=== PATIENT | female | born 1960 | race Caucasian/White ===

== ENCOUNTER 2016-08-16 16:48 | Emergency (ER) | payer OTHER ==
[~2016-08-16] VITALS: Ht 157.5 cm; Wt 72.6 kg
[2016-08-16 17:14] LABS: BILIRUBIN,URINE NEGATIVE (NEGATIVE); KETONES,URINE NEGATIVE (NEGATIVE); LEUKOCYTE ESTERASE ,URINE NEGATIVE (NEGATIVE); NITRITE,URINE NEGATIVE (NEGATIVE); PH,URINE 7 (5-9); PROTEIN,URINE NEGATIVE (NEGATIVE); UROBILINOGEN,URINE NORMAL (NORMAL)
[2016-08-16] MEDS ORDERED: ONDA4TAB11 PO (17:20)
[2016-08-16] MEDS ORDERED: LEVO125T6 PO (17:20)
[2016-08-16] MEDS ORDERED: AMLO5TAB2 PO (17:20)
[2016-08-16] MEDS ORDERED: PANT40TA3 PO (17:20)
[2016-08-16] MEDS ORDERED: CITA20TA7 PO (17:20)
[2016-08-16] MEDS ORDERED: DOXA4TAB2 PO (17:20)
[2016-08-16] MEDS ORDERED: LOSA1TAB70 PO (17:20)
[2016-08-16] MEDS ORDERED: LABE200T3 PO (17:20)
[2016-08-16] MEDS ORDERED: HYDR-3924 PO (17:20)
[2016-08-16] MEDS ORDERED: RANI-515 PO (17:20)
[2016-08-16] MEDS ORDERED: POTA10TA10 PO (17:20)
[2016-08-16] MEDS ORDERED: ESOM20CA PO (17:20)
[2016-08-16 17:22] LABS: SQUAMOUS EPITHELIAL CELL,UR 0-5 /HPF; WBC,URINE 0-2 /HPF
[2016-08-16 17:34] LABS: BASOPHILS % (AUTO) 0 % (0-10); EOSINOPHILS # (AUTO) 0.2 10^3/uL (0.0-0.3); EOSINOPHILS % (AUTO) 3 % (0-10); LYMPHOCYTES # (AUTO) 2.3 X 10^3 (1.0-4.0); LYMPHOCYTES % (AUTO) 27 % (12-44); MEAN CORPUSCULAR HEMOGLOBIN 34 PG (25-34); MEAN CORPUSCULAR HGB CONC 36 G/DL (32-36); MEAN CORPUSCULAR VOLUME 92 FL (80-99); MEAN PLATELET VOLUME 8.9 FL (7.4-10.4); MONOCYTES # (AUTO) 1.1 X 10^3 (0.0-1.0); MONOCYTES % (AUTO) 13 % (0-12); NEUTROPHILS # (AUTO) 4.7 X 10^3 (1.8-7.8); NEUTROPHILS % (AUTO) 57 % (42-75); PLATELET COUNT 264 10^3/uL (130-400); RED BLOOD COUNT 3.81 10^6/uL (4.35-5.85); WHITE BLOOD COUNT 8.4 10^3/uL (4.3-11.0)
--- NOTE | 2016-08-16 17:44 | ED General ---
General Chief Complaint: Altered Mental Status Stated Complaint: AMS Nursing Triage Note: TO ROOM 06 WITH COMPLAINTS OF INCREASED CONFUSION X7-10 DAYS. PT HAS TAKEN ALL MEDS TODAY INCLUDING X2 VALIUM. PT ACTS LOST, ANXIOUS, CRYING ET CONSTANTLY LOOKS TO FOR REASSURANCE. ALERT AND ORIENTED TO NAME ONLY. Nursing Sepsis Screen: No Definite Risk Source of Information: Patient, Family Exam Limitations: No Limitations (LOAN GONZALEZ MD) History of Present Illness Time Seen by Provider: 17:39 Initial Comments The patient is a 56-year-old white female who resides in [place]. Her reports that about 10-14 days ago he began to notice a change in her mental alertness. She seemed to be just a bit off and often slow to answer. He thought that her appetite seemed less and that she perhaps slept more than usual. He states that she has a long-standing problem with frequent and severe migraines. She uses Maxalt for these. The [facility] reports shows that she receives regular prescriptions for hydrocodone 7.5 and diazepam 5 mg. At times the diazepam is treated out for alprazolam 0.5 milligrams. This has occurred at regular intervals over the past year. He reports that their daughter who resides in [place] spoken to her mother 6 or 7 days ago and also thought her to be off mentally. They arrived here yesterday. He states that this seems to be worse than before. She doesn't take her Valium on a daily basis however he believes that she is taken to today. She remains up and ambulatory and he has not noted any coordination deficits. Timing/Duration: Other (10 days) Associated Systoms: Loss of Appetite Malaise (LOAN GONZALEZ MD) Allergies and Home Medications Allergies Coded Allergies: Sulfa (Sulfonamide Antibiotics) (Verified Allergy, Unknown, 08/16/16) codeine (Verified Allergy, Unknown, 08/16/16) Home Medications Amlodipine Besylate 5 Mg Tablet 5 MG PO DAILY (Reported) Citalopram Hydrobromide 20 Mg Tablet 20 MG PO DAILY (Reported) Doxazosin Mesylate 4 Mg Tablet 4 MG PO DAILY (Reported) Esomeprazole Magnesium 20 Mg Capsule.dr 20 MG PO DAILY (Reported) Hydralazine HCl 50 Mg Tablet 50 MG PO BID (Reported) Labetalol HCl 200 Mg Tablet 200 MG PO BID (Reported) Levothyroxine Sodium 125 Mcg Tablet 125 MCG PO DAILY (Reported) Losartan/Hydrochlorothiazide 1 Each Tablet 1 EACH PO DAILY (Reported) Ondansetron 4 Mg Tab.rapdis 4 MG PO Q4H PRN PRN NAUSEA/VOMITING (Reported) Pantoprazole Sodium 40 Mg Tablet.dr 40 MG PO DAILY (Reported) Potassium Chloride 10 Meq Tablet.er 10 MEQ PO DAILY (Reported) Ranitidine HCl 150 Mg Tablet 300 MG PO HS (Reported) Constitutional: see HPI EENTM: no symptoms reported Respiratory: no symptoms reported Gastrointestinal: loss of appetite Genitourinary: no symptoms reported Musculoskeletal: no symptoms reported Skin: no symptoms reported Psychiatric/Neurological: Anxiety Headache Weakness Hematologic/Lymphatic: No Symptoms Reported Immunological/Allergic: no symptoms reported (LOAN GONZALEZ MD) Past Ufgvcxk-Oidnps-Atyimc Hx Patient Social History Alcohol Use: Occasionally Uses Recreational Drug Use: No Smoking Status: Current Everyday Smoker Recent Foreign Travel: No Contact w/Someone Who Travel: No Recent Infectious Disease Expo: No Recent Hopitalizations: No Physical Abuse Screen: No Sexual Abuse: No (LOAN GONZALEZ MD) Surgeries HX Surgeries: Yes Surgeries: Breast, Hysterectomy (LOAN GONZALEZ MD) Respiratory Hx Respiratory Disorders: No (LOAN GONZALEZ MD) Cardiovascular Hx Cardiac Disorders: Yes Cardiac Disorders: Hypertension (LOAN GONZALEZ MD) Neurological Hx Neurological Disorders: Yes Neurological Disorders: Headaches /Migraines (LOAN GONZALEZ MD) Genitourinary Hx Genitourinary Disorders: No (LOAN GONZALEZ MD) Gastrointestinal Hx Gastrointestinal Disorders: No (LOAN GONZALEZ MD) Musculoskeletal Hx Musculoskeletal Disorders: No (LOAN GONZALEZ MD) Endocrine Hx Endocrine Disorders: No (LOAN GONZALEZ MD) HEENT HX ENT Disorders: No (LOAN GONZALEZ MD) Cancer Hx Cancer: No (LOAN GONZALEZ MD) Psychosocial Hx Psychiatric Problems: Yes Behavioral Health Disorders: Depression (LOAN GONZALEZ MD) Physical Exam Vital Signs Vital Sign - Last 12Hours 08/16/16 16:55 Temp 98.0 Pulse 83 Resp 18 B/P 200/123 Pulse Ox 100 O2 Delivery Room Air (ROYCE LYONS DO) Vital Signs Capillary Refill : Less Than 3 Seconds (LOAN GONZALEZ MD) General Appearance: Other (the patient was alert but largely unwilling to answer questions. Her provided most of the history. She nodded in affirmation at times) Eyes: Bilateral Eye Normal Inspection HEENT: Normal ENT Inspection Neck: Normal Inspection Respiratory: Chest Non Tender Lungs Clear Normal Breath Sounds No Accessory Muscle Use No Respiratory Distress Cardiovascular: Regular Rate, Rhythm No Edema No Gallop No JVD No Murmur Normal Peripheral Pulses Gastrointestinal: Normal Bowel Sounds No Organomegaly No Pulsatile Mass Non Tender Soft Back: Normal Inspection No CVA Tenderness No Vertebral Tenderness Extremity: Normal Capillary Refill Normal Inspection Normal Range of Motion Non Tender No Calf Tenderness No Pedal Edema Neurologic/Psychiatric: Other (almost robotic in performance) (LOAN GONZALEZ MD) Progress/Results/Core Measures Results/Orders Lab Results Laboratory Tests Test 08/16/16 17:00 08/16/16 17:25 Range/Units Ur Tricyclic Antidepressants Screen NEGATIVE NEGATIVE Urine Amphetamines Screen NEGATIVE NEGATIVE Urine Bacteria NEGATIVE /HPF Urine Barbiturates Screen POSITIVE H NEGATIVE Urine Benzodiazepines Screen POSITIVE H NEGATIVE Urine Bilirubin NEGATIVE NEGATIVE Urine Cannabinoids Screen POSITIVE H NEGATIVE Urine Casts NONE /LPF Urine Clarity CLEAR Urine Cocaine Screen NEGATIVE NEGATIVE Urine Color YELLOW Urine Crystals NONE /LPF Urine Culture Indicated NO Urine Glucose (UA) NEGATIVE NEGATIVE Urine Ketones NEGATIVE NEGATIVE Urine Leukocyte Esterase NEGATIVE NEGATIVE Urine Methadone Screen NEGATIVE NEGATIVE Urine Methamphetamines Screen NEGATIVE NEGATIVE Urine Mucus NEGATIVE /LPF Urine Nitrite NEGATIVE NEGATIVE Urine Opiates Screen NEGATIVE NEGATIVE Urine Oxycodone Screen NEGATIVE NEGATIVE Urine Phencyclidine Screen NEGATIVE NEGATIVE Urine Propoxyphene Screen NEGATIVE NEGATIVE Urine Protein NEGATIVE NEGATIVE Urine RBC NONE /HPF Urine RBC (Auto) NEGATIVE NEGATIVE Urine Specific [place] 1.015 L 1.016-1.022 Urine Squamous Epithelial Cells 0-5 /HPF Urine Urobilinogen NORMAL NORMAL MG/DL Urine WBC 0-2 /HPF Urine pH 7 5-9 Acetaminophen Level < 10 L 10-30 UG/ML Alanine Aminotransferase (ALT/SGPT) 16 0-55 U/L Albumin 4.9 H 3.2-4.5 G/DL Alkaline Phosphatase 119 40-136 U/L Anion Gap 11 5-14 MMOL/L Aspartate Amino Transf (AST/SGOT) 21 5-34 U/L BUN/Creatinine Ratio 18 Basophils # (Auto) 0.0 0.0-0.1 10^3/uL Basophils (%) (Auto) 0 0-10 % Blood Urea Nitrogen 19 H 7-18 MG/DL Calcium Level 10.7 H 8.5-10.1 MG/DL Carbon Dioxide Level 22 21-32 MMOL/L Chloride Level 97 L 98-107 MMOL/L Creatinine 1.04 0.60-1.30 MG/DL Eosinophils # (Auto) 0.2 0.0-0.3 10^3/uL Eosinophils (%) (Auto) 3 0-10 % Estimat Glomerular Filtration Rate 54 Free Thyroxine 1.37 0.70-1.48 NG/DL Glucose Level 83 70-105 MG/DL Hematocrit 35 35-52 % Hemoglobin 12.8 11.5-16.0 G/DL Lymphocytes # (Auto) 2.3 1.0-4.0 X 10^3 Lymphocytes (%) (Auto) 27 12-44 % Mean Corpuscular Hemoglobin 34 25-34 PG Mean Corpuscular Hemoglobin Concent 36 32-36 G/DL Mean Corpuscular Volume 92 80-99 FL Mean Platelet Volume 8.9 7.4-10.4 FL Monocytes # (Auto) 1.1 H 0.0-1.0 X 10^3 Monocytes (%) (Auto) 13 H 0-12 % Neutrophils # (Auto) 4.7 1.8-7.8 X 10^3 Neutrophils (%) (Auto) 57 42-75 % Platelet Count 264 130-400 10^3/uL Potassium Level 3.5 L 3.6-5.0 MMOL/L Red Blood Count 3.81 L 4.35-5.85 10^6/uL Red Cell Distribution Width 13.0 10.0-14.5 % Serum Alcohol < 10 <10 MG/DL Sodium Level 130 L 135-145 MMOL/L TSH [place] Testing 8.85 H 0.35-4.94 UIU/ML Total Bilirubin 0.5 0.1-1.0 MG/DL Total Protein 7.4 6.4-8.2 G/DL White Blood Count 8.4 4.3-11.0 10^3/uL (ELOY,ROYCE K DO) My Orders Orders-ELOY,ROYCE K DO Thyroid Analyzer (08/16/16 18:23) Saline Lock/Iv-Start (08/16/16 18:24) Ns Iv 1000 Ml (Sodium Chloride 0.9%) (08/16/16 18:24) Enalaprilat Injection (Vasotec Injection (08/16/16 18:45) Clonidine Tablet (Catapres Tablet) (08/16/16 18:45) Free T4 (Free Thyroxine) (08/16/16 17:25) Levothyroxine Tablet (Synthroid Tablet) (08/16/16 19:30) (ROYCE LYONS DO) Medications Given in ED Current Medications Medications Dose Ordered Sig/Elsa Route Start Time Stop Time Status Last Admin Dose Admin Clonidine HCl 0.2 mg ONCE ONCE PO 08/16/16 18:45 08/16/16 18:46 DC 08/16/16 18:47 0.2 MG Enalaprilat 5 mg ONCE ONCE IV 08/16/16 18:45 08/16/16 18:46 DC 08/16/16 18:47 5 MG Sodium Chloride 1,000 ml @ 0 mls/hr Q0M ONCE IV 08/16/16 18:24 08/16/16 18:25 UNV 08/16/16 18:47 1,000 MLS/HR (ROYCE LYONS DO) Vital Signs/I&O Vital Sign - Last 12Hours 08/16/16 16:55 Temp 98.0 Pulse 83 Resp 18 B/P 200/123 Pulse Ox 100 O2 Delivery Room Air (ROYCE LYONS DO) Blood Pressure Mean: 148 Progress Note : Progress Note 1800--ASSUMED CARE FROM DR. GONZALEZ, CT HEAD PENDING. PT IS HERE VISITING FROM [place] AND IS GOING BACK HOME TOMORROW PT HAS LONG HISTORY OF POORLY CONTROLLED HTN--PT DOES NOT KNOW IF SHE TOOK HER MEDICATIONS OR NOT, NOR DOES MALE S.O. BUT HE STATES SHE DID TAKE THEM YESTERDAY AM AND AFTERNOON. OTHERWISE HE HAS NO IDEA IF SHE HAS BEEN TAKING HER MEDICATIONS OR NOT, NOR DOES PT HAS NOT SEEN HER PCP IN A LONG TIME, AND DOES NOT HAVE AN UPCOMING APPOINTMENT PER [facility], PT TAKES DIAZEPAM AND HYDROCODONE, WHICH PT DID NOT REPORT TO RN HER REGULAR MEDICATIONS. SHE GETS RX'S FILLED EVERY MONTH FOR THESE MEDICATIONS. PT ALSO TAKES MAXALT, WHICH SHE ALSO DOES NOT REPORT TO RN PT HAS NO SYMPTOMS AT THIS TIME PT IS CALM AND QUIET. MALE S.O. DOES ALL OF TALKING FOR PT. AND HE IS A LIMITED HISTORIAN PT HAS DIFFICULTY FOLLOWING COMMANDS AND DOES SEEM CONFUSED--DID NOT KNOW WHAT TO DO WITH CLONIDINE PILLS THAT RN GAVE HER, AFTER SHE URINATED, THEN DIDN'T KNOW WHAT TO DO AFTERWARD AND JUST SAT DOWN ON COMMODE. PT WITH SLOW MENTATION. MALE S.O. HAS NO IDEA WHAT MEDICATIONS PT IS SUPPOSED TO TAKE OR WHAT DR'S SHE SEES BESIDES HER PCP--HE HAS NEVER GONE WITH HER TO DR. VISIT ON REVIEW OF PT'S MEDICATIONS, IS VERY OBVIOUS THAT PT HAS NOT BEEN TAKING ANY OF HER MEDICATIONS PRESCRIBED--MOST RECENTLY FILLED MEDICATIONS WERE ON 07/[address] CONSTANTINO, WHO IS POSSIBLY A PRACTICE MANAGEMENT CONSULTANT, ALL THESE MEDICATIONS ARE FOR HTN----SOME BOTTLES ARE NEARLY FULL OR HAVE MORE THAN A WEEK'S WORTH OF MEDICATION STILL LEFT IN THE BOTTLE. ONE IS NEARLY FULL AND WAS FILLED IN MAY. HE DOES REPORT THAT PT HAS TAKEN AT LEAST 2 DOSES OF VALIUM TODAY ( HYDROCODONE , VALIUM AND MAXALT BOTTLES ARE NOT WITH THE BAG OF MEDICATIONS THAT HAS BEEN BROUGHT INTO ER TODAY) SHE ALSO TAKES HYDROCODONE ON A REGULAR BASIS FOR "MIGRAINES"--QUESTION WHETHER HER HEADACHES ARE RELATED TO ELEVATED BP???--THEY DO NOT CHECK HER BP AT HOME. BP DOWN TO 138/91 AT DISMISSAL NO DETERIORATION IN PT'S CONDITION DURING ER STAY (ROYCE LYONS DO) Diagnostic Imaging Comments CT HEAD--NO ACUTE PROCESS, PER RADIOLOGIST REPORT @ 1821 CXR--VASCULAR CONGESTION, BIBASILAR ATELECTASIS/PLEURAL EFFUSIONS--PER RADIOLOGIST REPORTS @ 1838 Reviewed: Reviewed by Me (ROYCE LYONS DO) Departure Impression Impression: Primary Impression: ALTERED MENTAL STATUS Additional Impressions: MILD HYPONATREMIA Uncontrolled hypertension Hypothyroidism Non-compliance ILLICIT DRUG USE Disposition: HOME, SELF-CARE Condition: Stable Departure-Patient Inst. Referrals: NO,LOCAL PHYSICIAN (PCP/Family) Primary Care Physician Patient Instructions: Altered Mental Status (DC), High Blood Pressure (DC), Hyponatremia (DC), Hypothyroidism (Underactive Thyroid) (DC) Add. Discharge Instructions: TAKE YOUR MEDICATIONS EXACTLY PRESCRIBED--DO NOT MISS DOSES!! SET UP A WEEKLY PILL CLINICAL PHARMACIST FOR PT AND MONITOR PT TO MAKE SURE THAT SHE IS TAKING THE CORRECT MEDICATIONS AT THE CORRECT TIME EVERY DAY LIMIT VALIUM TO ONCE A DAY AVOID HYDROCODONE --TAKE TYLENOL OR IBUPROFEN INSTEAD FOR PAIN FOLLOW UP WITH YOUR DR IN 2-3 DAYS FOR FURTHER CARE GO TO NEAREST ER IF SYMPTOMS WORSEN All discharge instructions reviewed with patient and/or family. Voiced understanding. LOAN GONZALEZ MD Aug 16, 2016 17:44 ROYCE LYONS DO Aug 16, 2016 18:04
[2016-08-16 17:57] LABS: ALANINE AMINOTRANSFERASE 16 U/L (0-55); ALBUMIN 4.9 G/DL (3.2-4.5); ANION GAP 11 MMOL/L (5-14); ASPARTATE AMINO TRANSFERASE 21 U/L (5-34); BILIRUBIN,TOTAL 0.5 MG/DL (0.1-1.0); BLOOD UREA NITROGEN 19 MG/DL (7-18); BUN/CREATININE RATIO 18; CALCIUM 10.7 MG/DL (8.5-10.1); CARBON DIOXIDE 22 MMOL/L (21-32); CHLORIDE 97 MMOL/L (98-107); CREATININE SERUM 1.04 MG/DL (0.60-1.30); GFR ESTIMATED 54; GLUCOSE 83 MG/DL (70-105); POTASSIUM 3.5 MMOL/L (3.6-5.0); SODIUM 130 MMOL/L (135-145); TOTAL PROTEIN 7.4 G/DL (6.4-8.2)
[2016-08-16 17:58] LABS: ACETAMINOPHEN < 10 UG/ML (10-30); ALCOHOL < 10 MG/DL (<10)
--- NOTE | 2016-08-16 18:18 | Diagnostic Imaging Report ---
PROCEDURE: CT head without contrast. INDICATION: Altered mental status EXAMINATION: CT brain 08/16/2016 FINDINGS: Multiple axial images of the brain without contrast. There is no evidence for acute hemorrhage or infarct. There is no mass, mass effect, midline shift or hydrocephalus. The paranasal sinuses and mastoid air cells demonstrate no acute abnormality. IMPRESSION: No acute intracranial process. Dictated by: Dictated on workstation # [id number]
[2016-08-16] MEDS ORDERED: NS IV 1000 ML 1,000 ML IV ONE (18:24)
--- NOTE | 2016-08-16 18:27 | Diagnostic Imaging Report ---
INDICATION: Altered mental status. EXAMINATION: Frontal chest, 08/16/2016. COMPARISON: 10/12/13. FINDINGS: There is cardiomegaly and pulmonary vascular congestion. Bibasilar atelectasis is seen. Lungs are hyperinflated with tiny bilateral effusions possible. No pneumothorax. Pulmonary vasculature is mildly congested. IMPRESSION: 1. Pulmonary vascular congestion and cardiomegaly. 2. Hyperinflation of lungs. 3. Bibasilar atelectasis with small effusions possible. Dictated by: Dictated on workstation # [id number]
[2016-08-16] MEDS ORDERED: NS IV 1000 ML 1,000 ML ONE (18:37)
[2016-08-16] MEDS ORDERED: ENALAPRILAT 2.5 MG/2 ML (VASOTEC) VIAL IV ONE (18:45)
[2016-08-16] MEDS ORDERED: cloNIDine 0.2 MG (CATAPRES) TAB PO ONE (18:45)
[2016-08-16] MEDS ORDERED: LEVOTHYROXINE 150 MCG (LEVOTHROID) TAB PO ONE (19:30)
[2016-08-16 19:48] VITALS: BP 138/91
== END 2016-08-16 19:48 | disposition home or self-care (01) ==
LOC: ER 16:51
DX: R41.82 Altered mental status, unspecified (principal); I16.0 Hypertensive urgency; E03.9 Hypothyroidism, unspecified; F12.10 Cannabis abuse, uncomplicated; F13.10 Sedative, hypnotic or anxiolytic abuse, uncomplicated; F19.10 Other psychoactive substance abuse, uncomplicated; Z91.14 Patient's other noncompliance with medication regimen
CPT/HCPCS: 36415; 70450; 71010; 80053; 80306; 80320; 80329; 81000; 84439; 84443; 85025; 96361; 96374

== ENCOUNTER 2017-12-20 18:18 | Inpatient (IN) | payer OTHER ==
[~2017-12-20] VITALS: Ht 157.5 cm; Wt 72.6 kg
[~2017-12-20 18:18] MED LIST: AMLO5TAB2 PO; CITA20TA9 PO; DOXA4TAB2 PO; ESOM20CA PO; HYDR-3924 PO; LABE200T3 PO; LEVO125T6 PO; LOSA1TAB23 PO; ONDA4TAB11 PO; PANT40TA3 PO; POTA10TA10 PO; RANI-515 PO
--- NOTE | 2017-12-20 18:59 | ED Lower Extremity ---
General Chief Complaint: Skin/Wound Problems Stated Complaint: R LEG SWELLING/REDNESS, PAINFUL Nursing Triage Note: c/o R leg swelling and erythema Nursing Sepsis Screen: No Definite Risk Source: patient Exam Limitations: no limitations History of Present Illness Date Seen by Provider: December 20, 2017 Time Seen by Provider: 18:47 Initial Comments PT ARRIVES VIA POV--PT IS HERE VISITING FROM [place], [place] FOR THE LAST FEW WEEKS--HELPING DAUGHTER TAKE CARE OF HER DAUGHTER'S KIDS C/O PAIN, REDNESS AND SWELLING TO RIGHT LOWER LEG YESTERDAY MORNING HAD FEVER OF 103.6 YESTERDAY, NO FEVER TODAY STATES SHE TOOK 1/2 OF HYDROCODONE 7.5 MG TODAY FOR PAIN PT STATES SHE HAS BEEN DX WITH NUMMULAR ECZEMA --HAD BIOPSY ON RIGHT LOWER LEG 3 WEEKS AGO BY PA AT DR. CUELLAR OFFICE. STATES SHE WAS ALSO TOLD IT WAS "PRECANCEROUS". PT WAS PRESCRIBED AN UNKNOWN CREAM FOR IT. PCP: IN [place], [place] Allergies and Home Medications Allergies Coded Allergies: Sulfa (Sulfonamide Antibiotics) (Verified Allergy, Unknown, 08/16/16) codeine (Verified Allergy, Unknown, 08/16/16) Home Medications Amlodipine Besylate 5 Mg Tablet, 5 MG PO DAILY, (Reported) Citalopram Hydrobromide 20 Mg Tablet, 20 MG PO DAILY, (Reported) Doxazosin Mesylate 4 Mg Tablet, 4 MG PO DAILY, (Reported) Esomeprazole Magnesium 20 Mg Capsule.dr, 20 MG PO DAILY, (Reported) Hydralazine HCl 50 Mg Tablet, 50 MG PO BID, (Reported) Labetalol HCl 200 Mg Tablet, 200 MG PO BID, (Reported) Levothyroxine Sodium 125 Mcg Tablet, 125 MCG PO DAILY, (Reported) Losartan/Hydrochlorothiazide 1 Each Tablet, 1 EACH PO DAILY, (Reported) Ondansetron 4 Mg Tab.rapdis, 4 MG PO Q4H PRN for NAUSEA/VOMITING, (Reported) Pantoprazole Sodium 40 Mg Tablet.dr, 40 MG PO DAILY, (Reported) Potassium Chloride 10 Meq Tablet.er, 10 MEQ PO DAILY, (Reported) Ranitidine HCl 150 Mg Tablet, 300 MG PO HS, (Reported) Patient Home Medication List Home Medication List Reviewed: Yes Constitutional: see HPI, fever Respiratory: no symptoms reported; No dyspnea on exertion, No short of breath Cardiovascular: no symptoms reported; No chest pain Gastrointestinal: no symptoms reported Genitourinary: no symptoms reported Musculoskeletal: see HPI Skin: see HPI Psychiatric/Neurological: No Symptoms Reported; Denies Numbness, Denies Paresthesia Past Suqguqp-Ltgmbu-Mxnpdt Hx Patient Social History Alcohol Use: Occasionally Uses Recreational Drug Use: No Smoking Status: Current Everyday Smoker (1/2 PPD) Type Used: Cigarettes (1/2 PPD) Recent Foreign Travel: No Contact w/Someone Who Travel: No Recent Infectious Disease Expo: No Recent Hopitalizations: No Past Medical History Surgeries: Yes (HYST/BSO; RIGHT BREAST BIOPSY/BENIGN LUMPECTOMY; ) Breast, Hysterectomy, Oophorectomy, Tubal Ligation Respiratory: No Cardiac: Yes Hypertension Neurological: Yes Headaches /Migraines Female 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 Disorders: 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, 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 Genitourinary: No Gastrointestinal: Yes Gastroesophageal Reflux Musculoskeletal: No Endocrine: Yes Hypothyroidsim HEENT: No Cancer: No Psychosocial: Yes Anxiety, Depression Integumentary: Yes (NUMMULAR ECZEMA) Eczema Blood Disorders: No Physical Exam Vital Signs Vital Signs - First Documented 12/20/17 18:41 Temp 98.7 Pulse 77 Resp 18 B/P (MAP) 144/81 (102) Pulse Ox 100 Capillary Refill : Less Than 3 Seconds General Appearance: WD/WN, no apparent distress, other (ANXIOUS, VOICE TREMULOUS) Cardiovascular: normal peripheral pulses, regular rate, rhythm, no murmur Respiratory: normal breath sounds, no respiratory distress, no accessory muscle use Hips: right hip normal inspection Legs: right leg other (RIGHT LOWER LEG--BETWEEN KNEE AND ANKLE--WITH ERYTHEMA, WARMTH, TENDERNESS, AND MILD SWELLING. EXTENSIVE PATCHES OF SORES/SCABS/SCARS/ HYPERPIGMENTED AREAS WITH SCALING TO THESE AREAS--TO ARMS AND LEGS) Knees: right knee non-tender, right knee normal inspection, right knee normal range of motion, right knee no evidence of injury Ankles: right ankle non-tender, right ankle normal inspection, right ankle normal range of motion, right ankle no evidence of injury Feet: right foot non-tender, right foot normal inspection, right foot normal range of motion, right foot no evidence of injury Neurologic/Tendon: normal sensation, normal motor functions, normal tendon functions Neurologic/Psychiatric: aquatic habitat biologist II-XII nml as tested, no motor/sensory deficits, alert, normal mood/affect, oriented x 3 Skin: normal color, warm/dry, rash ( ABOVE) Progress/Results/Core Measures Results/Orders Lab Results Laboratory Tests Test 12/20/17 18:45 Range/Units White Blood Count 15.8 H 4.3-11.0 10^3/uL Red Blood Count 4.04 L 4.35-5.85 10^6/uL Hemoglobin 13.2 11.5-16.0 G/DL Hematocrit 38 35-52 % Mean Corpuscular Volume 93 80-99 FL Mean Corpuscular Hemoglobin 33 25-34 PG Mean Corpuscular Hemoglobin Concent 35 32-36 G/DL Red Cell Distribution Width 13.5 10.0-14.5 % Platelet Count 272 130-400 10^3/uL Mean Platelet Volume 9.3 7.4-10.4 FL Neutrophils (%) (Auto) 87 H 42-75 % Lymphocytes (%) (Auto) 4 L 12-44 % Monocytes (%) (Auto) 8 0-12 % Eosinophils (%) (Auto) 1 0-10 % Basophils (%) (Auto) 0 0-10 % Neutrophils # (Auto) 13.8 H 1.8-7.8 X 10^3 Lymphocytes # (Auto) 0.7 L 1.0-4.0 X 10^3 Monocytes # (Auto) 1.2 H 0.0-1.0 X 10^3 Eosinophils # (Auto) 0.1 0.0-0.3 10^3/uL Basophils # (Auto) 0.0 0.0-0.1 10^3/uL Neutrophils % (Manual) 91 % Lymphocytes % (Manual) 3 % Monocytes % (Manual) 2 % Eosinophils % (Manual) 0 % Basophils % (Manual) 0 % Band Neutrophils 4 % Blood Morphology Comment NORMAL Erythrocyte Sedimentation Rate 22 0-30 MM/HR Prothrombin Time 13.0 12.2-14.7 SEC INR Comment 1.0 0.8-1.4 Activated Partial Thromboplast Time 36 H 24-35 SEC Sodium Level 124 *L 135-145 MMOL/L Potassium Level 3.9 3.6-5.0 MMOL/L Chloride Level 91 L 98-107 MMOL/L Carbon Dioxide Level 21 21-32 MMOL/L Anion Gap 12 5-14 MMOL/L Blood Urea Nitrogen 15 7-18 MG/DL Creatinine 1.06 0.60-1.30 MG/DL Estimat Glomerular Filtration Rate 53 BUN/Creatinine Ratio 14 Glucose Level 103 70-105 MG/DL Lactic Acid Level 1.45 0.50-2.00 MMOL/L Calcium Level 10.6 H 8.5-10.1 MG/DL Total Bilirubin 0.6 0.1-1.0 MG/DL Aspartate Amino Transf (AST/SGOT) 13 5-34 U/L Alanine Aminotransferase (ALT/SGPT) 12 0-55 U/L Alkaline Phosphatase 90 40-136 U/L Total Protein 7.3 6.4-8.2 GM/DL Albumin 4.2 3.2-4.5 GM/DL Serum Alcohol < 10 <10 MG/DL My Orders Orders - ROYCE LYONS DO Saline Lock/Iv-Start (12/20/17 18:48) Cbc With Automated Diff (12/20/17 18:48) Comprehensive Metabolic Panel (12/20/17 18:48) Erythrocyte Sedimentation Rate (12/20/17 18:48) Lactic Acid Analyzer (12/20/17 18:48) Protime With Inr (12/20/17 18:48) Partial Thromboplastin Time (12/20/17 18:48) Us Venous Lower Ext Rt (12/20/17 18:48) Blood Culture (12/20/17 18:58) Ketorolac Injection (Toradol Injection) (12/20/17 19:00) Manual Differential (12/20/17 18:45) Alcohol (12/20/17 19:27) Saline Lock/Iv-Start (12/20/17 19:33) Ns Iv 1000 Ml (Sodium Chloride 0.9%) (12/20/17 19:33) Clindamycin 900 Mg/50 Ml Ivpb (Cleocin P (12/20/17 20:15) Ketorolac Injection (Toradol Injection) (12/20/17 19:07) Medications Given in ED Current Medications Medications Dose Ordered Sig/Elsa Route Start Time Stop Time Status Last Admin Dose Admin Ketorolac Tromethamine 30 mg ONCE ONCE IVP 12/20/17 19:00 12/20/17 20:21 DC 12/20/17 19:17 30 MG Sodium Chloride 1,000 ml @ 0 mls/hr Q0M ONCE IV 12/20/17 19:33 12/20/17 19:35 DC 12/20/17 19:56 0 MLS/HR Vital Signs/I&O 12/20/17 18:41 Temp 98.7 Pulse 77 Resp 18 B/P (MAP) 144/81 (102) Pulse Ox 100 Blood Pressure Mean: 102 Progress Progress Note : Progress Note UNEVENTFUL ER STAY Diagnostic Imaging Comments ULTRASOUND RIGHT LEG--NO DVT, PER RADIOLOGIST REPORT @ 2012 Reviewed: Reviewed by Me Departure Communication (Admissions) 2012--SPOKE WITH DR. GONZALEZ, HOSPITALIST, ACCEPTS PT FOR ADMIT Impression Primary Impression: Cellulitis of right lower extremity without foot Additional Impressions: Hx of nummular eczema Sepsis Hyponatremia Disposition: ADMITTED INPATIENT Condition: Stable Admissions Decision to Admit Reason: Admit from ER (General) Decision to Admit/Date: December 20, 2017 Time/Decision to Admit Time: 20:15 Departure-Patient Inst. Referrals: NO,LOCAL PHYSICIAN (PCP/Family) Primary Care Physician ROYCE LYONS DO December 20, 2017 18:59
[2017-12-20] MEDS ORDERED: KETOROLAC 30 MG/ML VIAL IVP ONE (19:00)
[2017-12-20 19:06] LABS: BASOPHILS % (AUTO) 0 % (0-10); EOSINOPHILS # (AUTO) 0.1 10^3/uL (0.0-0.3); EOSINOPHILS % (AUTO) 1 % (0-10); HEMATOCRIT 38 % (35-52); HEMOGLOBIN 13.2 G/DL (11.5-16.0); LYMPHOCYTES # (AUTO) 0.7 X 10^3 (1.0-4.0); LYMPHOCYTES % (AUTO) 4 % (12-44); MEAN CORPUSCULAR HEMOGLOBIN 33 PG (25-34); MEAN CORPUSCULAR HGB CONC 35 G/DL (32-36); MEAN CORPUSCULAR VOLUME 93 FL (80-99); MEAN PLATELET VOLUME 9.3 FL (7.4-10.4); MONOCYTES # (AUTO) 1.2 X 10^3 (0.0-1.0); MONOCYTES % (AUTO) 8 % (0-12); NEUTROPHILS # (AUTO) 13.8 X 10^3 (1.8-7.8); NEUTROPHILS % (AUTO) 87 % (42-75); PLATELET COUNT 272 10^3/uL (130-400); RED BLOOD COUNT 4.04 10^6/uL (4.35-5.85); RED CELL DISTRIBUTION WIDTH 13.5 % (10.0-14.5); WHITE BLOOD COUNT 15.8 10^3/uL (4.3-11.0)
[2017-12-20] MEDS ORDERED: KETOROLAC 30 MG/ML VIAL ONE (19:07)
[2017-12-20 19:24] LABS: BAND NEUTROPHILS 4 %; BASOPHILS % (MANUAL) 0 %; EOSINOPHILS % (MANUAL) 0 %; LYMPHOCYTES % (MANUAL) 3 %; MONOCYTES % (MANUAL) 2 %; NEUTROPHILS % (MANUAL) 91 %; RBC MORPH NORMAL
[2017-12-20 19:26] LABS: ALBUMIN 4.2 GM/DL (3.2-4.5); BILIRUBIN,TOTAL 0.6 MG/DL (0.1-1.0); CALCIUM 10.6 MG/DL (8.5-10.1); CREATININE SERUM 1.06 MG/DL (0.60-1.30); POTASSIUM 3.9 MMOL/L (3.6-5.0); TOTAL PROTEIN 7.3 GM/DL (6.4-8.2)
[2017-12-20 19:27] LABS: ERYTHROCYTE SEDIMENTATION RATE 22 MM/HR (0-30)
[2017-12-20] MEDS ORDERED: NS IV 1000 ML 1,000 ML IV ONE (19:33)
--- NOTE | 2017-12-20 20:11 | Diagnostic Imaging Report ---
PROCEDURE: US right lower extremity venous. TECHNIQUE: Multiple real-time grayscale images were obtained over the right lower extremity in various projections. Additional duplex Doppler and color Doppler images were also obtained. INDICATION: Right lower extremity pain and swelling. Warmth and redness Examination shows normal augmentation, compression and color Doppler flow with no thrombosis or other abnormality seen. IMPRESSION: No abnormality is seen. Dictated by: Dictated on workstation # [id number]
[2017-12-20] MEDS ORDERED: CLINDAMYCIN 900 MG/50 ML IVPB 50 ML IV ONE (20:15)
[2017-12-20 20:35] VITALS: BP 160/78
[2017-12-20] MEDS ORDERED: fentaNYL INJECTION 100 MCG/2 ML AMP IVP STA (20:35)
[2017-12-20] MEDS ORDERED: fentaNYL INJECTION 100 MCG/2 ML AMP ONE (20:39)
[2017-12-20] MEDS ORDERED: KETOROLAC 30 MG/ML VIAL IV PRN (21:00)
[2017-12-20] MEDS ORDERED: PIPERACILLIN/TAZO 4.5 GM/D5W 100 ML IVPB IV ONE ×2 (21:00)
[2017-12-20] MEDS ORDERED: VANCOMYCIN 1500 MG/NS 500 ML IVPB IV ONE ×2 (21:00)
[2017-12-20] MEDS ORDERED: HYDROcodone/APAP 5 MG/325 MG (LORTAB) TAB PO PRN (21:00)
[2017-12-20] MEDS ORDERED: VANCOMYCIN 1000 MG/VIAL ONE (23:54)
[2017-12-20] MEDS ORDERED: VANCOMYCIN 500 MG/VIAL IV ONE (23:55)
[2017-12-20] MEDS ORDERED: NS IV 500 ML 500 ML ONE (23:57)
[2017-12-21] VITALS (7 sets, daily range): BP systolic 103–167; BP diastolic 53–82
[2017-12-21] MEDS: NS IV 1000 ML 1,000 ML IV SCH ×3 (03:54→14:44)
[2017-12-21] MEDS ORDERED: ACETAMINOPHEN 500 MG TAB (TYLENOL) PO PRN (04:00)
[2017-12-21] MEDS ORDERED: ACETAMINOPHEN 325 MG TABLET/CAPLET (TYLENOL) ONE (05:08)
[2017-12-21 05:37] LABS: BASOPHILS % (AUTO) 0 % (0-10); EOSINOPHILS # (AUTO) 0.1 10^3/uL (0.0-0.3); EOSINOPHILS % (AUTO) 1 % (0-10); HEMATOCRIT 35 % (35-52); HEMOGLOBIN 12.2 G/DL (11.5-16.0); LYMPHOCYTES # (AUTO) 0.6 X 10^3 (1.0-4.0); LYMPHOCYTES % (AUTO) 4 % (12-44); MEAN CORPUSCULAR HEMOGLOBIN 32 PG (25-34); MEAN CORPUSCULAR HGB CONC 35 G/DL (32-36); MEAN CORPUSCULAR VOLUME 92 FL (80-99); MEAN PLATELET VOLUME 9.1 FL (7.4-10.4); MONOCYTES # (AUTO) 1.1 X 10^3 (0.0-1.0); MONOCYTES % (AUTO) 7 % (0-12); NEUTROPHILS % (AUTO) 88 % (42-75); PLATELET COUNT 239 10^3/uL (130-400); RED BLOOD COUNT 3.79 10^6/uL (4.35-5.85); RED CELL DISTRIBUTION WIDTH 13.6 % (10.0-14.5); WHITE BLOOD COUNT 14.7 10^3/uL (4.3-11.0)
[2017-12-21] MEDS: PIPERACILLIN/TAZO 4.5 GM/D5W 100 ML IVPB IV SCH ×6 (05:52→22:17)
[2017-12-21 05:56] LABS: ALBUMIN 3.5 GM/DL (3.2-4.5); BILIRUBIN,TOTAL 0.6 MG/DL (0.1-1.0); CALCIUM 9.5 MG/DL (8.5-10.1); CREATININE SERUM 0.96 MG/DL (0.60-1.30)
[2017-12-21] MEDS ORDERED: PROMETHAZINE 25 MG PO (08:17)
[2017-12-21] MEDS ORDERED: [UNRECOGNIZED DRUG - CODE] PO (08:17)
[2017-12-21] MEDS ORDERED: DIAZ5TAB3 PO (08:17)
[2017-12-21] MEDS: LABETALOL 200 MG (NORMODYNE) TAB PO SCH ×2 (11:14→20:26)
[2017-12-21] MEDS: amLODIPine 5 MG (NORVASC) TAB PO SCH (11:14)
[2017-12-21] MEDS: doxAzosin 4 MG (CARDURA) TAB PO SCH (11:14)
[2017-12-21] MEDS: hydrALAZINE (APRESOLINE) 25 MG TAB PO SCH ×2 (11:14→20:27)
[2017-12-21] MEDS: KCL 10 MEQ TAB (MICRO K) PO SCH (11:15)
[2017-12-21] MEDS: PANTOPRAZOLE 40 MG (PROTONIX) TAB PO SCH (11:22)
--- NOTE | 2017-12-21 14:43 | History & Physical-Hospitalist ---
History of Present Illness HPI/Chief Complaint The patient is a [age]-year-old white female who lives in [place]. 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 She presented to the emergency room last evening with a red and painful lower leg. She stated that this had begun earlier in the day. s He did not report any open areas of skin. She has a chronic dermatologic problem which she has been told is nummular eczema. She had also had a punch biopsy performed on a skin lesion on the right lower leg 3 weeks ago or so at Dr. CUELLAR' office. She was told that the biopsy report was that of actinic keratosis. Date Seen 12/21/17 Time Seen by Provider: 14:39 Attending Physician Milan Gonzalez MD PCP No,Local Physician Referring Physician Date of Admission December 20, 2017 at 20:15 Home Medications & Allergies Home Medications Reviewed patient Home Medication Reconciliation performed by pharmacy medication reconciliations investment recovery technician and/or nursing. Patients Allergies have been reviewed. Allergies Allergies Coded Allergies Sulfa (Sulfonamide Antibiotics) (Verified Allergy, Unknown, 08/16/16) codeine (Verified Allergy, Unknown, 08/16/16) Past Tvwolkm-Sumefo-Kkecox Hx Past Med/Social Hx: Reviewed Nursing Past Med/Soc Hx Patient Social History Alcohol Use: Occasionally Uses Recreational Drug Use: No Smoking Status: Current Everyday Smoker Type Used: Cigarettes (1/2 PPD) Physical Abuse Screen: No Sexual Abuse: No Recent Foreign Travel: No Contact w/other who traveled: No Recent Hopitalizations: No Recent Infectious Disease Expo: No Past Medical History Surgeries: Breast, Hysterectomy, Oophorectomy, Tubal Ligation Cardiac: Hypertension Neurological: Headaches /Migraines Female 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 Disorders: Menstrual Problems Hysterectomy, Menopausal Gastrointestinal: Gastroesophageal Reflux Endocrine: Hypothyroidsim Psychosocial: Anxiety, Depression Skin/Integumentary: Eczema History of Blood Disorders: No Review of Systems Constitutional: see HPI EENTM: no symptoms reported Respiratory: no symptoms reported Cardiovascular: no symptoms reported Gastrointestinal: no symptoms reported Genitourinary: no symptoms reported Musculoskeletal: no symptoms reported Skin: other (nummular eczema) Psychiatric/Neurological: No Symptoms Reported Physical Exam Physical Exam Vital Signs Vital Signs - First Documented 12/20/17 12/20/17 18:41 20:35 Temp 98.7 Pulse 77 Resp 18 B/P (MAP) 144/81 (102) Pulse Ox 100 O2 Delivery Room Air Capillary Refill : Less Than 3 Seconds General Appearance: Mild Distress, Moderate Distress Eyes: Bilateral Eye Normal Inspection HEENT: Normal ENT Inspection Neck: Normal Inspection Respiratory: Chest Non Tender, Lungs Clear, Normal Breath Sounds, No Accessory Muscle Use, No Respiratory Distress Cardiovascular: Regular Rate, Rhythm, No Edema, No Gallop, No JVD, No Murmur, Normal Peripheral Pulses Comments There is a fiery red process from the malleolus on the right leg to the distal border of the patella. This is shiny and warm to the touch. The calf is clearly swollen as compared to the left. The skin over the patella is pink and there appears to be a slight effusion in the prepatellar bursa. Results Results/Procedures Labs Laboratory Tests 12/20/17 18:45 12/21/17 05:15 12/21/17 05:18 Patient resulted labs reviewed. Assessment/Plan Admission Diagnosis Cellulitis right lower leg. 2.history of nummular eczema. Admission Status: Inpatient Order (span 2 midnights) Reason for Inpatient Admission: Flaming cellulitis Assessment and Plan Broad-spectrum antibiotics to cover staph species, strep, MRSA assay. Clinical Quality Measures DVT/VTE Risk/Contraindication: Risk Factor Score Per Nursin RFS Level Per Nursing on Admit: 4+=Very High MILAN GONZALEZ MD December 21, 2017 14:43
[2017-12-21] MEDS: ACETAMINOPHEN 325 MG TABLET/CAPLET (TYLENOL) PO PRN ×2 (15:45→20:33)
[2017-12-21] MEDS: VANCOMYCIN 1250 MG/NS 250 ML IVPB IV SCH ×2 (20:27)
[2017-12-21] MEDS: FAMOTIDINE 20 MG (PEPCID) TABLET PO SCH (20:27)
[2017-12-22] MEDS: NS IV 1000 ML 1,000 ML IV SCH (02:54)
[2017-12-22 03:27] VITALS: BP 149/76
[2017-12-22] MEDS: ACETAMINOPHEN 325 MG TABLET/CAPLET (TYLENOL) PO PRN ×3 (03:43→22:21)
[2017-12-22] MEDS: LEVOTHYROXINE 112 MCG (LEVOTHROID) TAB PO SCH (05:41)
[2017-12-22] MEDS: PIPERACILLIN/TAZO 4.5 GM/D5W 100 ML IVPB IV SCH ×6 (05:42→22:16)
[2017-12-22 07:17] VITALS: BP 123/69
[2017-12-22 07:58] LABS: BASOPHILS % (AUTO) 0 % (0-10); EOSINOPHILS # (AUTO) 0.1 10^3/uL (0.0-0.3); EOSINOPHILS % (AUTO) 0 % (0-10); HEMATOCRIT 33 % (35-52); HEMOGLOBIN 11.2 G/DL (11.5-16.0); LYMPHOCYTES # (AUTO) 0.7 X 10^3 (1.0-4.0); LYMPHOCYTES % (AUTO) 5 % (12-44); MEAN CORPUSCULAR HEMOGLOBIN 32 PG (25-34); MEAN CORPUSCULAR HGB CONC 34 G/DL (32-36); MEAN CORPUSCULAR VOLUME 93 FL (80-99); MEAN PLATELET VOLUME 9.3 FL (7.4-10.4); MONOCYTES # (AUTO) 1.5 X 10^3 (0.0-1.0); MONOCYTES % (AUTO) 11 % (0-12); NEUTROPHILS # (AUTO) 11.9 X 10^3 (1.8-7.8); NEUTROPHILS % (AUTO) 84 % (42-75); PLATELET COUNT 202 10^3/uL (130-400); RED BLOOD COUNT 3.51 10^6/uL (4.35-5.85); RED CELL DISTRIBUTION WIDTH 13.8 % (10.0-14.5); WHITE BLOOD COUNT 14.3 10^3/uL (4.3-11.0)
[2017-12-22 08:22] LABS: BUN/CREATININE RATIO 7; CALCIUM 9.1 MG/DL (8.5-10.1); CARBON DIOXIDE 19 MMOL/L (21-32); CHLORIDE 106 MMOL/L (98-107); CREATININE SERUM 0.67 MG/DL (0.60-1.30); GFR ESTIMATED > 60; GLUCOSE 93 MG/DL (70-105); POTASSIUM 3.4 MMOL/L (3.6-5.0); SODIUM 132 MMOL/L (135-145)
[2017-12-22] MEDS: KCL 10 MEQ TAB (MICRO K) PO SCH (09:39)
[2017-12-22] MEDS: hydrALAZINE (APRESOLINE) 25 MG TAB PO SCH ×2 (09:39→20:13)
[2017-12-22] MEDS: amLODIPine 5 MG (NORVASC) TAB PO SCH (09:39)
[2017-12-22] MEDS: doxAzosin 4 MG (CARDURA) TAB PO SCH (09:39)
[2017-12-22] MEDS: PANTOPRAZOLE 40 MG (PROTONIX) TAB PO SCH (09:39)
[2017-12-22] MEDS: LABETALOL 200 MG (NORMODYNE) TAB PO SCH ×2 (09:39→20:13)
--- NOTE | 2017-12-22 11:22 | Progress Note-Hospitalist ---
Subjective HPI/CC On Admission Date Seen by Provider: December 22, 2017 Time Seen by Provider: 11:17 The patient is a [age]-year-old white female who lives in [place]. 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 She presented to the emergency room last evening with a red and painful lower leg. She stated that this had begun earlier in the day. s He did not report any open areas of skin. She has a chronic dermatologic problem which she has been told is nummular eczema. She had also had a punch biopsy performed on a skin lesion on the right lower leg 3 weeks ago or so at Dr. CUELLAR' office. She was told that the biopsy report was that of actinic keratosis. Subjective/Events-last exam Pt reports feeling better but very tired. She thinks her redness and swelling is improving. No other complaints. Focused Exam Lactate Level 12/20/17 18:45: Lactic Acid Level 1.45 Objective Exam Vital Signs Vital Signs Date Time Temp Pulse Resp B/P (MAP) Pulse Ox O2 Delivery O2 Flow Rate FiO2 12/22/17 07:17 99.3 78 20 123/69 (87) 96 Room Air Capillary Refill : Less Than 3 Seconds General Appearance: No Apparent Distress, WD/WN Respiratory: Lungs Clear, No Respiratory Distress Cardiovascular: Regular Rate, Rhythm, No Murmur, Normal Peripheral Pulses Gastrointestinal: Non Tender, Soft, Abnormal Bowel Sounds Extremity: Other (right lower extremity with marked erythema and mild swelling from knee down and circumfenerential, ) Neurologic/Psychiatric: Alert, Oriented x3 Results/Procedures Lab Laboratory Tests 12/22/17 07:25 Patient resulted labs reviewed. Assessment/Plan Assessment and Plan Assess & Plan/Chief Complaint Cellulitis Diagnosis/Problems Diagnosis/Problems (1) Sepsis Assessment & Plan: Febrile with leukocytosis Does not meet severe sepsis criteria Continue on Vanc and Zosyn Blood cultures NGTD Clinically improving though very slowly Qualifiers: Sepsis type: sepsis due to unspecified organism Qualified Codes: A41.9 - Sepsis, unspecified organism (2) Hyponatremia Assessment & Plan: Improved, trend (3) Hypothyroidism Status: Acute Assessment & Plan: Continue home supplement Qualifiers: Hypothyroidism type: acquired Qualified Codes: E03.9 - Hypothyroidism, unspecified (4) Essential (primary) hypertension Assessment & Plan: Well controlled currently (5) Prophylactic measure Assessment & Plan: Heart Healthy Diet Saline Lock Clinical Quality Measures DVT/VTE Risk/Contraindication: Risk Factor Score Per Nursin RFS Level Per Nursing on Admit: 4+=Very High NABILA RAMIREZ MD December 22, 2017 11:22
[2017-12-22] MEDS ORDERED: KCL 20 MEQ TAB (K-DUR) PO NR (11:30)
[2017-12-22 12:00] VITALS: BP 108/58
[2017-12-22] MEDS: ENOXAPARIN 40 MG/0.4 ML (LOVENOX) SYR SC SCH (13:34)
[2017-12-22] MEDS ORDERED: LOSA100T28 PO (14:52)
[2017-12-22] MEDS ORDERED: HYDR-3816 PO (14:52)
[2017-12-22] MEDS ORDERED: RANI300T4 PO (14:52)
[2017-12-22] MEDS ORDERED: CETI10TA17 PO (14:52)
[2017-12-22] MEDS ORDERED: PROM25TA14 PO (14:52)
[2017-12-22] MEDS ORDERED: HYDR-3923 PO (14:57)
[2017-12-22 16:58] VITALS: BP 108/55
[2017-12-22] MEDS ORDERED: TROUGH ORDER-PHARMACY XX NR (19:00)
[2017-12-22 20:00] VITALS: BP 125/63
[2017-12-22] MEDS: FAMOTIDINE 20 MG (PEPCID) TABLET PO SCH (20:13)
[2017-12-22] MEDS: VANCOMYCIN 1250 MG/NS 250 ML IVPB IV SCH ×2 (20:14)
[2017-12-23] VITALS: BP 111/64
[2017-12-23 04:00] VITALS: BP 125/65
[2017-12-23] MEDS: LEVOTHYROXINE 112 MCG (LEVOTHROID) TAB PO SCH (05:43)
[2017-12-23] MEDS: PIPERACILLIN/TAZO 4.5 GM/D5W 100 ML IVPB IV SCH ×6 (05:44→22:07)
[2017-12-23 05:59] LABS: BASOPHILS % (AUTO) 0 % (0-10); EOSINOPHILS # (AUTO) 0.1 10^3/uL (0.0-0.3); EOSINOPHILS % (AUTO) 1 % (0-10); HEMATOCRIT 31 % (35-52); HEMOGLOBIN 10.6 G/DL (11.5-16.0); LYMPHOCYTES % (AUTO) 7 % (12-44); MEAN CORPUSCULAR HEMOGLOBIN 31 PG (25-34); MEAN CORPUSCULAR HGB CONC 34 G/DL (32-36); MEAN CORPUSCULAR VOLUME 93 FL (80-99); MEAN PLATELET VOLUME 9.5 FL (7.4-10.4); MONOCYTES # (AUTO) 1.8 X 10^3 (0.0-1.0); MONOCYTES % (AUTO) 14 % (0-12); NEUTROPHILS # (AUTO) 10.7 X 10^3 (1.8-7.8); NEUTROPHILS % (AUTO) 79 % (42-75); PLATELET COUNT 223 10^3/uL (130-400); RED BLOOD COUNT 3.37 10^6/uL (4.35-5.85); RED CELL DISTRIBUTION WIDTH 14.2 % (10.0-14.5); WHITE BLOOD COUNT 13.6 10^3/uL (4.3-11.0)
[2017-12-23 06:18] LABS: BUN/CREATININE RATIO 8; CALCIUM 9.7 MG/DL (8.5-10.1); CARBON DIOXIDE 17 MMOL/L (21-32); CHLORIDE 104 MMOL/L (98-107); CREATININE SERUM 0.73 MG/DL (0.60-1.30); GFR ESTIMATED > 60; GLUCOSE 85 MG/DL (70-105); POTASSIUM 3.6 MMOL/L (3.6-5.0); SODIUM 131 MMOL/L (135-145)
[2017-12-23 07:14] VITALS: BP 131/70
[2017-12-23] MEDS ORDERED: ONDANSETRON 4 MG/2 ML (SDV) Z0FRAN ONE (08:19)
[2017-12-23] MEDS: ONDANSETRON 4 MG/2 ML (SDV) Z0FRAN IVP PRN ×2 (08:26→16:49)
[2017-12-23] MEDS: VANCOMYCIN 1250 MG/NS 250 ML IVPB IV SCH ×4 (08:27→20:09)
--- NOTE | 2017-12-23 08:27 | Progress Note-Hospitalist ---
Subjective HPI/CC On Admission Date Seen by Provider: December 23, 2017 Time Seen by Provider: 08:27 The patient is a [age]-year-old white female who lives in [place]. 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 She presented to the emergency room last evening with a red and painful lower leg. She stated that this had begun earlier in the day. s He did not report any open areas of skin. She has a chronic dermatologic problem which she has been told is nummular eczema. She had also had a punch biopsy performed on a skin lesion on the right lower leg 3 weeks ago or so at Dr. CUELLAR' office. She was told that the biopsy report was that of actinic keratosis. Subjective/Events-last exam Pt reports leg is feeling better but feeling nauseated this morning. Also complains of diarrhea. Has had multiple loose stools and feels like she needs to go right now as well. Focused Exam Lactate Level 12/20/17 18:45: Lactic Acid Level 1.45 Objective Exam Vital Signs Vital Signs Date Time Temp Pulse Resp B/P (MAP) Pulse Ox O2 Delivery O2 Flow Rate FiO2 12/23/17 04:00 98.9 75 17 125/65 (85) 96 Room Air Capillary Refill : Less Than 3 Seconds General Appearance: No Apparent Distress, WD/WN Respiratory: Lungs Clear, No Respiratory Distress Cardiovascular: Regular Rate, Rhythm, No Murmur, Normal Peripheral Pulses Gastrointestinal: Normal Bowel Sounds, Non Tender, Soft Extremity: Other (right lower extremity redness and edema persistent but markedly improved from yesterday) Neurologic/Psychiatric: Alert, Oriented x3 Results/Procedures Lab Laboratory Tests 12/23/17 05:20 Patient resulted labs reviewed. Assessment/Plan Assessment and Plan Assess & Plan/Chief Complaint Cellulitis Diagnosis/Problems Diagnosis/Problems (1) Sepsis Assessment & Plan: Afebrile today and leukocytosis trending down sepsis resolved today Continue on Vanc and Zosyn if continues to improve will plan to deescalate tomorrow Blood cultures NGTD Clinically improving though very slowly Qualifiers: Sepsis type: sepsis due to unspecified organism Qualified Codes: A41.9 - Sepsis, unspecified organism (2) Hyponatremia Assessment & Plan: Improved, trend (3) Hypothyroidism Status: Acute Assessment & Plan: Continue home supplement TSH mildly elevated Qualifiers: Hypothyroidism type: acquired Qualified Codes: E03.9 - Hypothyroidism, unspecified (4) Essential (primary) hypertension Assessment & Plan: Well controlled currently (5) Prophylactic measure Assessment & Plan: Heart Healthy Diet Saline Lock Clinical Quality Measures DVT/VTE Risk/Contraindication: Risk Factor Score Per Nursin RFS Level Per Nursing on Admit: 4+=Very High NABILA RAMIREZ MD December 23, 2017 08:27
[2017-12-23] MEDS: LABETALOL 200 MG (NORMODYNE) TAB PO SCH ×2 (08:31→20:10)
[2017-12-23] MEDS: doxAzosin 4 MG (CARDURA) TAB PO SCH (08:32)
[2017-12-23] MEDS: hydrALAZINE (APRESOLINE) 25 MG TAB PO SCH ×2 (08:32→20:10)
[2017-12-23] MEDS: amLODIPine 5 MG (NORVASC) TAB PO SCH (08:32)
[2017-12-23] MEDS: PANTOPRAZOLE 40 MG (PROTONIX) TAB PO SCH (08:32)
[2017-12-23] MEDS: KCL 10 MEQ TAB (MICRO K) PO SCH (08:32)
[2017-12-23] MEDS: ENOXAPARIN 40 MG/0.4 ML (LOVENOX) SYR SC SCH (11:26)
[2017-12-23 12:00] VITALS: BP 116/62
[2017-12-23 15:23] VITALS: BP 107/54
[2017-12-23] MEDS: ACETAMINOPHEN 325 MG TABLET/CAPLET (TYLENOL) PO PRN (20:10)
[2017-12-23] MEDS: FAMOTIDINE 20 MG (PEPCID) TABLET PO SCH (20:10)
[2017-12-24] VITALS: BP 112/57
[2017-12-24] MEDS: LEVOTHYROXINE 112 MCG (LEVOTHROID) TAB PO SCH (05:31)
[2017-12-24] MEDS: PIPERACILLIN/TAZO 4.5 GM/D5W 100 ML IVPB IV SCH ×6 (05:31→21:17)
[2017-12-24] MEDS ORDERED: TROUGH ORDER-PHARMACY XX NR (07:00)
[2017-12-24 07:52] LABS: BASOPHILS % (AUTO) 0 % (0-10); EOSINOPHILS # (AUTO) 0.3 10^3/uL (0.0-0.3); EOSINOPHILS % (AUTO) 2 % (0-10); HEMATOCRIT 31 % (35-52); HEMOGLOBIN 10.6 G/DL (11.5-16.0); LYMPHOCYTES # (AUTO) 0.7 X 10^3 (1.0-4.0); LYMPHOCYTES % (AUTO) 6 % (12-44); MEAN CORPUSCULAR HEMOGLOBIN 32 PG (25-34); MEAN CORPUSCULAR HGB CONC 35 G/DL (32-36); MEAN CORPUSCULAR VOLUME 93 FL (80-99); MONOCYTES # (AUTO) 1.5 X 10^3 (0.0-1.0); MONOCYTES % (AUTO) 12 % (0-12); NEUTROPHILS # (AUTO) 9.3 X 10^3 (1.8-7.8); NEUTROPHILS % (AUTO) 79 % (42-75); PLATELET COUNT 261 10^3/uL (130-400); RED BLOOD COUNT 3.29 10^6/uL (4.35-5.85); RED CELL DISTRIBUTION WIDTH 13.9 % (10.0-14.5); WHITE BLOOD COUNT 11.7 10^3/uL (4.3-11.0)
[2017-12-24] MEDS: VANCOMYCIN 1250 MG/NS 250 ML IVPB IV SCH ×2 (07:56)
[2017-12-24 08:00] VITALS: BP 139/70
[2017-12-24 08:04] LABS: BUN/CREATININE RATIO 7; CALCIUM 9.7 MG/DL (8.5-10.1); CARBON DIOXIDE 18 MMOL/L (21-32); CHLORIDE 105 MMOL/L (98-107); CREATININE SERUM 0.86 MG/DL (0.60-1.30); GFR ESTIMATED > 60; GLUCOSE 95 MG/DL (70-105); POTASSIUM 3.2 MMOL/L (3.6-5.0); SODIUM 132 MMOL/L (135-145)
--- NOTE | 2017-12-24 08:08 | Progress Note-Hospitalist ---
Subjective HPI/CC On Admission Date Seen by Provider: December 24, 2017 Time Seen by Provider: 08:05 The patient is a [age]-year-old white female who lives in [place]. 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 She presented to the emergency room last evening with a red and painful lower leg. She stated that this had begun earlier in the day. s He did not report any open areas of skin. She has a chronic dermatologic problem which she has been told is nummular eczema. She had also had a punch biopsy performed on a skin lesion on the right lower leg 3 weeks ago or so at Dr. CUELLAR' office. She was told that the biopsy report was that of actinic keratosis. Subjective/Events-last exam Pt reports feeling better. Still aving some nausea. Takes Phenergan at home and is requesting that. Feels that leg is getting better still. Has been up walking on it. Objective Exam Vital Signs Vital Signs Date Time Temp Pulse Resp B/P (MAP) Pulse Ox O2 Delivery O2 Flow Rate FiO2 12/24/17 00:00 97.4 62 18 112/57 (75) 95 Room Air Capillary Refill : Less Than 3 Seconds General Appearance: No Apparent Distress, WD/WN Respiratory: Lungs Clear, No Respiratory Distress Cardiovascular: Regular Rate, Rhythm, No Murmur Gastrointestinal: Normal Bowel Sounds, Non Tender, Soft Extremity: Other (improvement in erythema and edema in RLE- still marked erythema of dependent area on posterior aspect of leg) Neurologic/Psychiatric: Alert, Oriented x3 Results/Procedures Lab Laboratory Tests 12/24/17 07:18 Patient resulted labs reviewed. Assessment/Plan Assessment and Plan Assess & Plan/Chief Complaint Cellulitis Diagnosis/Problems Diagnosis/Problems (1) Sepsis Assessment & Plan: Afebrile since 12/22 and leukocytosis trending down Continue on Zosyn, DC Vanc today Blood cultures NGTD Clinically improving though very slowly May need swing bed eval tomorrow Probiotic added given long duration of abx Qualifiers: Sepsis type: sepsis due to unspecified organism Qualified Codes: A41.9 - Sepsis, unspecified organism (2) Hyponatremia Status: Acute Assessment & Plan: Improved, trend (3) Hypothyroidism Status: Acute Assessment & Plan: Continue home supplement TSH mildly elevated Qualifiers: Hypothyroidism type: acquired Qualified Codes: E03.9 - Hypothyroidism, unspecified (4) Essential (primary) hypertension Status: Chronic Assessment & Plan: Well controlled currently (5) Prophylactic measure Assessment & Plan: Heart Healthy Diet Saline Lock Lovenox Clinical Quality Measures DVT/VTE Risk/Contraindication: Risk Factor Score Per Nursin RFS Level Per Nursing on Admit: 4+=Very High NABILA RMAIREZ MD December 24, 2017 8:08 am
[2017-12-24] MEDS: LACTOBACILLUS Acidoph/Bulgar (LACTINEX/FLORANEX) TAB PO SCH ×3 (08:26→15:33)
[2017-12-24] MEDS: LABETALOL 200 MG (NORMODYNE) TAB PO SCH ×2 (08:26→20:22)
[2017-12-24] MEDS: amLODIPine 5 MG (NORVASC) TAB PO SCH (08:27)
[2017-12-24] MEDS: doxAzosin 4 MG (CARDURA) TAB PO SCH (08:27)
[2017-12-24] MEDS: PROMETHAZINE 25 MG (PHENERGAN) TAB PO PRN ×2 (08:27→17:33)
[2017-12-24] MEDS: PANTOPRAZOLE 40 MG (PROTONIX) TAB PO SCH (08:27)
[2017-12-24] MEDS: KCL 10 MEQ TAB (MICRO K) PO SCH (08:27)
[2017-12-24] MEDS: hydrALAZINE (APRESOLINE) 25 MG TAB PO SCH ×2 (08:27→20:23)
[2017-12-24] MEDS ORDERED: KCL 20 MEQ TAB (K-DUR) PO NR (08:52)
[2017-12-24] MEDS: ENOXAPARIN 40 MG/0.4 ML (LOVENOX) SYR SC SCH (11:14)
[2017-12-24] MEDS ORDERED: AMOX-358 PO (15:33)
[2017-12-24 16:00] VITALS: BP 134/77
[2017-12-24] MEDS: ACETAMINOPHEN 325 MG TABLET/CAPLET (TYLENOL) PO PRN (17:33)
[2017-12-24] MEDS: FAMOTIDINE 20 MG (PEPCID) TABLET PO SCH (20:22)
[2017-12-25 00:28] VITALS: BP 119/74
[2017-12-25] MEDS: LEVOTHYROXINE 112 MCG (LEVOTHROID) TAB PO SCH (05:40)
[2017-12-25] MEDS: PIPERACILLIN/TAZO 4.5 GM/D5W 100 ML IVPB IV SCH ×2 (05:40)
[2017-12-25] MEDS: LACTOBACILLUS Acidoph/Bulgar (LACTINEX/FLORANEX) TAB PO SCH (05:40)
[2017-12-25] MEDS ORDERED: TROUGH ORDER-PHARMACY XX NR (07:00)
[2017-12-25 08:30] VITALS: BP 163/84
[2017-12-25] MEDS: PROMETHAZINE 25 MG (PHENERGAN) TAB PO PRN (09:35)
[2017-12-25] MEDS: LABETALOL 200 MG (NORMODYNE) TAB PO SCH (09:36)
[2017-12-25] MEDS: hydrALAZINE (APRESOLINE) 25 MG TAB PO SCH (09:36)
[2017-12-25] MEDS: amLODIPine 5 MG (NORVASC) TAB PO SCH (09:36)
[2017-12-25] MEDS: KCL 10 MEQ TAB (MICRO K) PO SCH (09:36)
[2017-12-25] MEDS: PANTOPRAZOLE 40 MG (PROTONIX) TAB PO SCH (09:36)
[2017-12-25] MEDS: doxAzosin 4 MG (CARDURA) TAB PO SCH (09:36)
--- NOTE | 2017-12-25 11:07 | Discharge Summary-Hospitalist ---
Diagnosis/Chief Complaint Date of Admission December 20, 2017 at 8:15 pm Date of Discharge Discharge Date: Dec 25, 2017 Admission Diagnosis Cellulitis right lower leg. 2.history of nummular eczema. Discharge Diagnosis (1) Sepsis Assessment & Plan: Afebrile since 12/22 and leukocytosis trending down Transition to Augmentin for discharge Blood cultures NGTD Probiotic (2) Hyponatremia Status: Acute Assessment & Plan: Improved, trend (3) Hypothyroidism Status: Acute Assessment & Plan: Continue home supplement TSH mildly elevated (4) Essential (primary) hypertension Status: Chronic Assessment & Plan: Well controlled currently (5) Prophylactic measure Assessment & Plan: Heart Healthy Diet Saline Lock Lovenox Discharge Summary Discharge Physical Exam Allergies: Coded Allergies: Sulfa (Sulfonamide Antibiotics) (Verified Allergy, Unknown, 08/16/16) codeine (Verified Allergy, Unknown, 08/16/16) Vitals & I&Os Vital Signs Date Time Temp Pulse Resp B/P (MAP) Pulse Ox O2 Delivery O2 Flow Rate FiO2 12/25/17 09:52 Room Air 12/25/17 08:30 98.9 67 18 163/84 (110) 96 General Appearance: Alert, Oriented X3 Respiratory: Clear to Auscultation Cardiovascular: Regular Rate Hospital Course Pt was admitted for cellulitis. She had severe erythema and edema of the right lower extremity and necessitated IV abx. She slowly improved and antibiotics were deescalated. She was ambulating well and requesting discharge on day of discharge and felt comfortable with plan to return home. I called and made her an appointment with Per Lai at [facility] to follow up on Thursday to ensure improvement and she will complete her course of Augmentin at home. Labs (last 24 hrs) Microbiology 12/20/17 Blood Culture - Preliminary, Resulted No growth 12/23/17 C. difficile GDH Antigen & Toxins - Final, Complete Patient resulted labs reviewed. Discussion & Recommendations Discharge Planning: >30 minutes discharge planning Discharge Home Medications: Active Scripts Active Augmentin 875-125 Tablet (Amoxicillin/Potassium Clav) 1 Each Tablet 1 Each PO BID Reported Hydralazine HCl 25 Mg Tablet 50 Mg PO BID LAST FILLED #120 07-22-17 TAKES 2 (25MG) TABLETS Hydrocodone-Acetamin 7.5-325 (Hydrocodone/Acetaminophen) 1 Each Tablet 0.5-1 Tab PO Q4H PRN Cetirizine HCl 10 Mg Tablet 10 Mg PO HS Promethazine Tablet (Promethazine HCl) 25 Mg Tablet 25 Mg PO Q4H PRN Ranitidine HCl 300 Mg Tablet 300 Mg PO HS Diazepam 5 Mg Tablet 2.5-5 Mg PO Q8H PRN Levo-T (Levothyroxine Sodium) 112 Mcg Tablet 112 Mcg PO DAILY Labetalol HCl 200 Mg Tablet 200 Mg PO BID Pantoprazole Sodium 40 Mg Tablet.dr 40 Mg PO DAILY Citalopram HBr (Citalopram Hydrobromide) 20 Mg Tablet 20 Mg PO DAILY Doxazosin Mesylate 4 Mg Tablet 4 Mg PO DAILY Amlodipine Besylate 5 Mg Tablet 5 Mg PO DAILY LAST FILLED #30 12-4-17 Potassium Chloride 10 Meq Tablet.er 10 Meq PO DAILY Instructions to patient/family Please see electronic discharge instructions given to patient. Clinical Quality Measures DVT/VTE Risk/Contraindication: Risk Factor Score Per Nursin RFS Level Per Nursing on Admit: 4+=Very High Copy Copies To 1: [facility] [place] Problem Qualifiers (1) Sepsis: Sepsis type: sepsis due to unspecified organism Qualified Codes: A41.9 - Sepsis, unspecified organism (2) Hypothyroidism: Hypothyroidism type: acquired Qualified Codes: E03.9 - Hypothyroidism, unspecified NABILA RAMIREZ MD Dec 25, 2017 11:07 am
== END 2017-12-25 10:15 | disposition home or self-care (01) | DRG 872 ==
LOC: EDUNIT# 18:18 → ER 18:21 → 4TH 20:15 → ER 20:54
PROVIDERS: ADMIT Internal Medicine; ATTEND Internal Medicine
DX: A41.9 Sepsis, unspecified organism (principal); L03.115 Cellulitis of right lower limb; L30.0 Nummular dermatitis; I10 Essential (primary) hypertension; F17.210 Nicotine dependence, cigarettes, uncomplicated; K21.9 Gastro-esophageal reflux disease without esophagitis; E03.9 Hypothyroidism, unspecified; G43.909 Migraine, unspecified, not intractable, without status migrainosus; F41.9 Anxiety disorder, unspecified; F32.9 Major depressive disorder, single episode, unspecified
CPT/HCPCS: 36415; 80048; 80053; 80202; 80320; 83605; 84443; 85007; 85025; 85027; 85610; 85652; 85730; 87040; 87324; 87449; 96374; 96375; 96376

== ENCOUNTER 2018-01-20 12:52 | Inpatient (IN) | payer OTHER ==
[~2018-01-20] VITALS: Ht 154.9 cm; Wt 59.9 kg
[~2018-01-20 12:52] MED LIST changes: +AMOX-358 PO; +CETI10TA17 PO; +DIAZ5TAB3 PO; +HYDR-3816 PO; +HYDR-3923 PO; -LABE200T3 PO; +LABE200T7 PO; +LOSA100T28 PO; +PIPERACILLIN/TAZO 3.375 GM/D5W 100 ML IV SCH; +PROM25TA14 PO; +PROMETHAZINE 25 MG PO; +RANI300T4 PO; +[UNRECOGNIZED DRUG - CODE] PO
--- OUTSIDE RECORDS SUMMARY | 2018-01-20 12:58 | XMS REPORT ---
Author Author SUSAN STEIN Organization [facility] Address [address] [place] [address] Care Team Providers Care Tower Watchman Name Role Phone EMIL SUSAN Unavailable PROBLEMS Type Condition ICD9-CM Code PQS98-HD Code Onset Dates Condition Status SNOMED Code Problem Hypothyroidism (acquired) E03.9 Active 12694118 Problem Decreased urine output R34 Active [id number] ALLERGIES Substance Reaction Event Type Date Status sulfa mouth blisters Non Drug Allergy Jun, Active ENCOUNTERS Encounter Location Date Diagnosis [place] [address] [address] Jan, [facility] [address] [id number] [place] [phone] Dec, Hypothyroidism (acquired) E03.9 [facility] [address] [phone] Dec, 2017 Cellulitis of right lower extremity L03.115 ; Cellulitis of left lower limb L03.116 ; Other eczema L30.8 and Exposure to hepatitis C Z20.5 [facility] [id number] [place] [phone] November, Fever, unspecified fever cause R50.9 ; Intractable vomiting with nausea, unspecified vomiting type R11.2 ; Decreased urine output R34 and Dehydration E86.0 [facility] [id number] [place] [phone] Jun, Fever, unspecified fever cause R50.9 ; Other viral agents as the cause of diseases classified elsewhere B97.89 and Other specified respiratory disorders J98.8 IMMUNIZATIONS No Known Immunizations SOCIAL HISTORY Never Assessed REASON FOR VISIT flu symptoms c/o Headache for about a week. States has had body aches for 2-3 days and last night started having a fever. LACEY Maki PLAN OF CARE Activity Details Follow Up prn Reason: VITAL SIGNS Height 61 in 2017-07-21 Weight 141 lbs 2017-07-21 Temperature 100.3 degrees Fahrenheit 2017-07-21 Heart Rate 96 bpm 2017-07-21 Respiratory Rate 20 2017-07-21 BMI 26.64 kg/m2 2017-07-21 Blood pressure systolic 172 mmHg 2017-07-21 Blood pressure diastolic 98 mmHg 2017-07-21 MEDICATIONS Medication Instructions Dosage Frequency Start Date End Date Duration Status Citalopram Hydrobromide 20 MG Orally Once a day 1 tablet 24h Active Levothyroxine Sodium 112 MCG Orally Once a day 1 tablet on an empty stomach in the morning 24h Active HydrALAZINE HCl 25 MG Orally two times a day 1 tablet with food 12h Active Losartan Potassium 100 MG Orally Once a day 1 tablet 24h Active Labetalol HCl 200 MG Orally Twice a day 1 tablet 12h Active Maxalt 10 MG Orally Once a day 1 tablet as needed one time 24h Active Ranitidine 1 tab Active Potassium Chloride - Active Promethazine HCl 25 MG Orally every 12 hrs 1 tablet as needed 12h Active Doxazosin Mesylate 2 MG Orally Once a day 1 tablet 24h Active RESULTS Name Result Date Reference Range INFLUENZA A & B (IN HOUSE) INFLUENZA A negative INFLUENZA B negative Control + Lot # [id number] Exp date 10/23/2016 PROCEDURES Procedure Date Ordered Result Body Site INFLUENZA ASSAY W/OPTIC Jul 21, 2017 INSTRUCTIONS MEDICATIONS ADMINISTERED No Known Medications MEDICAL (GENERAL) HISTORY Type Description Date Medical History hypertension Medical History migraines Surgical History hysterectomy Surgical History lumpectomy Surgical History tonsillectomy Surgical History tubal ligation Hospitalization History htn Hospitalization History sodium low Hospitalization History cellultius 12/20-12/24
--- NOTE | 2018-01-20 15:42 | ED Integumentary General ---
General Chief Complaint: Skin/Wound Problems Stated Complaint: LEFT LEG SWELLING Nursing Triage Note: pt reports l lower leg swelling/redness x 2 days. PT was in the hospital around the end of November for R leg cellulitis. Source: patient Exam Limitations: no limitations (LOLA GERBER STUDENT) History of Present Illness Date Seen by Provider: Jan 20, 2018 Time Seen by Provider: 14:30 Initial Comments This is a 57 y/o female presenting to the ED via private vehicle with chief complaint of Left leg redness and swelling that started 2 days ago, January 18. Pt also reports fevers up to 104.6, nausea and chills. Patient has diffuse skin lesions that pt reports was diagnosed as nummular eczema. Pt was recently admitted to [facility] on December 20, due to cellulitis of the R leg. Patient was treated for sepsis and was discharged on December 25 on PO Augmentin. After finishing her antibiotics pt stated that she followed up with her PCP on January 04 , where she was started on Keflex and Prednisone because she still had some redness in her right leg. Pt states she finished her antibiotics around the 15 of January. (LOLA GERBER MED STUDENT) Allergies and Home Medications Allergies Coded Allergies: Sulfa (Sulfonamide Antibiotics) (Verified Allergy, Unknown, 08/16/16) codeine (Verified Allergy, Unknown, Pt takes Lortab at home, 01/20/18) Home Medications Amlodipine Besylate 5 Mg Tablet, 5 MG PO DAILY, (Reported) LAST FILLED #30 06-29-17 Amoxicillin/Potassium Clav 1 Each Tablet, 1 EACH PO BID Prescribed by: NABILA RAMIREZ on 12/25/17 0805 Cetirizine HCl 10 Mg Tablet, 10 MG PO HS, (Reported) Citalopram Hydrobromide 20 Mg Tablet, 20 MG PO DAILY, (Reported) Diazepam 5 Mg Tablet, 2.5-5 MG PO Q8H PRN for ANXIETY, (Reported) Doxazosin Mesylate 4 Mg Tablet, 4 MG PO DAILY, (Reported) Hydralazine HCl 25 Mg Tablet, 50 MG PO BID, (Reported) LAST FILLED #120 07-22-17 TAKES 2 (25MG) TABLETS Hydrocodone/Acetaminophen 1 Each Tablet, 0.5-1 TAB PO Q4H PRN for PAIN-MODERATE, (Reported) Labetalol HCl 200 Mg Tablet, 200 MG PO BID, (Reported) Levothyroxine Sodium 112 Mcg Tablet, 112 MCG PO DAILY, (Reported) Pantoprazole Sodium 40 Mg Tablet.dr, 40 MG PO DAILY, (Reported) Potassium Chloride 10 Meq Tablet.er, 10 MEQ PO DAILY, (Reported) Promethazine HCl 25 Mg Tablet, 25 MG PO Q4H PRN for NAUSEA/VOMITING-2ND LINE, ( Reported) Ranitidine HCl 300 Mg Tablet, 300 MG PO HS, (Reported) Patient Home Medication List Home Medication List Reviewed: Yes (LOLA GERBER) Constitutional: see HPI, chills, fever EENTM: no symptoms reported; No throat pain Respiratory: no symptoms reported Cardiovascular: no symptoms reported Gastrointestinal: No abdominal pain, No constipation, No diarrhea; heartburn, nausea; No vomiting Genitourinary: no symptoms reported Skin: see HPI, change in color (L leg red ), lesions, other (eczema ) Psychiatric/Neurological: Anxiety (chronic ) (LOLA GERBER) Past Dovihrq-Tjvbrz-Bmmutk Hx Patient Social History Alcohol Use: Occasionally Uses Recreational Drug Use: No Smoking Status: Current Everyday Smoker Type Used: Cigarettes Recent Foreign Travel: No Contact w/Someone Who Travel: No Recent Infectious Disease Expo: No Recent Hopitalizations: No Physical Abuse: No Sexual Abuse: No Mistreated: No Fear: No (LOLA GERBER) Past Medical History Surgeries: Yes (HYST/BSO; RIGHT BREAST BIOPSY/BENIGN LUMPECTOMY; ) Breast, Hysterectomy, Oophorectomy, Tonsillectomy, Tubal Ligation Respiratory: No Cardiac: Yes Hypertension Neurological: Yes Headaches /Migraines Female 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 Disorders: Menstrual Problems 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, 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 Genitourinary: No Gastrointestinal: Yes Gastroesophageal Reflux Musculoskeletal: No Endocrine: Yes Hypothyroidsim HEENT: No Cancer: No Psychosocial: Yes Anxiety, Depression Nursing Suicide Risk Score: 0 Integumentary: Yes (NUMMULAR ECZEMA) Eczema Blood Disorders: No (LOLA GERBER) Physical Exam Vital Signs Vital Signs - First Documented 01/20/18 13:29 Temp 98.0 Pulse 72 Resp 20 B/P (MAP) 129/76 (93) Pulse Ox 98 (ANYA ANTOINE MD) Vital Signs Capillary Refill : Less Than 3 Seconds (LOLA GERBER MED STUDENT) General Appearance: WD/WN, no apparent distress HEENT: PERRL/EOMI, normal ENT inspection, pharynx normal Neck: non-tender, full range of motion, supple, normal inspection Cardiovascular: normal peripheral pulses, regular rate, rhythm, no edema, no gallop, no JVD, no murmur Respiratory: chest non-tender, lungs clear, normal breath sounds, no respiratory distress, no accessory muscle use Gastrointestinal: normal bowel sounds, non tender, soft, no organomegaly, no pulsatile mass Neurologic/Psychiatric: modeling agency manager II-XII nml as tested, no motor/sensory deficits, alert, normal mood/affect, oriented x 3 Skin: other (Left lower leg has a streaking erythematous rash with areas of nonblanching petechiae between knee and ankle, painful to palpation, swelling is noted to the left lower leg; diffuse scaly brown raised patches are noted on the lower and upper extremities. ) Skin Problem Location: lower extremities (Left ) Lymphatic: inguinal node tender (L) (LOLA GERBER MED STUDENT) Progress/Results/Core Measures Results/Orders Lab Results Laboratory Tests Test 01/20/18 15:35 Range/Units White Blood Count 15.2 H 4.3-11.0 10^3/uL Red Blood Count 3.51 L 4.35-5.85 10^6/uL Hemoglobin 11.0 L 11.5-16.0 G/DL Hematocrit 33 L 35-52 % Mean Corpuscular Volume 93 80-99 FL Mean Corpuscular Hemoglobin 31 25-34 PG Mean Corpuscular Hemoglobin Concent 34 32-36 G/DL Red Cell Distribution Width 14.9 H 10.0-14.5 % Platelet Count 244 130-400 10^3/uL Mean Platelet Volume 10.1 7.4-10.4 FL Neutrophils (%) (Auto) 81 H 42-75 % Lymphocytes (%) (Auto) 8 L 12-44 % Monocytes (%) (Auto) 11 0-12 % Eosinophils (%) (Auto) 0 0-10 % Basophils (%) (Auto) 0 0-10 % Neutrophils # (Auto) 12.3 H 1.8-7.8 X 10^3 Lymphocytes # (Auto) 1.2 1.0-4.0 X 10^3 Monocytes # (Auto) 1.7 H 0.0-1.0 X 10^3 Eosinophils # (Auto) 0.0 0.0-0.3 10^3/uL Basophils # (Auto) 0.0 0.0-0.1 10^3/uL Neutrophils % (Manual) 84 % Lymphocytes % (Manual) 5 % Monocytes % (Manual) 11 % Blood Morphology Comment NORMAL Sodium Level 125 *L 135-145 MMOL/L Potassium Level 3.9 3.6-5.0 MMOL/L Chloride Level 95 L 98-107 MMOL/L Carbon Dioxide Level 21 21-32 MMOL/L Anion Gap 9 5-14 MMOL/L Blood Urea Nitrogen 9 7-18 MG/DL Creatinine 0.76 0.60-1.30 MG/DL Estimat Glomerular Filtration Rate > 60 BUN/Creatinine Ratio 12 Glucose Level 102 70-105 MG/DL Lactic Acid Level 0.90 0.50-2.00 MMOL/L Calcium Level 10.0 8.5-10.1 MG/DL Total Bilirubin 0.6 0.1-1.0 MG/DL Aspartate Amino Transf (AST/SGOT) 14 5-34 U/L Alanine Aminotransferase (ALT/SGPT) 7 0-55 U/L Alkaline Phosphatase 76 40-136 U/L C-Reactive Protein High Sensitivity 14.98 H 0.00-0.50 MG/DL Total Protein 6.8 6.4-8.2 GM/DL Albumin 3.7 3.2-4.5 GM/DL (ANYA ANTOINE MD) My Orders Orders - ANYA ANTOINE MD Cbc With Automated Diff (01/20/18 15:31) Comprehensive Metabolic Panel (01/20/18 15:31) Hs C Reactive Protein (01/20/18 15:31) Saline Lock/Iv-Start (01/20/18 15:31) Ketorolac Injection (Toradol Injection) (01/20/18 15:45) Ceftriaxone Injection (Rocephin Injectio (01/20/18 15:45) Blood Culture (01/20/18 15:31) Lactic Acid Analyzer (01/20/18 15:31) Manual Differential (01/20/18 15:35) Ns Iv 1000 Ml (Sodium Chloride 0.9%) (01/20/18 16:01) (ANYA ANTOINE MD) Medications Given in ED Current Medications Medications Dose Ordered Sig/Elsa Route Start Time Stop Time Status Last Admin Dose Admin Ceftriaxone Sodium 1000 mg/ Sodium Chloride 50 ml @ 100 mls/hr ONCE ONCE IV 01/20/18 15:45 01/20/18 16:14 DC 01/20/18 16:10 100 MLS/HR Ketorolac Tromethamine 15 mg ONCE ONCE IVP 01/20/18 15:45 01/20/18 15:46 DC 01/20/18 16:09 15 MG Sodium Chloride 1,000 ml @ 0 mls/hr Q0M ONCE IV 01/20/18 16:01 01/20/18 16:02 DC 01/20/18 16:10 0 MLS/HR (ANYA ANTOINE MD) Vital Signs/I&O 01/20/18 13:29 Temp 98.0 Pulse 72 Resp 20 B/P (MAP) 129/76 (93) Pulse Ox 98 (ANYA ANTOINE MD) Blood Pressure Mean: 93 Progress Progress Note #1: Time: 15:20 Progress Note Patient seen and examined, lower extremity cellulitis has developed. Recent hospital stay patient developed sepsis, vitals have been stable during stay. Will order blood cultures and start IV antibiotics. Labs pending. Progress Note #2: Time: 15:45 Progress Note Labs show hyponatremia, IV normal saline started. (LOLA GERBER MED STUDENT) Progress Note : Progress Note This patient was personally seen, examined, and interviewed along with Lola Gerber, PA Student. I agree with her history, assessment, and plan with the following additions. Patient has had rapid progression of erythema on the left lower extremity. The erythema is fairly well demarcated and has some areas of petechial change. Skin is warm to the touch. Patient has notable leukocytosis and elevated CRP. Patient was also noted to have hyponatremia. She was given Rocephin and a liter of IV normal saline in the emergency room. Case was reviewed with Dr. Garcia who requested antibiotics be continued with Zosyn and vancomycin. Exam: Gen.: Alert, oriented, no acute distress HEENT: normocephalic and atraumatic Heart: Regular rate and rhythm without murmur Lungs: Clear to auscultation bilaterally with normal effort Extremities: Left lower extremity has fairly well demarcated blanching erythema extending from the ankle to above the knee. It is nearly circumferential. The area is warm and tender to the touch. There are also patches of eczema scattered on the lower extremities. Neuro/psych: Alert, oriented, normal mood and affect (ANYA ANTOINE MD) Departure Communication (PCP) Dr. Cordon at 1626 (LOLA GERBER STUDENT) Impression Primary Impression: Cellulitis of left lower leg Additional Impression: Hyponatremia Disposition: ADMITTED INPATIENT Condition: Stable Admissions Decision to Admit Reason: Admit from ER (Trauma) Decision to Admit/Date: Jan 20, 2018 Time/Decision to Admit Time: 15:30 (LOLA GERBER) Departure-Patient Inst. Referrals: [facility] (PCP/Family) Primary Care Physician LOLA GERBER Jan 20, 2018 15:42 ANYA ANTOINE MD Jan 20, 2018 19:41
[2018-01-20] MEDS ORDERED: cefTRIAXone INJECTION 1,000 MG in NS (IVPB) 50 ML IV ONE (15:45)
[2018-01-20] MEDS ORDERED: KETOROLAC 30 MG/ML VIAL IVP ONE (15:45)
[2018-01-20 15:47] LABS: BASOPHILS % (AUTO) 0 % (0-10); EOSINOPHILS % (AUTO) 0 % (0-10); HEMATOCRIT 33 % (35-52); LYMPHOCYTES # (AUTO) 1.2 X 10^3 (1.0-4.0); LYMPHOCYTES % (AUTO) 8 % (12-44); MEAN CORPUSCULAR HEMOGLOBIN 31 PG (25-34); MEAN CORPUSCULAR HGB CONC 34 G/DL (32-36); MEAN CORPUSCULAR VOLUME 93 FL (80-99); MEAN PLATELET VOLUME 10.1 FL (7.4-10.4); MONOCYTES # (AUTO) 1.7 X 10^3 (0.0-1.0); MONOCYTES % (AUTO) 11 % (0-12); NEUTROPHILS # (AUTO) 12.3 X 10^3 (1.8-7.8); NEUTROPHILS % (AUTO) 81 % (42-75); PLATELET COUNT 244 10^3/uL (130-400); RED BLOOD COUNT 3.51 10^6/uL (4.35-5.85); RED CELL DISTRIBUTION WIDTH 14.9 % (10.0-14.5); WHITE BLOOD COUNT 15.2 10^3/uL (4.3-11.0)
[2018-01-20 15:58] LABS: ALANINE AMINOTRANSFERASE 7 U/L (0-55); ALBUMIN 3.7 GM/DL (3.2-4.5); ALKALINE PHOSPHATASE 76 U/L (40-136); BILIRUBIN,TOTAL 0.6 MG/DL (0.1-1.0); BUN/CREATININE RATIO 12; CARBON DIOXIDE 21 MMOL/L (21-32); CHLORIDE 95 MMOL/L (98-107); CREATININE SERUM 0.76 MG/DL (0.60-1.30); GFR ESTIMATED > 60; GLUCOSE 102 MG/DL (70-105); POTASSIUM 3.9 MMOL/L (3.6-5.0); TOTAL PROTEIN 6.8 GM/DL (6.4-8.2)
[2018-01-20 16:00] LABS: SODIUM 125 MMOL/L (135-145)
[2018-01-20] MEDS ORDERED: NS IV 1000 ML 1,000 ML IV ONE (16:01)
[2018-01-20 16:04] LABS: RBC MORPH NORMAL
[2018-01-20 16:13] LABS: NEUTROPHILS % (MANUAL) 84 %
[2018-01-20 16:14] LABS: LYMPHOCYTES % (MANUAL) 5 %; MONOCYTES % (MANUAL) 11 %
[2018-01-20] MEDS ORDERED: fentaNYL INJECTION 100 MCG/2 ML AMP IVP PRN (17:15)
[2018-01-20] MEDS ORDERED: ALPRAZolam 0.25 MG (XANAX) TAB PO PRN (17:15)
[2018-01-20] MEDS ORDERED: HYDROcodone/APAP 5 MG/325 MG (LORTAB) TAB PO PRN (17:15)
[2018-01-20] MEDS ORDERED: ONDANSETRON 4 MG/2 ML (SDV) Z0FRAN IVP PRN (17:15)
[2018-01-20] MEDS ORDERED: IBUPROFEN TABLET 200 MG TAB PO PRN (17:15)
[2018-01-20] MEDS ORDERED: PIPERACILLIN/TAZO 3.375 GM/D5W 100 ML IV NR ×2 (17:35)
[2018-01-20] MEDS ORDERED: VANCOMYCIN 1 GM/NS 250 ML IVPB IV NR ×2 (17:37)
[2018-01-20] MEDS ORDERED: VANCOMYCIN 1500 MG/NS 500 ML IVPB IV NR ×2 (17:39)
[2018-01-20] MEDS ORDERED: CATHETER FLUSH 10 ML SYR IV PRN (17:45)
[2018-01-20] MEDS: NS IV 1000 ML 1,000 ML IV SCH (17:52)
[2018-01-20] MEDS ORDERED: DIAZEPAM 5 MG (VALIUM) TABLET PO PRN (18:00)
[2018-01-20] MEDS ORDERED: VANCOMYCIN 1 GM/NS 250 ML IVPB IV SCH ×2 (18:00)
[2018-01-20 18:05] VITALS: BP 169/72
[2018-01-20 19:15] VITALS: BP 116/60
[2018-01-20] MEDS: hydrALAZINE (APRESOLINE) 25 MG TAB PO SCH (20:10)
[2018-01-20] MEDS: DOCUSATE SODIUM 100 MG (COLACE) CAP PO SCH (20:10)
[2018-01-20] MEDS: LABETALOL 200 MG (NORMODYNE) TAB PO SCH (20:10)
[2018-01-20] MEDS: FAMOTIDINE 20 MG (PEPCID) TABLET PO SCH (20:10)
[2018-01-20] MEDS: PIPERACILLIN/TAZO 3.375 GM/D5W 100 ML IV SCH ×2 (23:34)
[2018-01-21] VITALS (7 sets, daily range): BP systolic 97–140; BP diastolic 53–71
[2018-01-21] MEDS: VANCOMYCIN 1 GM/NS 250 ML IVPB IV SCH ×4 (05:18→17:39)
[2018-01-21] MEDS: PANTOPRAZOLE 40 MG (PROTONIX) TAB PO SCH (05:18)
[2018-01-21] MEDS: NS IV 1000 ML 1,000 ML IV SCH ×2 (05:18→08:06)
[2018-01-21 06:25] LABS: BASOPHILS % (AUTO) 0 % (0-10); EOSINOPHILS # (AUTO) 0.2 10^3/uL (0.0-0.3); EOSINOPHILS % (AUTO) 2 % (0-10); HEMATOCRIT 28 % (35-52); HEMOGLOBIN 9.8 G/DL (11.5-16.0); LYMPHOCYTES # (AUTO) 1.2 X 10^3 (1.0-4.0); LYMPHOCYTES % (AUTO) 12 % (12-44); MEAN CORPUSCULAR HEMOGLOBIN 32 PG (25-34); MEAN CORPUSCULAR HGB CONC 35 G/DL (32-36); MEAN CORPUSCULAR VOLUME 92 FL (80-99); MEAN PLATELET VOLUME 10.1 FL (7.4-10.4); MONOCYTES # (AUTO) 1.3 X 10^3 (0.0-1.0); MONOCYTES % (AUTO) 13 % (0-12); NEUTROPHILS # (AUTO) 7.3 X 10^3 (1.8-7.8); NEUTROPHILS % (AUTO) 73 % (42-75); PLATELET COUNT 191 10^3/uL (130-400); RED BLOOD COUNT 3.08 10^6/uL (4.35-5.85); RED CELL DISTRIBUTION WIDTH 14.6 % (10.0-14.5)
[2018-01-21 06:58] LABS: BUN/CREATININE RATIO 12; CALCIUM 9.9 MG/DL (8.5-10.1); CARBON DIOXIDE 17 MMOL/L (21-32); CHLORIDE 101 MMOL/L (98-107); CREATININE SERUM 0.77 MG/DL (0.60-1.30); GFR ESTIMATED > 60; GLUCOSE 82 MG/DL (70-105); POTASSIUM 3.6 MMOL/L (3.6-5.0); SODIUM 129 MMOL/L (135-145)
[2018-01-21] MEDS ORDERED: NON-FORMULARY MEDICATION 1 EA EA (Amlodipine Besylate 5 MG) PO SCH (09:00)
[2018-01-21] MEDS ORDERED: amLODIPine 5 MG (NORVASC) TAB PO SCH (09:00)
[2018-01-21] MEDS: PIPERACILLIN/TAZO 3.375 GM/D5W 100 ML IV SCH ×4 (09:33→17:38)
[2018-01-21] MEDS: DOCUSATE SODIUM 100 MG (COLACE) CAP PO SCH ×2 (09:33→20:25)
[2018-01-21] MEDS: doxAzosin 4 MG (CARDURA) TAB PO SCH (09:34)
[2018-01-21] MEDS ORDERED: RIZA10TA20 PO (09:34)
[2018-01-21] MEDS: hydrALAZINE (APRESOLINE) 25 MG TAB PO SCH ×2 (09:34→20:16)
[2018-01-21] MEDS ORDERED: TR1C15 TP (09:34)
[2018-01-21] MEDS: LABETALOL 200 MG (NORMODYNE) TAB PO SCH ×2 (09:34→20:18)
[2018-01-21] MEDS ORDERED: LEVO137T2 PO (09:34)
--- NOTE | 2018-01-21 09:52 | History & Physical-Hospitalist ---
History of Present Illness HPI/Chief Complaint CC: Severe left leg cellulitis HPI: This is a 57-year-old white female clinic patient of [facility] who has a history of severe eczema who presents to the ER with fever of 101 and not feeling well with a left swollen and red leg. She had just been discharged a month prior for the right lower extremity cellulitis of which she had a long hospital stay for IV antibiotics that ultimately improved and resolved. She reports that she noticed the redness that started yesterday and came right into the hospital trying to avoid a long extended stay like recently. At this current time she reports the Toradol is improving the pain and wishes for that to continue since she responded at that dose in the ER. I have reviewed the reconcile all of her home medication and restarted everything for her. Smoking cessation counseled. Diarrhea is an issue considering the multiple antibiotics she has had recently and now currently on vancomycin and Zosyn so will initiate Lactinex Imodium and Questran. Source: patient Exam Limitations: no limitations Date Seen 01/21/18 Time Seen by Provider: 09:30 Attending Physician Brianna Garcia DO [facility] Referring Physician Date of Admission Jan 20, 2018 at 16:39 Home Medications & Allergies Home Medications Reviewed patient Home Medication Reconciliation performed by pharmacy medication reconciliations guitar repair technician and/or nursing. Patients Allergies have been reviewed. Allergies Allergies Coded Allergies Sulfa (Sulfonamide Antibiotics) (Verified Allergy, Unknown, 08/16/16) codeine (Verified Allergy, Unknown, Pt takes Lortab at home, 01/20/18) Past Jsnwvoq-Jhkcns-Faheed Hx Past Med/Social Hx: Reviewed Nursing Past Med/Soc Hx, Reviewed and Corrections made Patient Social History Marrital Status: single Employed/Student: unemployed Alcohol Use: Occasionally Uses Alcohol Beverage of Choice: Beer Recreational Drug Use: No Smoking Status: Current Everyday Smoker Type Used: Cigarettes Physical Abuse Screen: No Sexual Abuse: No Recent Foreign Travel: No Contact w/other who traveled: No Recent Hopitalizations: No Recent Infectious Disease Expo: No Seasonal Allergies Seasonal Allergies: No Past Medical History Surgeries: Breast, Hysterectomy, Oophorectomy, Tonsillectomy, Tubal Ligation Currently Using CPAP: No Currently Using BIPAP: No Cardiac: Hypertension Neurological: Headaches /Migraines Female 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 Disorders: Menstrual Problems Hysterectomy, Menopausal Genitourinary: Kidney Stones Gastrointestinal: Gastroesophageal Reflux Endocrine: Hypothyroidsim Loss of Vision: Denies Hearing Impairment: Denies Psychosocial: Anxiety, Depression Skin/Integumentary: Eczema History of Blood Disorders: No Adverse Reaction to Blood [place]: No Family History Cataracts G8 BROTHER Colon cancer Coronary thrombosis 19 FATHER Deafness or hearing loss 19 FATHER 19 MOTHER Diabetes mellitus 19 FATHER Headache disorder 19 MOTHER son Hypertension 19 FATHER 19 MOTHER G8 BROTHER Myocardial infarction 19 FATHER 19 MOTHER Neoplasm 19 MOTHER Parkinson's disease 19 MOTHER Severe allergy son Hypertension Review of Systems Constitutional: see HPI, fever, malaise EENTM: no symptoms reported Respiratory: no symptoms reported Cardiovascular: no symptoms reported Gastrointestinal: no symptoms reported Genitourinary: no symptoms reported Musculoskeletal: no symptoms reported Skin: see HPI, change in color, rash Psychiatric/Neurological: No Symptoms Reported All Other Systems Reviewed Negative Unless Noted: Yes Physical Exam Physical Exam Vital Signs Vital Signs - First Documented 01/20/18 01/20/18 13:29 18:00 Temp 98.0 Pulse 72 Resp 20 B/P (MAP) 129/76 (93) Pulse Ox 98 O2 Delivery Room Air Capillary Refill : Less Than 3 Seconds General Appearance: No Apparent Distress, WD/WN, Chronically ill Eyes: Bilateral Eye Normal Inspection, Bilateral Eye PERRL HEENT: PERRL/EOMI, Normal ENT Inspection, Pharynx Normal Neck: Full Range of Motion, Normal Inspection, Non Tender, Supple, Carotid Bruit Respiratory: Chest Non Tender, Lungs Clear, Normal Breath Sounds, No Accessory Muscle Use, No Respiratory Distress Cardiovascular: Regular Rate, Rhythm, No Edema, No Gallop, No JVD, No Murmur, Normal Peripheral Pulses Gastrointestinal: Normal Bowel Sounds, No Organomegaly, No Pulsatile Mass, Non Tender, Soft Back: Normal Inspection, No CVA Tenderness, No Vertebral Tenderness Extremity: Normal Capillary Refill, Normal Range of Motion, No Calf Tenderness , Other (left leg erythema with patches of eczema and increased warmth) Neurologic/Psychiatric: Alert, Oriented x3, No Motor/Sensory Deficits, Normal Mood/Affect Skin: Normal Color, Warm/Dry, Other (left leg erythema with patches of eczema and increased warmth) Lymphatic: No Adenopathy Results Results/Procedures Labs Laboratory Tests 01/20/18 15:35 01/21/18 05:15 Patient resulted labs reviewed. Assessment/Plan Admission Diagnosis Assessment: Left leg acute and severe cellulitis Severe eczema Plan: IV abx empiric Pain meds Diarrhea treatment Monitor closely home meds Admission Status: Inpatient Order (span 2 midnights) Reason for Inpatient Admission: Severe cellulitis requiring IV abx for at least 3 days Diagnosis/Problems Diagnosis/Problems (1) Cellulitis of left lower leg Status: Acute Assessment & Plan: 01/21: Maintain Vancomycin and Zosyn empirically (2) Hyponatremia Status: Acute Assessment & Plan: 01/21: IV fluid of normal saline and fluid restriction of 1200 mL/day (3) Essential (primary) hypertension Status: Chronic Assessment & Plan: Home meds restarted (4) Smoker Status: Chronic Assessment & Plan: Counseled to cease smoking (5) Hypothyroidism Status: Acute Assessment & Plan: Home meds restarted Qualifiers: Hypothyroidism type: acquired Qualified Codes: E03.9 - Hypothyroidism, unspecified (6) Eczema Status: Chronic Qualifiers: Eczema type: unspecified Qualified Codes: L30.9 - Dermatitis, unspecified (7) Depression Status: Chronic Assessment & Plan: Home meds restarted Qualifiers: Depression Type: unspecified Qualified Codes: F32.9 - Major depressive disorder, single episode, unspecified (8) GERD (gastroesophageal reflux disease) Status: Chronic Assessment & Plan: Home meds restarted Qualifiers: Esophagitis presence: without esophagitis Qualified Codes: K21.9 - Gastro- esophageal reflux disease without esophagitis (9) Environmental allergies Status: Chronic Assessment & Plan: Home meds restarted (10) Diarrhea Status: Acute Assessment & Plan: Add Lactinex, Questran, Imodium Qualifiers: Diarrhea type: unspecified type Qualified Codes: R19.7 - Diarrhea, unspecified Clinical Quality Measures DVT/VTE Risk/Contraindication: Risk Factor Score Per Nursin RFS Level Per Nursing on Admit: 3=High BRIANNA GARCIA DO Jan 21, 2018 09:52
[2018-01-21] MEDS ORDERED: PROMETHAZINE 25 MG (PHENERGAN) TAB PO PRN (10:00)
[2018-01-21] MEDS ORDERED: LOPERAMIDE 2 MG (IMODIUM) CAP PO NR (10:15)
[2018-01-21] MEDS ORDERED: LOPERAMIDE 2 MG (IMODIUM) CAP PO PRN (10:15)
[2018-01-21] MEDS ORDERED: KETOROLAC 30 MG/ML VIAL IVP PRN ×2 (10:15→10:30)
[2018-01-21] MEDS ORDERED: SUMAtriptan 50 MG (IMITREX) TAB PO PRN (10:15)
[2018-01-21] MEDS: CHOLESTYRAMINE 4 GM (QUESTRAN LITE, PREVALITE) PKT PO SCH ×3 (11:27→20:15)
[2018-01-21] MEDS: LACTOBACILLUS Acidoph/Bulgar (LACTINEX/FLORANEX) TAB PO SCH ×2 (11:27→17:38)
[2018-01-21] MEDS: FAMOTIDINE 20 MG (PEPCID) TABLET PO SCH (20:17)
[2018-01-21] MEDS: ACETAMINOPHEN 500 MG TAB (TYLENOL) PO PRN (20:18)
[2018-01-21] MEDS: TRIAMCINOLONE 0.1% CR (KENALOG) 15 GM TUBE TP SCH (20:25)
[2018-01-21] MEDS: KCL 10 MEQ TAB (MICRO K) PO SCH (20:27)
[2018-01-22] MEDS: PIPERACILLIN/TAZO 3.375 GM/D5W 100 ML IV SCH ×6 (00:21→16:55)
[2018-01-22] MEDS ORDERED: TROUGH ORDER-PHARMACY XX NR (05:00)
[2018-01-22 05:21] LABS: HEMATOCRIT 27 % (35-52); HEMOGLOBIN 8.9 G/DL (11.5-16.0); LYMPHOCYTES % (AUTO) 14 % (12-44); MEAN CORPUSCULAR HEMOGLOBIN 31 PG (25-34); MEAN CORPUSCULAR HGB CONC 33 G/DL (32-36); MEAN CORPUSCULAR VOLUME 93 FL (80-99); MEAN PLATELET VOLUME 9.1 FL (7.4-10.4); NEUTROPHILS % (AUTO) 72 % (42-75); PLATELET COUNT 173 10^3/uL (130-400); RED BLOOD COUNT 2.87 10^6/uL (4.35-5.85); WHITE BLOOD COUNT 7.8 10^3/uL (4.3-11.0)
[2018-01-22 05:22] LABS: BASOPHILS % (AUTO) 0 % (0-10); EOSINOPHILS # (AUTO) 0.2 10^3/uL (0.0-0.3); EOSINOPHILS % (AUTO) 3 % (0-10); LYMPHOCYTES # (AUTO) 1.1 X 10^3 (1.0-4.0); MONOCYTES # (AUTO) 0.9 X 10^3 (0.0-1.0); MONOCYTES % (AUTO) 12 % (0-12); NEUTROPHILS # (AUTO) 5.6 X 10^3 (1.8-7.8)
[2018-01-22 05:40] LABS: ALANINE AMINOTRANSFERASE < 6 U/L (0-55); ALBUMIN 3.2 GM/DL (3.2-4.5); ALKALINE PHOSPHATASE 68 U/L (40-136); BILIRUBIN,TOTAL 0.5 MG/DL (0.1-1.0); BUN/CREATININE RATIO 6; CALCIUM 9.5 MG/DL (8.5-10.1); CARBON DIOXIDE 16 MMOL/L (21-32); CHLORIDE 109 MMOL/L (98-107); CREATININE SERUM 0.71 MG/DL (0.60-1.30); GFR ESTIMATED > 60; GLUCOSE 85 MG/DL (70-105); POTASSIUM 3.9 MMOL/L (3.6-5.0); SODIUM 134 MMOL/L (135-145); TOTAL PROTEIN 5.6 GM/DL (6.4-8.2)
[2018-01-22 05:46] LABS: VANCOMYCIN,TROUGH 20.7 UG/ML (10.0-20.0)
[2018-01-22] MEDS: CHOLESTYRAMINE 4 GM (QUESTRAN LITE, PREVALITE) PKT PO SCH ×5 (06:18→20:40)
[2018-01-22] MEDS: LEVOTHYROXINE 25 MCG (LEVOTHROID) TAB PO SCH (06:18)
[2018-01-22] MEDS: LACTOBACILLUS Acidoph/Bulgar (LACTINEX/FLORANEX) TAB PO SCH ×3 (06:18→16:53)
[2018-01-22] MEDS: LEVOTHYROXINE 112 MCG (LEVOTHROID) TAB PO SCH (06:18)
[2018-01-22] MEDS: VANCOMYCIN 1 GM/NS 250 ML IVPB IV SCH ×2 (06:19)
[2018-01-22] MEDS: PANTOPRAZOLE 40 MG (PROTONIX) TAB PO SCH (06:19)
[2018-01-22 08:00] VITALS: BP 163/83
[2018-01-22] MEDS: TRIAMCINOLONE 0.1% CR (KENALOG) 15 GM TUBE TP SCH ×2 (08:27→20:40)
[2018-01-22] MEDS: hydrALAZINE (APRESOLINE) 25 MG TAB PO SCH ×2 (08:27→20:39)
[2018-01-22] MEDS: doxAzosin 4 MG (CARDURA) TAB PO SCH (08:27)
[2018-01-22] MEDS: DOCUSATE SODIUM 100 MG (COLACE) CAP PO SCH ×2 (08:27→20:38)
[2018-01-22] MEDS: LABETALOL 200 MG (NORMODYNE) TAB PO SCH ×2 (08:27→20:39)
[2018-01-22] MEDS: VANCOMYCIN 750 MG/NS 250 ML IVPB IV SCH ×4 (09:26→20:38)
--- NOTE | 2018-01-22 10:34 | Progress Note-Hospitalist ---
Subjective HPI/CC On Admission Date Seen by Provider: Jan 22, 2018 Time Seen by Provider: 10:00 CC: Severe left leg cellulitis HPI: This is a 57-year-old white female clinic patient of Per [facility] who has a history of severe eczema who presents to the ER with fever of 101 and not feeling well with a left swollen and red leg. She had just been discharged a month prior for the right lower extremity cellulitis of which she had a long hospital stay for IV antibiotics that ultimately improved and resolved. She reports that she noticed the redness that started yesterday and came right into the hospital trying to avoid a long extended stay like recently. At this current time she reports the Toradol is improving the pain and wishes for that to continue since she responded at that dose in the ER. I have reviewed the reconcile all of her home medication and restarted everything for her. Smoking cessation counseled. Diarrhea is an issue considering the multiple antibiotics she has had recently and now currently on vancomycin and Zosyn so will initiate Lactinex Imodium and Questran. Subjective/Events-last exam Patient doing much better Left leg much improved erythema due to cellulitis Vancomycin and Zosyn aggressively treating his severe cellulitis Eczema much improved Hyponatremia nearly resolved with fluid restriction and normal saline will Hep- Lock IV fluid Review of Systems General: Fatigue Focused Exam Lactate Level 01/20/18 15:35: Lactic Acid Level 0.90 Objective Exam Vital Signs Vital Signs Date Time Temp Pulse Resp B/P (MAP) Pulse Ox O2 Delivery O2 Flow Rate FiO2 01/22/18 08:00 98.2 76 18 163/83 (109) 97 Room Air Capillary Refill : Less Than 3 Seconds General Appearance: No Apparent Distress, WD/WN Respiratory: Chest Non Tender, Lungs Clear, Normal Breath Sounds, No Accessory Muscle Use, No Respiratory Distress Cardiovascular: Regular Rate, Rhythm, No Edema, No Gallop, No JVD, No Murmur, Normal Peripheral Pulses Neurologic/Psychiatric: Alert, Oriented x3, No Motor/Sensory Deficits, Normal Mood/Affect Skin: Rash (Much improved erythema of left leg) Results/Procedures Lab Laboratory Tests 01/22/18 05:00 Patient resulted labs reviewed. Assessment/Plan Assessment and Plan Assess & Plan/Chief Complaint Assessment: Severe left leg cellulitis Severe eczema Plan: Continue fluid restriction Vancomycin and Zosyn due to the severity of cellulitis that is responding Monitor closely Diagnosis/Problems Diagnosis/Problems (1) Cellulitis of left lower leg Status: Acute Assessment & Plan: 01/21: Maintain Vancomycin and Zosyn empirically (2) Hyponatremia Status: Acute Assessment & Plan: 01/21: IV fluid of normal saline and fluid restriction of 1200 mL/day (3) Essential (primary) hypertension Status: Chronic Assessment & Plan: Home meds restarted (4) Smoker Status: Chronic Assessment & Plan: Counseled to cease smoking (5) Hypothyroidism Status: Acute Assessment & Plan: Home meds restarted Qualifiers: Hypothyroidism type: acquired Qualified Codes: E03.9 - Hypothyroidism, unspecified (6) Eczema Status: Chronic Qualifiers: Eczema type: unspecified Qualified Codes: L30.9 - Dermatitis, unspecified (7) Depression Status: Chronic Assessment & Plan: Home meds restarted Qualifiers: Depression Type: unspecified Qualified Codes: F32.9 - Major depressive disorder, single episode, unspecified (8) GERD (gastroesophageal reflux disease) Status: Chronic Assessment & Plan: Home meds restarted Qualifiers: Esophagitis presence: without esophagitis Qualified Codes: K21.9 - Gastro- esophageal reflux disease without esophagitis (9) Environmental allergies Status: Chronic Assessment & Plan: Home meds restarted (10) Diarrhea Status: Resolved Assessment & Plan: Add Lactinex, Questran, Imodium Qualifiers: Diarrhea type: unspecified type Qualified Codes: R19.7 - Diarrhea, unspecified Clinical Quality Measures DVT/VTE Risk/Contraindication: Risk Factor Score Per Nursin RFS Level Per Nursing on Admit: 3=High CHEL COMBS DO Jan 22, 2018 10:34
[2018-01-22] MEDS: ACETAMINOPHEN 500 MG TAB (TYLENOL) PO PRN ×2 (12:48→20:39)
[2018-01-22 15:32] VITALS: BP 162/73
[2018-01-22] MEDS: FAMOTIDINE 20 MG (PEPCID) TABLET PO SCH (20:38)
[2018-01-22] MEDS: KCL 10 MEQ TAB (MICRO K) PO SCH (20:38)
[2018-01-22] MEDS ORDERED: LORATADINE (CLARITIN) 10 MG TAB PO SCH (21:00)
[2018-01-22 23:41] VITALS: BP 146/76
[2018-01-23] MEDS: PIPERACILLIN/TAZO 3.375 GM/D5W 100 ML IV SCH ×4 (00:12→08:22)
[2018-01-23] MEDS: LEVOTHYROXINE 112 MCG (LEVOTHROID) TAB PO SCH (06:22)
[2018-01-23] MEDS: CHOLESTYRAMINE 4 GM (QUESTRAN LITE, PREVALITE) PKT PO SCH ×2 (06:22→10:09)
[2018-01-23] MEDS: PANTOPRAZOLE 40 MG (PROTONIX) TAB PO SCH (06:22)
[2018-01-23] MEDS: LACTOBACILLUS Acidoph/Bulgar (LACTINEX/FLORANEX) TAB PO SCH ×2 (06:22→10:08)
[2018-01-23] MEDS: LEVOTHYROXINE 25 MCG (LEVOTHROID) TAB PO SCH (06:22)
[2018-01-23 08:00] VITALS: BP 181/92
[2018-01-23] MEDS: VANCOMYCIN 750 MG/NS 250 ML IVPB IV SCH ×2 (08:22)
[2018-01-23] MEDS: doxAzosin 4 MG (CARDURA) TAB PO SCH (08:22)
[2018-01-23] MEDS: hydrALAZINE (APRESOLINE) 25 MG TAB PO SCH (08:23)
[2018-01-23] MEDS: TRIAMCINOLONE 0.1% CR (KENALOG) 15 GM TUBE TP SCH (08:23)
[2018-01-23] MEDS: LABETALOL 200 MG (NORMODYNE) TAB PO SCH (08:23)
[2018-01-23] MEDS: DOCUSATE SODIUM 100 MG (COLACE) CAP PO SCH (08:29)
[2018-01-23 10:09] VITALS: BP 109/57
[2018-01-23] MEDS ORDERED: CLIN300C11 PO (10:50)
--- NOTE | 2018-01-23 10:52 | Discharge Instructions ---
Discharge Inst-[facility] Discharge Medications New, Converted or Re-Newed RX: Transmitted to Pharmacy New Medications: Clindamycin HCl (Clindamycin HCl) 300 Mg Capsule 300 MG PO Q6H for 7 Days, #28 CAP 0 Refills Continued Medications: Cetirizine HCl (Cetirizine HCl) 10 Mg Tablet 10 MG PO HS, TAB Citalopram Hydrobromide (Citalopram HBr) 20 Mg Tablet 20 MG PO DAILY, TAB Diazepam (Diazepam) 5 Mg Tablet 2.5-5 MG PO Q8H PRN for ANXIETY, TAB Doxazosin Mesylate (Doxazosin Mesylate) 4 Mg Tablet 4 MG PO HS, TAB Hydralazine HCl (Hydralazine HCl) 25 Mg Tablet 25 MG PO BID, TAB Hydrocodone/Acetaminophen (Hydrocodone-Acetamin 7.5-325) 1 Each Tablet 0.5-1 TAB PO Q4H PRN for PAIN-MODERATE, TAB Labetalol HCl (Labetalol HCl) 200 Mg Tablet 200 MG PO BID, TAB Levothyroxine Sodium (Levothyroxine Sodium) 137 Mcg Tablet 137 MCG PO DAILY, TAB Pantoprazole Sodium (Pantoprazole Sodium) 40 Mg Tablet.dr 40 MG PO DAILY, TAB Potassium Chloride (Potassium Chloride) 10 Meq Tablet.er 10 MEQ PO HS, TAB Promethazine HCl (Promethazine Tablet) 25 Mg Tablet 25 MG PO Q4H PRN for NAUSEA/VOMITING-2ND LINE, TAB Ranitidine HCl (Ranitidine HCl) 300 Mg Tablet 300 MG PO HS, TAB Rizatriptan Benzoate (Maxalt Alternative Education Teacher) 10 Mg Tab.rapdis 10 MG PO UD PRN for MIGRAINE, TAB Triamcinolone Acet (Triamcinolone Acetonide 0.1% Cream) 15 Gm Cr TP BID, TUBE Patient Instructions Goal/Follow Up Appt: [facility] up at [facility] within one week of discharge. Return to The Hospital For: Fever, inability to keep down antibiotics, worsening redness/swelling in leg Activity & Diet Discharge Diet: Regular Diet (limit fluids to 1500 ml per day) Activity as Tolerated: Yes Copy Copies To 1: CARLA Gonzalez BETHANY N MD Jan 23, 2018 10:52 am
--- NOTE | 2018-01-23 10:54 | Discharge Summary ---
Diagnosis/Chief Complaint Date of Admission Jan 20, 2018 at 4:39 pm Date of Discharge Jan 23, 2018 Admission Diagnosis Admission Diagnosis Left leg acute and severe cellulitis Severe eczema Discharge Diagnosis (1) Cellulitis of left lower leg Assessment & Plan: 01/21: Maintain Vancomycin and Zosyn empirically 01/23- leukocytosis resolved, cellulitis markedly improved, patient anxious to go home, sent home with clindamycin prescription (2) Hyponatremia Assessment & Plan: 01/21: IV fluid of normal saline and fluid restriction of 1200 mL/day 01/23- discussed with patient and she reports she had been told in past she had hyponatremia and a previous physician had recommended salt tablets, but she does not recall having a work-up. Discussed that her citalopram could cause it, but should discuss further work-up with her primary provider, for now maintain 1500 ml fluid restriction at home. (3) Essential (primary) hypertension Assessment & Plan: Home meds restarted (4) Smoker Assessment & Plan: Counseled to cease smoking (5) Hypothyroidism Assessment & Plan: Home meds restarted Qualifiers: Hypothyroidism type: acquired Qualified Codes: E03.9 - Hypothyroidism, unspecified (6) Eczema Qualifiers: Eczema type: unspecified Qualified Codes: L30.9 - Dermatitis, unspecified (7) Depression Assessment & Plan: Home meds restarted Qualifiers: Depression Type: unspecified Qualified Codes: F32.9 - Major depressive disorder, single episode, unspecified (8) GERD (gastroesophageal reflux disease) Assessment & Plan: Home meds restarted Qualifiers: Esophagitis presence: without esophagitis Qualified Codes: K21.9 - Gastro- esophageal reflux disease without esophagitis (9) Environmental allergies Assessment & Plan: Home meds restarted (10) Diarrhea Status: Resolved Assessment & Plan: Add Lactinex, Questran, Imodium Qualifiers: Diarrhea type: unspecified type Qualified Codes: R19.7 - Diarrhea, unspecified Chief Complaint/HPI Chief Complaint/HPI This is a 57-year-old white female clinic patient of [facility] who has a history of severe eczema who presents to the ER with fever of 101 and not feeling well with a left swollen and red leg. She had just been discharged a month prior for the right lower extremity cellulitis of which she had a long hospital stay for IV antibiotics that ultimately improved and resolved. She reports that she noticed the redness that started yesterday and came right into the hospital trying to avoid a long extended stay like recently. At this current time she reports the Toradol is improving the pain and wishes for that to continue since she responded at that dose in the ER. I have reviewed the reconcile all of her home medication and restarted everything for her. Smoking cessation counseled. Diarrhea is an issue considering the multiple antibiotics she has had recently and now currently on vancomycin and Zosyn so will initiate Lactinex Imodium and Questran. Discharge Summary-Simple/Stand Consultations Discharge Physical Examination Allergies: Coded Allergies: Sulfa (Sulfonamide Antibiotics) (Verified Allergy, Unknown, 08/16/16) codeine (Verified Allergy, Unknown, Pt takes Lortab at home, 01/20/18) Vitals & I&Os Vital Sign - Last 12Hours Date Time Temp Pulse Resp B/P (MAP) Pulse Ox O2 Delivery O2 Flow Rate FiO2 01/23/18 10:09 65 109/57 (74) 01/23/18 08:00 98.9 18 92 Room Air Intake and Output 01/23/18 00:00 Intake Total 1700 ml Output Total 400 ml Balance 1300 ml General Appearance: Alert, No Acute Distress Respiratory: Clear to Auscultation, Normal Air Movement Cardiovascular: Regular Rate, No Murmurs Extremities: No Edema Skin: Other (left lower leg with faint erythema, skin wrinkling consistent with recent improved edema) Hospital Course See final discharge diagnosis. Labs Laboratory Tests Test 01/22/18 05:00 Range/Units White Blood Count 7.8 4.3-11.0 10^3/uL Red Blood Count 2.87 L 4.35-5.85 10^6/uL Hemoglobin 8.9 L 11.5-16.0 G/DL Hematocrit 27 L 35-52 % Mean Corpuscular Volume 93 80-99 FL Mean Corpuscular Hemoglobin 31 25-34 PG Mean Corpuscular Hemoglobin Concent 33 32-36 G/DL Red Cell Distribution Width 15.0 H 10.0-14.5 % Platelet Count 173 130-400 10^3/uL Mean Platelet Volume 9.1 7.4-10.4 FL Neutrophils (%) (Auto) 72 42-75 % Lymphocytes (%) (Auto) 14 12-44 % Monocytes (%) (Auto) 12 0-12 % Eosinophils (%) (Auto) 3 0-10 % Basophils (%) (Auto) 0 0-10 % Neutrophils # (Auto) 5.6 1.8-7.8 X 10^3 Lymphocytes # (Auto) 1.1 1.0-4.0 X 10^3 Monocytes # (Auto) 0.9 0.0-1.0 X 10^3 Eosinophils # (Auto) 0.2 0.0-0.3 10^3/uL Basophils # (Auto) 0.0 0.0-0.1 10^3/uL Sodium Level 134 L 135-145 MMOL/L Potassium Level 3.9 3.6-5.0 MMOL/L Chloride Level 109 H 98-107 MMOL/L Carbon Dioxide Level 16 L 21-32 MMOL/L Anion Gap 9 5-14 MMOL/L Blood Urea Nitrogen 4 L 7-18 MG/DL Creatinine 0.71 0.60-1.30 MG/DL Estimat Glomerular Filtration Rate > 60 BUN/Creatinine Ratio 6 Glucose Level 85 70-105 MG/DL Calcium Level 9.5 8.5-10.1 MG/DL Total Bilirubin 0.5 0.1-1.0 MG/DL Aspartate Amino Transf (AST/SGOT) 8 5-34 U/L Alanine Aminotransferase (ALT/SGPT) < 6 0-55 U/L Alkaline Phosphatase 68 40-136 U/L Total Protein 5.6 L 6.4-8.2 GM/DL Albumin 3.2 3.2-4.5 GM/DL Vancomycin Level Trough 20.7 H 10.0-20.0 UG/ML Discharge Instructions to patient/family Please see electronic discharge instructions given to patient. Discharge Medications Reviewed and agree with Discharge Medication list on patient's Discharge Instruction sheet Clinical Quality Measures DVT/VTE Risk/Contraindication: Risk Factor Score Per Nursin RFS Level Per Nursing on Admit: 3=High Copy Copies To 1: CARLA Gonzalez BETHANY N MD Jan 23, 2018 10:54
[2018-01-24] MEDS ORDERED: TROUGH ORDER-PHARMACY XX NR (08:00)
== END 2018-01-23 12:15 | disposition home or self-care (01) | DRG 603 ==
LOC: EDUNIT# 12:52 → ER 12:55 → 4TH 16:39
PROVIDERS: ADMIT Internal Medicine; ATTEND Internal Medicine
DX: L03.116 Cellulitis of left lower limb (principal); E87.1 Hypo-osmolality and hyponatremia; L30.0 Nummular dermatitis; I10 Essential (primary) hypertension; E03.9 Hypothyroidism, unspecified; F32.9 Major depressive disorder, single episode, unspecified; F41.9 Anxiety disorder, unspecified; K21.9 Gastro-esophageal reflux disease without esophagitis; J30.9 Allergic rhinitis, unspecified; R19.7 Diarrhea, unspecified; G43.909 Migraine, unspecified, not intractable, without status migrainosus; F17.210 Nicotine dependence, cigarettes, uncomplicated
CPT/HCPCS: 36415; 80048; 80053; 80202; 83605; 85007; 85025; 85027; 86141; 87040; 96361; 96365; 96375

== ENCOUNTER 2018-07-19 14:52 | Emergency (ER) | payer OTHER ==
[~2018-07-19] VITALS: Ht 152.4 cm; Wt 77.1 kg
[~2018-07-19 14:52] MED LIST changes: -AMLO5TAB2 PO; +AMLO5TAB7 PO; +CLIN300C11 PO; +LEVO137T2 PO; -LOSA100T28 PO; +LOSA100T8 PO; -PIPERACILLIN/TAZO 3.375 GM/D5W 100 ML IV SCH; +RIZA10TA20 PO; +TR1C15 TP
--- OUTSIDE RECORDS SUMMARY | 2018-07-19 14:56 | XMS REPORT ---
Author Author MARINO MCELROY Organization [facility] Address [address] [place] [address] Care Team Providers Care Bookmaker'S Clerk Name Role Phone MARINO MCELROY Unavailable PROBLEMS Type Condition ICD9-CM Code CGB23-AW Code Onset Dates Condition Status SNOMED Code Problem Anxiety F41.9 Active 05999545 Problem Hypertension, benign I10 Active 29507259 Problem Decreased urine output R34 Active 745528670 Problem Acquired hypothyroidism E03.9 Active 151499286 Problem Hypothyroidism (acquired) E03.9 Active 11418343 ALLERGIES No Information ENCOUNTERS Encounter Location Date Diagnosis [facility] [address] [address] Apr, [facility] [address] [address] Mar, Anxiety F41.9 [facility] [address] [address] Mar, Anxiety F41.9 and Hypertension, benign I10 [facility] [id number] [place] [address] Mar, Acquired hypothyroidism E03.9 [facility] [address] [address] Mar, Acquired hypothyroidism E03.9 [facility] [id number] [place] [address] Feb, [facility] [address] [address] Feb, Acquired hypothyroidism E03.9 [facility] [id number] [place] [address] Jan, [facility] [id number] [address] 26 Dec, 2017 [place] [address] [place] [address] 20 Dec, 2017 [place] [address] [place] [address] 13 Dec, 2017 Hypothyroidism (acquired) E03.9 [place] [id number] [place] [address] 11 Dec, 2017 Cellulitis of right lower extremity L03.115 ; Cellulitis of left lower limb L03.116 ; Other eczema L30.8 and Exposure to hepatitis C Z20.[address] [place] [address] November, Fever, unspecified fever cause R50.9 ; Intractable vomiting with nausea, unspecified vomiting type R11.2 ; Decreased urine output R34 and Dehydration E86.0 [address] [address] Jun, Fever, unspecified fever cause R50.9 ; Other viral agents as the cause of diseases classified elsewhere B97.89 and Other specified respiratory disorders J98.8 IMMUNIZATIONS No Known Immunizations SOCIAL HISTORY Never Assessed REASON FOR VISIT Controlled Med Refill PLAN OF CARE VITAL SIGNS MEDICATIONS Medication Instructions Dosage Frequency Start Date End Date Duration Status Diazepam 5 mg Orally Once a day 1 tablet as needed 24h 28 days Active RESULTS No Results PROCEDURES No Known procedures INSTRUCTIONS MEDICATIONS ADMINISTERED No Known Medications MEDICAL (GENERAL) HISTORY Type Description Date Medical History hypertension Medical History migraines Medical History hypothyroid Medical History anxiety Surgical History hysterectomy Surgical History lumpectomy Surgical History tonsillectomy Surgical History tubal ligation Hospitalization History htn Hospitalization History sodium low Hospitalization History cellultius 12/20-12/24 Hospitalization History cellulitis Lt leg 12/2017 Hospitalization History cellulitis Rt leg 01/2018
--- OUTSIDE RECORDS SUMMARY | 2018-07-19 14:56 | XMS REPORT ---
Author Author MARINO MCELROY Organization [facility] Address [address] [place] [address] Care Team Providers Care Manager Entry Name Role Phone MARINO MCELROY Unavailable PROBLEMS Type Condition ICD9-CM Code TGH10-OE Code Onset Dates Condition Status SNOMED Code Problem Anxiety F41.9 Active 41616538 Problem Hypertension, benign I10 Active 44068293 Problem Decreased urine output R34 Active 252573525 Problem Acquired hypothyroidism E03.9 Active 413393738 Problem Hypothyroidism (acquired) E03.9 Active 44636609 ALLERGIES No Information ENCOUNTERS Encounter Location Date Diagnosis [facility] [address] [address] Mar, Anxiety F41.9 [facility] [address] [address] Mar, Anxiety F41.9 and Hypertension, benign I10 [facility] [address] [address] Mar, Acquired hypothyroidism E03.9 [facility] [id number] [place] [address] Mar, Acquired hypothyroidism E03.9 [facility] [id number] [place] [address] Feb, [facility] [id number] [place] [address] Feb, Acquired hypothyroidism E03.9 [facility] [address] [address] Jan, [facility] [address] [address] Dec, [facility] [id number] [address] 20 Dec, 2017 [facility] [id number] [place] [address] 13 Dec, 2017 Hypothyroidism (acquired) E03.9 [place] [id number] [place] [address] 11 Dec, 2017 Cellulitis of right lower extremity L03.115 ; Cellulitis of left lower limb L03.116 ; Other eczema L30.8 and Exposure to hepatitis C Z20.5 [facility] [place] [address] [place] [address] November, Fever, unspecified fever cause R50.9 ; Intractable vomiting with nausea, unspecified vomiting type R11.2 ; Decreased urine output R34 and Dehydration E86.[address] [place] [address] Jun, Fever, unspecified fever cause R50.9 ; [...]
--- OUTSIDE RECORDS SUMMARY | 2018-07-19 14:56 | XMS REPORT ---
Author Author MARINO MCELROY Organization [facility] Address [address] [place] [address] Care Team Providers Care Power Tool Repairer Name Role Phone MARINO MCELROY Unavailable PROBLEMS Type Condition ICD9-CM Code FHR44-FT Code Onset Dates Condition Status SNOMED Code Problem Anxiety F41.9 Active 85533741 Problem Hypertension, benign I10 Active 84646629 Problem Decreased urine output R34 Active 233908435 Problem Acquired hypothyroidism E03.9 Active 518013652 Problem Hypothyroidism (acquired) E03.9 Active 34527969 ALLERGIES No Information ENCOUNTERS Encounter Location Date Diagnosis [facility] [address] [address] Apr, [facility] [address] [address] Mar, Anxiety F41.9 [facility] [address] [address] Mar, Anxiety F41.9 and Hypertension, benign I10 [facility] [id number] [place] [address] Mar, Acquired hypothyroidism E03.9 [facility] [address] [address] Mar, Acquired hypothyroidism E03.9 [facility] [id number] [place] [address]- [address] Feb, [facility] [address] [address] Feb, Acquired hypothyroidism E03.9 [facility] [id number] [place] [address] Jan, [facility] [id number] [address] 26 Dec, 2017 [place] [address] [place] [address] Dec, [place] [address] [place] [address] 13 Dec, 2017 Hypothyroidism (acquired) E03.9 [place] [id number] [place] [address]- [address] 11 Dec, 2017 Cellulitis of right lower extremity L03.115 ; Cellulitis of left lower limb L03.116 ; Other eczema L30.8 and Exposure to hepatitis C Z20.[address] [place] [address] November, Fever, unspecified fever cause R50.9 ; Intractable vomiting with nausea, unspecified vomiting type R11.2 ; Decreased urine output R34 and Dehydration E86.[address] [address] Jun, Fever, unspecified fever cause R50.9 ; Other viral agents as the cause of diseases classified elsewhere B97.89 and Other specified respiratory disorders J98.8 IMMUNIZATIONS No Known Immunizations SOCIAL HISTORY Never Assessed REASON FOR VISIT narc violation PLAN OF CARE VITAL SIGNS MEDICATIONS Unknown Medications RESULTS No Results PROCEDURES No Known procedures [...]
--- OUTSIDE RECORDS SUMMARY | 2018-07-19 14:56 | XMS REPORT ---
Author Author MARINO MCELROY Organization [facility] Address [address] [place] [address] Care Team Providers Care Assistant Nurse Manager Name Role Phone MARINO MCELROY Unavailable PROBLEMS Type Condition ICD9-CM Code WMO49-SS Code Onset Dates Condition Status SNOMED Code Problem Anxiety F41.9 Active 12070035 Problem Hypertension, benign I10 Active 97836677 Problem Decreased urine output R34 Active 858152799 Problem Acquired hypothyroidism E03.9 Active 761834896 Problem Hypothyroidism (acquired) E03.9 Active 89561697 ALLERGIES No Information ENCOUNTERS Encounter Location Date Diagnosis [facility] [address] [address] Apr, [facility] [address] [address] Mar, Anxiety F41.9 [facility] [address] [address] Mar, Anxiety F41.9 and Hypertension, benign I10 [facility] [id number] [place] [address] Mar, Acquired hypothyroidism E03.9 [facility] [address] [address] Mar, Acquired hypothyroidism E03.9 [facility] [id number] [place] [address]- [address] Feb, [facility] [address] [address] Feb, Acquired hypothyroidism E03.9 [facility] [id number] [place] [address] Jan, [facility] [id number] [address] 26 Dec, 2017 [place] [address] [place] [address]- [address] Dec, [place] [address] [place] [address]- 78[address] 13 Dec, 2017 Hypothyroidism (acquired) E03.9 [place] [id number] [place] [address] 14082- 35[address] 11 Dec, 2017 Cellulitis of right lower extremity L03.115 ; Cellulitis of left lower limb L03.116 ; Other eczema L30.8 and Exposure to hepatitis C Z20.[address] [place] [address] November, Fever, unspecified fever cause R50.9 ; Intractable vomiting with nausea, unspecified vomiting type R11.2 ; Decreased urine output R34 and Dehydration E86.0 [address], [place] [address] Jun, Fever, unspecified fever cause R50.9 ; Other viral agents as the cause of diseases classified elsewhere B97.89 and Other specified respiratory disorders J98.8 IMMUNIZATIONS No Known Immunizations SOCIAL HISTORY Never Assessed REASON FOR VISIT lab/violation// PLAN OF CARE VITAL SIGNS MEDICATIONS Unknown [...]
--- OUTSIDE RECORDS SUMMARY | 2018-07-19 14:57 | XMS REPORT ---
Author Author MARINO MCELROY Organization [facility] Address [address] [place] [address] Care Team Providers Care Ice Plant Operator Name Role Phone MARINO MCELROY Unavailable PROBLEMS Type Condition ICD9-CM Code DKM00-HB Code Onset Dates Condition Status SNOMED Code Problem Acquired hypothyroidism E03.9 Active 969515902 Problem Hypothyroidism (acquired) E03.9 Active 14792634 Problem Decreased urine output R34 Active 927941365 ALLERGIES No Information ENCOUNTERS Encounter Location Date Diagnosis [facility] [id number] [place] [address] Feb, [facility] [address] [address] Feb, Acquired hypothyroidism E03.9 [facility] [id number] [place] [address]156- [address] Jan, [facility] [id number] [place] [address]- [address] Dec, [facility] [id number] [place] [address]- 97[address] Dec, [facility] [id number] [place] [address]- [address] 13 Dec, 2017 Hypothyroidism (acquired) E03.9 [facility] [id number] [place] [address] 9[address]- 2706 11 Dec, 2017 Cellulitis of right lower extremity L03.115 ; Cellulitis of left lower limb L03.116 ; Other eczema L30.8 and Exposure to hepatitis C Z20.5 [facility] [id number] [place] [address] November, Fever, unspecified fever cause R50.9 ; Intractable vomiting with nausea, unspecified vomiting type R11.2 ; Decreased urine output R34 and Dehydration E86.0 [facility] IN [facility] [address] [facility] [id number] [address] Jun, Fever, unspecified fever cause R50.9 ; Other viral agents as the cause of diseases classified elsewhere B97.89 and Other specified respiratory disorders J98.8 IMMUNIZATIONS No Known Immunizations SOCIAL HISTORY Never Assessed REASON FOR VISIT Requests return call PLAN OF CARE VITAL SIGNS MEDICATIONS Unknown [...]
--- OUTSIDE RECORDS SUMMARY | 2018-07-19 14:57 | XMS REPORT ---
Author Author MARINO MCELROY Organization [facility] Address [address] [place] [address] Care Team Providers Care Sheet Metal Worker Maintenance Name Role Phone MARINO MCELROY Unavailable PROBLEMS Type Condition ICD9-CM Code DUC68-IK Code Onset Dates Condition Status SNOMED Code Problem Acquired hypothyroidism E03.9 Active 047395045 Problem Hypothyroidism (acquired) E03.9 Active 08041976 Problem Decreased urine output R34 Active 927471368 ALLERGIES No Information ENCOUNTERS Encounter Location Date Diagnosis [facility] [id number] [place] [address] Feb, [facility] [address] [address] Feb, Acquired hypothyroidism E03.9 [facility] [id number] [place] [address] Jan, [facility] [id number] [place] [address]- [address] Dec, [facility] [id number] [place] [address]- [address] Dec, [facility] [id number] [place] [address]112[address]- [address] 13 Dec, 2017 Hypothyroidism (acquired) E03.9 [facility] [id number] [place] [address]- [address] 11 Dec, 2017 Cellulitis of right lower extremity L03.115 ; Cellulitis of left lower limb L03.116 ; Other eczema L30.8 and Exposure to hepatitis C Z20.5 [facility] [id number] [place] [address] November, Fever, unspecified fever cause R50.9 ; Intractable vomiting with nausea, unspecified vomiting type R11.2 ; Decreased urine output R34 and Dehydration E86.0 [facility] IN [facility] [address] [facility] [id number] [place] [address] Jun, Fever, unspecified fever cause R50.9 ; Other viral agents as the cause of diseases classified elsewhere B97.89 and Other specified respiratory disorders J98.8 IMMUNIZATIONS No Known Immunizations SOCIAL HISTORY Never Assessed REASON FOR VISIT PLAN OF CARE VITAL SIGNS MEDICATIONS Unknown [...]
--- OUTSIDE RECORDS SUMMARY | 2018-07-19 14:57 | XMS REPORT ---
Author Author MARINO MCELROY Organization [facility] Address [address] [place] [address] Care Team Providers Care Engineering Clerk Name Role Phone MARINO MCELROY Unavailable PROBLEMS Type Condition ICD9-CM Code PLP98-ER Code Onset Dates Condition Status SNOMED Code Problem Anxiety F41.9 Active 57247989 Problem Hypertension, benign I10 Active 92284276 Problem Decreased urine output R34 Active 300974889 Problem Acquired hypothyroidism E03.9 Active 561258013 Problem Hypothyroidism (acquired) E03.9 Active 17922932 ALLERGIES No Information ENCOUNTERS Encounter Location Date Diagnosis [facility] [id number] [place] [address] Mar, Anxiety F41.9 and Hypertension, benign I10 [facility] [id number] [place] [address]1644[address] 3120 Mar, Acquired hypothyroidism E03.9 [facility] [id number] [place] [address] 9920 Mar, Acquired hypothyroidism E03.9 [facility] [id number] [address] Feb, [facility] [id number] [place] [address] 75059[address] 3576 Feb, Acquired hypothyroidism E03.9 [facility] [id number] [place] [address]16- 5430 Jan, [facility] [id number] [place] [address] 13832- 8848 Dec, [facility] [id number] [place] [address] 89732- 4338 Dec, [facility] [id number] [address] 13 Dec, 2017 Hypothyroidism (acquired) E03.9 [facility] [id number] [address] 11 Dec, 2017 Cellulitis of right lower extremity L03.115 ; Cellulitis of left lower limb L03.116 ; Other eczema L30.8 and Exposure to hepatitis C Z20.5 [id number] [place] [address] November, Fever, unspecified fever cause R50.9 ; Intractable vomiting with nausea, unspecified vomiting type R11.2 ; Decreased urine output R34 and Dehydration E86.0 [id number] [address] Jun, Fever, unspecified fever cause R50.9 ; Other viral agents as the cause of diseases classified elsewhere B97.89 and Other specified respiratory disorders J98.8 IMMUNIZATIONS No Known Immunizations SOCIAL HISTORY Never Assessed REASON FOR VISIT Medication question PLAN OF CARE VITAL SIGNS MEDICATIONS Medication Instructions Dosage Frequency Start Date End Date Duration Status Ranitidine HCl 150 MG Orally Once a day 1 capsule at bedtime 24h Feb, 30 day(s) Active RESULTS No Results PROCEDURES No Known [...]
--- OUTSIDE RECORDS SUMMARY | 2018-07-19 14:57 | XMS REPORT ---
Author Author MARINO MCELROY Organization [facility] [place] Address [address] [place] [address] Care Team Providers Care Freight Hustler Name Role Phone MARINO MCELROY Unavailable PROBLEMS Type Condition ICD9-CM Code [id number]-RL Code Onset Dates Condition Status SNOMED Code Problem Acquired hypothyroidism E03.9 Active 157644593 Problem Hypothyroidism (acquired) E03.9 Active 58742628 Problem Decreased urine output R34 Active 199732853 ALLERGIES No Information ENCOUNTERS Encounter Location Date Diagnosis [place] [id number] [place] [address] Feb, [facility] [place] [address] [address] Feb, Acquired hypothyroidism E03.9 [facility] [place] [id number] [place] [address] 57[address]- 8173 Jan, [facility] [place] [id number] [place] [address] 22266- 8184 Dec, [facility] [place] [id number] [place] [address] 93519- 8178 Dec, [facility] [place] [id number] [place] [address] 04687- 4107 13 Dec, 2017 Hypothyroidism (acquired) E03.9 [facility] [place] [id number] [place] [address] 05904- 7833 11 Dec, 2017 Cellulitis of right lower extremity L03.115 ; Cellulitis of left lower limb L03.116 ; Other eczema L30.8 and Exposure to hepatitis C Z20.5 [facility]ALK IN [facility] [id number] [place] [address] November, Fever, unspecified fever cause R50.9 ; Intractable vomiting with nausea, unspecified vomiting type R11.2 ; Decreased urine output R34 and Dehydration E86.[address] [facility] IN [facility] [address] [facility] [id number] [place] [address] Jun, Fever, unspecified fever cause R50.9 ; Other viral agents as the cause of diseases classified elsewhere B97.89 and Other specified respiratory disorders J98.8 IMMUNIZATIONS No Known Immunizations SOCIAL HISTORY Never Assessed REASON FOR VISIT hosp f/u PLAN OF CARE VITAL SIGNS MEDICATIONS Unknown [...]
--- OUTSIDE RECORDS SUMMARY | 2018-07-19 14:57 | XMS REPORT ---
Author Author MARINO MCELROY Organization [facility] Address [address] [place] [address] Care Team Providers Care Tower Operator Name Role Phone MARINO MCELROY Unavailable PROBLEMS Type Condition ICD9-CM Code [id number] Code Onset Dates Condition Status SNOMED Code Problem Acquired hypothyroidism E03.9 Active 800533974 Problem Hypothyroidism (acquired) E03.9 Active 58767559 Problem Decreased urine output R34 Active 991478405 ALLERGIES Substance Reaction Event Type Date Status sulfa mouth blisters Non Drug Allergy Dec, Active ENCOUNTERS Encounter Location Date Diagnosis [facility] [address] [address] Feb, [facility] [address] [address] Feb, Acquired hypothyroidism E03.9 [facility] [address] [address] Jan, [facility] [address] [address] Dec, [facility] [id number] [place] [address] 13322- 8091 Dec, [facility] [address] [address]- [address] 13 Dec, 2017 Hypothyroidism (acquired) E03.9 [facility] [address] [address] 11 Dec, 2017 Cellulitis of right lower extremity L03.115 ; Cellulitis of left lower limb L03.116 ; Other eczema L30.8 and Exposure to hepatitis C Z20.5 [facility] [address] [address] November, Fever, unspecified fever cause R50.9 ; Intractable vomiting with nausea, unspecified vomiting type R11.2 ; Decreased urine output R34 and Dehydration E86.0 [facility] IN [facility] [address] [facility] [id number] [place] [address] Jun, Fever, unspecified fever cause R50.9 ; Other viral agents as the cause of diseases classified elsewhere B97.89 and Other specified respiratory disorders J98.8 IMMUNIZATIONS No Known Immunizations SOCIAL HISTORY Never Assessed REASON FOR VISIT lab results. PLAN OF CARE VITAL SIGNS MEDICATIONS Medication Instructions Dosage Frequency Start Date End Date Duration Status Levothyroxine Sodium 137 MCG Orally Once a day 1 tablet on an empty stomach in the morning 24h Active RESULTS No Results PROCEDURES No Known [...]
--- OUTSIDE RECORDS SUMMARY | 2018-07-19 14:57 | XMS REPORT ---
Author Author REGINO MENDEZ [facility] Address [address] [place] [address] Care Team Providers Care Client Technical Professional Name Role Phone REGINO MENDEZ Unavailable PROBLEMS Type Condition ICD9-CM Code RFH35-TQ Code Onset Dates Condition Status SNOMED Code Problem Acquired hypothyroidism E03.9 Active 532362013 Problem Hypothyroidism (acquired) E03.9 Active 87971961 Problem Decreased urine output R34 Active 850321932 ALLERGIES Substance Reaction Event Type Date Status sulfa mouth blisters Non Drug Allergy November, Active ENCOUNTERS Encounter Location Date Diagnosis [place] [address] [address] Feb, [facility] [id number] [place] [address]71- 4367 Feb, Acquired hypothyroidism E03.9 [facility] [address] [address] Jan, [facility] [address] [address] Dec, [place] [id number] [place] [address] 76518- 2101 Dec, [facility] [id number] [place] [address] 46932- 9[address] 13 Dec, 2017 Hypothyroidism (acquired) E03.9 [facility] [address] [address] 11 Dec, 2017 Cellulitis of right lower extremity L03.115 ; Cellulitis of left lower limb L03.116 ; Other eczema L30.8 and Exposure to hepatitis C Z20.5 [facility] [address] [place] [address] November, Fever, unspecified fever cause R50.9 ; Intractable vomiting with nausea, unspecified vomiting type R11.2 ; Decreased urine output R34 and Dehydration E86.0 [facility] [address] [facility] [id number] [place] [address] Jun, Fever, unspecified fever cause R50.9 ; Other viral agents as the cause of diseases classified elsewhere B97.89 and Other specified respiratory disorders J98.8 IMMUNIZATIONS No Known Immunizations SOCIAL HISTORY Never Assessed REASON FOR VISIT fever/body aches started at 0200 [address] PLAN OF CARE Activity Details Follow Up prn Reason: VITAL SIGNS Height 61 in 2017-12-18 Weight 129.0 lbs 2017-12-18 Temperature 101.5 degrees Fahrenheit 2017-12-18 Heart Rate 100 bpm 2017-12-18 Respiratory Rate 20 2017-12-18 BMI 24.37 kg/m2 2017-12-18 Blood pressure systolic 120 mmHg 2017-12-18 Blood pressure diastolic 70 mmHg 2017-12-18 MEDICATIONS Medication Instructions Dosage Frequency Start Date End Date Duration Status Ranitidine 1 tab Active Potassium Chloride - Active Doxazosin Mesylate 2 MG Orally Once a day 1 tablet 24h Active HydrALAZINE HCl 25 MG Orally two times a day 1 tablet with food 12h Active Maxalt 10 MG Orally Once a day 1 tablet as needed one time 24h Active Losartan Potassium 100 MG Orally Once a day 1 tablet 24h Active Levothyroxine Sodium 112 MCG Orally Once a day 1 tablet on an empty stomach in the morning 24h Active Promethazine HCl 25 MG Orally every 12 hrs 1 tablet as needed 12h Active Citalopram Hydrobromide 20 MG Orally Once a day 1 tablet 24h Active Labetalol HCl 200 MG Orally Twice a day 1 tablet 12h Active RESULTS Name Result Date Reference Range UA LONG DIP (IN HOUSE) 2017-12-18 Lot # [id number] Exp date 2018-11-23 Clarity clear Color dark yellow Odor none GLU negative ELEANOR 1+ KET 4+ SG 1.015 BLO negative pH 6.0 Protein trace URO 1.0 NIT negative TWILA negative Lot # [id number] Exp date Jun 2018 PROCEDURES Procedure Date Ordered Result Body Site URINALYSIS, AUTO, W/O SCOPE December 18, 2017 INSTRUCTIONS MEDICATIONS ADMINISTERED No Known Medications [...]
--- OUTSIDE RECORDS SUMMARY | 2018-07-19 14:57 | XMS REPORT ---
Author Author MARINO MCELROY Organization [facility] Address [address] [place] [address] Care Team Providers Care Food Sales Clerk Name Role Phone MARINO MCELROY Unavailable PROBLEMS Type Condition ICD9-CM Code LGY40-YQ Code Onset Dates Condition Status SNOMED Code Problem Acquired hypothyroidism E03.9 Active 099809459 Problem Hypothyroidism (acquired) E03.9 Active 01842069 Problem Decreased urine output R34 Active 782087875 ALLERGIES Substance Reaction Event Type Date Status sulfa mouth blisters Non Drug Allergy Feb, Active ENCOUNTERS Encounter Location Date Diagnosis [facility] [id number] [place] [address] 7[address]- [address] Mar, [facility] [id number] [place] [address] 29327- 9991 Mar, Acquired hypothyroidism E03.9 [facility] [address] [address]- [address] Mar, [facility] [id number] [place] [address] 55819- 1178 Feb, [facility] [id number] [place] [address] 36765- 85[address] Feb, Acquired hypothyroidism E03.9 [facility] [id number] [place] [address] 73883- 62[address] Jan, [facility] [address] [address] Dec, [facility] [id number] [place] [address] 0[address]- [address] Dec, [facility] [id number] [place] [address] 19855- 7820 Dec, Hypothyroidism (acquired) E03.9 [facility] [address] [facility] [id number] [place] [address] 11 Dec, 2017 Cellulitis of right lower extremity L03.115 ; Cellulitis of left lower limb L03.116 ; Other eczema L30.8 and Exposure to hepatitis C Z20.5 [facility] [address] [facility] [id number] [address] November, Fever, unspecified fever cause R50.9 ; Intractable vomiting with nausea, unspecified vomiting type R11.2 ; Decreased urine output R34 and Dehydration E86.0 [facility] [address] [facility] [id number] [address] Jun, Fever, unspecified fever cause R50.9 ; Other viral agents as the cause of diseases classified elsewhere B97.89 and Other specified respiratory disorders J98.8 IMMUNIZATIONS No Known Immunizations SOCIAL HISTORY Never Assessed REASON FOR VISIT Establish Care Pt is re-establishing care here, and needing medication refills LACEY Maki PLAN OF CARE VITAL SIGNS Height 61 in 2018-02-25 Weight 121.8 lbs 2018-02-25 Temperature 98.0 degrees Fahrenheit 2018-02-25 Heart Rate 66 bpm 2018-02-25 Respiratory Rate 18 2018-02-25 BMI 23.01 kg/m2 2018-02-25 Blood pressure systolic 122 mmHg 2018-02-25 Blood pressure diastolic 82 mmHg 2018-02-25 MEDICATIONS Medication Instructions Dosage Frequency Start Date End Date Duration Status Promethazine HCl 25 MG Orally every 12 hrs 1 tablet as needed 12h Active Maxalt 10 mg Orally Once a day 1 tablet as needed one time 24h Active Citalopram Hydrobromide 20 mg Orally Once a day 1 tablet 24h Active Levothyroxine Sodium 137 MCG Orally Once a day 1 tablet on an empty stomach in the morning 24h Active Labetalol HCl 200 mg Orally Twice a day 1 tablet 12h Active Pantoprazole Sodium 40 mg Orally Once a day 1 tablet 24h Active Cetirizine HCl 10 mg Orally Once a day 1 tablet 24h Active HydrALAZINE HCl 25 MG Orally two times a day 1 tablet with food 12h Active Doxazosin Mesylate 4 MG Orally Once a day 1 tablet 24h Feb, 30 day(s) Active Diazepam 5 mg Orally Once a day 1 tablet as needed 24h Active RESULTS Name Result Date Reference Range TSH 2018-02-25 TSH 0.80 0.40-4.50 PROCEDURES Procedure Date Ordered Result Body Site LAB NOT BILLED BY [facility] Feb 25, 2018 INSTRUCTIONS MEDICATIONS ADMINISTERED No Known Medications MEDICAL [...]
--- OUTSIDE RECORDS SUMMARY | 2018-07-19 14:57 | XMS REPORT ---
Author Author MARINO MCELROY Organization [facility] Address [address] [place] [address] Care Team Providers Care Curriculum And Instruction Specialist Name Role Phone MARINO MCELROY Unavailable PROBLEMS Type Condition ICD9-CM Code FEQ59-EO Code Onset Dates Condition Status SNOMED Code Problem Acquired hypothyroidism E03.9 Active 721923570 Problem Hypothyroidism (acquired) E03.9 Active 52354880 Problem Decreased urine output R34 Active 535666006 ALLERGIES Substance Reaction Event Type Date Status sulfa mouth blisters Non Drug Allergy Dec, Active ENCOUNTERS Encounter Location Date Diagnosis [facility] [address] [address] Feb, [facility] [address] [address] Feb, Acquired hypothyroidism E03.9 [facility] [address] [address] Jan, [facility] [address] [address] Dec, [facility] [id number] [place] [address] Dec, [facility] [address] [address] 13 Dec, 2017 Hypothyroidism (acquired) E03.9 [facility] [address] [address] 11 Dec, 2017 Cellulitis of right lower extremity L03.115 ; Cellulitis of left lower limb L03.116 ; Other eczema L30.8 and Exposure to hepatitis C Z20.5 [facility] [address] [address] November, Fever, unspecified fever cause R50.9 ; Intractable vomiting with nausea, unspecified vomiting type R11.2 ; Decreased urine output R34 and Dehydration E86.0 [facility] [address] [facility] [id number] [place] [address] Jun, Fever, unspecified fever cause R50.9 ; Other viral agents as the cause of diseases classified elsewhere B97.89 and Other specified respiratory disorders J98.8 IMMUNIZATIONS No Known Immunizations SOCIAL HISTORY Never Assessed REASON FOR VISIT [facility] follow up, PT was hospitalized on 12/20-12/24 at [facility] for cellulitis. PT reports her right leg is still swelling-josé luis RAHMAN , PT reports her soon to be ex informed her family he has Hep C and she is worried she was exposed- José Luis RAHMAN PLAN OF CARE VITAL SIGNS Height 61 in 2018-01-04 Weight 127.8 lbs 2018-01-04 Temperature 97.6 degrees Fahrenheit 2018-01-04 Heart Rate 61 bpm 2018-01-04 Respiratory Rate 20 2018-01-04 Oximetry on room air:98 % 2018-01-04 BMI 24.14 kg/m2 2018-01-04 Blood pressure systolic 143 mmHg 2018-01-04 Blood pressure diastolic 90 mmHg 2018-01-04 MEDICATIONS Medication Instructions Dosage Frequency Start Date End Date Duration Status HydrALAZINE HCl 25 MG Orally two times a day 1 tablet with food 12h Active Ranitidine 1 tab Active Potassium Chloride - Active Doxazosin Mesylate 2 MG Orally Once a day 1 tablet 24h Active Losartan Potassium 100 MG Orally Once a day 1 tablet 24h Active Diazepam 5 MG Orally 3 times a day 1/2 tab 8h Active Cetirizine HCl 10 MG Orally Once a day 1 tablet 24h Active Pantoprazole Sodium 40 MG Orally Once a day 24h Active Promethazine HCl 25 MG Orally every 12 hrs 1 tablet as needed 12h Active Maxalt 10 MG Orally Once a day 1 tablet as needed one time 24h Active PredniSONE 20 mg Orally Once a day 2 tablets 24h Dec, Dec, 05 days Active Levothyroxine Sodium 112 MCG Orally Once a day 1 tablet on an empty stomach in the morning 24h Active Labetalol HCl 200 MG Orally Twice a day 1 tablet 12h Active Rizatriptan Benzoate 10 MG Orally Once a day 1 tablet as needed one time 24h Active Citalopram Hydrobromide 20 MG Orally Once a day 1 tablet 24h Active Keflex 500 mg Orally 4 times a day 1 capsule 6h Dec, Dec, 10 day(s) Active RESULTS No Results PROCEDURES Procedure Date Ordered Result Body Site No Charge January 04, 2018 VENIPUNCT, ROUTINE* January 04, 2018 LAB NOT BILLED BY [facility] January 04, 2018 INSTRUCTIONS MEDICATIONS ADMINISTERED No Known Medications [...]
--- OUTSIDE RECORDS SUMMARY | 2018-07-19 14:59 | XMS REPORT | Continuity of Care Document ---
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 Serum or plasma anion gap determination (moles/volume) 10 mmol/L 5-14 Serum or plasma urea nitrogen measurement (mass/volume) 6 mg/dL 7-18 Serum or plasma creatinine measurement (mass/volume) 0.73 mg/dL 0.60-1.30 Serum or plasma urea nitrogen/creatinine mass ratio 8 NRG Serum or plasma creatinine measurement with calculation of estimated glomerular filtration rate > NRG Serum or plasma glucose measurement (mass/volume) 85 mg/dL 70-105 Serum or plasma calcium measurement (mass/volume) 9.7 mg/dL 8.5-10.1 C DIFFICILE AG + TOXIN A/B. - 12/23/17 08:40 RESULTS NEGATIVE FOR ANTIGEN AND TOXIN A/B NRG Vancomycin trough - 12/24/17 07:18 Vancomycin trough 26.1 ug/mL 10.0-20.0 Complete blood count (CBC) with automated white blood cell (WBC) differential - 12/24/17 07:18 Blood leukocytes automated count (number/volume) 11.7 10*3/uL 4.3-11.0 Blood erythrocytes automated count (number/volume) 3.29 10*6/uL 4.35-5.85 Venous blood hemoglobin measurement (mass/volume) 10.6 g/dL 11.5-16.0 Blood hematocrit (volume fraction) 31 % 35-52 Automated erythrocyte mean corpuscular volume 93 [foz_us] 80-99 Automated erythrocyte mean corpuscular hemoglobin (mass per erythrocyte) 32 pg 25-34 Automated erythrocyte mean corpuscular hemoglobin concentration measurement ( mass/volume) 35 g/dL 32-36 Automated erythrocyte distribution width ratio 13.9 % 10.0-14.5 Automated blood platelet count (count/volume) 261 10*3/uL 130-400 Automated blood platelet mean volume measurement 9.0 [foz_us] 7.4-10.4 Automated blood neutrophils/100 leukocytes 79 % 42-75 Automated blood lymphocytes/100 leukocytes 6 % 12-44 Blood monocytes/100 leukocytes 12 % 0-12 Automated blood eosinophils/100 leukocytes 2 % 0-10 Automated blood basophils/100 leukocytes 0 % 0-10 Blood neutrophils automated count (number/volume) 9.3 10*3 1.8-7.8 Blood lymphocytes automated count (number/volume) 0.7 10*3 1.0-4.0 Blood monocytes automated count (number/volume) 1.5 10*3 0.0-1.0 Automated eosinophil count 0.3 10*3/uL 0.0-0.3 Automated blood basophil count (count/volume) 0.0 10*3/uL 0.0-0.1 Whole blood basic metabolic panel - 12/24/17 07:18 Serum or plasma sodium measurement (moles/volume) 132 mmol/L 135-145 Serum or plasma potassium measurement (moles/volume) 3.2 mmol/L 3.6-5.0 Serum or plasma chloride measurement (moles/volume) 105 mmol/L 98-107 Carbon dioxide 18 mmol/L 21-32 Serum or plasma anion gap determination (moles/volume) 9 mmol/L 5-14 Serum or plasma urea nitrogen measurement (mass/volume) 6 mg/dL 7-18 Serum or plasma creatinine measurement (mass/volume) 0.86 mg/dL 0.60-1.30 Serum or plasma urea nitrogen/creatinine mass ratio 7 NRG Serum or plasma creatinine measurement with calculation of estimated glomerular filtration rate > NRG Serum or plasma glucose measurement (mass/volume) 95 mg/dL 70-105 Serum or plasma calcium measurement (mass/volume) 9.7 mg/dL 8.5-10.1 TSH - 01/04/18 14:13 TSH 36.97 mIU/L 0.40-4.50 Complete blood count (CBC) with automated white blood cell (WBC) differential - 01/20/18 15:35 Blood leukocytes automated count (number/volume) 15.2 10*3/uL 4.3-11.0 Blood erythrocytes automated count (number/volume) 3.51 10*6/uL 4.35-5.85 Venous blood hemoglobin measurement (mass/volume) 11.0 g/dL 11.5-16.0 Blood hematocrit (volume fraction) 33 % 35-52 Automated erythrocyte mean corpuscular volume 93 [foz_us] 80-99 Automated erythrocyte mean corpuscular hemoglobin (mass per erythrocyte) 31 pg 25-34 Automated erythrocyte mean corpuscular hemoglobin concentration measurement ( mass/volume) 34 g/dL 32-36 Automated erythrocyte distribution width ratio 14.9 % 10.0-14.5 Automated blood platelet count (count/volume) 244 10*3/uL 130-400 Automated blood platelet mean volume measurement 10.1 [foz_us] 7.4-10.4 Automated blood neutrophils/100 leukocytes 81 % 42-75 Automated blood lymphocytes/100 leukocytes 8 % 12-44 Blood monocytes/100 leukocytes 11 % 0-12 Automated blood eosinophils/100 leukocytes 0 % 0-10 Automated blood basophils/100 leukocytes 0 % 0-10 Blood neutrophils automated count (number/volume) 12.3 10*3 1.8-7.8 Blood lymphocytes automated count (number/volume) 1.2 10*3 1.0-4.0 Blood monocytes automated count (number/volume) 1.7 10*3 0.0-1.0 Automated eosinophil count 0.0 10*3/uL 0.0-0.3 Automated blood basophil count (count/volume) 0.0 10*3/uL 0.0-0.1 Blood lactic acid measurement (moles/volume) - 01/20/18 15:35 Blood lactic acid measurement (moles/volume) 0.90 mmol/L 0.50-2.00 Comprehensive metabolic panel - 01/20/18 15:35 Serum or plasma sodium measurement (moles/volume) 125 mmol/L 135-145 Serum or plasma potassium measurement (moles/volume) 3.9 mmol/L 3.6-5.0 Serum or plasma chloride measurement (moles/volume) 95 mmol/L 98-107 Carbon dioxide 21 mmol/L 21-32 Serum or plasma anion gap determination (moles/volume) 9 mmol/L 5-14 Serum or plasma urea nitrogen measurement (mass/volume) 9 mg/dL 7-18 Serum or plasma creatinine measurement (mass/volume) 0.76 mg/dL 0.60-1.30 Serum or plasma urea nitrogen/creatinine mass ratio 12 NRG Serum or plasma creatinine measurement with calculation of estimated glomerular filtration rate > NRG Serum or plasma glucose measurement (mass/volume) 102 mg/dL 70-105 Serum or plasma calcium measurement (mass/volume) 10.0 mg/dL 8.5-10.1 Serum or plasma total bilirubin measurement (mass/volume) 0.6 mg/dL 0.1-1.0 Serum or plasma alkaline phosphatase measurement (enzymatic activity/volume) 76 U/L 40-136 Serum or plasma aspartate aminotransferase measurement (enzymatic activity/ volume) 14 U/L 5-34 Serum or plasma alanine aminotransferase measurement (enzymatic activity/volume ) 7 U/L 0-55 Serum or plasma protein measurement (mass/volume) 6.8 g/dL 6.4-8.2 Serum or plasma albumin measurement (mass/volume) 3.7 g/dL 3.2-4.5 Serum or plasma C reactive protein measurement (mass/volume) - 01/20/18 15:35 Serum or plasma C reactive protein measurement (mass/volume) 14.98 mg/dL 0.00-0.50 Blood manual differential performed detection - 01/20/18 15:35 Blood monocytes/100 leukocytes 11 % [facility] Manual blood segmented neutrophils/100 leukocytes 84 % NR Manual blood lymphocytes/100 leukocytes 5 % [facility] Blood erythrocyte morphology finding identification NORMAL [facility] Bacterial blood culture - 01/20/18 15:35 QUANTITY OF GROWTH . [facility] Bacterial blood culture SEE COMMEN [facility] Bacterial blood culture - 01/20/18 15:53 Bacterial blood culture [facility] Complete blood count (CBC) with automated white blood cell (WBC) differential - 01/21/18 05:15 Blood leukocytes automated count (number/volume) 10.0 10*3/uL 4.3-11.0 Blood erythrocytes automated count (number/volume) 3.08 10*6/uL 4.35-5.85 Venous blood hemoglobin measurement (mass/volume) 9.8 g/dL 11.5-16.0 Blood hematocrit (volume fraction) 28 % 35-52 Automated erythrocyte mean corpuscular volume 92 [foz_us] 80-99 Automated erythrocyte mean corpuscular hemoglobin (mass per erythrocyte) 32 pg 25-34 Automated erythrocyte mean corpuscular hemoglobin concentration measurement ( mass/volume) 35 g/dL 32-36 Automated erythrocyte distribution width ratio 14.6 % 10.0-14.5 Automated blood platelet count (count/volume) 191 10*3/uL 130-400 Automated blood platelet mean volume measurement 10.1 [foz_us] 7.4-10.4 Automated blood neutrophils/100 leukocytes 73 % 42-75 Automated blood lymphocytes/100 leukocytes 12 % 12-44 Blood monocytes/100 leukocytes 13 % 0-12 Automated blood eosinophils/100 leukocytes 2 % 0-10 Automated blood basophils/100 leukocytes 0 % 0-10 Blood neutrophils automated count (number/volume) 7.3 10*3 1.8-7.8 Blood lymphocytes automated count (number/volume) 1.2 10*3 1.0-4.0 Blood monocytes automated count (number/volume) 1.3 10*3 0.0-1.0 Automated eosinophil count 0.2 10*3/uL 0.0-0.3 Automated blood basophil count (count/volume) 0.0 10*3/uL 0.0-0.1 Whole blood basic metabolic panel - 01/21/18 05:15 Serum or plasma sodium measurement (moles/volume) 129 mmol/L 135-145 Serum or plasma potassium measurement (moles/volume) 3.6 mmol/L 3.6-5.0 Serum or plasma chloride measurement (moles/volume) 101 mmol/L 98-107 Carbon dioxide 17 mmol/L 21-32 Serum or plasma anion gap determination (moles/volume) 11 mmol/L 5-14 Serum or plasma urea nitrogen measurement (mass/volume) 9 mg/dL 7-18 Serum or plasma creatinine measurement (mass/volume) 0.77 mg/dL 0.60-1.30 Serum or plasma urea nitrogen/creatinine mass ratio 12 NRG Serum or plasma creatinine measurement with calculation of estimated glomerular filtration rate > NRG Serum or plasma glucose measurement (mass/volume) 82 mg/dL 70-105 Serum or plasma calcium measurement (mass/volume) 9.9 mg/dL 8.5-10.1 Complete blood count (CBC) with automated white blood cell (WBC) differential - 01/22/18 05:00 Blood leukocytes automated count (number/volume) 7.8 10*3/uL 4.3-11.0 Blood erythrocytes automated count (number/volume) 2.87 10*6/uL 4.35-5.85 Venous blood hemoglobin measurement (mass/volume) 8.9 g/dL 11.5-16.0 Blood hematocrit (volume fraction) 27 % 35-52 Automated erythrocyte mean corpuscular volume 93 [foz_us] 80-99 Automated erythrocyte mean corpuscular hemoglobin (mass per erythrocyte) 31 pg 25-34 Automated erythrocyte mean corpuscular hemoglobin concentration measurement ( mass/volume) 33 g/dL 32-36 Automated erythrocyte distribution width ratio 15.0 % 10.0-14.5 Automated blood platelet count (count/volume) 173 10*3/uL 130-400 Automated blood platelet mean volume measurement 9.1 [foz_us] 7.4-10.4 Automated blood neutrophils/100 leukocytes 72 % 42-75 Automated blood lymphocytes/100 leukocytes 14 % 12-44 Blood monocytes/100 leukocytes 12 % 0-12 Automated blood eosinophils/100 leukocytes 3 % 0-10 Automated blood basophils/100 leukocytes 0 % 0-10 Blood neutrophils automated count (number/volume) 5.6 10*3 1.8-7.8 Blood lymphocytes automated count (number/volume) 1.1 10*3 1.0-4.0 Blood monocytes automated count (number/volume) 0.9 10*3 0.0-1.0 Automated eosinophil count 0.2 10*3/uL 0.0-0.3 Automated blood basophil count (count/volume) 0.0 10*3/uL 0.0-0.1 Comprehensive metabolic panel - 01/22/18 05:00 Serum or plasma sodium measurement (moles/volume) 134 mmol/L 135-145 Serum or plasma potassium measurement (moles/volume) 3.9 mmol/L 3.6-5.0 Serum or plasma chloride measurement (moles/volume) 109 mmol/L 98-107 Carbon dioxide 16 mmol/L 21-32 Serum or plasma anion gap determination (moles/volume) 9 mmol/L 5-14 Serum or plasma urea nitrogen measurement (mass/volume) 4 mg/dL 7-18 Serum or plasma creatinine measurement (mass/volume) 0.71 mg/dL 0.60-1.30 Serum or plasma urea nitrogen/creatinine mass ratio 6 NRG Serum or plasma creatinine measurement with calculation of estimated glomerular filtration rate > NRG Serum or plasma glucose measurement (mass/volume) 85 mg/dL 70-105 Serum or plasma calcium measurement (mass/volume) 9.5 mg/dL 8.5-10.1 Serum or plasma total bilirubin measurement (mass/volume) 0.5 mg/dL 0.1-1.0 Serum or plasma alkaline phosphatase measurement (enzymatic activity/volume) 68 U/L 40-136 Serum or plasma aspartate aminotransferase measurement (enzymatic activity/ volume) 8 U/L 5-34 Serum or plasma alanine aminotransferase measurement (enzymatic activity/volume ) < U/L 0-55 Serum or plasma protein measurement (mass/volume) 5.6 g/dL 6.4-8.2 Serum or plasma albumin measurement (mass/volume) 3.2 g/dL 3.2-4.5 Vancomycin trough - 01/22/18 05:00 Vancomycin trough 20.7 ug/mL 10.0-20.0 TSH - 02/25/18 15:20 TSH 0.80 mIU/L 0.40-4.50 - PANEL (PROFILE 1) - 04/14/18 10:19 Prescribed Drug 1 Diazepam NRG Creatinine 53.3 mg/dL > or=20.0 pH 6.70 4.5 - 9.0 Oxidant NEGATIVE mcg/mL <200 Amphetamines NEGATIVE ng/mL <500 medMATCH Amphetamines CONSISTENT NRG Benzodiazepines POSITIVE ng/mL <100 Marijuana Metabolite POSITIVE ng/mL <20 Cocaine Metabolite NEGATIVE ng/mL <150 medMATCH Cocaine Metab CONSISTENT NRG Opiates NEGATIVE ng/mL <100 medMATCH Opiates CONSISTENT NRG Oxycodone NEGATIVE ng/mL <100 medMATCH Oxycodone CONSISTENT NRG COMMENT NRG Alphahydroxyalprazolam NEGATIVE ng/mL <25 medMATCH aOH alprazolam CONSISTENT NRG Alphahydroxymidazolam NEGATIVE ng/mL <50 medMATCH aOH midazolam CONSISTENT NRG Alphahydroxytriazolam NEGATIVE ng/mL <50 medMATCH aOH triazolam CONSISTENT NRG Aminoclonazepam NEGATIVE ng/mL <25 medMATCH Aminoclonazepam CONSISTENT NRG Hydroxyethylflurazepam NEGATIVE ng/mL <50 medMATCH OH,Et flurazepam CONSISTENT NRG Lorazepam NEGATIVE ng/mL <50 medMATCH Lorazepam CONSISTENT NRG Nordiazepam 251 ng/mL <50 medMATCH Nordiazepam CONSISTENT NRG Oxazepam 329 ng/mL <50 medMATCH Oxazepam CONSISTENT NRG Temazepam 506 ng/mL <50 medMATCH Temazepam CONSISTENT NRG Marijuana Metabolite 32 ng/mL <5 medMATCH Marijuana Metab INCONSISTENT NRG Barbiturates NEGATIVE ng/mL <300 medMATCH Barbiturates CONSISTENT NRG Methadone Metabolite NEGATIVE ng/mL <100 medMATCH Methadone Metab CONSISTENT NRG Phencyclidine NEGATIVE ng/mL <25 medMATCH Phencyclidine CONSISTENT NRG Encounters ACCT No. Visit Date/Time Discharge Status Pt. Type Provider Facility Loc./Unit Complaint [id number] 07/15/2013 05:25:00 07/15/2013 12:30:00 DIS Outpatient Ricki TELLEZ, [facility] [id number] 10/12/2013 14:16:00 10/15/2013 16:11:00 DIS Inpatient Carlos Bartlett DO [facility] [place] [id number] 07/06/2017 18:03:00 07/06/2017 21:41:00 DIS Outpatient Paulo Vasquez [id number] 07/06/2017 21:07:40 Document Registration [id number] 02/25/2018 15:00:00 02/25/2018 23:59:59 CLS Outpatient MARINO MCELROY APRN [facility] [id number] 04/14/2018 10:00:00 Document Registration [id number] 02/25/2018 15:00:00 Document Registration [id number] 01/04/2018 14:00:00 Document Registration [id number] 07/13/2018 14:07:00 07/13/2018 23:59:59 CLS Preadmit ANTON ZUÑIGAP [facility] RAD ROUTINE SCREENING [id number] 01/20/2018 16:39:00 01/23/2018 12:15:00 DIS Inpatient CHEL COMBS DO [facility] 4TH CELLULITIS;HYPONATREMIA [id number] 12/20/2017 20:15:00 12/25/2017 10:15:00 DIS Inpatient CARLOS TELLEZ, LOAN Mercado [facility] 4TH CELLULITIS R LOWER LEG; HYPONATREMIA [id number] 08/16/2016 16:51:00 08/16/2016 19:48:00 DIS Emergency ROYCE LYONS DO [facility] ER [facility] [id number] 07/08/2017 12:16:00 Document Registration
--- NOTE | 2018-07-19 15:11 | ED Cough/URI ---
General Chief Complaint: Cough/Cold/Flu Symptoms Stated Complaint: FEVER/COUGH Source: patient Exam Limitations: no limitations History of Present Illness Date Seen by Provider: Jul 19, 2018 Time Seen by Provider: 15:09 Initial Comments To ER with a one-week history of productive cough. Fever up to 106, nausea without vomiting sore throat and rhinorrhea as well as body aches and headache. Timing/Duration: constant Severity/Quality: productive cough Associated Symptoms: cough, muscle aches, wheezing Allergies and Home Medications Allergies Coded Allergies: Sulfa (Sulfonamide Antibiotics) (Verified Allergy, Unknown, 08/16/16) codeine (Verified Allergy, Unknown, Pt takes Lortab at home, 01/20/18) Home Medications Azithromycin 250 Mg Tablet, 250 MG PO UD TAKE 2 TABLETS ON DAY ONE THEN TAKE 1 TABLET DAILY FOR FOUR MORE DAYS Prescribed by: CHARLIE SANTANA on 07/19/18 1531 Cetirizine HCl 10 Mg Tablet, 10 MG PO HS, (Reported) Citalopram Hydrobromide 20 Mg Tablet, 20 MG PO DAILY, (Reported) Clindamycin HCl 300 Mg Capsule, 300 MG PO Q6H Prescribed by: LISA ZAMBRANO on 01/23/18 1050 Diazepam 5 Mg Tablet, 2.5-5 MG PO Q8H PRN for ANXIETY, (Reported) Doxazosin Mesylate 4 Mg Tablet, 4 MG PO HS, (Reported) Hydralazine HCl 25 Mg Tablet, 25 MG PO BID, (Reported) Hydrocodone/Acetaminophen 1 Each Tablet, 0.5-1 TAB PO Q4H PRN for PAIN-MODERATE, (Reported) Labetalol HCl 200 Mg Tablet, 200 MG PO BID, (Reported) Levothyroxine Sodium 137 Mcg Tablet, 137 MCG PO DAILY, (Reported) Pantoprazole Sodium 40 Mg Tablet.dr, 40 MG PO DAILY, (Reported) Potassium Chloride 10 Meq Tablet.er, 10 MEQ PO HS, (Reported) Promethazine HCl 25 Mg Tablet, 25 MG PO Q4H PRN for NAUSEA/VOMITING-2ND LINE, ( Reported) Ranitidine HCl 300 Mg Tablet, 300 MG PO HS, (Reported) Rizatriptan Benzoate 10 Mg Tab.rapdis, 10 MG PO UD PRN for MIGRAINE, (Reported) Triamcinolone Acet 15 Gm Cr, TP BID, (Reported) Patient Home Medication List Home Medication List Reviewed: Yes Review of Systems Review of Systems Constitutional: see HPI EENTM: see HPI Respiratory: no symptoms reported Cardiovascular: no symptoms reported Genitourinary: no symptoms reported Musculoskeletal: no symptoms reported Skin: no symptoms reported Psychiatric/Neurological: No Symptoms Reported Past Nenvpal-Ynbnbi-Yzbboc Hx Patient Social History Alcohol Beverage of Choice: Beer Type Used: Cigarettes Recent Foreign Travel: No Contact w/Someone Who Travel: No Recent Hopitalizations: No Seasonal Allergies Seasonal Allergies: No Past Medical History Surgeries: Yes (HYST/BSO; RIGHT BREAST BIOPSY/BENIGN LUMPECTOMY; ) Breast, Hysterectomy, Oophorectomy, Tonsillectomy, Tubal Ligation Respiratory: No Currently Using CPAP: No Currently Using BIPAP: No Cardiac: Yes Hypertension Neurological: Yes Headaches /Migraines Female 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 Disorders: Menstrual 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, 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 Genitourinary: Yes Kidney Stones Gastrointestinal: Yes Gastroesophageal Reflux Musculoskeletal: No Endocrine: Yes Hypothyroidsim HEENT: No Loss of Vision: Denies Hearing Impairment: Denies Cancer: No Psychosocial: Yes Anxiety, Depression Integumentary: Yes (NUMMULAR ECZEMA) Eczema Blood Disorders: No Adverse Reaction/Blood Tranf: No Family Medical History Cataracts G8 BROTHER Colon cancer Coronary thrombosis 19 FATHER Deafness or hearing loss 19 FATHER 19 MOTHER Diabetes mellitus 19 FATHER Headache disorder 19 MOTHER son Hypertension 19 FATHER 19 MOTHER G8 BROTHER Myocardial infarction 19 FATHER 19 MOTHER Neoplasm 19 MOTHER Parkinson's disease 19 MOTHER Severe allergy son Hypertension Physical Exam Vital Signs - First Documented 07/19/18 15:08 Temp 99.4 Pulse 71 Resp 16 B/P (MAP) 129/89 (102) Pulse Ox 95 O2 Delivery Room Air Capillary Refill : Height: 5'1.00" Weight: 132lbs. 0.0oz. 59.727861ha; 24.9 BMI Method:Stated General Appearance: WD/WN, no apparent distress Eyes: Bilateral Eye Normal Inspection, Bilateral Eye PERRL HEENT: PERRL/EOMI, normal ENT inspection, TMs normal Neck: non-tender, full range of motion Respiratory: no respiratory distress, no accessory muscle use, wheezing Gastrointestinal: normal bowel sounds, non tender, soft Neurologic/Psychiatric: alert, normal mood/affect, oriented x 3 Skin: normal color, warm/dry Progress/Results/Core Measures Suspected Sepsis SIRS Temperature: Pulse: Respiratory Rate: Laboratory Tests 07/19/18 15:27: White Blood Count 11.9H Blood Pressure / Mean: Laboratory Tests 07/19/18 15:27: Creatinine 0.89, Platelet Count 254 Results/Orders Lab Results Laboratory Tests Test 07/19/18 15:27 Range/Units White Blood Count 11.9 H 4.3-11.0 10^3/uL Red Blood Count 3.94 L 4.35-5.85 10^6/uL Hemoglobin 12.5 11.5-16.0 G/DL Hematocrit 36 35-52 % Mean Corpuscular Volume 90 80-99 FL Mean Corpuscular Hemoglobin 32 25-34 PG Mean Corpuscular Hemoglobin Concent 35 32-36 G/DL Red Cell Distribution Width 14.5 10.0-14.5 % Platelet Count 254 130-400 10^3/uL Mean Platelet Volume 9.3 7.4-10.4 FL Neutrophils (%) (Auto) 64 42-75 % Lymphocytes (%) (Auto) 20 12-44 % Monocytes (%) (Auto) 15 H 0-12 % Eosinophils (%) (Auto) 1 0-10 % Basophils (%) (Auto) 1 0-10 % Neutrophils # (Auto) 7.6 1.8-7.8 X 10^3 Lymphocytes # (Auto) 2.4 1.0-4.0 X 10^3 Monocytes # (Auto) 1.8 H 0.0-1.0 X 10^3 Eosinophils # (Auto) 0.1 0.0-0.3 10^3/uL Basophils # (Auto) 0.1 0.0-0.1 10^3/uL Sodium Level 127 L 135-145 MMOL/L Potassium Level 3.8 3.6-5.0 MMOL/L Chloride Level 92 L 98-107 MMOL/L Carbon Dioxide Level 23 21-32 MMOL/L Anion Gap 12 5-14 MMOL/L Blood Urea Nitrogen 16 7-18 MG/DL Creatinine 0.89 0.60-1.30 MG/DL Estimat Glomerular Filtration Rate > 60 BUN/Creatinine Ratio 18 Glucose Level 98 70-105 MG/DL Calcium Level 9.9 8.5-10.1 MG/DL Micro Results Microbiology 07/19/18 Influenza Types A,B Antigen (TIFFANIE) - Final, Complete My Orders Orders - CHARLIE SANTANA COLLATOR Chest Pa/Lat (2 View) (07/19/18 14:54) Influenza A And B Antigens (07/19/18 14:54) Iv Heplock-Insert (Order) (07/19/18 15:07) Cbc With Automated Diff (07/19/18 15:07) Basic Metabolic Panel (07/19/18 15:07) Ns Iv 1000 Ml (Sodium Chloride 0.9%) (07/19/18 15:15) Ketorolac Injection (Toradol Injection) (07/19/18 15:15) Medications Given in ED Current Medications Medications Dose Ordered Sig/Elsa Route Start Time Stop Time Status Last Admin Dose Admin Ketorolac Tromethamine 15 mg ONCE ONCE IVP 07/19/18 15:15 07/19/18 15:16 DC 07/19/18 15:25 15 MG Vital Signs/I&O 07/19/18 15:08 Temp 99.4 Pulse 71 Resp 16 B/P (MAP) 129/89 (102) Pulse Ox 95 O2 Delivery Room Air Capillary Refill : Departure Communication (Admissions) NAME: OR[facility]O ADLER [facility] REC#: [id number] PT STATUS: REG ER : 1960 PHYSICIAN: CHARLIE SANTANA APRN ADMIT DATE: 07/19/18/ER Draft Date of Exam:07/19/18 CHEST PA/LAT (2 VIEW) INDICATION: Fever and cough. COMPARISON: 08/16/2016. FINDINGS: Chronic peribronchial thickening and potential bronchiectasis within the middle lobe and lingula. No airspace consolidations to indicate pneumonia. No pleural effusion or pneumothorax. Borderline cardiomegaly is unchanged. IMPRESSION: 1. No acute cardiopulmonary process. 2. Chronic middle lobe and lingular pulmonary changes that can be seen with long-standing atypical mycobacterial infection (Lady Osmond syndrome) or other atypical long-standing infectious process. Dictated on workstation # [id number] Dict: 07/19/18 1518 Trans: 07/19/18 1523 [id number] Interpreted by: ANIRUDH FERRELL MD Electronically signed by: Impression Primary Impression: RML pneumonia Qualified Codes: J18.1 - Lobar pneumonia, unspecified organism Disposition: HOME, SELF-CARE Condition: Stable Departure-Patient Inst. Decision time for Depature: 15:30 Referrals: RO BIGGS DO [facility] (PCP/Family) Primary Care Physician Patient Instructions: Acute Bronchitis, Adult (DC) Add. Discharge Instructions: Follow up with Dr. Biggs from pulmonology. Call his office on Thursday or to make an appointment to be seen. This is in regards to the appearance of your chest x-ray which may represent scarring or long-standing infection in the right lung. All discharge instructions reviewed with patient and/or family. Voiced understanding. Scripts Azithromycin (Azithromycin) 250 Mg Tablet 250 MG PO UD, #6 TAB TAKE 2 TABLETS ON DAY ONE THEN TAKE 1 TABLET DAILY FOR FOUR MORE DAYS Prov: CHARLIE SANTANA APRN 07/19/18 CHARLIE SANTANA APRN Jul 19, 2018 15:11
[2018-07-19] MEDS ORDERED: KETOROLAC 30 MG/ML VIAL IVP ONE (15:15)
[2018-07-19] MEDS ORDERED: NS IV 1000 ML 1,000 ML IV SCH (15:15)
--- NOTE | 2018-07-19 15:23 | Diagnostic Imaging Report ---
INDICATION: Fever and cough. COMPARISON: 08/16/2016. FINDINGS: Chronic peribronchial thickening and potential bronchiectasis within the middle lobe and lingula. No airspace consolidations to indicate pneumonia. No pleural effusion or pneumothorax. Borderline cardiomegaly is unchanged. IMPRESSION: 1. No acute cardiopulmonary process. 2. Chronic middle lobe and lingular pulmonary changes that can be seen with long-standing atypical mycobacterial infection (Lady Bonnyman syndrome) or other atypical long-standing infectious process. Dictated by: Dictated on workstation # [id number]
[2018-07-19] MEDS ORDERED: AZIT250T12 PO (15:31)
[2018-07-19 15:51] LABS: BASOPHILS # (AUTO) 0.1 10^3/uL (0.0-0.1); BASOPHILS % (AUTO) 1 % (0-10); EOSINOPHILS # (AUTO) 0.1 10^3/uL (0.0-0.3); EOSINOPHILS % (AUTO) 1 % (0-10); HEMATOCRIT 36 % (35-52); HEMOGLOBIN 12.5 G/DL (11.5-16.0); LYMPHOCYTES # (AUTO) 2.4 X 10^3 (1.0-4.0); LYMPHOCYTES % (AUTO) 20 % (12-44); MEAN CORPUSCULAR HEMOGLOBIN 32 PG (25-34); MEAN CORPUSCULAR HGB CONC 35 G/DL (32-36); MEAN CORPUSCULAR VOLUME 90 FL (80-99); MEAN PLATELET VOLUME 9.3 FL (7.4-10.4); MONOCYTES # (AUTO) 1.8 X 10^3 (0.0-1.0); MONOCYTES % (AUTO) 15 % (0-12); NEUTROPHILS # (AUTO) 7.6 X 10^3 (1.8-7.8); NEUTROPHILS % (AUTO) 64 % (42-75); PLATELET COUNT 254 10^3/uL (130-400); RED BLOOD COUNT 3.94 10^6/uL (4.35-5.85); RED CELL DISTRIBUTION WIDTH 14.5 % (10.0-14.5); WHITE BLOOD COUNT 11.9 10^3/uL (4.3-11.0)
[2018-07-19 15:52] LABS: BUN/CREATININE RATIO 18; CALCIUM 9.9 MG/DL (8.5-10.1); CARBON DIOXIDE 23 MMOL/L (21-32); CHLORIDE 92 MMOL/L (98-107); CREATININE SERUM 0.89 MG/DL (0.60-1.30); GFR ESTIMATED > 60; GLUCOSE 98 MG/DL (70-105); POTASSIUM 3.8 MMOL/L (3.6-5.0); SODIUM 127 MMOL/L (135-145)
[2018-07-19] MEDS ORDERED: AZITHROMYCIN 250 MG TAB (ZITHROMAX) PO SCH (16:30)
[2018-07-19 16:56] VITALS: BP 175/91
== END 2018-07-19 16:56 | disposition home or self-care (01) ==
LOC: EDUNIT# 14:52 → ER 14:53
DX: J18.1 Lobar pneumonia, unspecified organism (principal); I10 Essential (primary) hypertension; G43.909 Migraine, unspecified, not intractable, without status migrainosus; K21.9 Gastro-esophageal reflux disease without esophagitis; E03.9 Hypothyroidism, unspecified; F41.9 Anxiety disorder, unspecified; F32.9 Major depressive disorder, single episode, unspecified; Z87.442 Personal history of urinary calculi; Z88.2 Allergy status to sulfonamides; Z88.5 Allergy status to narcotic agent; Z80.0 Family history of malignant neoplasm of digestive organs; Z82.49 Family history of ischemic heart disease and other diseases of the circulatory system; Z90.710 Acquired absence of both cervix and uterus; Z98.51 Tubal ligation status
CPT/HCPCS: 36415; 71046; 80048; 85025; 87804

== ENCOUNTER 2018-11-29 03:39 | Emergency (ER) | payer OTHER ==
[~2018-11-29] VITALS: Ht 154.9 cm; Wt 56.7 kg
[~2018-11-29 03:39] MED LIST changes: -AMLO5TAB7 PO; +AMLO5TAB9 PO; +AZIT250T12 PO; +LOSA100T57 PO; -LOSA100T8 PO
--- OUTSIDE RECORDS SUMMARY | 2018-11-29 03:48 | XMS REPORT | Continuity of Care Document ---
Author Organization Unknown Address Unknown Allergies Active Description Code Type Severity Reaction Onset Reported/Identified Relationship to Patient Clinical Status Yes SULFA (SULFONAMIDE ANTIBIOTICS) MODERATE OTHER Yes Sulfa (Sulfonamide Antibiotics Drug Allergy N/A uNspecfied 10/12/2013 Yes codeine [id number] Drug Allergy Unknown N/A 08/16/2016 Yes Sulfa (Sulfonamide Antibiotics) [id number] Drug Allergy Unknown N/A 2016 Yes codeine [id number] Drug Allergy Unknown Pt takes Lortab 01/20/2018 Medications Medication Packaging Start Date Stop Date Route Dosage Sig HYDROXYZINE TAB 25 MG (ATARAX) MG 07/06/2017 07/06/2017 PRN ONCE PREDNISONE TAB 20 MG (DELTASONE) MG 07/06/2017 07/06/2017 ONCE&2057 METHYLPREDNISOLONE VIAL INJ 125 MG/2CC (SOLU-MEDROL VIAL) MG 07/06/2017 07/06/2017 ONCE&2057 Problems Date Dx Coded Attending Type Code Diagnosis Diagnosed By 10/12/2013 Heraclio Bartlett DOell D Final 244.9 HYPOTHYROIDISM NOS 10/12/2013 Dhruv DO, [place] D Final 272.4 HYPERLIPIDEMIA NEC NOS 10/12/2013 Dhruv DO, Carlos D Final 296.20 MDD ONE EPIS-NOS 10/12/2013 Dhruv DO Carlos D Final 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 10/12/2013 Dhruv DO, [place] D Final 305.90 DRUG ABUSE NEC-UNSPEC 10/12/2013 Dhruv DO, [place] D Final 401.9 HYPERTENSION NOS 10/12/2013 Dhruv DO, Carlos D Final 518.81 AC RESPIRATORY FAILURE 10/12/2013 Dhruvsarita MAGALLANES [place] D Final 969.05 POIS-TRICYCLIC ANTIDEPR 10/12/2013 Dhruv MAGALLANES [place] Mayte External E849.0 HOME ACCIDENTS 10/12/2013 Carlos Bartlett [...] PSYCHOACTIVE SUBSTANCE ABUSE, UNCO 08/19/2016 ELOY DO, RYOCE K Ot I16.0 HYPERTENSIVE URGENCY 08/19/2016 ELOY [...] NICOTINE DEPENDENCE, CIGARETTES, UNCOMPL 12/22/2017 LOAN GONZALEZ MD Ot F32.9 MAJOR DEPRESSIVE DISORDER, SINGLE EPISOD 12/22/2017 LOAN GONZALEZ MD Ot F41.9 ANXIETY DISORDER, UNSPECIFIED 12/22/2017 LOAN [...] I10 ESSENTIAL (PRIMARY) HYPERTENSION 12/25/2017 LOAN GONZALEZ MD, Ot K21.9 GASTRO-ESOPHAGEAL REFLUX DISEASE WITHOUT 12/25/2017 LOAN GONZALEZ MD Ot L03.115 CELLULITIS OF RIGHT LOWER LIMB 12/25/2017 LOAN OGNZALEZ MD Ot L30.0 NUMMULAR DERMATITIS 01/22/2018 LAURYN MAGALLANES CHEL Ot E03.9 HYPOTHYROIDISM, UNSPECIFIED 01/22/2018 COMBS DO, [...] COMBS DO, CHEL Ot R19.7 DIARRHEA, UNSPECIFIED 07/22/2018 CHARLIE SANTANA APRN Ot E03.9 HYPOTHYROIDISM, UNSPECIFIED 07/22/2018 CHARLIE SANTANA APRN Ot F32.9 MAJOR DEPRESSIVE DISORDER, SINGLE EPISOD 07/22/2018 CHARLIE SANTANA APRN Ot F41.9 ANXIETY DISORDER, UNSPECIFIED 07/22/2018 CHARLIE SANTANA APRN Ot G43.909 MIGRAINE, UNSP, NOT INTRACTABLE, WITHOUT 07/22/2018 CHARLIE SANTANA APRN Ot I10 ESSENTIAL (PRIMARY) HYPERTENSION 07/22/2018 CHARLIE SANTANA APRN Ot J18.1 LOBAR PNEUMONIA, UNSPECIFIED ORGANISM 07/22/2018 CHARLIE SANTANA APRN Ot K21.9 GASTRO-ESOPHAGEAL REFLUX DISEASE WITHOUT 07/22/2018 CHARLIE SANTANA APRN Ot R05 COUGH 07/22/2018 CHARLIE SANTANA APRN Ot Z80.0 FAMILY HISTORY OF MALIGNANT NEOPLASM OF 07/22/2018 CHARLIE SANTANA APRN Ot Z82.49 FAMILY HX OF ISCHEM HEART DIS AND OTH DI 07/22/2018 CHARLIE SANTANA APRN Ot Z87.442 PERSONAL HISTORY OF URINARY CALCULI 07/22/2018 CHARLIE SANTANA APRN Ot Z88.2 ALLERGY STATUS TO SULFONAMIDES STATUS 07/22/2018 CHARLIE SANTANA APRN Ot Z88.5 ALLERGY STATUS TO NARCOTIC AGENT STATUS 07/22/2018 CHARLIE SANTANA APRN Ot Z90.710 ACQUIRED ABSENCE OF BOTH CERVIX AND UTER 07/22/2018 CHARLIE SANTANA APRN Ot Z98.51 TUBAL LIGATION STATUS Procedures Code Description Performed By Performed On 37.22 LEFT HEART CARDIAC CATH Ricki TELLEZ, Wassim H 07/15/2013 88.53 LT HEART ANGIOCARDIOGRAM Ricki TELLEZ, Wassim H 07/15/2013 88.56 CORONAR ARTERIOGR-2 CATH Ricki TELLEZ, Wassim H 07/15/2013 96.71 CONT MECH VENT-<96 HOURS DhruvCarlos stein DO 10/12/2013 Results Test Result Range CBC W/DIFF [...] - 07/06/17 21:20 Surg Path Sent to [facility] Surgical Pathology - 07/06/17 21:30 Surg Path Sent to [facility] Complete blood count (CBC) with automated [...] NRG Blood erythrocyte morphology finding identification NORMAL [facility] Comprehensive metabolic panel - 12/20/17 18:45 Serum [...] culture - 12/20/17 18:45 Bacterial blood culture NG [facility] Bacterial blood culture - 12/20/17 19:12 Bacterial blood culture NG [facility] Comprehensive metabolic panel - 12/21/17 05:15 Serum [...] or plasma urea nitrogen/creatinine mass ratio 14 NR Serum or plasma creatinine measurement with calculation [...] 01/20/18 15:35 Blood monocytes/100 leukocytes 11 % NRG Manual blood segmented neutrophils/100 leukocytes 84 % NRG Manual blood lymphocytes/100 leukocytes 5 % NR Blood erythrocyte morphology finding identification NORMAL NR Bacterial blood culture - 01/20/18 15:35 QUANTITY OF GROWTH . NR Bacterial blood culture SEE COMMEN [facility] Bacterial blood culture - 01/20/18 15:53 Bacterial blood culture [facility] Complete blood count (CBC) with automated white [...] NEGATIVE ng/mL <25 medMATCH Phencyclidine CONSISTENT NRG Complete blood count (CBC) with automated white blood cell (WBC) differential - 07/19/18 15:27 Blood leukocytes automated count (number/volume) 11.9 10*3/uL 4.3-11.0 Blood erythrocytes automated count (number/volume) 3.94 10*6/uL 4.35-5.85 Venous blood hemoglobin measurement (mass/volume) 12.5 g/dL 11.5-16.0 Blood hematocrit (volume fraction) 36 % 35-52 Automated erythrocyte mean corpuscular volume 90 [foz_us] 80-99 Automated erythrocyte mean corpuscular hemoglobin (mass per erythrocyte) 32 pg 25-34 Automated erythrocyte mean corpuscular hemoglobin concentration measurement ( mass/volume) 35 g/dL 32-36 Automated erythrocyte distribution width ratio 14.5 % 10.0-14.5 Automated blood platelet count (count/volume) 254 10*3/uL 130-400 Automated blood platelet mean volume measurement 9.3 [foz_us] 7.4-10.4 Automated blood neutrophils/100 leukocytes 64 % 42-75 Automated blood lymphocytes/100 leukocytes 20 % 12-44 Blood monocytes/100 leukocytes 15 % 0-12 Automated blood eosinophils/100 leukocytes 1 % 0-10 Automated blood basophils/100 leukocytes 1 % 0-10 Blood neutrophils automated count (number/volume) 7.6 10*3 1.8-7.8 Blood lymphocytes automated count (number/volume) 2.4 10*3 1.0-4.0 Blood monocytes automated count (number/volume) 1.8 10*3 0.0-1.0 Automated eosinophil count 0.1 10*3/uL 0.0-0.3 Automated blood basophil count (count/volume) 0.1 10*3/uL 0.0-0.1 Whole blood basic metabolic panel - 07/19/18 15:27 Serum or plasma sodium measurement (moles/volume) 127 mmol/L 135-145 Serum or plasma potassium measurement (moles/volume) 3.8 mmol/L 3.6-5.0 Serum or plasma chloride measurement (moles/volume) 92 mmol/L 98-107 Carbon dioxide 23 mmol/L 21-32 Serum or plasma anion gap determination (moles/volume) 12 mmol/L 5-14 Serum or plasma urea nitrogen measurement (mass/volume) 16 mg/dL 7-18 Serum or plasma creatinine measurement (mass/volume) 0.89 mg/dL 0.60-1.30 Serum or plasma urea nitrogen/creatinine mass ratio 18 NRG Serum or plasma creatinine measurement with calculation of estimated glomerular filtration rate > NRG Serum or plasma glucose measurement (mass/volume) 98 mg/dL 70-105 Serum or plasma calcium measurement (mass/volume) 9.9 mg/dL 8.5-10.1 Influenza virus A and B antigen detection - 07/19/18 15:27 FLU RESULT NEGATIVE FOR INFLUENZA A AND B ANTIGENS BY IA [facility] Radiology Report from [id number] on 10/14/2013 14:47:00 Final ReportADMITTING DIAGNOSIS: amitryptiline overdose, respir ET tube placementCHEST PORTABLE SINGLE VIEW - 10/12/2013 [facility] RESULT: INDICATION: Respiratory [id number] hrs.There is no previous study available at this time for comparison.Endotracheal tube reaches the lower trachea. Nasogastric tubepasses below the diaphragm. There is cardiomegaly and mildpulmonary venous congestion. Perihilar linear densities mayreflect atelectasis or scarring. There is no consolidation orpneumothorax.IMPRESSION: Endotracheal tube reaches the lower trachea.Mild cardiomegaly, parahilar atelectasis and/or scarring.Short-term radiographic followup would be useful to documentstability or resolution.Dictated on workstation # [id number] BY: ALFREDA CADET M.D., RADIOLOGISTELECTRONICALLY SIGNED BY: ALFREDA CADET M.D., RADIOLOGISTD Oct 12 2013 5:04PT PH : Oct 14 2013 2:45PS Oct 14 2013 2:45P Encounters ACCT No. Visit Date/Time Discharge Status Pt. Type Provider Facility Loc./Unit Complaint [id number] 07/15/2013 05:25:00 07/15/2013 12:30:00 DIS Outpatient Ricki TELLEZ, [facility] [id number] 10/12/2013 14:16:00 10/15/2013 16:11:00 DIS Inpatient Carlos Bartlett DO [facility] [address] F3BC [id number] 07/06/2017 18:03:00 07/06/2017 21:41:00 DIS Outpatient Paulo Vasquez [id number] 07/06/2017 21:07:40 Document Registration [id number] 02/25/2018 15:00:00 02/25/2018 23:59:59 CLS Outpatient MARINO MCELROY APRN [facility] [id number] 04/14/2018 10:00:00 Document Registration [id number] 02/25/2018 15:00:00 Document Registration [id number] 01/04/2018 14:00:00 Document Registration [id number] 07/19/2018 14:53:00 07/19/2018 16:56:00 DIS Outpatient CHARLIE SANTANA APRN [facility] ER FEVER/COUGH [id number] 07/13/2018 14:07:00 07/13/2018 23:59:59 CLS Preadmit ANTON ZUÑIGA [facility] RAD ROUTINE SCREENING [id number] 01/20/2018 16:39:00 01/23/2018 12:15:00 DIS Inpatient CHEL COMBS DO [facility] 4TH CELLULITIS;HYPONATREMIA [id number] 12/20/2017 20:15:00 12/25/2017 10:15:00 DIS Inpatient LOAN GONZALEZ MD [facility] 4TH CELLULITIS R LOWER LEG; HYPONATREMIA [id number] 08/16/2016 16:51:00 08/16/2016 19:48:00 DIS Emergency ROYCE LYONS DO [facility] ER [facility] [id number] 07/08/2017 12:16:00 Document Registration
[2018-11-29] MEDS ORDERED: KETOROLAC 60 MG/2 ML VIAL IM ONE (04:15)
--- NOTE | 2018-11-29 04:18 | ED Lower Extremity ---
General Chief Complaint: Lower Extremity Stated Complaint: PAIN IN RIGHT LEG Source: patient Exam Limitations: no limitations History of Present Illness Date Seen by Provider: November 29, 2018 Time Seen by Provider: 04:02 Initial Comments Patient presents with her daughter with chief complaint that they were working the garden all day today and spent a lot of time on her knees she's having a little bit of swelling in her knees but tonight the more she rested more her right leg hurt like a charley horse. He was consistent, not episodic. She said the pain is sharp and mostly in her anterior lateral leg compartment. It's worse with dorsiflexion of the foot. She's having no numbness but just having some occasional tingling in her right foot. Her daughter was concerned she might be having a blood clot. She has no history of blood clots is not on blood thinners nor does she have a family history of blood clots or bleeding disorders. She has only minor pain in her posterior leg compartments without swelling, redness. She also has eczema and has a few open spots on her anterior brooks that she's been cleaning and medicating. Allergies and Home Medications Allergies Coded Allergies: Sulfa (Sulfonamide Antibiotics) (Verified Allergy, Unknown, 08/16/16) codeine (Verified Allergy, Unknown, Pt takes Lortab at home, 01/20/18) Home Medications Azithromycin 250 Mg Tablet, 250 MG PO UD TAKE 2 TABLETS ON DAY ONE THEN TAKE 1 TABLET DAILY FOR FOUR MORE DAYS Prescribed by: CHARLIE SANTANA on 07/19/18 1531 Cetirizine HCl 10 Mg Tablet, 10 MG PO HS, (Reported) Citalopram Hydrobromide 20 Mg Tablet, 20 MG PO DAILY, (Reported) Clindamycin HCl 300 Mg Capsule, 300 MG PO Q6H Prescribed by: LISA ZAMBRANO on 01/23/18 1050 Diazepam 5 Mg Tablet, 2.5-5 MG PO Q8H PRN for ANXIETY, (Reported) Doxazosin Mesylate 4 Mg Tablet, 4 MG PO HS, (Reported) Hydralazine HCl 25 Mg Tablet, 25 MG PO BID, (Reported) Hydrocodone/Acetaminophen 1 Each Tablet, 0.5-1 TAB PO Q4H PRN for PAIN-MODERATE, (Reported) Labetalol HCl 200 Mg Tablet, 200 MG PO BID, (Reported) Levothyroxine Sodium 137 Mcg Tablet, 137 MCG PO DAILY, (Reported) Pantoprazole Sodium 40 Mg Tablet.dr, 40 MG PO DAILY, (Reported) Potassium Chloride 10 Meq Tablet.er, 10 MEQ PO HS, (Reported) Promethazine HCl 25 Mg Tablet, 25 MG PO Q4H PRN for NAUSEA/VOMITING-2ND LINE, ( Reported) Ranitidine HCl 300 Mg Tablet, 300 MG PO HS, (Reported) Rizatriptan Benzoate 10 Mg Tab.rapdis, 10 MG PO UD PRN for MIGRAINE, (Reported) Triamcinolone Acet 15 Gm Cr, TP BID, (Reported) Patient Home Medication List Home Medication List Reviewed: Yes Review of Systems Constitutional: No chills, No diaphoresis EENTM: No ear discharge, No hearing loss Respiratory: No cough, No dyspnea on exertion Cardiovascular: No chest pain, No palpitations Gastrointestinal: No abdominal pain, No constipation Genitourinary: No discharge, No dysuria Past Pdoxrul-Ynsomd-Phejvp Hx Patient Social History Alcohol Use: Occasionally Uses Alcohol Beverage of Choice: Beer Recreational Drug Use: No Smoking Status: Current Everyday Smoker Type Used: Cigarettes Recent Foreign Travel: No Contact w/Someone Who Travel: No Recent Hopitalizations: No Seasonal Allergies Seasonal Allergies: No Past Medical History Surgeries: Yes (HYST/BSO; RIGHT BREAST BIOPSY/BENIGN LUMPECTOMY; ) Breast, Hysterectomy, Oophorectomy, Tonsillectomy, Tubal Ligation Respiratory: No Currently Using CPAP: No Currently Using BIPAP: No Cardiac: Yes Hypertension Neurological: Yes Headaches /Migraines Female 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 Disorders: Menstrual 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, 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 Genitourinary: Yes Kidney Stones Gastrointestinal: Yes Gastroesophageal Reflux Musculoskeletal: No Endocrine: Yes Hypothyroidsim HEENT: No Loss of Vision: Denies Hearing Impairment: Denies Cancer: No Psychosocial: Yes Anxiety, Depression Integumentary: Yes (NUMMULAR ECZEMA) Eczema Blood Disorders: No Adverse Reaction/Blood Tranf: No Family Medical History Cataracts G8 BROTHER Colon cancer Coronary thrombosis 19 FATHER Deafness or hearing loss 19 FATHER 19 MOTHER Diabetes mellitus 19 FATHER Headache disorder 19 MOTHER son Hypertension 19 FATHER 19 MOTHER G8 BROTHER Myocardial infarction 19 FATHER 19 MOTHER Neoplasm 19 MOTHER Parkinson's disease 19 MOTHER Severe allergy son Hypertension Physical Exam Vital Signs Capillary Refill : Height, Weight, BMI Height: 5'1.00" Weight: 170lbs. 0.0oz. 77.991340jd; 24.9 BMI Method:Stated General Appearance: WD/WN, mild distress HEENT: PERRL/EOMI, pharynx normal Neck: full range of motion, normal inspection Cardiovascular: normal peripheral pulses, regular rate, rhythm Respiratory: no respiratory distress, no accessory muscle use Legs: left leg non-tender; bilateral leg normal inspection, bilateral leg normal range of motion; left leg no evidence of injury; right leg abrasions ( anterior brooks has a mildly abraded patch of eczema), right leg pain (anterior muscle compartment), right leg soft tissue tenderness (anterior muscle compartment), right leg other (pain on dorsiflexion but no Homans sign or redness, knots, erythema, tenderness to the posterior calf.) Knees: bilateral knee non-tender, bilateral knee normal range of motion; left knee joint effusion (small bilateral joint effusions noted) Ankles: bilateral ankle non-tender, bilateral ankle normal inspection, bilateral ankle normal range of motion, bilateral ankle no evidence of injury Neurologic/Tendon: normal sensation, normal motor functions, normal tendon functions, responds to pain, no evidence tendon injury Neurologic/Psychiatric: no motor/sensory deficits, alert, normal mood/affect, oriented x 3 Skin: normal color, warm/dry Progress/Results/Core Measures Results/Orders My Orders Orders - KATIUSKA LUCIANO Ketorolac Injection (Toradol Injection) (11/29/18 04:15) Progress Progress Note : Time: 04:16 Progress Note The patient's having pain in her anterior muscle which reproduced on direct palpation over the muscle bellies or on dorsiflexion of the foot. We will try some NSAIDs. The tissue is not tense, edematous or distended. It's unilateral and does not likely reflect a compartment syndrome without history of severe trauma. Seems to be more musculoskeletal from overuse while she was in the garden all day today. She has evidence of effusion on both knees where she has been kneeling. No evidence of DVT on examination. We have demonstrated some stretching exercises. She does not demonstrate any weakness on examination. There is a small abrasion where she has excoriated patches of eczema on her anterior brooks just above the ankle but there is an erythematous base or evidence of any cellulitis or infection. We have started her to clean this with soap and water and apply a thin layer of Vaseline to protect it. Keep it dressed if she is going to be in dirt. Departure Impression Primary Impression: Anterior tibial tendonitis Qualified Codes: M76.811 - Anterior tibial syndrome, right leg Disposition: HOME, SELF-CARE Condition: Stable Departure-Patient Inst. Decision time for Depature: 04:23 Referrals: [facility] (PCP/Family) Primary Care Physician Patient Instructions: Tendonitis (DC) Add. Discharge Instructions: Apply heat and use Tylenol along with ibuprofen. Stretch the anterior muscle group out using the exercises demonstrated multiple times throughout the day. Tramadol 1 tablet every 6 hours as necessary for breakthrough pain. Follow-up with your primary care doctor later in the week or early next week as necessary. Return to the ER if you start to have chest pain shortness of breath or other worrisome symptoms. All discharge instructions reviewed with patient and/or family. Voiced understanding. Scripts Tramadol HCl (Tramadol HCl) 50 Mg Tablet 50 MG PO Q6H PRN for PAIN, #14 TAB 0 Refills Prov: KATIUSKA LUCIANO 11/29/18 KATIUSKA LUCIANO November 29, 2018 04:18
[2018-11-29] MEDS ORDERED: TRAM50TA2 PO (04:23)
[2018-11-29 04:35] VITALS: BP 131/68
== END 2018-11-29 04:35 | disposition home or self-care (01) ==
LOC: EDUNIT# 03:39 → ER 03:42
DX: M76.811 Anterior tibial syndrome, right leg (principal); I10 Essential (primary) hypertension; G40.909 Epilepsy, unspecified, not intractable, without status epilepticus; E03.9 Hypothyroidism, unspecified; F32.9 Major depressive disorder, single episode, unspecified; F41.9 Anxiety disorder, unspecified; K21.9 Gastro-esophageal reflux disease without esophagitis; F17.210 Nicotine dependence, cigarettes, uncomplicated; Z90.710 Acquired absence of both cervix and uterus; Z87.442 Personal history of urinary calculi; Z80.0 Family history of malignant neoplasm of digestive organs; Z98.890 Other specified postprocedural states; Z98.51 Tubal ligation status; Z90.89 Acquired absence of other organs; Z90.11 Acquired absence of right breast and nipple; Z88.5 Allergy status to narcotic agent; Z88.2 Allergy status to sulfonamides
CPT/HCPCS: 99284

== ENCOUNTER 2019-02-24 19:27 | Emergency (ER) | payer OTHER ==
[~2019-02-24] VITALS: Ht 152.4 cm; Wt 65.8 kg
[~2019-02-24 19:27] MED LIST changes: +TRAM50TA2 PO
--- NOTE | 2019-02-24 19:39 | ED Fall/Injury ---
General Stated Complaint: FALL,RIB PAIN Source: patient Exam Limitations: no limitations History of Present Illness Date Seen by Provider: Feb 24, 2019 Time Seen by Provider: 19:36 Initial Comments Tripped and fell this morning landing on the right side now complains of right posterolateral chest pain where she hit the dresser. Occurred: just prior to arrival Severity: moderate Injuries/Pain Location: chest Context: tripped Loss of Consciousness: no loss of consciousness Associated Symptoms (Fall): No Neck Pain Allergies and Home Medications Allergies Coded Allergies: Sulfa (Sulfonamide Antibiotics) (Verified Allergy, Unknown, 08/16/16) codeine (Verified Allergy, Unknown, Pt takes Lortab at home, 01/20/18) Home Medications Cetirizine HCl 10 Mg Tablet, 10 MG PO HS, (Reported) Citalopram Hydrobromide 20 Mg Tablet, 20 MG PO DAILY, (Reported) Doxazosin Mesylate 4 Mg Tablet, 4 MG PO HS, (Reported) Hydralazine HCl 25 Mg Tablet, 25 MG PO BID, (Reported) Labetalol HCl 200 Mg Tablet, 200 MG PO BID, (Reported) Levothyroxine Sodium 137 Mcg Tablet, 137 MCG PO DAILY, (Reported) Pantoprazole Sodium 40 Mg Tablet.dr, 40 MG PO DAILY, (Reported) Promethazine HCl 25 Mg Tablet, 25 MG PO Q4H PRN for NAUSEA/VOMITING-2ND LINE, (Reported) Ranitidine HCl 300 Mg Tablet, 300 MG PO HS, (Reported) Rizatriptan Benzoate 10 Mg Tab.rapdis, 10 MG PO UD PRN for MIGRAINE, (Reported) Tramadol HCl 50 Mg Tablet, 50 MG PO Q6H PRN for PAIN Prescribed by: KATIUSKA LUCIANO on 11/29/18 0423 Triamcinolone Acet 15 Gm Cr, TP BID, (Reported) Patient Home Medication List Home Medication List Reviewed: Yes Review of Systems Review of Systems Constitutional: see HPI Eyes: No Symptoms Reported Ears, Nose, Mouth, Throat: no symptoms reported Respiratory: see HPI Cardiovascular: no symptoms reported Genitourinary: no symptoms reported Musculoskeletal: no symptoms reported Skin: no symptoms reported Psychiatric/Neurological: No Symptoms Reported Past Sgluvme-Kotgdi-Kvkgfn Hx Patient Social History Alcohol Beverage of Choice: Beer Type Used: Cigarettes 2nd Hand Smoke Exposure: Yes Recent Foreign Travel: No Contact w/Someone Who Travel: No Recent Hopitalizations: No Seasonal Allergies Seasonal Allergies: No Past Medical History Surgeries: Yes (HYST/BSO; RIGHT BREAST BIOPSY/BENIGN LUMPECTOMY; ) Breast, Hysterectomy, Oophorectomy, Tonsillectomy, Tubal Ligation Respiratory: No Currently Using CPAP: No Currently Using BIPAP: No Cardiac: Yes Hypertension Neurological: Yes Headaches /Migraines Female 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 Disorders: 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, 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 Genitourinary: Yes Kidney Stones Gastrointestinal: Yes Gastroesophageal Reflux Musculoskeletal: No Endocrine: Yes Hypothyroidsim HEENT: No Loss of Vision: Denies Hearing Impairment: Denies Cancer: No Psychosocial: Yes Anxiety, Depression Integumentary: Yes (NUMMULAR ECZEMA) Eczema Blood Disorders: No Adverse Reaction/Blood Tranf: No Family Medical History Cataracts G8 BROTHER Colon cancer Coronary thrombosis 19 FATHER Deafness or hearing loss 19 FATHER 19 MOTHER Diabetes mellitus 19 FATHER Headache disorder 19 MOTHER son Hypertension 19 FATHER 19 MOTHER G8 BROTHER Myocardial infarction 19 FATHER 19 MOTHER Neoplasm 19 MOTHER Parkinson's disease 19 MOTHER Severe allergy son Hypertension Physical Exam Vital Signs Vital Signs - First Documented 02/24/19 19:33 Temp 97.6 Pulse 59 Resp 17 B/P (MAP) 181/87 (118) Pulse Ox 98 O2 Delivery Room Air Capillary Refill : Height, Weight, BMI Height: 5'1.00" Weight: 125lbs. 0.0oz. 56.212940zh; 24.9 BMI Method:Stated General Appearance: WD/WN, no apparent distress Neck: non-tender, full range of motion Respiratory: no respiratory distress, no accessory muscle use, other (there are no abrasions or ecchymosis or deformity to the chest wall, no crepitus on palpation.) Gastrointestinal: normal bowel sounds, non tender, soft; No distended, No gua rding, No rebound, No tenderness Neurologic/Psychiatric: alert, normal mood/affect, oriented x 3 Skin: normal color, warm/dry Progress/Results/Core Measures Results/Orders My Orders Orders - CHARLIE SANTANA APRN Ribs/Unilateral With Chest (02/24/19 19:34) Ketorolac Injection (Toradol Injection) (02/24/19 19:45) Medications Given in ED Current Medications Medications Dose Ordered Sig/Elsa Route Start Time Stop Time Status Last Admin Dose Admin Ketorolac Tromethamine 30 mg ONCE ONCE IM 02/24/19 19:45 02/24/19 19:46 DC 02/24/19 19:41 30 MG Vital Signs/I&O 02/24/19 19:33 Temp 97.6 Pulse 59 Resp 17 B/P (MAP) 181/87 (118) Pulse Ox 98 O2 Delivery Room Air Departure Impression Primary Impression: Chest wall pain Disposition: HOME, SELF-CARE Condition: Stable Departure-Patient Inst. Decision time for Depature: 19:59 Referrals: [facility] (PCP/Family) Primary Care Physician Patient Instructions: RIB CONTUSION Add. Discharge Instructions: 1. Return to ER for any concerns 2. Follow-up with your doctor next week. Scripts Hydrocodone/Acetaminophen ([place] 5-325 Tablet) 1 Each Tablet 1 TAB PO Q6H PRN for PAIN-MODERATE TO SEVERE MDD 10 TABS for 7 Days, #10 TAB Prov: CHARLIE SANTANA APRN 02/24/19 CHARLIE SANTANA APRN Feb 24, 2019 19:39
[2019-02-24] MEDS ORDERED: KETOROLAC 30 MG/ML VIAL IM ONE (19:45)
--- NOTE | 2019-02-24 19:57 | Diagnostic Imaging Report ---
INDICATION: Fall, results in right-sided chest pain. FINDINGS: There is some right perihilar and basilar partial atelectasis. No pneumothorax or hemothorax, however, cardiomediastinal and hilar contours were unremarkable. No right rib fracture deformity can be detected. No free air beneath the diaphragms. IMPRESSION: Mild zones of subsegmental atelectasis on the right, no visualized fracture deformity or pleural collection. Dictated by: Dictated on workstation # [id number]
[2019-02-24] MEDS ORDERED: HYDR-4226 PO (20:01)
[2019-02-24 20:04] VITALS: BP 176/78
== END 2019-02-24 20:04 | disposition home or self-care (01) ==
LOC: EDUNIT# 19:27 → ER 19:28
DX: R07.89 Other chest pain (principal); I10 Essential (primary) hypertension; F41.9 Anxiety disorder, unspecified; F32.9 Major depressive disorder, single episode, unspecified; G43.909 Migraine, unspecified, not intractable, without status migrainosus; K21.9 Gastro-esophageal reflux disease without esophagitis; E03.9 Hypothyroidism, unspecified; Z87.442 Personal history of urinary calculi; Z88.5 Allergy status to narcotic agent; Z88.2 Allergy status to sulfonamides; Z77.22 Contact with and (suspected) exposure to environmental tobacco smoke (acute) (chronic); Z90.710 Acquired absence of both cervix and uterus; Z90.89 Acquired absence of other organs; Z98.51 Tubal ligation status; Z82.49 Family history of ischemic heart disease and other diseases of the circulatory system; Z80.0 Family history of malignant neoplasm of digestive organs; W01.190A Fall on same level from slipping, tripping and stumbling with subsequent striking against furniture, initial encounter
CPT/HCPCS: 71101; 96372

== ENCOUNTER 2020-02-19 13:13 | Inpatient (IN) | payer OTHER ==
[~2020-02-19] VITALS: Ht 154.9 cm; Wt 73.0 kg
[~2020-02-19 13:13] MED LIST changes: -DIAZ5TAB3 PO; +DIAZ5TAB49 PO; +HYDR-34 PO; -HYDR-3816 PO; +HYDR-4226 PO; -RANI-515 PO; +RANI-609 PO; -TRAM50TA2 PO; +TRM50T PO
[2020-02-19] MEDS ORDERED: NS IV 1000 ML 1,000 ML IV SCH (13:42)
--- NOTE | 2020-02-19 13:55 | ED Respiratory ---
General Stated Complaint: SOB/COUGH Source: patient Exam Limitations: no limitations History of Present Illness Date Seen by Provider: Feb 19, 2020 Time Seen by Provider: 13:25 Initial Comments Patient presents ER by private conveyance from home with chief complaint that since yesterday morning she's having some shortness of breath and nonproductive cough. No fevers or chills. No sweats nausea chest pain diarrhea or changes in taste or olfactory senses. No known contacts that are sick. She has no personal history of lung or heart disease. She does have hypertension and hypothyroidism and follows with at . She has not seen anybody for this yet. She has not taken any antipyretics. She did not think anything of it until today when she became more and more aggressively short of breath with any exertion. She smokes about a quarter pack per day of cigarettes. She denies recreational drugs. She's not having any diarrhea nausea or vomiting. Allergies and Home Medications Allergies Coded Allergies: Sulfa (Sulfonamide Antibiotics) (Verified Allergy, Unknown, 08/16/16) codeine (Verified Allergy, Unknown, Pt takes Lortab at home, 01/20/18) Home Medications Cetirizine HCl 10 Mg Tablet, 10 MG PO HS, (Reported) Citalopram Hydrobromide 20 Mg Tablet, 20 MG PO DAILY, (Reported) Doxazosin Mesylate 4 Mg Tablet, 4 MG PO HS, (Reported) Hydralazine HCl 25 Mg Tablet, 25 MG PO BID, (Reported) Hydrocodone/Acetaminophen 1 Each Tablet, 1 TAB PO Q6H PRN for PAIN-MODERATE TO SEVERE Prescribed by: CHARLIE SANTANA on 02/24/192000 Labetalol HCl 200 Mg Tablet, 200 MG PO BID, (Reported) Levothyroxine Sodium 137 Mcg Tablet, 137 MCG PO DAILY, (Reported) Pantoprazole Sodium 40 Mg Tablet.dr, 40 MG PO DAILY, (Reported) Promethazine HCl 25 Mg Tablet, 25 MG PO Q4H PRN for NAUSEA/VOMITING-2ND LINE, (Reported) Ranitidine HCl 300 Mg Tablet, 300 MG PO HS, (Reported) Rizatriptan Benzoate 10 Mg Tab.rapdis, 10 MG PO UD PRN for MIGRAINE, (Reported) Tramadol HCl 50 Mg Tablet, 50 MG PO Q6H PRN for PAIN Prescribed by: KATIUSKA LUCIANO on 11/29/18 5780 Triamcinolone Acet 15 Gm Cr, TP BID, (Reported) Patient Home Medication List Home Medication List Reviewed: Yes Review of Systems Review of Systems Constitutional: No chills, No fever; malaise, weakness EENTM: No ear discharge, No ear pain Respiratory: cough; No phlegm; short of breath; No wheezing Cardiovascular: No chest pain, No edema Gastrointestinal: No abdominal pain, No nausea, No vomiting Genitourinary: No discharge, No dysuria : No Musculoskeletal: No back pain, No joint pain Skin: No pruritus, No rash Psychiatric/Neurological: Denies Headache, Denies Numbness, Denies Paresthesia All Other Systems Reviewed Negative Unless Noted: Yes Past Clgfrrr-Fxbeqx-Wibdhu Hx Patient Social History Alcohol Use: Occasionally Uses Alcohol Beverage of Choice: Beer Recreational Drug Use: No Smoking Status: Current Everyday Smoker Type Used: Cigarettes (0.25 ppd) 2nd Hand Smoke Exposure: Yes Recent Foreign Travel: No Contact w/Someone Who Travel: No Recent Hopitalizations: No Seasonal Allergies Seasonal Allergies: No Past Medical History Surgeries: Yes (HYST/BSO; RIGHT BREAST BIOPSY/BENIGN LUMPECTOMY; ) Breast, Hysterectomy, Oophorectomy, Tonsillectomy, Tubal Ligation Respiratory: No Currently Using CPAP: No Currently Using BIPAP: No Cardiac: Yes Hypertension Neurological: Yes Headaches /Migraines Female 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 Disorders: Menstrual Problems NEUROBIOLOGIST History: Hysterectomy, Menopausal Genitourinary: Yes Kidney Stones Gastrointestinal: Yes Gastroesophageal Reflux Musculoskeletal: No Endocrine: Yes Hypothyroidsim HEENT: No Loss of Vision: Denies Hearing Impairment: Denies Cancer: No Psychosocial: Yes Anxiety, Depression Integumentary: Yes (NUMMULAR ECZEMA) Eczema Blood Disorders: No Adverse Reaction/Blood Tranf: No Family Medical History Cataracts G8 BROTHER Colon cancer Coronary thrombosis 19 FATHER Deafness or hearing loss 19 FATHER 19 MOTHER Diabetes mellitus 19 FATHER Headache disorder 19 MOTHER son Hypertension 19 FATHER 19 MOTHER G8 BROTHER Myocardial infarction 19 FATHER 19 MOTHER Neoplasm 19 MOTHER Parkinson's disease 19 MOTHER Severe allergy son Hypertension Physical Exam Vital Signs - First Documented 02/19/20 13:20 Temp 37.2 Pulse 94 Resp 18 B/P (MAP) 154/102 (119) Pulse Ox 96 O2 Delivery Room Air Capillary Refill : Height: 5'0" Weight: 145lbs. 0.0oz. 65.310151lk; 24.9 BMI Method:Stated General Appearance: WD/WN, moderate distress Eyes: Bilateral Eye Normal Inspection, Bilateral Eye PERRL, Bilateral Eye EOMI HEENT: PERRL/EOMI, normal ENT inspection, TMs normal, pharynx normal (mildly dry mucosa) Neck: non-tender, full range of motion, normal inspection Respiratory: lungs clear, normal breath sounds, no accessory muscle use, respiratory distress (breathing about 30-35 breaths per minute oxygen sats 96- 97%) Cardiovascular: normal peripheral pulses, regular rate, rhythm, tachycardia (on mild exertion transferring from the wheelchair to the bed her heart rates 110 however at rest it is 89.) Gastrointestinal: non tender, soft Neurologic/Psychiatric: alert, normal mood/affect, oriented x 3 Skin: normal color, warm/dry Focused Exam Sepsis Stage: Sepsis Possible Source: Pulmonary Time of Focused Exam: 15:04 Respiratory: Lungs Clear, Normal Breath Sounds, No Accessory Muscle Use, Respiratory Distress (increased work of breathing 25-30 breaths per minute while at rest 96-97% on room air.) Cardiovascular: Regular Rate, Rhythm, No Edema, Normal Peripheral Pulses Capillary Refill: Less Than 3 Seconds Peripheral Pulses: 2+ Radial Pulses (R), 2+ Radial Pulses (L) Skin: normal color, warm/dry Progress/Results/Core Measures Suspected Sepsis SIRS Temperature: Pulse: Respiratory Rate: Laboratory Tests 02/19/20 13:35: White Blood Count 13.8H Blood Pressure / Mean: Laboratory Tests 02/19/20 13:35: Creatinine 0.85, INR Comment 1.1, Platelet Count 418H, Total Bilirubin 0.9 Results/Orders Lab Results Laboratory Tests Test 02/19/20 13:35 02/19/20 14:20 Range/Units White Blood Count 13.8 H 4.3-11.0 10^3/uL Red Blood Count 4.20 L 4.35-5.85 10^6/uL Hemoglobin 13.2 11.5-16.0 G/DL Hematocrit 40 35-52 % Mean Corpuscular Volume 94 80-99 FL Mean Corpuscular Hemoglobin 31 25-34 PG Mean Corpuscular Hemoglobin Concent 33 32-36 G/DL Red Cell Distribution Width 13.7 10.0-14.5 % Platelet Count 418 H 130-400 10^3/uL Mean Platelet Volume 10.0 7.4-10.4 FL Neutrophils (%) (Auto) 81 H 42-75 % Lymphocytes (%) (Auto) 8 L 12-44 % Monocytes (%) (Auto) 11 0-12 % Eosinophils (%) (Auto) 0 0-10 % Basophils (%) (Auto) 0 0-10 % Neutrophils # (Auto) 11.2 H 1.8-7.8 X 10^3 Lymphocytes # (Auto) 1.2 1.0-4.0 X 10^3 Monocytes # (Auto) 1.5 H 0.0-1.0 X 10^3 Eosinophils # (Auto) 0.0 0.0-0.3 10^3/uL Basophils # (Auto) 0.0 0.0-0.1 10^3/uL Erythrocyte Sedimentation Rate 6 0-30 MM/HR Prothrombin Time 15.0 H 12.2-14.7 SEC INR Comment 1.1 0.8-1.4 Activated Partial Thromboplast Time 29 24-35 SEC D-Dimer 2.07 H 0.00-0.49 UG/ML Blood Gas Puncture Site LT RAD Blood Gas Patient Temperature 99.1 Arterial Blood pH 7.41 7.37-7.43 Arterial Blood Partial Pressure CO2 32 L 35-45 MMHG Arterial Blood Partial Pressure O2 78 L 79-93 MMHG Arterial Blood HCO3 20 L 23-27 MMOL/L Arterial Blood Total CO2 21.1 21.0-31.0 MMOL/L Arterial Blood Oxygen Saturation 95 94-100 % Arterial Blood Base Excess -3.7 L -2.5-2.5 MMOL/L Joshua Test YES-POS Blood Gas Ventilator Setting NO Blood Gas Inspired Oxygen ROOM AIR Sodium Level 136 135-145 MMOL/L Potassium Level 4.8 3.6-5.0 MMOL/L Chloride Level 105 98-107 MMOL/L Carbon Dioxide Level 17 L 21-32 MMOL/L Anion Gap 14 5-14 MMOL/L Blood Urea Nitrogen 15 7-18 MG/DL Creatinine 0.85 0.60-1.30 MG/DL Estimat Glomerular Filtration Rate > 60 BUN/Creatinine Ratio 18 Glucose Level 129 H 70-105 MG/DL Calcium Level 10.5 H 8.5-10.1 MG/DL Corrected Calcium 10.3 H 8.5-10.1 MG/DL Total Bilirubin 0.9 0.1-1.0 MG/DL Aspartate Amino Transf (AST/SGOT) 47 H 5-34 U/L Alanine Aminotransferase (ALT/SGPT) 53 0-55 U/L Alkaline Phosphatase 141 H 40-136 U/L Troponin I 0.041 H <0.028 NG/ML C-Reactive Protein High Sensitivity 3.96 H 0.00-0.50 MG/DL B-Type Natriuretic Peptide 729.8 H <100.0 PG/ML Total Protein 7.0 6.4-8.2 GM/DL Albumin 4.3 3.2-4.5 GM/DL Procalcitonin 0.04 <0.10 NG/ML Urine Color ORANGE Urine Clarity SL CLOUDY Urine pH 6.0 5-9 Urine Specific [place] >=1.030 1.016-1.022 Urine Protein 2+ H NEGATIVE Urine Glucose (UA) NEGATIVE NEGATIVE Urine Ketones TRACE H NEGATIVE Urine Nitrite NEGATIVE NEGATIVE Urine Bilirubin 2+ H NEGATIVE Urine Urobilinogen 2.0 < = 1.0 MG/DL Urine Leukocyte Esterase NEGATIVE NEGATIVE Urine RBC (Auto) NEGATIVE NEGATIVE Urine RBC 0-2 /HPF Urine WBC 2-5 /HPF Urine Squamous Epithelial Cells 10-25 H /HPF Urine Crystals PRESENT H /LPF Urine Calcium Oxalate Crystals FEW H /LPF Urine Bacteria FEW H /HPF Urine Casts NONE /LPF Urine Mucus SMALL H /LPF Urine Culture Indicated YES My Orders Orders - KATIUSKA LUCIANO Arterial Blood Gas (02/19/20 13:42) Cbc With Automated Diff (02/19/20 13:42) Comprehensive Metabolic Panel (02/19/20 13:42) Blood Culture (02/19/20 13:42) Sputum Culture (02/19/20 13:42) Urinalysis (02/19/20 13:42) Urine Culture (02/19/20 13:42) Protime With Inr (02/19/20 13:42) Partial Thromboplastin Time (02/19/20 13:42) Chest 1 View, Ap/Pa Only (02/19/20 13:42) Ed Iv/Invasive Line Start (02/19/20 13:42) Ed Iv/Invasive Line Start (02/19/20 13:42) Ekg Tracing (02/19/20 13:42) Troponin I (02/19/20 13:42) Vital Signs Adult Sepsis Patie Q15M (02/19/20 13:42) O2 (02/19/20 13:42) Remove Rings In Anticipation O (02/19/20 13:42) Ns Iv 1000 Ml (Sodium Chloride 0.9%) (02/19/20 13:42) Fibrin Degradation Products (02/19/20 13:46) Procalcitonin (Pct) (02/19/20 13:46) Hs C Reactive Protein (02/19/20 13:46) Erythrocyte Sedimentation Rate (02/19/20 13:46) Coronavirus Sars-Cov-2 So 2018 (02/19/20 13:46) Urine Culture (02/19/20 14:20) Ceftriaxone For Iv Use (Rocephin For I (02/19/20 15:00) Azithromycin Injection (Zithromax Inject (02/19/20 15:00) Ed Iv/Invasive Line Start (02/19/20 14:57) Ns Iv 500 Ml (Sodium Chloride 0.9%) (02/19/20 14:57) Medications Given in ED Current Medications Medications Dose Ordered Sig/Elsa Route Start Time Stop Time Status Last Admin Dose Admin Azithromycin 500 mg/Sodium Chloride 250 ml @ 250 mls/hr ONCE ONCE IV 02/19/20 15:00 02/19/20 15:59 DC 02/19/20 15:39 250 MLS/HR Ceftriaxone Sodium 1000 mg/ Sterile Water 10 ml @ 200 mls/hr ONCE ONCE IV 02/19/20 15:00 02/19/20 15:02 DC 02/19/20 15:04 200 MLS/HR Sodium Chloride 500 ml @ 0 mls/hr Q0M ONCE IV 02/19/20 14:57 02/19/20 14:59 DC 02/19/20 15:39 0 MLS/HR Vital Signs/I&O 02/19/20 02/19/20 13:20 14:10 Temp 37.2 Pulse 94 Resp 18 B/P (MAP) 154/102 (119) Pulse Ox 96 O2 Delivery Room Air Room Air Capillary Refill : Progress Note #1: Time: 13:52 Progress Note Patient is breathing about 30-35 breaths per minute but does not have fever chil ls. She reports a dry cough but is not coughing for us. We do suspect she could've COVID-19 despite not having fever however pulmonary embolism pneumonia and other reasons could exist. Her lungs sound clear so albuterol probably has basis in her treatment plan presently. No history of COPD or asthma that she is aware of. Initial EKG doesn't show any STEMI. Plan to give her a liter of fluids and hold off on antibiotics until we see the rest of her results. We'll add a CRP, ESR, d-dimer, pro calcitonin. She satting 96-97% but because of her increased work of breathing a plan on getting an ABG as she may have compensated hypoxemia. Progress Note #2: Time: 15:09 Progress Note Patient is much more relaxed breathing on 2 L by nasal cannula at 100% SPO2. Aspirin 324 mg given to chew and swallow. Rocephin and azithromycin given as well as another 500 cc of fluids which should bring her up to 20 mL/kg. Plan to get a CT angiogram en route to the floor for moderate concern of pulmonary embolism. ECG Initial ECG Impression Date: Feb 19, 2020 Initial ECG Impression Time: 13:25 Initial ECG Rhythm: Normal Sinus Initial ECG Intervals: Normal Initial ECG Impression: Normal Initial ECG Comparisson: No Previous ECG Available Comment Normal sinus rhythm without clinically relevant ST elevation or depression. Diagnostic Imaging Diagonstic Imaging: Xray Plain Films/CT/US/NM/MRI: chest (1v) Comments NAME: ORLANDO ADLER [facility] REC#: [id number] PT STATUS: REG ER : 1960 PHYSICIAN: KATIUSKA LUCIANO MD ADMIT DATE: 02/19/20/ER Draft Date of Exam:02/19/20 CHEST 1 VIEW, AP/PA ONLY INDICATION: Shortness of air, cough. EXAMINATION: Chest 02/19/2020. COMPARISON: 02/24/2019. FINDINGS: There is cardiomegaly and pulmonary vascular congestion. Edema noted in both lungs. Bibasilar infiltrate, especially on the right not excluded. There is no pneumothorax. No effusions. IMPRESSION: 1. Pulmonary edema. 2. Possible right base infiltrate. Dictated on workstation # [id number] Dict: 02/19/20 1438 Trans: 02/19/20 1453 [facility] [id number] Interpreted by: RASHAWN GUERIN MD Electronically signed by: Reviewed: Reviewed by Me Diagonstic Imaging: CT (angio) Plain Films/CT/US/NM/MRI: chest Comments NAME: LESA KEVIN [facility] REC#: [id number] PT STATUS: REG ER : 08/11/1933 PHYSICIAN: KATIUSKA LUCIANO MD ADMIT DATE: 02/19/20/ER Draft Date of Exam:02/19/20 CT ABDOMEN/PELVIS W PROCEDURE: CT abdomen and pelvis with contrast. TECHNIQUE: Multiple contiguous axial images were obtained through the abdomen and pelvis after administration of intravenous contrast. Auto Exposure Controls were utilized during the CT exam to meet ALARA standards for radiation dose reduction. INDICATION: Abdominal plain, bloating. COMPARISON: 02/13/2020. FINDINGS: Increasing small to moderate-sized bibasilar pleural effusions with adjacent atelectasis. Bibasilar atelectasis and/or pneumonitis appears slightly improved. Cholecystectomy. The liver and spleen are unremarkable. The adrenal glands are unremarkable. The pancreas is unremarkable. The bilateral kidneys and ureters are unremarkable. Advanced vascular calcifications within the abdominal aorta and its branch vessels without aneurysmal dilatation of the abdominal aorta. The urinary bladder is unremarkable. Extensive colonic diverticulosis. The appendix is unremarkable. Small amount of free fluid is noted within the abdomen and pelvis, greatest within the lower pelvis. This appears relatively similar to the prior examination. No bowel obstruction or pneumatosis. No significant adenopathy or free air. Postsurgical changes within the lumbar spine without acute osseous abnormality. Grade 1 anterolisthesis of L4 on L5 secondary to bilateral pars interarticularis defects. IMPRESSION: 1. Worsening right greater than left small to moderate-sized dependently layering pleural effusions with adjacent atelectasis. 2. Small amount of fluid throughout the abdomen and pelvis, greatest within the lower pelvis. This appears similar to the prior exam. 3. Extensive colonic diverticulosis. No free air. Evaluation for diverticulitis is limited secondary to fluid throughout the abdomen and pelvis. 4. Improved bibasilar atelectasis and/or pneumonitis. 5. Additional findings as above. Dictated on workstation # [id number] Dict: 02/19/20 1539 Trans: 02/19/20 1607 [facility] [id number] Interpreted by: DAR JAIN MD Electronically signed by: Reviewed: Reviewed by Me Departure Communication (Admissions) Time/Spoke to Admitting Phy: 15:00 Discussed the case with Dr. Forrester and she agrees with antibiotics, medicine on telemetry, serial trending of troponins. Impression Primary Impression: Pneumonia Qualified Codes: J18.1 - Lobar pneumonia, unspecified organism Additional Impressions: Sepsis Qualified Codes: A41.9 - Sepsis, unspecified organism; R65.20 - Severe sepsis without septic shock; J96.01 - Acute respiratory failure with hypoxia Elevated troponin I measurement COVID-19 PUI Disposition: 09 ADMITTED INPATIENT Condition: Stable Admissions Decision to Admit Reason: Admit from ER (General) Decision to Admit/Date: Feb 19, 2020 Time/Decision to Admit Time: 14:55 Departure-Patient Inst. Referrals: [facility] (PCP/Family) Primary Care Physician KATIUSKA LUCIANO Feb 19, 2020 13:55
[2020-02-19 14:07] LABS: ABG BASE EXCESS -3.7 MMOL/L (-2.5-2.5); ABG OXYGEN SATURATION 95 % (94-100); ABG PCO2 32 MMHG (35-45); ABG PH 7.41 (7.37-7.43); ABG PO2 78 MMHG (79-93); ABG TCO2 21.1 MMOL/L (21.0-31.0); BASOPHILS % (AUTO) 0 % (0-10); EOSINOPHILS % (AUTO) 0 % (0-10); HEMATOCRIT 40 % (35-52); HEMOGLOBIN 13.2 G/DL (11.5-16.0); LYMPHOCYTES # (AUTO) 1.2 X 10^3 (1.0-4.0); LYMPHOCYTES % (AUTO) 8 % (12-44); MEAN CORPUSCULAR HEMOGLOBIN 31 PG (25-34); MEAN CORPUSCULAR HGB CONC 33 G/DL (32-36); MEAN CORPUSCULAR VOLUME 94 FL (80-99); MONOCYTES # (AUTO) 1.5 X 10^3 (0.0-1.0); MONOCYTES % (AUTO) 11 % (0-12); NEUTROPHILS # (AUTO) 11.2 X 10^3 (1.8-7.8); NEUTROPHILS % (AUTO) 81 % (42-75); PLATELET COUNT 418 10^3/uL (130-400); RED CELL DISTRIBUTION WIDTH 13.7 % (10.0-14.5); WHITE BLOOD COUNT 13.8 10^3/uL (4.3-11.0)
[2020-02-19 14:14] LABS: ALLENS TEST YES-POS; INSPIRED O2 ROOM AIR; PATIENT TEMP 99.1; VENTILATOR NO
[2020-02-19 14:18] LABS: ALBUMIN 4.3 GM/DL (3.2-4.5); CHLORIDE 105 MMOL/L (98-107); POTASSIUM 4.8 MMOL/L (3.6-5.0); SODIUM 136 MMOL/L (135-145)
[2020-02-19 14:19] LABS: CALCIUM 10.5 MG/DL (8.5-10.1)
[2020-02-19 14:21] LABS: FIBRIN DEGRADATION PRODUCTS 2.07 UG/ML (0.00-0.49); GLUCOSE 129 MG/DL (70-105); INR 1.1 (0.8-1.4)
[2020-02-19 14:22] LABS: BILIRUBIN,TOTAL 0.9 MG/DL (0.1-1.0); CARBON DIOXIDE 17 MMOL/L (21-32)
[2020-02-19 14:24] LABS: ALKALINE PHOSPHATASE 141 U/L (40-136); CREATININE SERUM 0.85 MG/DL (0.60-1.30); GFR ESTIMATED > 60
[2020-02-19 14:25] LABS: BUN/CREATININE RATIO 18
[2020-02-19 14:27] LABS: ALANINE AMINOTRANSFERASE 53 U/L (0-55)
[2020-02-19 14:32] LABS: CLARITY,URINE SL CLOUDY; COLOR,URINE ORANGE; GLUCOSE, URINE (UA) NEGATIVE (NEGATIVE); KETONES,URINE TRACE (NEGATIVE); LEUKOCYTE ESTERASE ,URINE NEGATIVE (NEGATIVE); NITRITE,URINE NEGATIVE (NEGATIVE); PROTEIN,URINE 2+ (NEGATIVE)
[2020-02-19 14:45] LABS: BACTERIA,URINE FEW /HPF; BILIRUBIN,URINE 2+ (NEGATIVE); RBC,URINE 0-2 /HPF
[2020-02-19 14:46] LABS: CALCIUM OXALATE CRYSTALS,UR FEW /LPF
[2020-02-19 14:53] LABS: ERYTHROCYTE SEDIMENTATION RATE 6 MM/HR (0-30)
--- NOTE | 2020-02-19 14:54 | Diagnostic Imaging Report ---
INDICATION: Shortness of air, cough. EXAMINATION: Chest 02/19/2020. COMPARISON: 02/24/2019. FINDINGS: There is cardiomegaly and pulmonary vascular congestion. Edema noted in both lungs. Bibasilar infiltrate, especially on the right not excluded. There is no pneumothorax. No effusions. IMPRESSION: 1. Pulmonary edema. 2. Possible right base infiltrate. Dictated by: Dictated on workstation # [id number]
[2020-02-19] MEDS ORDERED: NS IV 500 ML 500 ML IV ONE (14:57)
[2020-02-19] MEDS ORDERED: AZITHROMYCIN INJECTION 500 MG in NS (IVPB) 250 ML IV ONE (15:00)
[2020-02-19] MEDS ORDERED: cefTRIAXone FOR IV USE 1,000 MG in WATER (STERILE) FOR INJECTION 10 ML IV ONE (15:00)
[2020-02-19] MEDS ORDERED: ASPIRIN 81 MG CHEW (CHILDREN'S ASA) PO ONE (15:15)
[2020-02-19] MEDS ORDERED: hydrALAZINE (APESOLINE) 20 MG/ML VIAL IV ONE (15:15)
--- OUTSIDE RECORDS SUMMARY | 2020-02-19 15:28 | XMS REPORT | Continuity of Care Document ---
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 10*3/uL 0.0-0.1 Complete blood count (CBC) with automate d white blood cell (WBC) differential - 12/22/17 07:25 Blood leukocytes automated count (number/volume) 14.3 10*3/uL 4.3-11.0 Blood erythrocytes automated count (number/volume) 3.51 10*6/uL 4.35-5.85 Venous blood hemoglobin measurement (mass/volume) 11.2 g/dL 11.5-16.0 Blood hematocrit (volume fraction) 33 % 35-52 Automated erythrocyte mean corpuscular volume 93 [ foz_us] 80-99 Automated erythrocyte mean corpuscular h emoglobin (mass per erythrocyte) 32 pg 25-34 Automated erythrocyte mean corpuscular h emoglobin concentration measurement (mass/volume) 34 g/dL 32-36 Automated erythrocyte distribution width ratio 13. 8 % 10.0- 14.5 Automated blood platelet count (count/volume) 202 10*3/uL [...] 10*3 1.0-4.0 Blood monocytes automated count (number/volume) 1. 5 10*3 0.0-1.0 Automated eosinophil count 0.1 10*3/uL 0 .0-0.3 Automated blood basophil count (count/volume) 0.0 10*3/uL 0.0-0.1 Whole blood basic metabolic panel - 11/25 04/13 07:25 Serum or plasma sodium measurement (moles/volume) 132 mmol/L 135-145 Serum or plasma potassium measurement (moles/volume) 3.4 mmol/L 3.6-5.0 Serum or plasma chloride measurement (moles/volume) 106 mmol/L 98-107 Carbon dioxide 19 mmol/L 21-32 Serum or plasma anion gap determination (moles/volume) 7 mmol/L 5-14 Serum or plasma urea nitrogen measurement (mass/volume ) 5 mg/dL 7-18 Serum or plasma creatinine measurement (mass/volume) 0.67 mg/dL 0.60-1.30 Serum or plasma urea nitrogen/creatinine mass ratio 7 NRG Serum or plasma creatinine measurement w ith calculation of estimated glomerular filtration rate > NRG Serum or plasma glucose measurement (mass/volume) 93 mg/dL 70-105 Serum or plasma calcium measurement (mass/volume) 9.1 mg/dL 8.5-10.1 THYROID STIMULATING HORMONE - 12/22/17 0 7:25 THYROID STIMULATING HORMONE 5.01 u[iU]/mL 0.35-4.94 Vancomycin trough - 12/22/17 19:05 Vancomycin trough 6.5 ug/mL 10.0-20.0 Complete blood count (CBC) with automate d white blood cell (WBC) differential - 12/23/17 05:20 Blood leukocytes automated count (number/volume) 13.6 10*3/uL 4.3-11.0 Blood erythrocytes automated count (number/volume) 3.37 10*6/uL 4.35-5.85 Venous blood hemoglobin measurement (mass/volume) 10.6 g/dL 11.5-16.0 Blood hematocrit (volume fraction) 31 % 35-52 Automated erythrocyte mean corpuscular volume 93 [ foz_us] 80-99 Automated erythrocyte mean corpuscular h emoglobin (mass per erythrocyte) 31 pg 25-34 Automated erythrocyte mean corpuscular h emoglobin concentration measurement (mass/volume) 34 g/dL 32-36 Automated erythrocyte distribution width ratio 14. 2 % 10.0- 14.5 Automated blood platelet count (count/volume) 223 10*3/uL [...] 10*3 1.0-4.0 Blood monocytes automated count (number/volume) 1. 8 10*3 0.0-1.0 Automated eosinophil count 0.1 10*3/uL 0 .0-0.3 Automated blood basophil count (count/volume) 0.0 10*3/uL 0.0-0.1 Whole blood basic metabolic panel - 11/26 0 05:20 Serum or plasma sodium measurement (moles/volume) 131 mmol/L 135-145 Serum or plasma potassium measurement (moles/volume) 3.6 mmol/L 3.6-5.0 Serum or plasma chloride measurement (moles/volume) 104 mmol/L 98-107 Carbon dioxide 17 mmol/L 21-32 Serum or plasma anion gap determination (moles/volume) 10 mmol/L 5-14 Serum or plasma urea nitrogen measurement (mass/volume ) 6 mg/dL 7-18 Serum or plasma creatinine measurement (mass/volume) 0.73 mg/dL 0.60-1.30 Serum or plasma urea nitrogen/creatinine mass ratio 8 NRG Serum or plasma creatinine measurement w ith calculation of estimated glomerular filtration rate > NRG Serum or plasma glucose measurement (mass/volume) 85 mg/dL 70-105 Serum or plasma calcium measurement (mass/volume) 9.7 mg/dL 8.5-10.1 C DIFFICILE AG + TOXIN A/B. - 12/23/17 0 8:40 RESULTS NEGATIVE FOR ANTIGEN AND TOXIN A/B NRG Vancomycin trough - 12/24/17 07:18 Vancomycin trough 26.1 ug/mL 10.0-20.0 Complete blood count (CBC) with automate d white blood cell (WBC) differential - 12/24/17 07:18 Blood leukocytes automated count (number/volume) 11.7 10*3/uL 4.3-11.0 Blood erythrocytes automated count (number/volume) 3.29 10*6/uL 4.35-5.85 Venous blood hemoglobin measurement (mass/volume) 10.6 g/dL 11.5-16.0 Blood hematocrit (volume fraction) 31 % 35-52 Automated erythrocyte mean corpuscular volume 93 [ foz_us] 80-99 Automated erythrocyte mean corpuscular h emoglobin (mass per erythrocyte) 32 pg 25-34 Automated erythrocyte mean corpuscular h emoglobin concentration measurement (mass/volume) 35 g/dL 32-36 Automated erythrocyte distribution width ratio 13. 9 % 10.0- 14.5 Automated blood platelet count (count/volume) 261 10*3/uL [...] 10*3 1.0-4.0 Blood monocytes automated count (number/volume) 1. 5 10*3 0.0-1.0 Automated eosinophil count 0.3 10*3/uL 0 .0-0.3 Automated blood basophil count (count/volume) 0.0 10*3/uL 0.0-0.1 Whole blood basic metabolic panel - 11/26 08/13 07:18 Serum or plasma sodium measurement (moles/volume) 132 mmol/L 135-145 Serum or plasma potassium measurement (moles/volume) 3.2 mmol/L 3.6-5.0 Serum or plasma chloride measurement (moles/volume) 105 mmol/L 98-107 Carbon dioxide 18 mmol/L 21-32 Serum or plasma anion gap determination (moles/volume) 9 mmol/L 5-14 Serum or plasma urea nitrogen measurement (mass/volume ) 6 mg/dL 7-18 Serum or plasma creatinine measurement (mass/volume) 0.86 mg/dL 0.60-1.30 Serum or plasma urea nitrogen/creatinine mass ratio 7 NRG Serum or plasma creatinine measurement w ith calculation of estimated glomerular filtration rate > NRG Serum or plasma glucose measurement (mass/volume) 95 mg/dL 70-105 Serum or plasma calcium measurement (mass/volume) 9.7 mg/dL 8.5-10.1 TSH - 01/04/18 14:13 TSH 36.97 mIU/L 0.40-4.50 Complete blood count (CBC) with automate d white blood cell (WBC) differential - 01/20/18 15:35 Blood leukocytes automated count (number/volume) 15.2 10*3/uL 4.3-11.0 Blood erythrocytes automated count (number/volume) 3.51 10*6/uL 4.35-5.85 Venous blood hemoglobin measurement (mass/volume) 11.0 g/dL 11.5-16.0 Blood hematocrit (volume fraction) 33 % 35-52 Automated erythrocyte mean corpuscular volume 93 [ foz_us] 80-99 Automated erythrocyte mean corpuscular h emoglobin (mass per erythrocyte) 31 pg 25-34 Automated erythrocyte mean corpuscular h emoglobin concentration measurement (mass/volume) 34 g/dL 32-36 Automated erythrocyte distribution width ratio 14. 9 % 10.0- 14.5 Automated blood platelet count (count/volume) 244 10*3/uL [...] 10*3 1.0-4.0 Blood monocytes automated count (number/volume) 1. 7 10*3 0.0-1.0 Automated eosinophil count 0.0 10*3/uL 0 .0-0.3 Automated blood basophil count (count/volume) 0.0 10*3/uL 0.0-0.1 Blood lactic acid measurement (moles/vol ume) - 01/20/18 15:35 Blood lactic acid measurement [...] 5-14 Serum or plasma urea nitrogen measurement (mass/volume ) 9 mg/dL 7-18 Serum or plasma creatinine measurement (mass/volume) 0.76 mg/dL 0.60-1.30 Serum or plasma urea nitrogen/creatinine mass ratio 12 NRG Serum or plasma creatinine measurement w ith calculation of estimated glomerular filtration rate > NRG Serum or plasma glucose measurement (mass/volume) 102 mg/dL 70-105 Serum or plasma calcium measurement (mass/volume) 10.0 mg/dL 8.5-10.1 Serum or plasma total bilirubin measurement (mass/volu me) 0.6 mg/dL 0.1-1.0 Serum or plasma alkaline phosphatase cassandra surement (enzymatic activity/volume) 76 U/L 40-136 Serum or plasma aspartate aminotransfera se measurement (enzymatic activity/volume) 14 U/L 5-34 Serum or plasma alanine aminotransferase measurement (enzymatic activity/volume) 7 U/L 0-55 Serum or plasma protein measurement (mass/volume) 6.8 g/dL 6.4-8.2 Serum or plasma albumin measurement (mass/volume) 3.7 g/dL 3.2-4.5 Serum or plasma C reactive protein measu rement (mass/volume) - 01/20/18 15:35 Serum or plasma C reactive protein measurement (mass/v olume) 14.98 mg/dL 0.00-0.50 Blood manual differential performed dete ction - 01/20/18 15:35 Blood monocytes/100 leukocytes 11 % NR Manual blood segmented neutrophils/100 leukocytes 84 % NR Manual blood lymphocytes/100 leukocytes 5 % NR Blood erythrocyte morphology finding identification [facility] Bacterial blood culture - 01/20/18 15:35 QUANTITY OF GROWTH . [facility] Bacterial blood culture SEE [facility] Bacterial blood culture - 01/20/18 15:53 Bacterial blood culture [facility] Complete blood count (CBC) with automate d white blood cell (WBC) differential - 01/21/18 05:15 Blood leukocytes automated count (number/volume) 10.0 10*3/uL 4.3-11.0 Blood erythrocytes automated count (number/volume) 3.08 10*6/uL 4.35-5.85 Venous blood hemoglobin measurement (mass/volume) 9.8 g/dL 11.5-16.0 Blood hematocrit (volume fraction) 28 % 35-52 Automated erythrocyte mean corpuscular volume 92 [ foz_us] 80-99 Automated erythrocyte mean corpuscular h emoglobin (mass per erythrocyte) 32 pg 25-34 Automated erythrocyte mean corpuscular h emoglobin concentration measurement (mass/volume) 35 g/dL 32-36 Automated erythrocyte distribution width ratio 14. 6 % 10.0- 14.5 Automated blood platelet count (count/volume) 191 10*3/uL [...] 10*3 1.0-4.0 Blood monocytes automated count (number/volume) 1. 3 10*3 0.0-1.0 Automated eosinophil count 0.2 10*3/uL 0 .0-0.3 Automated blood basophil count (count/volume) 0.0 10*3/uL 0.0-0.1 Whole blood basic metabolic panel - 12/26 03/13 05:15 Serum or plasma sodium measurement (moles/volume) 129 mmol/L 135-145 Serum or plasma potassium measurement (moles/volume) 3.6 mmol/L 3.6-5.0 Serum or plasma chloride measurement (moles/volume) 101 mmol/L 98-107 Carbon dioxide 17 mmol/L 21-32 Serum or plasma anion gap determination (moles/volume) 11 mmol/L 5-14 Serum or plasma urea nitrogen measurement (mass/volume ) 9 mg/dL 7-18 Serum or plasma creatinine measurement (mass/volume) 0.77 mg/dL 0.60-1.30 Serum or plasma urea nitrogen/creatinine mass ratio 12 NRG Serum or plasma creatinine measurement w ith calculation of estimated glomerular filtration rate > NRG Serum or plasma glucose measurement (mass/volume) 82 mg/dL 70-105 Serum or plasma calcium measurement (mass/volume) 9.9 mg/dL 8.5-10.1 Complete blood count (CBC) with automate d white blood cell (WBC) differential - 01/22/18 05:00 Blood leukocytes automated count (number/volume) 7.8 10*3/uL 4.3-11.0 Blood erythrocytes automated count (number/volume) 2.87 10*6/uL 4.35-5.85 Venous blood hemoglobin measurement (mass/volume) 8.9 g/dL 11.5-16.0 Blood hematocrit (volume fraction) 27 % 35-52 Automated erythrocyte mean corpuscular volume 93 [ foz_us] 80-99 Automated erythrocyte mean corpuscular h emoglobin (mass per erythrocyte) 31 pg 25-34 Automated erythrocyte mean corpuscular h emoglobin concentration measurement (mass/volume) 33 g/dL 32-36 Automated erythrocyte distribution width ratio 15. 0 % 10.0- 14.5 Automated blood platelet count (count/volume) 173 10*3/uL [...] 10*3 1.0-4.0 Blood monocytes automated count (number/volume) 0. 9 10*3 0.0-1.0 Automated eosinophil count 0.2 10*3/uL 0 .0-0.3 Automated blood basophil count (count/volume) 0.0 10*3/uL 0.0-0.1 Comprehensive metabolic panel - 01/22/18 05:00 Serum or plasma sodium measurement (moles/volume) 134 mmol/L 135-145 Serum or plasma potassium measurement (moles/volume) 3.9 mmol/L 3.6-5.0 Serum or plasma chloride measurement (moles/volume) 109 mmol/L 98-107 Carbon dioxide 16 mmol/L 21-32 Serum or plasma anion gap determination (moles/volume) 9 mmol/L 5-14 Serum or plasma urea nitrogen measurement (mass/volume ) 4 mg/dL 7-18 Serum or plasma creatinine measurement (mass/volume) 0.71 mg/dL 0.60-1.30 Serum or plasma urea nitrogen/creatinine mass ratio 6 NRG Serum or plasma creatinine measurement w ith calculation of estimated glomerular filtration rate > NRG Serum or plasma glucose measurement (mass/volume) 85 mg/dL 70-105 Serum or plasma calcium measurement (mass/volume) 9.5 mg/dL 8.5-10.1 Serum or plasma total bilirubin measurement (mass/volu me) 0.5 mg/dL 0.1-1.0 Serum or plasma alkaline phosphatase cassandra surement (enzymatic activity/volume) 68 U/L 40-136 Serum or plasma aspartate aminotransfera se measurement (enzymatic activity/volume) 8 U/L 5-34 Serum or plasma alanine aminotransferase measurement (enzymatic activity/volume) < U/L 0-55 Serum or plasma protein measurement (mass/volume) 5.6 g/dL 6.4-8.2 Serum or plasma albumin measurement (mass/volume) 3.2 g/dL 3.2-4.5 Vancomycin trough - 01/22/18 05:00 Vancomycin trough 20.7 ug/mL 10.0-20.0 TSH - 02/25/18 15:20 TSH 0.80 mIU/L 0.40-4.50 - PANEL (PROFILE 1) - 04/14/18 10 :19 Prescribed Drug 1 Diazepam NRG Creatinine 53.3 mg/dL > or = 20.0 pH 6.70 4.5 - 9.0 Oxidant NEGATIVE [...] aOH alprazolam CONSISTENT NRG Alphahydroxymidazolam NEGATIVE ng/mL < 50 medMATCH aOH midazolam CONSISTENT NRG Alphahydroxytriazolam NEGATIVE ng/mL < 50 medMATCH aOH triazolam CONSISTENT NRG Aminoclonazepam NEGATIVE ng/mL <25 medMATCH Aminoclonazepam CONSISTENT NRG Hydroxyethylflurazepam NEGATIVE ng/mL <50 medMATCH OH,Et flurazepam CONSISTENT NR G Lorazepam NEGATIVE ng/mL <50 medMATCH Lorazepam CONSISTENT NRG Nordiazepam 251 ng/mL <50 medMATCH Nordiazepam CONSISTENT NRG Oxazepam 329 ng/mL <50 medMATCH Oxazepam CONSISTENT NRG Temazepam 506 ng/mL <50 medMATCH Temazepam CONSISTENT NRG Marijuana Metabolite 32 ng/mL <5 medMATCH Marijuana Metab INCONSISTENT N RG Barbiturates NEGATIVE ng/mL <300 medMATCH Barbiturates CONSISTENT NRG Methadone Metabolite NEGATIVE ng/mL <100 medMATCH Methadone Metab CONSISTENT NRG Phencyclidine NEGATIVE ng/mL <25 medMATCH Phencyclidine CONSISTENT NRG Complete blood count (CBC) with automate d white blood cell (WBC) differential - 07/19/18 15:27 Blood leukocytes automated count (number/volume) 11.9 10*3/uL 4.3-11.0 Blood erythrocytes automated count (number/volume) 3.94 10*6/uL 4.35-5.85 Venous blood hemoglobin measurement (mass/volume) 12.5 g/dL 11.5-16.0 Blood hematocrit (volume fraction) 36 % 35-52 Automated erythrocyte mean corpuscular volume 90 [ foz_us] 80-99 Automated erythrocyte mean corpuscular h emoglobin (mass per erythrocyte) 32 pg 25-34 Automated erythrocyte mean corpuscular h emoglobin concentration measurement (mass/volume) 35 g/dL 32-36 Automated erythrocyte distribution width ratio 14. 5 % 10.0- 14.5 Automated blood platelet count (count/volume) 254 10*3/uL [...] 10*3 1.0-4.0 Blood monocytes automated count (number/volume) 1. 8 10*3 0.0-1.0 Automated eosinophil count 0.1 10*3/uL 0 .0-0.3 Automated blood basophil count (count/volume) 0.1 10*3/uL 0.0-0.1 Whole blood basic metabolic panel - 06/27 11/11 15:27 Serum or plasma sodium measurement (moles/volume) 127 mmol/L 135-145 Serum or plasma potassium measurement (moles/volume) 3.8 mmol/L 3.6-5.0 Serum or plasma chloride measurement (moles/volume) 92 mmol/L 98-107 Carbon dioxide 23 mmol/L 21-32 Serum or plasma anion gap determination (moles/volume) 12 mmol/L 5-14 Serum or plasma urea nitrogen measurement (mass/volume ) 16 mg/dL 7-18 Serum or plasma creatinine measurement (mass/volume) 0.89 mg/dL 0.60-1.30 Serum or plasma urea nitrogen/creatinine mass ratio 18 NRG Serum or plasma creatinine measurement w ith calculation of estimated glomerular filtration rate > NRG Serum or plasma glucose measurement (mass/volume) 98 mg/dL 70-105 Serum or plasma calcium measurement (mass/volume) 9.9 mg/dL 8.5-10.1 Influenza virus A and B antigen detectio n - 07/19/18 15:27 FLU RESULT NEGATIVE FOR INFLUENZA A AND B ANTIGENS BY IA NRG TSH - 12/09/18 13:20 TSH 14.22 mIU/L 0.40-4.50 TSH - 01/13/19 13:36 TSH 1.02 mIU/L 0.40-4.50 TSH - 08/22/19 12:46 TSH 38.85 mIU/L 0.40-4.50 Complete blood count (CBC) with automate d white blood cell (WBC) differential - 02/19/20 13:35 Blood leukocytes automated count (number/volume) 13.8 10*3/uL 4.3-11.0 Blood erythrocytes automated count (number/volume) 4.20 10*6/uL 4.35-5.85 Venous blood hemoglobin measurement (mass/volume) 13.2 g/dL 11.5-16.0 Blood hematocrit (volume fraction) 40 % 35-52 Automated erythrocyte mean corpuscular volume 94 [ foz_us] 80-99 Automated erythrocyte mean corpuscular h emoglobin (mass per erythrocyte) 31 pg 25-34 Automated erythrocyte mean corpuscular h emoglobin concentration measurement (mass/volume) 33 g/dL 32-36 Automated erythrocyte distribution width ratio 13. 7 % 10.0- 14.5 Automated blood platelet count (count/volume) 418 10*3/uL 130-400 Automated blood platelet mean volume measurement 10.0 [foz_us] 7.4-10.4 Automated blood neutrophils/100 leukocytes 81 % 42-75 Automated blood lymphocytes/100 leukocytes 8 % 12-44 Blood monocytes/100 leukocytes 11 % 0-12 Automated blood eosinophils/100 leukocytes 0 % 0-10 Automated blood basophils/100 leukocytes 0 % 0-10 Blood neutrophils automated count (number/volume) 11.2 10*3 1.8-7.8 Blood lymphocytes automated count (number/volume) 1.2 10*3 1.0-4.0 Blood monocytes automated count (number/volume) 1. 5 10*3 0.0-1.0 Automated eosinophil count 0.0 10*3/uL 0 .0-0.3 Automated blood basophil count (count/volume) 0.0 10*3/uL 0.0-0.1 Arterial blood gas measurement - 0 13:35 Blood pCO2 32 mm[Hg] 35-45 Blood pO2 78 mm[Hg] 79-93 Arterial blood bicarbonate measurement (moles/volume) 20 mmol/L 23-27 Arterial blood base excess by calculation -3.7 mmo l/L -2.5-2.5 Arterial blood oxygen saturation measurement 95 % 94-100 * Inhaled oxygen flow rate ROOM AIR NRG Arterial blood pH measurement with patient temperature correction 7.41 7.37-7.43 Arterial blood carbon dioxide, total measurement (mole s/volume) 21.1 mmol/L 21.0-31.0 Body site LT RAD NRG Assessment of wrist artery patency prior to arterial p uncture YES-POS NRG Setting of ventilation mode NO NR G Measurement of body temperature 99.1 NRG Comprehensive metabolic panel - 02/19/20 13:35 Serum or plasma sodium measurement (moles/volume) 136 mmol/L 135-145 Serum or plasma potassium measurement (moles/volume) 4.8 mmol/L 3.6-5.0 Serum or plasma chloride measurement (moles/volume) 105 mmol/L 98-107 Carbon dioxide 17 mmol/L 21-32 Serum or plasma anion gap determination (moles/volume) 14 mmol/L 5-14 Serum or plasma urea nitrogen measurement (mass/volume ) 15 mg/dL 7-18 Serum or plasma creatinine measurement (mass/volume) 0.85 mg/dL 0.60-1.30 Serum or plasma urea nitrogen/creatinine mass ratio 18 NRG Serum or plasma creatinine measurement w ith calculation of estimated glomerular filtration rate > NRG Serum or plasma glucose measurement (mass/volume) 129 mg/dL 70-105 Serum or plasma calcium measurement (mass/volume) 10.5 mg/dL 8.5-10.1 Serum or plasma total bilirubin measurement (mass/volu me) 0.9 mg/dL 0.1-1.0 Serum or plasma alkaline phosphatase cassandra surement (enzymatic activity/volume) 141 U/L 40-136 Serum or plasma aspartate aminotransfera se measurement (enzymatic activity/volume) 47 U/L 5-34 Serum or plasma alanine aminotransferase measurement (enzymatic activity/volume) 53 U/L 0-55 Serum or plasma protein measurement (mass/volume) 7.0 g/dL 6.4-8.2 Serum or plasma albumin measurement (mass/volume) 4.3 g/dL 3.2-4.5 CALCIUM CORRECTED 10.3 mg/dL 8.5-10.1 PROCALCITONIN (PCT) - 02/19/20 13:35 PROCALCITONIN (PCT) 0.04 ng/mL <0.10 Serum or plasma troponin i.cardiac measu rement (mass/volume) - 02/19/20 13:35 Serum or plasma troponin i.cardiac measurement (mass/v olume) 0.041 ng/mL <0.028 PT panel in platelet poor plasma by coag ulation assay - 02/19/20 13:35 Prothrombin time (PT) in platelet poor plasma by coagu lation assay 15.0 s 12.2-14.7 INR in platelet poor plasma or blood by coagulation as say 1.1 0.8-1.4 Activated partial thromboplastin time (a PTT) in platelet poor plasma bycoagulation assay - 02/19/20 13:35 Activated partial thromboplastin time (a PTT) in platelet poor plasma bycoagulation assay 29 s 24-35 Fibrin D-dimer FEU measurement in platel et poor plasma (mass/volume) - 02/19/20 13:35 Fibrin D-dimer FEU measurement in platelet poor plasma (mass/volume) 2.07 ug/mL 0.00-0.49 Erythrocyte sedimentation rate by alicia gren method - 02/19/20 13:35 Erythrocyte sedimentation rate by westergren method 6 mm 0- 30 Serum or plasma C reactive protein measu rement (mass/volume) - 02/19/20 13:35 Serum or plasma C reactive protein measurement (mass/v olume) 3.96 mg/dL 0.00-0.50 Complete urinalysis with reflex to cultu re - 02/19/20 14:20 Urine color determination ORANGE NRG Urine clarity determination SL CLOUDY N RG Urine pH measurement by test strip 6.0 5-9 Specific gravity of urine by test strip >= 1.016-1.022 Urine protein assay by test strip, semi-quantitative 2+ NEGATIVE Urine glucose detection by automated test strip NE GATIVE NEGATIVE Erythrocytes detection in urine sediment by light micr oscopy NEGATIVE NEGATIVE Urine ketones detection by automated test strip TR GERALDINE NEGATIVE Urine nitrite detection by test strip NEGATIVE NEGATIVE Urine total bilirubin detection by test strip 2+ NEGATIVE Urine urobilinogen measurement by automated test strip (mass/volume) 2.0 mg/dL < = 1.0 Urine leukocyte esterase detection by dipstick NEG ATIVE NEGATIVE Automated urine sediment erythrocyte cou nt by microscopy (number/high power field) [HPF] NRG Automated urine sediment leukocyte count by microscopy (number/high power field) [HPF] NRG Bacteria detection in urine sediment by light microsco py FEW NRG Squamous epithelial cells detection in u rine sediment by light microscopy 10-25 NRG Crystals detection in urine sediment by light microsco py PRESENT NRG Casts detection in urine sediment by light microscopy NONE NRG Mucus detection in urine sediment by light microscopy SMALL NRG Complete urinalysis with reflex to culture YES NRG Calcium oxalate crystals detection in ur ine sediment by light microscopy FEW NRG Radiology Report from [id number] on 014 14:47:00 Final ReportADMITTING DIAGNOSIS: amitryptiline overdose, respir ET tube placementCHEST PORTABLE SINGLE VIEW - 10[facility]12/[facility] INDICATION: Respiratory urcuztej4128 hrs.There is no previous study available at this time for comparison.Endotracheal tube reaches the lower trachea. Nasogastric tubepasses below the diaphragm. There is cardiomegaly and mildpulmonary venous congestion. Perihilar linear densities mayreflect atelectasis or scarring. There is no consolidation orpneumothorax.IMPRESSION: Endotracheal tube reaches the lower trachea.Mild cardiomegaly, parahilar atelectasis and/or scarring.Short-term radiographic followup would be useful to documentstability or resolution.Dictated on workstation # [id number] BY: ALFREDA CADET M.D., RADIOLOGISTELECTRONICALLY SIGNED BY: ALFREDA CADET M.D., RADIOLOGISTD Oct 12 2013 5:04PT PH : Oct 14 2013 2:45PS Oct 14 2013 2:45P Encounters ACCT No. Visit Date/Time Discharge Status Pt. Type Provider Facility Loc./Unit Complaint [id number] 01/13/2019 13:20:00 01/13/2019 23:59: 59 CLS [facility] [id number] 08/22/2019 12:00:00 Document Registration [id number] 01/13/2019 13:20:00 Document Registration [id number] 12/09/2018 13:00:00 Document Registration [id number] 04/14/2018 10:00:00 Document Registration [id number] 02/25/2018 15:00:00 Document Registration [id number] 01/04/2018 14:00:00 Document Registration [id number] 10/12/2013 14:16:00 10/16/19 14 16:11:00 DIS Inpatient Carlos Bartlett DO [facility] [place] F3BC [id number] 07/15/2013 05:25:00 013 12:30:00 DIS Outpatient Ricki TELLEZ, [facility] [id number] 07/06/2017 18:03:00 07/06/2017 21:41: 00 DIS Outpatient Paulo Vasquez [id number] 07/06/2017 21:07:40 Document Registration [id number] 02/24/2019 19:28:00 019 20:04:00 DIS Emergency CHARLIE SANTANA [employer] INTERPRE[employer] [facility] ER FALL,RIB PAIN [id number] 11/29/2018 03:42:00 019 04:35:00 DIS Emergency MUSTAPHA TELLEZ, KATIUSKA De Oliveira [facility] ER PAIN IN RIGHT LEG [id number] 07/19/2018 14:53:00 16:56:00 DIS Emergency CHARLIE SANTANA [employer] INTERPRE[employer] [facility] ER FEVER/COUGH [id number] 07/13/2018 14:07:00 23:59:59 CLS Preadmit ZUÑIGAANTON [employer] INSPECT[employer] [facility] RAD ROUTINE SCREENING [id number] 01/20/2018 16:39:00 018 12:15:00 DIS Inpatient CHEL COMBS DO, [facility] 4TH CELLULITIS;HYPONATREMIA [id number] 12/20/2017 20:15:00 018 10:15:00 DIS Inpatient CARLOS TELLEZ, [facility] 4TH CELLULITIS R LOWER LEG; HYPONATREMIA [id number] 08/16/2016 16:51:00 017 19:48:00 DIS Emergency ROYCE LYONS DO [facility] ER AMS [id number] 02/19/2020 14:07:00 Document Registration [id number] 07/08/2017 12:16:00 Document Registration
--- NOTE | 2020-02-19 16:25 | NUR ---
ORLANDO ADLER admitted to room 423-1, with an admitting diagnosis of PNUEMOMONIA, [id number], ELEVATED TROPONIN, on 02/19/20 from ED via WHEELCHAIR, accompanied by ED STAFF. [place]O ADLER introduced to surroundings, call light, bed controls, phone, TV, temperature control, lights, meal times, smoking policy, visitor policy, side rail policy, bathrooms and showers. Patient Rights given to patient in the handbook. [place]O ADLER verbalizes understanding that [facility] is not responsible for the loss or damage to any personal effects or valuables that are kept in the patients posession during their hospitalization. OR[place]O ADLER verbalizes understanding of Interdisciplinary Patient Education. Patient and/or family were informed about the Rapid Response Team and its purpose.
[2020-02-19 16:44] VITALS: BP 159/101
[2020-02-19] MEDS ORDERED: PROMETHAZINE 25 MG (PHENERGAN) TAB PO PRN (16:45)
[2020-02-19] MEDS ORDERED: IOHEXOL 350 MG/ML 100 ML (OMNIPAQUE 350) VIAL IV ONE (16:45)
[2020-02-19] MEDS ORDERED: NS 100 ML (IVPB) BAG IV ONE (16:45)
[2020-02-19] MEDS ORDERED: HOLD METFORMIN - RECEIVED CONTRAST 20 ML VIAL IV SCH (16:45)
[2020-02-19] MEDS ORDERED: HYDROcodone/APAP 5 MG/325 MG (LORTAB) TAB PO PRN (16:45)
[2020-02-19] MEDS ORDERED: RT-ALBUTEROL/IPRATROPIUM 3 ML (DUONEB) VIAL INH PRN (17:00)
[2020-02-19] MEDS ORDERED: ONDANSETRON 4 MG/2 ML (SDV) Z0FRAN IV PRN (17:15)
[2020-02-19] MEDS ORDERED: LORazepam 0.5 MG (ATIVAN) TABLET PO PRN (17:15)
[2020-02-19] MEDS ORDERED: ACETAMINOPHEN 500 MG TAB (TYLENOL) PO PRN (17:15)
[2020-02-19] MEDS ORDERED: RT-ALBUTEROL INHALER HFA (VENTOLIN HFA) 18 GM IH PRN (17:15)
[2020-02-19] MEDS ORDERED: ANTACID SUSP 30 ML UDC (MYLANTA) PO PRN (17:15)
--- NOTE | 2020-02-19 17:25 | Diagnostic Imaging Report ---
PROCEDURE: CT angiography of the chest with contrast. TECHNIQUE: Multiple contiguous axial images were obtained through the chest after uneventful bolus administration of intravenous contrast. 3D reconstructed CTA MIP acquisitions were also performed. Auto Exposure Controls were utilized during the CT exam to meet ALARA standards for radiation dose reduction. INDICATION: Pulmonary embolism, shortness of breath. COMPARISON: Radiographs from the same date. FINDINGS: Prominent lymph nodes with associated fat stranding are identified throughout the mediastinum. Though ill-defined, a precarinal lymph node measures approximately 1.6 cm in short dimension. Mild scattered vascular calcifications. No aneurysmal dilatation of the thoracic aorta. The heart is mildly enlarged. Trace pericardial fluid. Small left and moderate right dependently layering pleural effusions. No pneumothorax. Dense consolidation is present within the right middle lobe. Bilateral intralobular septal thickening is present, particularly within the right lung. More focal consolidation with peribronchial thickening within the right lower lobe. Subsegmental branches of the right middle lobe pulmonary artery are not definitely opacified, this is best seen on series 2, image 78 through 80 and series 602 image 35 through 37. No additional filling defects within the central or segmental pulmonary arteries. Fat-containing Bochdalek hernia on the right. Significant fat stranding is noted involving the central mesentery/peripancreatic region, though this is only partially included within the [id number]-jm-humi. Scattered osseous degenerative changes without acute osseous abnormality. IMPRESSION: 1. No definite arterial flow noted within a few subsegmental branches of the right middle lobe, concerning for possible small subsegmental pulmonary emboli. 2. Moderate right and small left dependently layering pleural effusions. This is associated with intralobular septal thickening which likely relates to interstitial edema. 3. Dense consolidation within the right middle lobe, concerning for infiltrate versus early pulmonary infarction. 4. Mild mediastinal and possibly right hilar adenopathy. This may be reactive in nature. 5. Extensive fat stranding and inflammatory changes minimally visualized within the midline upper abdomen. This could relate to pancreatitis versus peptic ulcer disease versus cholecystitis. Recommend clinical correlation with symptomatology. CT of the abdomen and pelvis would help to further evaluate this partially visualized abnormality. Report regarding PE was called to patient's nurse, Mattie, at 5:09 p.m., by adeline. Dictated by: Dictated on workstation # [id number]
[2020-02-19 17:26] VITALS: BP 121/91
--- NOTE | 2020-02-19 17:39 | NUR ---
[facility] CALLED. FOUND P.E. ON CHEST CT ANGIOGRAM. LEFT MESSAGE FOR DR DURAND ON HER CELL PHONE. DR DURAND CALLED BACK WITH NEW ORDERS FOR XARELTO AND VENOUS DOPPLER ULTRASOUND OF LOWER EXTREMITIES TOMORROW. STOP LOVENOX IF SHE ALREADY STARTED IT.
[2020-02-19] MEDS: NS IV 1000 ML 1,000 ML IV SCH (18:21)
[2020-02-19] MEDS: RIVAROXABAN 15 MG TABLET (XARELTO) PO SCH (18:21)
[2020-02-19] MEDS: RT-ALBUTEROL INHALER HFA (VENTOLIN HFA) 18 GM IH SCH (19:10)
[2020-02-19 20:00] VITALS: BP 141/103
[2020-02-19] MEDS ORDERED: RT-ALBUTEROL/IPRATROPIUM 3 ML (DUONEB) VIAL INH SCH (21:00)
[2020-02-19] MEDS: hydrALAZINE (APRESOLINE) 25 MG TAB PO SCH (21:46)
[2020-02-19] MEDS: FAMOTIDINE 20 MG (PEPCID) TABLET PO SCH (21:47)
[2020-02-19] MEDS: LABETALOL 200 MG (NORMODYNE) TAB PO SCH (21:47)
[2020-02-19] MEDS: doxAzosin 4 MG (CARDURA) TAB PO SCH (21:47)
[2020-02-20 00:09] VITALS: BP 123/77
[2020-02-20] MEDS: NS IV 1000 ML 1,000 ML IV SCH ×6 (00:11→21:08)
[2020-02-20 04:41] VITALS: BP 141/80
[2020-02-20 05:07] LABS: BASOPHILS % (AUTO) 0 % (0-10); EOSINOPHILS # (AUTO) 0.1 10^3/uL (0.0-0.3); EOSINOPHILS % (AUTO) 1 % (0-10); HEMATOCRIT 34 % (35-52); HEMOGLOBIN 11.1 G/DL (11.5-16.0); LYMPHOCYTES % (AUTO) 22 % (12-44); MEAN CORPUSCULAR HEMOGLOBIN 31 PG (25-34); MEAN CORPUSCULAR HGB CONC 32 G/DL (32-36); MEAN CORPUSCULAR VOLUME 96 FL (80-99); MEAN PLATELET VOLUME 9.7 FL (7.4-10.4); MONOCYTES # (AUTO) 1.3 X 10^3 (0.0-1.0); MONOCYTES % (AUTO) 15 % (0-12); NEUTROPHILS # (AUTO) 5.7 X 10^3 (1.8-7.8); NEUTROPHILS % (AUTO) 62 % (42-75); PLATELET COUNT 303 10^3/uL (130-400); RED CELL DISTRIBUTION WIDTH 14.3 % (10.0-14.5); WHITE BLOOD COUNT 9.1 10^3/uL (4.3-11.0)
[2020-02-20 05:14] LABS: ALBUMIN 3.4 GM/DL (3.2-4.5); CHLORIDE 111 MMOL/L (98-107); POTASSIUM 5.4 MMOL/L (3.6-5.0); SODIUM 136 MMOL/L (135-145)
[2020-02-20 05:16] LABS: GLUCOSE 82 MG/DL (70-105); TOTAL PROTEIN 5.8 GM/DL (6.4-8.2)
[2020-02-20 05:18] LABS: BILIRUBIN,TOTAL 0.6 MG/DL (0.1-1.0); CARBON DIOXIDE 15 MMOL/L (21-32)
[2020-02-20 05:20] LABS: ALKALINE PHOSPHATASE 114 U/L (40-136); CREATININE SERUM 0.75 MG/DL (0.60-1.30); GFR ESTIMATED > 60
[2020-02-20 05:21] LABS: BUN/CREATININE RATIO 17
[2020-02-20 05:23] LABS: ALANINE AMINOTRANSFERASE 53 U/L (0-55)
[2020-02-20] MEDS: RIVAROXABAN 15 MG TABLET (XARELTO) PO SCH ×2 (07:09→17:23)
[2020-02-20] MEDS: LEVOTHYROXINE 75 MCG (LEVOTHROID) TABLET PO SCH (07:09)
[2020-02-20] MEDS: LEVOTHYROXINE 100 MCG (LEVOTHROID) TAB PO SCH (07:09)
[2020-02-20] MEDS: RT-ALBUTEROL INHALER HFA (VENTOLIN HFA) 18 GM IH SCH ×2 (07:11→19:38)
[2020-02-20 08:00] VITALS: BP 136/83
--- NOTE | 2020-02-20 08:45 | Diagnostic Imaging Report ---
Indication: Pneumonia. Compared: 02/18 Findings: Bilateral mixed interstitial and airspace opacities with cardiomegaly and prominence of the central vascularity are unchanged with likely small amounts of pleural fluid unchanged. Pulmonary density may reflect elements of pneumonia however a component of failure is presumed. Impression: No real change in bilateral pulmonary opacities, cardiomegaly, vascular congestion and likely tiny pleural effusions Dictated by: Dictated on workstation # [id number]
--- NOTE | 2020-02-20 09:27 | Diagnostic Imaging Report ---
PROCEDURE: US Venous Lower Ext Stevie. TECHNIQUE: Multiple real-time grayscale images were obtained over the lower extremities in various projections, bilaterally. Additional duplex Doppler and color Doppler images were also obtained. INDICATION: PE. FINDINGS: The bilateral lower extremity femoropopliteal deep venous system is widely patent. No deep or superficial thrombus identified. There is normal respiratory variation and response to augmentation. IMPRESSION: Normal negative bilateral lower extremity venous Doppler and ultrasound exam. Dictated by: Dictated on workstation # [id number]
[2020-02-20] MEDS: LABETALOL 200 MG (NORMODYNE) TAB PO SCH ×2 (10:00→21:14)
[2020-02-20] MEDS: ASPIRIN 81 MG CHEW (CHILDREN'S ASA) PO SCH (10:00)
[2020-02-20] MEDS: hydrALAZINE (APRESOLINE) 25 MG TAB PO SCH ×2 (10:00→21:08)
[2020-02-20] MEDS: PANTOPRAZOLE 40 MG (PROTONIX) TAB PO SCH (10:01)
--- NOTE | 2020-02-20 11:26 | History & Physical-Hospitalist ---
History of Present Illness HPI/Chief Complaint CC: Dyspnea HPI: This is a 59yoWF hx of current smoking and COPD who presents to the ER with SOB, found to have hypoxia, pneumonia on CXR, she was swabbed for Covid 19 and that is pending at this current time but sepsis has been managed with IV fluids and IV antibiotics along with O2 supplementation. Currently pt appears to be doing well but she does get SOB when she is walking around. I have asked Dr. Biggs to provide consultation services to her. Source: patient Exam Limitations: no limitations Date Seen 02/20/20 Time Seen by a Provider: 10:00 Attending Physician Irena Forrester MD PCP [facility] Referring Physician Date of Admission Feb 19, 2020 at 15:00 Home Medications & Allergies Home Medications Reviewed patient Home Medication Reconciliation performed by pharmacy medication reconciliations geospatial technician and/or nursing. Patients Allergies have been reviewed. Allergies Allergies Coded Allergies Sulfa (Sulfonamide Antibiotics) (Verified Allergy, Unknown, 08/16/16) codeine (Verified Allergy, Unknown, Pt takes Lortab at home, 01/20/18) Past Mrmlhfk-Hsvwon-Nfcgun Hx Past Med/Social Hx: Reviewed Nursing Past Med/Soc Hx, Reviewed and Corrections made Patient Social History Marrital Status: Employed/Student: retired Alcohol Use: Occasionally Uses Number of Drinks Today: AA Alcohol Beverage of Choice: Beer Recreational Drug Use: No Smoking Status: Current Everyday Smoker Type Used: Cigarettes 2nd Hand Smoke Exposure: Yes Recent Foreign Travel: No Contact w/other who traveled: No Recent Hopitalizations: No Recent Infectious Disease Expo: No Seasonal Allergies Seasonal Allergies: No Past Medical History Surgeries: Breast, Hysterectomy, Oophorectomy, Tonsillectomy, Tubal Ligation Respiratory: COPD Currently Using CPAP: No Currently Using BIPAP: No Cardiac: Hypertension Neurological: Headaches /Migraines Female 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 Disorders: Menstrual Problems Hysterectomy, Menopausal Genitourinary: Kidney Stones Gastrointestinal: Gastroesophageal Reflux Endocrine: Hypothyroidsim Loss of Vision: Denies Hearing Impairment: Denies Psychosocial: Anxiety, Depression Skin/Integumentary: Eczema History of Blood Disorders: No Adverse Reaction to Blood [place]: No Family History Cataracts G8 BROTHER Colon cancer Coronary thrombosis 19 FATHER Deafness or hearing loss 19 FATHER 19 MOTHER Diabetes mellitus 19 FATHER Headache disorder 19 MOTHER son Hypertension 19 FATHER 19 MOTHER G8 BROTHER Myocardial infarction 19 FATHER 19 MOTHER Neoplasm 19 MOTHER Parkinson's disease 19 MOTHER Severe allergy son Hypertension Review of Systems Constitutional: malaise Respiratory: cough, dyspnea on exertion Physical Exam Physical Exam Vital Signs Vital Signs - First Documented 02/19/20 02/19/20 13:20 15:51 Temp 37.2 Pulse 94 Resp 18 B/P (MAP) 154/102 (119) Pulse Ox 96 O2 Delivery Room Air O2 Flow Rate 2.00 Capillary Refill : Less Than 3 Seconds Height, Weight, BMI Height: 5'0" Weight: 145lbs. 0.0oz. 65.619029ju; 30.42 BMI Method:Stated General Appearance: No Apparent Distress, Chronically ill, Obese Eyes: Right Eye Normal Inspection, Right Eye PERRL HEENT: PERRL/EOMI, TMs Normal, Normal ENT Inspection, Pharynx Normal, Moist Mucous Membranes Neck: Full Range of Motion, Normal Inspection, Non Tender Respiratory: Chest Non Tender, Lungs Clear, No Accessory Muscle Use, No Respiratory Distress, Decreased Breath Sounds Cardiovascular: Regular Rate, Rhythm, No Edema, No Gallop, No JVD, No Murmur, Normal Peripheral Pulses Gastrointestinal: Normal Bowel Sounds, No Organomegaly, No Pulsatile Mass, Non Tender, Soft Back: Normal Inspection, No CVA Tenderness, No Vertebral Tenderness Extremity: Normal Capillary Refill, Normal Inspection, Normal Range of Motion, Non Tender, No Calf Tenderness, No Pedal Edema Neurologic/Psychiatric: Alert, Oriented x3, No Motor/Sensory Deficits, Normal Mood/Affect Skin: Normal Color, Warm/Dry Lymphatic: No Adenopathy Results Results/Procedures Labs Laboratory Tests 02/19/20 13:35 02/20/20 04:35 02/20/20 17:20 Patient resulted labs reviewed. Assessment/Plan Admission Diagnosis Assessment: AECOPD PNA Smoker Hypoxia PE Plan: Abx O2 COVID swab pending Admission Status: Inpatient Order (span 2 midnights) Reason for Inpatient Admission: AECOPD with PNA Assessment and Plan Assessment: Dyspnea Pulmonary Embolus Hypoxia PNA COPD Smoker Plan: Anti-Coagulation Antibiotics COVID swab pending Home meds Monitor Oxygen level closely Diagnosis/Problems Diagnosis/Problems (1) Sepsis Qualifiers: Sepsis type: sepsis due to unspecified organism Sepsis acute organ dysfunction status: with acute organ dysfunction Severe sepsis acute organ dysfunction type: acute respiratory failure Acute respiratory failure type: with hypoxia Severe sepsis shock status: without septic shock Qualified Codes: A41.9 - Sepsis, unspecified organism; R65.20 - Severe sepsis without septic shock; J96.01 - Acute respiratory failure with hypoxia (2) PUI-COVID-1 (3) Elevated troponin (4) Pneumonia Status: Acute Qualifiers: Pneumonia type: due to unspecified organism Laterality: right Lung location: lower lobe of lung Qualified Codes: J18.1 - Lobar pneumonia, unspecified organism Clinical Quality Measures DVT/VTE Risk/Contraindication: Risk Factor Score Per Nursin RFS Level Per Nursing on Admit: 4+=Very High CHEL COMBS DO Feb 20, 2020 11:26
[2020-02-20 12:45] VITALS: BP 135/87
[2020-02-20] MEDS: cefTRIAXone 1,000 MG/SWFI 10 ML IV PUSH IV SCH ×2 (14:01)
[2020-02-20] MEDS ORDERED: AZITHROMYCIN 500 MG/NS 250 ML IVPB IV SCH ×2 (15:00)
--- NOTE | 2020-02-20 16:06 | NUR ---
"RD ASSESSMENT PMHx: HTN; GERD PT INTERACTION: Note pt currently COVID PUI, per chart review. Note all diet information gathered is per chart review. Note avg PO intake <25% x2meal. Note no BM recorded, and pt not currently on bowel regimen. Note unable to determine recent wt hx. ABNORMAL NUTRITION-RELATED LAB VALUES LOW: Pro 5.8 HIGH: K 5.4; Cl 111; AST 53 Est. kcal needs: 1450 kcal | 20 kcal/kg Est. Pro needs: 58 g Pro | 0.8 g Pro/kg PES STATEMENT: Inadequate oral intake (NI-2.1) related to loss of appetite as evidenced by chart review | avg PO intake <25% x2meal INTERVENTION: Continue with current diet order of Regular diet. Add Ensure Enlive (vary) to meals TID, for increased kcal intake. Provides 350 kcal and 13 g Pro per serving. Will continue to follow and reassess as pt needs, intake, and status change. MONITOR/EVALUATE: PO Intake; Plan of Care; Hydration Status; Weight Status; Lab Values Gracie Jimenez, , RD, LD"
--- NOTE | 2020-02-20 16:07 | Pulmonary Consultation ---
History of Present Illness History of Present Illness Date Seen by Provider: Feb 20, 2020 Date of Admission Allergies and Home Medications Allergies Coded Allergies: Sulfa (Sulfonamide Antibiotics) (Verified Allergy, Unknown, 08/16/16) codeine (Verified Allergy, Unknown, Pt takes Lortab at home, 01/20/18) Home Medications Cetirizine HCl 10 Mg Tablet, 10 MG PO HS, (Reported) Citalopram Hydrobromide 20 Mg Tablet, 20 MG PO DAILY, (Reported) Doxazosin Mesylate 4 Mg Tablet, 4 MG PO HS, (Reported) Hydralazine HCl 25 Mg Tablet, 25 MG PO BID, (Reported) Hydrocodone/Acetaminophen 1 Each Tablet, 1 TAB PO Q6H PRN for PAIN-MODERATE TO SEVERE Prescribed by: CHARLIE SANTANA on 02/24/192000 Labetalol HCl 200 Mg Tablet, 200 MG PO BID, (Reported) Levothyroxine Sodium 137 Mcg Tablet, 137 MCG PO DAILY, (Reported) Pantoprazole Sodium 40 Mg Tablet.dr, 40 MG PO DAILY, (Reported) Promethazine HCl 25 Mg Tablet, 25 MG PO Q4H PRN for NAUSEA/VOMITING-2ND LINE, (Reported) Ranitidine HCl 300 Mg Tablet, 300 MG PO HS, (Reported) Rizatriptan Benzoate 10 Mg Tab.rapdis, 10 MG PO UD PRN for MIGRAINE, (Reported) Tramadol HCl 50 Mg Tablet, 50 MG PO Q6H PRN for PAIN Prescribed by: KATIUSKA LUCIANO on 11/29/18422 Triamcinolone Acet 15 Gm Cr, TP BID, (Reported) Past Ufjcgwv-Flsfzb-Rdgyhz Hx Past Med/Social Hx: Reviewed Nursing Past Med/Soc Hx, Reviewed and Corrections made Patient Social History Alcohol Use: Occasionally Uses Number of Drinks Today: AA Alcohol Beverage of Choice: Beer Recreational Drug Use: No Smoking Status: Current Everyday Smoker Type Used: Cigarettes 2nd Hand Smoke Exposure: Yes Recent Foreign Travel: No Contact w/Someone Who Travel: No Recent Infectious Disease Expo: No Recent Hopitalizations: No Seasonal Allergies Seasonal Allergies: No Past Medical History Surgeries: Yes (HYST/BSO; RIGHT BREAST BIOPSY/BENIGN LUMPECTOMY; ) Breast, Hysterectomy, Oophorectomy, Tonsillectomy, Tubal Ligation Respiratory: No Currently Using CPAP: No Currently Using BIPAP: No Cardiac: Yes Hypertension Neurological: Yes Headaches /Migraines Female 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 Disorders: Menstrual Problems [employer] History: Hysterectomy, Menopausal Genitourinary: Yes Kidney Stones Gastrointestinal: Yes Gastroesophageal Reflux Musculoskeletal: No Endocrine: Yes Hypothyroidsim HEENT: No Loss of Vision: Denies Hearing Impairment: Denies Cancer: No Psychosocial: Yes Anxiety, Depression Integumentary: Yes Eczema Blood Disorders: No Adverse Reaction/Blood Tranf: No Family Medical History Cataracts G8 BROTHER Colon cancer Coronary thrombosis 19 FATHER Deafness or hearing loss 19 FATHER 19 MOTHER Diabetes mellitus 19 FATHER Headache disorder 19 MOTHER son Hypertension 19 FATHER 19 MOTHER G8 BROTHER Myocardial infarction 19 FATHER 19 MOTHER Neoplasm 19 MOTHER Parkinson's disease 19 MOTHER Severe allergy son Hypertension Sepsis Event Evaluation Height, Weight, BMI Height: 5'0" Weight: 145lbs. 0.0oz. 65.457983rx; 30.42 BMI Method:Stated Exam Exam Vital Signs Date Time Temp Pulse Resp B/P (MAP) Pulse Ox O2 Delivery O2 Flow Rate FiO2 02/20/20 13:00 69 02/20/20 12:45 36.2 68 18 135/87 (103) 96 Nasal Cannula 1.00 02/20/20 08:00 36.4 71 18 136/83 (100) 97 Nasal Cannula 2.00 02/20/20 07:11 97 Nasal Cannula 2.00 02/20/20 07:00 65 02/20/20 04:41 35.8 72 18 141/80 (100) 96 Nasal Cannula 2.00 02/20/20 01:00 64 02/20/20 00:09 36.2 67 20 123/77 (92) 98 Nasal Cannula 2.00 02/19/20 20:00 36.0 116 20 141/103 (116) 98 Nasal Cannula 2.00 02/19/20 20:00 98 Nasal Cannula 2.00 02/19/20 19:11 97 Nasal Cannula 2.00 02/19/20 18:20 98 02/19/20 17:26 37.6 98 18 121/91 97 Nasal Cannula 2.00 02/19/20 17:14 Nasal Cannula 2.00 02/19/20 16:44 37.2 94 100 I & O 02/20/20 07:00 Intake Total 2000 ml Output Total 200 ml Balance 1800 ml Height & Weight Height: 5'0" Weight: 145lbs. 0.0oz. 65.602076po; 30.42 BMI Method:Stated General Appearance: No Apparent Distress, Chronically ill, Obese HEENT: PERRL/EOMI, TMs Normal, Normal ENT Inspection, Pharynx Normal, Moist Mucous Membranes Neck: Full Range of Motion, Normal Inspection, Non Tender Respiratory: Chest Non Tender, Lungs Clear, No Accessory Muscle Use, No Respiratory Distress, Decreased Breath Sounds Cardiovascular: Regular Rate, Rhythm, No Edema, No Gallop, No JVD, No Murmur, Normal Peripheral Pulses Capillary Refill: Less Than 3 Seconds Peripheral Pulses: 2+ Radial Pulses (R), 2+ Radial Pulses (L) Gastrointestinal: non tender, soft Extremity: Normal Capillary Refill, Normal Inspection, Normal Range of Motion, Non Tender, No Calf Tenderness, No Pedal Edema Neurologic/Psychiatric: Alert, Oriented x3, No Motor/Sensory Deficits, Normal Mood/Affect Skin: Normal Color, Warm/Dry Lymphatic: No Adenopathy Results Lab Laboratory Tests 02/19/20 13:35 02/20/20 04:35 Assessment/Plan Assessment/Plan acute PE -Xarelto PNA with hypoxia -Continue rocpehin and azithromycin -COVID pending Hyperkalemia -repeat labs Metabolic acidosis -monitor and repeat labs Tobacco use RO SCHWARTZ DO Feb 20, 2020 16:06
[2020-02-20] MEDS ORDERED: DOXA4TAB2 PO (16:13)
[2020-02-20] MEDS ORDERED: TR1C15 TP (16:13)
[2020-02-20] MEDS ORDERED: DOXE100C4 PO (16:13)
[2020-02-20] MEDS ORDERED: FAMO-119 PO (16:13)
[2020-02-20] MEDS ORDERED: LEVO150T6 PO (16:13)
[2020-02-20 16:14] VITALS: BP 153/89
--- NOTE | 2020-02-20 16:14 | NUR ---
I SPOKE WITH THE PATIENT ON THE ROOM PHONE, SPOKE WITH THE PHARMACY, WENT THROUGH THE EXTERNAL MED HISTORY TO COMPLETE THE MED REC. THESE ARE MEDICATIONS THAT I GOT FROM [facility] THAT WEREN'T ON THE EXTERNAL MED HISTORY PEPCID 20MG WAS LAST FILLED ON 01/16/20 #30 RIZATRIPTAN 10MG 11/24/19 LEVOTHYROXINE 150MG 11/24/19 #90 DOXEPIN 100MG 11/24/29 #30 TRIAMCINOLONE CREAM 0.1% 12/28/19 LABETALOL 200MG 11/25/19 #180
[2020-02-20 17:45] LABS: ALBUMIN 3.7 GM/DL (3.2-4.5)
[2020-02-20 17:46] LABS: CHLORIDE 110 MMOL/L (98-107); POTASSIUM 4.6 MMOL/L (3.6-5.0); SODIUM 136 MMOL/L (135-145)
[2020-02-20 17:47] LABS: CALCIUM 9.4 MG/DL (8.5-10.1)
[2020-02-20 17:48] LABS: GLUCOSE 106 MG/DL (70-105); TOTAL PROTEIN 5.7 GM/DL (6.4-8.2)
[2020-02-20 17:49] LABS: CARBON DIOXIDE 16 MMOL/L (21-32)
[2020-02-20 17:50] LABS: BILIRUBIN,TOTAL 0.4 MG/DL (0.1-1.0)
[2020-02-20 17:51] LABS: ALKALINE PHOSPHATASE 141 U/L (40-136)
[2020-02-20 17:52] LABS: CREATININE SERUM 0.82 MG/DL (0.60-1.30); GFR ESTIMATED > 60
[2020-02-20 17:53] LABS: BUN/CREATININE RATIO 18
[2020-02-20 17:54] LABS: ALANINE AMINOTRANSFERASE 59 U/L (0-55)
[2020-02-20 20:01] VITALS: BP 195/94
[2020-02-20] MEDS: doxAzosin 4 MG (CARDURA) TAB PO SCH (21:07)
[2020-02-20] MEDS: FAMOTIDINE 20 MG (PEPCID) TABLET PO SCH (21:08)
[2020-02-21 00:40] VITALS: BP 136/82
[2020-02-21] MEDS: NS IV 1000 ML 1,000 ML IV SCH (03:42)
[2020-02-21 03:43] VITALS: BP 146/86
[2020-02-21 05:54] LABS: BASOPHILS % (AUTO) 0 % (0-10); EOSINOPHILS % (AUTO) 0 % (0-10); HEMATOCRIT 34 % (35-52); HEMOGLOBIN 11.2 G/DL (11.5-16.0); LYMPHOCYTES # (AUTO) 1.2 X 10^3 (1.0-4.0); LYMPHOCYTES % (AUTO) 13 % (12-44); MEAN CORPUSCULAR HEMOGLOBIN 31 PG (25-34); MEAN CORPUSCULAR HGB CONC 33 G/DL (32-36); MEAN CORPUSCULAR VOLUME 96 FL (80-99); MEAN PLATELET VOLUME 9.5 FL (7.4-10.4); MONOCYTES % (AUTO) 10 % (0-12); NEUTROPHILS # (AUTO) 6.9 X 10^3 (1.8-7.8); NEUTROPHILS % (AUTO) 76 % (42-75); PLATELET COUNT 288 10^3/uL (130-400); RED CELL DISTRIBUTION WIDTH 13.8 % (10.0-14.5); WHITE BLOOD COUNT 9.1 10^3/uL (4.3-11.0)
[2020-02-21 06:00] LABS: ALBUMIN 3.6 GM/DL (3.2-4.5); CHLORIDE 111 MMOL/L (98-107); POTASSIUM 4.3 MMOL/L (3.6-5.0); SODIUM 136 MMOL/L (135-145)
--- NOTE | 2020-02-21 06:00 | NUR ---
Dr. Garcia notified of covid negative results. New order rec to take out of isolation.
[2020-02-21 06:01] LABS: CALCIUM 9.5 MG/DL (8.5-10.1)
[2020-02-21 06:02] LABS: GLUCOSE 93 MG/DL (70-105); TOTAL PROTEIN 5.7 GM/DL (6.4-8.2)
[2020-02-21] MEDS: LEVOTHYROXINE 75 MCG (LEVOTHROID) TABLET PO SCH (06:02)
[2020-02-21] MEDS: RIVAROXABAN 15 MG TABLET (XARELTO) PO SCH ×2 (06:02→19:39)
[2020-02-21] MEDS: LEVOTHYROXINE 100 MCG (LEVOTHROID) TAB PO SCH (06:02)
[2020-02-21 06:03] LABS: CARBON DIOXIDE 16 MMOL/L (21-32)
[2020-02-21 06:04] LABS: BILIRUBIN,TOTAL 0.4 MG/DL (0.1-1.0)
[2020-02-21 06:06] LABS: ALKALINE PHOSPHATASE 123 U/L (40-136); CREATININE SERUM 0.74 MG/DL (0.60-1.30); GFR ESTIMATED > 60
[2020-02-21 06:07] LABS: BUN/CREATININE RATIO 18
[2020-02-21 06:09] LABS: ALANINE AMINOTRANSFERASE 63 U/L (0-55)
--- NOTE | 2020-02-21 06:27 | Progress Note - Hospitalist ---
Subjective HPI/CC On Admission Date Seen by Provider: Feb 21, 2020 Time Seen by Provider: 10:00 CC: Dyspnea HPI: This is a 59yoWF hx of current smoking and COPD who presents to the ER with SOB, found to have hypoxia, pneumonia on CXR, she was swabbed for Covid 19 and that is pending at this current time but sepsis has been managed with IV fluids and IV antibiotics along with O2 supplementation. Currently pt appears to be doing well but she does get SOB when she is walking around. I have asked Dr. Biggs to provide consultation services to her. Subjective/Events-last exam Pt out of isolation, COVID-19 was negative PT and OT will be initiatedalong with inpatient rehab Slow recovery for severe COPD exacerbation Will discontinue telemetry Eating and drinking pretty well, not as much as she would like Very weak and SOB Review of Systems General: Fatigue, Malaise Pulmonary: Dyspnea Neurological: Weakness Focused Exam Time of Focused Exam: 15:04 Objective Exam Vital Signs Vital Signs Date Time Temp Pulse Resp B/P (MAP) Pulse Ox O2 Delivery O2 Flow Rate FiO2 02/21/20 16:00 36.6 65 20 144/83 (103) 99 Nasal Cannula 2.00 Capillary Refill : Less Than 3 Seconds General Appearance: No Apparent Distress, WD/WN, Chronically ill HEENT: PERRL/EOMI, TMs Normal, Normal ENT Inspection, Pharynx Normal, Moist Mucous Membranes Neck: Full Range of Motion, Normal Inspection, Non Tender, Supple, Carotid Bruit Respiratory: Chest Non Tender, Lungs Clear, Normal Breath Sounds, No Accessory Muscle Use, No Respiratory Distress, Decreased Breath Sounds Cardiovascular: Regular Rate, Rhythm, No Edema, No Gallop, No JVD, No Murmur, Normal Peripheral Pulses Gastrointestinal: Normal Bowel Sounds, No Organomegaly, No Pulsatile Mass, Non Tender, Soft Back: Normal Inspection, No CVA Tenderness, No Vertebral Tenderness Extremity: Normal Capillary Refill, Normal Inspection, Normal Range of Motion, Non Tender, No Calf Tenderness, No Pedal Edema Neurologic/Psychiatric: Alert, Oriented x3, No Motor/Sensory Deficits, Normal Mood/Affect Skin: Normal Color, Warm/Dry Lymphatic: No Adenopathy Results/Procedures Lab Laboratory Tests 02/21/20 05:45 Patient resulted labs reviewed. Assessment/Plan Assessment and Plan Assess & Plan/Chief Complaint Assessment: Dyspnea Pulmonary Embolus Hypoxia PNA COPD Smoker Plan: Anti-Coagulation Antibiotics COVID swab pending Home meds Monitor Oxygen level closely 02/21/20: COVID-19 negative PT/OT IRF Diagnosis/Problems Diagnosis/Problems (1) Sepsis Qualifiers: Sepsis type: sepsis due to unspecified organism Sepsis acute organ dysfunction status: with acute organ dysfunction Severe sepsis acute organ dysfunction type: acute respiratory failure Acute respiratory failure type: with hypoxia Severe sepsis shock status: without septic shock Qualified Codes: A41.9 - Sepsis, unspecified organism; R65.20 - Severe sepsis without septic shock; J96.01 - Acute respiratory failure with hypoxia (2) PUI-COVID-1 (3) Elevated troponin (4) Pneumonia Status: Acute Qualifiers: Pneumonia type: due to unspecified organism Laterality: right Lung location: lower lobe of lung Qualified Codes: J18.1 - Lobar pneumonia, unspecified organism Clinical Quality Measures DVT/VTE Risk/Contraindication: Risk Factor Score Per Nursin RFS Level Per Nursing on Admit: 4+=Very High CHEL COMBS DO Feb 21, 2020 06:27
[2020-02-21 07:20] LABS: PHOSPHORUS 2.5 MG/DL (2.3-4.7)
[2020-02-21 07:22] LABS: MAGNESIUM 1.7 MG/DL (1.6-2.4)
[2020-02-21] MEDS: RT-ALBUTEROL INHALER HFA (VENTOLIN HFA) 18 GM IH SCH ×2 (07:22→19:14)
[2020-02-21 08:00] VITALS: BP 170/108
[2020-02-21] MEDS: ASPIRIN 81 MG CHEW (CHILDREN'S ASA) PO SCH (10:01)
[2020-02-21] MEDS: LABETALOL 200 MG (NORMODYNE) TAB PO SCH ×2 (10:01→20:58)
[2020-02-21] MEDS: hydrALAZINE (APRESOLINE) 25 MG TAB PO SCH ×2 (10:01→20:58)
[2020-02-21] MEDS: PANTOPRAZOLE 40 MG (PROTONIX) TAB PO SCH (10:02)
--- NOTE | 2020-02-21 11:40 | Physician Query Clarification ---
PQ-Uncertain Diagnosis Admission/Discharge Admission Date: Feb 19, 2020 at 15:00 Discharge Date: The medical record reflects the following clinical scenario: Dr. Combs, History/Risk Factors: Sepsis Pneumonia Clinical Findings: WBC 13.8, P 94, Resp 18, BP 154/102, Pulse ox 96%. Preliminary blood cultures-no growth. Blood gases pH 7.41, pC02 32, P02 78, Base excess -3.7. Treatment: IV Azithromycin 500mg, IV Rocephin 10ml, Oxygen at 2L nasal cannula, inhalation therapy. Dr. Smalls in ED listed severe sepsis under his impression. Question: Is Severe sepsis a clinically valid diagnosis after study? Severe sepsis was documented in the ED impression with no further documentation in the medical record. Please document a response in Progress Note or Discharge Summary. 1. Yes, clinically valid, condition resolved. 2. No, condition ruled out. 3. Other, with explanation of clinical findings. 4. Undetermined, no explanation for clinical findings. PHYSICIAN RESPONSE Diagnosis clinically valid: Yes, Conditon resolved Please remember a lack of response to the above will prompt a phone page by [facility]/Coding staff. In responding to this query, please exercise your independent professional judgment. The purpose of this communication is to more accurately reflect the complexity of your patients condition. The fact that a question is asked does not imply that any particular answer is desired or expected. Thank you for your timely response to this clarification. Requestors name: Kristen Medrano [facility] Phone # ext [phone] or [phone] THIS PHYSICIAN QUERY FORM IS A PERMANENT PART OF THE MEDICAL RECORD KRISTEN MEDRANO Feb 21, 2020 11:40 CHEL COMBS DO Feb 21, 2020 18:09
--- NOTE | 2020-02-21 11:52 | Physician Query Clarification ---
PQ-Uncertain Diagnosis Admission/Discharge Admission Date: Feb 19, 2020 at 15:00 Discharge Date: The medical record reflects the following clinical scenario: Dr. Combs, History/Risk Factors: Sepsis Pneumonia COPD with acute exacerbation Clinical Findings: Blood gases: pH 7.41, pC02 32, P02 78, Base excess -3.7. Respiratory distress/increased work of breathing 25-30 breaths per minute while at rest 96- 97% on room air. Treatment: 2L O2 nasal cannula. Inhalation therapy. Question: Is a clinically valid diagnosis? Acute Respiratory Failure with hypoxia was documented in the ED impression per Dr. Smalls with no further documentation in the medical record. Please document a response in Progress Note or Discharge Summary. 1. Yes, clinically valid, condition resolved. 2. No, condition ruled out. 3. Other, with explanation of clinical findings. 4. Undetermined, no explanation for clinical findings. PHYSICIAN RESPONSE Diagnosis clinically valid: Yes, Conditon resolved Please remember a lack of response to the above will prompt a phone page by CDI/Coding staff. In responding to this query, please exercise your independent professional judgment. The purpose of this communication is to more accurately reflect the complexity of your patients condition. The fact that a question is asked does not imply that any particular answer is desired or expected. Thank you for your timely response to this clarification. Requestors name: Kristen Medrano [facility] Phone # ext [phone] or [phone] THIS PHYSICIAN QUERY FORM IS A PERMANENT PART OF THE MEDICAL RECORD KRISTEN MEDRANO Feb 21, 2020 11:52 CHEL COMBS DO Feb 21, 2020 18:10
[2020-02-21 11:53] VITALS: BP 142/87
--- NOTE | 2020-02-21 13:27 | Physical Therapy Evaluation ---
PT Evaluation-General Medical Diagnosis Admission Date Feb 19, 2020 at 15:00 Medical Diagnosis: pneumonia/sepsis/elevated troponin Onset Date: Feb 19, 2020 Therapy Diagnosis Therapy Diagnosis: debility Height/Weight Height (Feet): 5 Height (Inches): 0 Weight (Pounds): 145 Weight (Ounces): 0.0 Precautions Precautions/Isolations: Standard Precautions Referral Physician: Jose Reason for Referral: Evaluation/Treatment Medical History Pertinent Medical History: COPD, HTN, Hypothroidism, Smoking Current History ER via family due to SOA Reviewed History: Yes Social History Home: Single Level Current Living Status: Other Family Prior Prior Level of Function SCALE: Activities may be completed with or without assistive devices. 1-Gaiexhmpwl-dhdyqqm completes the activity by him/herself with no assistance from a helper. 5-Set-up or Clean-up Assistance-helper sets up or cleans up; patient completes activity. [place] assists only prior to or following the activity. 4-Supervision or Touching Assistance-helper provides verbal cues and/or touching/steadying and/or contact guard assistance as patient completes activity. Assistance may be provided throughout the activity or intermittently. 3-Partial/Moderate Assistance-helper does LESS THAN HALF the effort. [place] lifts, holds or supports trunk or limbs, but provides less than half the effort. 2-Substantial/Maximal Assistance-helper does MORE THAN HALF the effort. [place] lifts or holds trunk or limbs and provides more than half the effort. 2-Wxapxqeol-awxvxf does ALL the effort. Patient does none of the effort to complete the activity. Or, the assistance of 2 or more helpers is required for the patient to complete the activity. If activity was not attempted, code reason: 7-Patient Refused. 9-Not Applicable-not attempted and the patient did not perform the activity before the current illness, exacerbation or injury. 10-Not Attempted due to Environmental Limitations-(lack of equipment, weather restraints, etc.). 88-Not Attempted due to Medical Conditions or Safety Concerns. Bed Mobility: 6 Transfers (B,C,W/C): 6 Gait: 6 Stairs: 6 Indoor Mobility (Ambulation): Independent Stairs: Independent Prior Devices Use: None PT Evaluation-Current Subjective Patient agrees to PT. She states this is the first time to be OOB. Pain Numeric Pain Scale: 0-No Pain Location: No Pain Reported Objective Patient Orientation: Normal For Age Attachments: Oxygen (2L) ROM/Strength ROM Lower Extremities bilateral LE WFL Strength Lower Extremities 4/5 grossly bilateral LE Integumentary/Posture Integumentary refer to nursing notes Bowel Incontinence: No Bladder Incontinence: No Posture WFL Neuromuscular (Tone, Coordination, Reflexes) grossly intact Sensory Vision: Functional Hearing: Functional Sensation Right Lower Extremit: Intact Sensation Left Lower Extremity: Intact Transfers Roll Left to Right (QC): 6 Lying to Sitting/Side of Bed(Q: 6 Sit to Stand (QC): 5 Chair/Ows-ex-Nukpe Xfer(QC): 5 Gait Does the Patient Walk?: Yes Mode of Locomotion: Walk Anticipated Mode of Locomotion: Walk Walk 10 feet (QC): 5 Walk 50 ft with 2 Turns(QC): 5 Walk 150 ft (QC): 5 Distance: 225' Gait Assistive Device: FWW Comments/Gait Description steady, reciprocal pattern with 1 standing recovery period due to fatigue and mild SOA with SAO2 >90%. Patient utilized FWW for energy conservation Balance Sitting Static: Normal Sitting Dynamic: Normal Standing Static: Normal Standing Dynamic: Normal Assessment/Needs 59 y.o. female, will be seen short term by skilled PT to address functional mobility and pulmonary function to ensure safe return to home at maximum LOF. 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 Fdc Goals PT Fdc Goals Time Frame: Feb 29, 2020 Roll Left & Right (QC): 6 Sit to Lying (QC): 6 Lying-Sitting on Side/Bed(QC): 6 Sit to Stand (QC): 6 Chair/Zcp-uv-Ukeok Xfer(QC): 6 Toilet Transfer (QC): 6 Does the Patient Walk: Yes Walk 10 feet (QC): 6 Walk 50ft with 2 Turns (QC): 6 Walk 150 ft (QC): 6 PT Plan Problem List Problem List: Activity Tolerance Treatment/Plan Treatment Plan: Continue Plan of Care Treatment Plan: Education, Functional Activity [place], Functional Strength, Gait, Safety, Therapeutic Exercise Treatment Duration: Feb 29, 2020 Frequency: 6 times per week Estimated Hrs Per Day: .25 hour per day Patient and/or Family Agrees t: Yes Discharge Recommendations Therapy Discharge Recommendati: Home & Family Time/GCodes Time In: 1255 Time Out: 1313 Total Billed Treatment Time: 18 Total Billed Treatment 1 visit EVMod 18 min JARRED AMADO PT Feb 21, 2020 13:27
--- NOTE | 2020-02-21 14:32 | Occupational Therapy Eval ---
OT Evaluation-General/PLF Medical Diagnosis Admission Date Feb 19, 2020 at 15:00 Medical Diagnosis: pneumonia/sepsis/elevated troponin Onset Date: Feb 19, 2020 Therapy Diagnosis Therapy Diagnosis: debility Height/Weight Height (Feet): 5 Height (Inches): 0 Weight (Pounds): 145 Weight (Ounces): 0.0 Precautions Precautions/Isolations: Standard Precautions Referral Physician: Jose Medical History Pertinent Medical History: COPD, HTN, Hypothroidism, Smoking Additional Medical History kidney stones, GERD, anxiety, depression, headaches/migraines Current History To ER with shortness of breath Social History Home: Single Level Current Living Status: Children (daughter and son in law) Entry Into Home: Level Entry ADL-Prior Level of Function SCALE: Activities may be completed with or without assistive devices. 2-[place]xdinuhqp-[place] completes the activity by him/herself with no assistance from a helper. 5-Set-up or Clean-up Assistance-helper sets up or cleans up; patient completes activity. [place] assists only prior to or following the activity. 4-Supervision or Touching Assistance-helper provides verbal cues and/or touching/steadying and/or contact guard assistance as patient completes activity. Assistance may be provided throughout the activity or intermittently. 3-Partial/Moderate Assistance-helper does LESS THAN HALF the effort. [place] lifts, holds or supports trunk or limbs, but provides less than half the effort. 2-Substantial/Maximal Assistance-helper does MORE THAN HALF the effort. [place] lifts or holds trunk or limbs and provides more than half the effort. 9-Zagsfssua-vgpgqa does ALL the effort. Patient does none of the effort to complete the activity. Or, the assistance of 2 or more helpers is required for the patient to complete the activity. If activity was not attempted, code reason: 7-Patient Refused. 9-Not Applicable-not attempted and the patient did not perform the activity before the current illness, exacerbation or injury. 10-Not Attempted due to Environmental Limitations-(lack of equipment, weather restraints, etc.). 88-Not Attempted due to Medical Conditions or Safety Concerns. ADL PLOF Comments Pt reports being independent with self care and mobility. Does not use any assistive devices. Pt states she does most of the housework/cooking Self Care: Independent Functional Cognition: Independent Drive Self: Yes (Pt states she can drive, but hasn't recently) OT Current Status Subjective Pt in bed, agrees to therapy. No c/o pain. Mental Status/Objective Patient Orientation: Person, Place, Situation Attachments: Oxygen Current Upper Extremity ROM Grossly WFL Upper Extremity Coordination Intact Upper Extremity Sensation Intact per pt report Upper Extremity Strength Grossly 4/5 ADL-Treatment Eating (QC): 6 (by report) Shower/Bathe Self (QC): 7 (Pt states she will shower tomorrow) On/Off Footwear (QC): 5 (set up to don/doff sock while seated EOB.) Pt supine to sit without assist. Sit to stand and transfer with SBA. Pt is mildly short of breath with activity, but recovers quickly with rest. Education provided regarding role of OT and plan of care. Pt states understanding of education and is in agreement with plan of care. Pt resting in bed with needs met after session. Education OT Patient Education: Rehab process Teaching Recipient: Patient Teaching Methods: Discussion Response to Teaching: Verbalize Understanding OT Half-Way Goals Rn Forensic Goals Time Frame: Feb 28, 2020 Oral Hygiene (QC): 6 Toileting Hygiene (QC): 6 Shower/Bathe Self (QC): 6 Upper Body Dressing (QC): 6 Lower Body Dressing (QC): 6 On/Off Footwear (QC): 6 Additional Goals: 2-Verbalize Understanding, 3-ImproveStrength/[place] 1=Demonstrate adherence to instructed precautions during ADL tasks. 2=Patient will verbalize/demonstrate understanding of assistive devices/modifications for ADL. 3=Patient will improve strength/tolerance for activity to enable patient to perform ADL's. OT Education/Plan Problem List/Assessment Assessment: Decreased Activ Tolerance, Decreased UE Strength, Dependent Transfers, Impaired Self-Care Skills Pt to benefit from skilled OT intervention for ADL training, transfers, and strengthening to increase level of independence and allow safe discharge home. Discharge Recommendations Plan/Recommendations: Continue POC Treatment Plan/Plan of Care Treatment,Training & Education: Yes Patient would benefit from OT for education, treatment and training to promote independence in ADL's, mobility, safety and/or upper extremity function for A DL's. Plan of Care: ADL Retraining, Functional Mobility, UE Funct Exercise/Act Treatment Duration: Feb 28, 2020 Frequency: 5 times per week Estimated Hrs Per Day: .25 hour per day Rehab Potential: Fair Time/GCodes Start Time: 14:05 Stop Time: 14:20 Total Time Billed (hr/min): 15 Billed Treatment Time 1 visit, EVL(15minutes) TRIP CONTRERAS OT Feb 21, 2020 14:32
[2020-02-21 16:00] VITALS: BP 144/83
[2020-02-21] MEDS: AZITHROMYCIN 250 MG TAB (ZITHROMAX) PO SCH (17:17)
[2020-02-21] MEDS: cefTRIAXone 1,000 MG/SWFI 10 ML IV PUSH IV SCH ×2 (17:19)
[2020-02-21 20:00] VITALS: BP 164/98
[2020-02-21] MEDS: DOXEPIN 25 MG (SINEquan) CAP PO SCH (20:55)
[2020-02-21] MEDS: doxAzosin 4 MG (CARDURA) TAB PO SCH (20:58)
[2020-02-21] MEDS: FAMOTIDINE 20 MG (PEPCID) TABLET PO SCH (21:01)
[2020-02-22] VITALS (7 sets, daily range): BP systolic 96–162; BP diastolic 59–92
[2020-02-22] MEDS: RIVAROXABAN 15 MG TABLET (XARELTO) PO SCH ×2 (06:19→18:17)
[2020-02-22] MEDS: LEVOTHYROXINE 150 MCG (LEVOTHROID) TAB PO SCH (06:19)
[2020-02-22 06:42] LABS: BASOPHILS % (AUTO) 0 % (0-10); EOSINOPHILS # (AUTO) 0.1 10^3/uL (0.0-0.3); EOSINOPHILS % (AUTO) 1 % (0-10); HEMATOCRIT 34 % (35-52); HEMOGLOBIN 10.8 G/DL (11.5-16.0); LYMPHOCYTES # (AUTO) 1.3 X 10^3 (1.0-4.0); LYMPHOCYTES % (AUTO) 16 % (12-44); MEAN CORPUSCULAR HEMOGLOBIN 31 PG (25-34); MEAN CORPUSCULAR HGB CONC 32 G/DL (32-36); MEAN CORPUSCULAR VOLUME 97 FL (80-99); MEAN PLATELET VOLUME 9.4 FL (7.4-10.4); MONOCYTES # (AUTO) 1.2 X 10^3 (0.0-1.0); MONOCYTES % (AUTO) 15 % (0-12); NEUTROPHILS # (AUTO) 5.2 X 10^3 (1.8-7.8); NEUTROPHILS % (AUTO) 67 % (42-75); PLATELET COUNT 286 10^3/uL (130-400); RED CELL DISTRIBUTION WIDTH 14.1 % (10.0-14.5); WHITE BLOOD COUNT 7.8 10^3/uL (4.3-11.0)
[2020-02-22 06:50] LABS: ALBUMIN 3.5 GM/DL (3.2-4.5); CHLORIDE 110 MMOL/L (98-107); POTASSIUM 4.3 MMOL/L (3.6-5.0); SODIUM 135 MMOL/L (135-145)
[2020-02-22 06:52] LABS: CALCIUM 9.3 MG/DL (8.5-10.1)
[2020-02-22 06:53] LABS: GLUCOSE 96 MG/DL (70-105); TOTAL PROTEIN 5.5 GM/DL (6.4-8.2)
[2020-02-22 06:54] LABS: CARBON DIOXIDE 17 MMOL/L (21-32)
[2020-02-22 06:55] LABS: BILIRUBIN,TOTAL 0.3 MG/DL (0.1-1.0)
[2020-02-22 06:56] LABS: ALKALINE PHOSPHATASE 111 U/L (40-136); CREATININE SERUM 0.77 MG/DL (0.60-1.30); GFR ESTIMATED > 60
[2020-02-22 06:58] LABS: BUN/CREATININE RATIO 16
[2020-02-22 06:59] LABS: ALANINE AMINOTRANSFERASE 67 U/L (0-55)
--- NOTE | 2020-02-22 07:32 | Pulmonary Progress Note ---
Subjective Time Seen by a Provider: 07:30 Subjective/Events-last exam Pt is doing better. Sepsis Event Evaluation Height, Weight, BMI Height: 5'0" Weight: 145lbs. 0.0oz. 65.598203lt; 30.42 BMI Method:Stated Focused Exam Time of Focused Exam: 15:04 Exam Exam Vital Signs Date Time Temp Pulse Resp B/P (MAP) Pulse Ox O2 Delivery O2 Flow Rate FiO2 02/22/20 04:00 36.9 67 20 137/72 (93) 97 Nasal Cannula 2.00 02/22/20 00:00 36.6 59 16 96/59 (71) 99 Nasal Cannula 2.00 02/21/20 20:00 96 Nasal Cannula 2.00 02/21/20 20:00 36.8 69 20 164/98 (120) 96 Nasal Cannula 2.00 02/21/20 19:14 96 Nasal Cannula 2.00 02/21/20 16:00 36.6 65 20 144/83 (103) 99 Nasal Cannula 2.00 02/21/20 11:53 36.2 56 18 142/87 (105) 98 Nasal Cannula 2.00 02/21/20 08:00 36.2 74 20 170/108 (128) 94 Nasal Cannula 1.00 02/21/20 08:00 Nasal Cannula 1.00 I & O 02/22/20 07:00 Intake Total 2570 ml Balance 2570 ml Height & Weight Height: 5'0" Weight: 145lbs. 0.0oz. 65.680879jf; 30.42 BMI Method:Stated General Appearance: No Apparent Distress, WD/WN, Chronically ill HEENT: PERRL/EOMI, TMs Normal, Normal ENT Inspection, Pharynx Normal, Moist Mucous Membranes Neck: Full Range of Motion, Normal Inspection, Non Tender, Supple, Carotid Bruit Respiratory: Chest Non Tender, Lungs Clear, Normal Breath Sounds, No Accessory Muscle Use, No Respiratory Distress, Decreased Breath Sounds Cardiovascular: Regular Rate, Rhythm, No Edema, No Gallop, No JVD, No Murmur, Normal Peripheral Pulses Capillary Refill: Less Than 3 Seconds Peripheral Pulses: 2+ Radial Pulses (R), 2+ Radial Pulses (L) Gastrointestinal: non tender, soft Extremity: Normal Capillary Refill, Normal Inspection, Normal Range of Motion, Non Tender, No Calf Tenderness, No Pedal Edema Neurologic/Psychiatric: Alert, Oriented x3, No Motor/Sensory Deficits, Normal Mood/Affect Skin: Normal Color, Warm/Dry Lymphatic: No Adenopathy Results Lab Laboratory Tests 02/20/20 17:20 02/21/20 05:45 02/22/20 05:50 Assessment/Plan Assessment/Plan acute PE -Xarelto for 3-6mo then D.C -Dopplers negative bilateral PNA with hypoxia -Titrate oxygen down -Continue rocpehin and azithromycin -COVID negative Metabolic acidosis -monitor and repeat labs Tobacco use -Education RO SCHWARTZ DO Feb 22, 2020 07:32
[2020-02-22] MEDS: PANTOPRAZOLE 40 MG (PROTONIX) TAB PO SCH (08:13)
[2020-02-22] MEDS: ASPIRIN 81 MG CHEW (CHILDREN'S ASA) PO SCH (08:13)
[2020-02-22] MEDS: hydrALAZINE (APRESOLINE) 25 MG TAB PO SCH ×2 (08:13→20:05)
[2020-02-22] MEDS: LABETALOL 200 MG (NORMODYNE) TAB PO SCH ×2 (08:13→20:05)
[2020-02-22] MEDS: RT-ALBUTEROL INHALER HFA (VENTOLIN HFA) 18 GM IH SCH ×2 (08:24→19:15)
--- NOTE | 2020-02-22 08:46 | NUR ---
IRF Evaluation Determination: Denied Explanation: According to PT/OT notes, it appears patient is ambulating (225ft, FWW), transferring, completing bed mobility, and completing on/off footwear with set-up; therefore, patient does not require intensive therapies. It is noted that patient did require a "recovery period" due to fatigue and mild SOA with SAO2>90%, during PT session; however, despite fatigue and SOA, the patient would still be considered "too functional - insufficient functional needs." Thank you for this referral.
--- NOTE | 2020-02-22 09:02 | Physical Therapy Daily Note ---
PT Daily Note-Current Subjective Pt. in bed and initially states she is just too tired to work but after encouragement to attempt supine exercises pt. herself decides it would be best to get out of bed and walk Pain Location: No Pain Reported Mental Status Patient Orientation: Person, Place, Time, Situation Transfers SCALE: Activities may be completed with or without assistive devices. 7-Wltmnkgvzu-cqtuavl completes the activity by him/herself with no assistance from a helper. 5-Set-up or Clean-up Assistance-helper sets up or cleans up; patient completes activity. [place] assists only prior to or following the activity. 4-Supervision or Touching Assistance-helper provides verbal cues and/or touching/steadying and/or contact guard assistance as patient completes activity. Assistance may be provided throughout the activity or intermittently. 3-Partial/Moderate Assistance-helper does LESS THAN HALF the effort. [place] lifts, holds or supports trunk or limbs, but provides less than half the effort. 2-Substantial/Maximal Assistance-helper does MORE THAN HALF the effort. [place] lifts or holds trunk or limbs and provides more than half the effort. 1-Mbpkuhpvs-ofutud does ALL the effort. Patient does none of the effort to complete the activity. Or, the assistance of 2 or more helpers is required for the patient to complete the activity. If activity was not attempted, code reason: 7-Patient Refused. 9-Not Applicable-not attempted and the patient did not perform the activity before the current illness, exacerbation or injury. 10-Not Attempted due to Environmental Limitations-(lack of equipment, weather restraints, etc.). 88-Not Attempted due to Medical Conditions or Safety Concerns. sup to sit to stand all SBA to Mod I Gait Training Does the Patient Walk?: Yes Gait Assistive Device: FWW good pace , even step length, no LOB, some noted wheezy sounds with breathing, on room air sats >90%. mild dyspnea with recovery noted as soon as she rested in chair Exercises Supine Ex: Ankle pumps, Quad Set, Rolling, Heel Slides, Straight leg raise, Hip abd/add Supine Reps: 12 Assessment Current Status: Good Progress PT Geophysical Observer Goals Geophysical Observer Goals PT Geophysical Observer Goals Time Frame: Feb 29, 2020 Roll Left & Right (QC): 6 Sit to Lying (QC): 6 Lying-Sitting on Side/Bed(QC): 6 Sit to Stand (QC): 6 Chair/Srz-ma-Gnbjo Xfer(QC): 6 Toilet Transfer (QC): 6 Does the Patient Walk: Yes Walk 10 feet (QC): 6 Walk 50ft with 2 Turns (QC): 6 Walk 150 ft (QC): 6 PT Plan Treatment/Plan Treatment Plan: Continue Plan of Care Treatment Plan: Education, Functional Activity [place], Functional Strength, Gait, Safety, Therapeutic Exercise Treatment Duration: Feb 29, 2020 Frequency: 6 times per week Estimated Hrs Per Day: .25 hour per day Patient and/or Family Agrees t: Yes Safety Risks/Education Patient Education: Gait Training, Transfer Techniques, Correct Positioning, Disease Process, Safety Issues Teaching Recipient: Patient Teaching Methods: Demonstration, Discussion Response to Teaching: Verbalize Understanding, Return Demonstration, Reinforcement Needed Time/GCodes Time In: 830 Time Out: 845 Total Billed Treatment Time: 15 Total Billed Treatment 1,GT15m AKTERIN FONTENOT ADULT LITERACY TEACHER Feb 22, 2020 09:02
--- NOTE | 2020-02-22 10:52 | Occupational Ther Daily Note ---
OT Current Status-Daily Note Subjective Pt sitting EOB, agrees to therapy. States she is feeling better today. ADL-Treatment Pt declined shower, states she is going to wait and see if she will be disch arged today. Sit to stand without assist. Gait to restroom, no LOB noted. Pt demonstrated ability to complete toilet and walk in shower transfer with modified independence using grab bar for safety. Pt changed gown without assist. Education provided regarding ADL/home safety and energy conservation. Pt states understanding of education and has no questions or concerns at this time. Pt in bed with needs met after session. Therapy Code Descriptions/Definitions Functional [place] Measure: 0=Not Assessed/NA 4=Minimal Assistance 1=Total Assistance 5=Supervision or Setup 2=Maximal Assistance 6=Modified [place] 3=Moderate Assistance 7=Complete IndependenceSCALE: Activities may be completed with or without assistive devices. 5-Lxvgbrfexv-daxaxph completes the activity by him/herself with no assistance from a helper. 5-Set-up or Clean-up Assistance-helper sets up or cleans up; patient completes activity. [place] assists only prior to or following the activity. 4-Supervision or Touching Assistance-helper provides verbal cues and/or touching/steadying and/or contact guard assistance as patient completes activity. Assistance may be provided throughout the activity or intermittently. 3-Partial/Moderate Assistance-helper does LESS THAN HALF the effort. [place] lifts, holds or supports trunk or limbs, but provides less than half the effort. 2-Substantial/Maximal Assistance-helper does MORE THAN HALF the effort. [place] lifts or holds trunk or limbs and provides more than half the effort. 5-Vcmrxnwfa-khbtty does ALL the effort. Patient does none of the effort to complete the activity. Or, the assistance of 2 or more helpers is required for the patient to complete the activity. If activity was not attempted, code reason: 7-Patient Refused. 9-Not Applicable-not attempted and the patient did not perform the activity before the current illness, exacerbation or injury. 10-Not Attempted due to Environmental Limitations-(lack of equipment, weather restraints, etc.). 88-Not Attempted due to Medical Conditions or Safety Concerns. Education OT Patient Education: Safety issues Teaching Recipient: Patient Teaching Methods: Discussion Response to Teaching: Verbalize Understanding OT Usp Goals Usp Goals Time Frame: Feb 28, 2020 Oral Hygiene (QC): 6 Toileting Hygiene (QC): 6 Shower/Bathe Self (QC): 6 Upper Body Dressing (QC): 6 Lower Body Dressing (QC): 6 On/Off Footwear (QC): 6 Additional Goals: 2-Verbalize Understanding, 3-ImproveStrength/[place] 1=Demonstrate adherence to instructed precautions during ADL tasks. 2=Patient will verbalize/demonstrate understanding of assistive devices/modifications for ADL. 3=Patient will improve strength/tolerance for activity to enable patient to perform ADL's. OT Education/Plan Discharge Recommendations Plan/Recommendations: Continue POC Treatment Plan/Plan of Care Patient would benefit from OT for education, treatment and training to promote independence in ADL's, mobility, safety and/or upper extremity function for ADL's. Plan of Care: ADL Retraining, Functional Mobility, UE Funct Exercise/Act Treatment Duration: Feb 28, 2020 Frequency: 5 times per week Estimated Hrs Per Day: .25 hour per day Rehab Potential: Fair Time/GCodes Start Time: 09:44 Stop Time: 09:55 Total Time Billed (hr/min): 11 Billed Treatment Time 1 visit, ADL(11minutes) TRIP CONTRERAS OT Feb 22, 2020 10:52
--- NOTE | 2020-02-22 11:32 | Progress Note - Hospitalist ---
Subjective HPI/CC On Admission Date Seen by Provider: Feb 22, 2020 Time Seen by Provider: 10:00 CC: Dyspnea HPI: This is a 59yoWF hx of current smoking and COPD who presents to the ER with SOB, found to have hypoxia, pneumonia on CXR, she was swabbed for Covid 19 and that is pending at this current time but sepsis has been managed with IV fluids and IV antibiotics along with O2 supplementation. Currently pt appears to be doing well but she does get SOB when she is walking around. I have asked Dr. Biggs to provide consultation services to her. Subjective/Events-last exam Pt doing a lot better Will plan on discharging in the morning Home O2 evaluation will be completed She is requesting a shower Too functional for inpatient rehab Aggressive smoking cessation counseled. Review of Systems General: Fatigue, Malaise Neurological: Weakness Focused Exam Time of Focused Exam: 15:04 Objective Exam Vital Signs Vital Signs Date Time Temp Pulse Resp B/P (MAP) Pulse Ox O2 Delivery O2 Flow Rate FiO2 02/22/20 19:15 90 Room Air 02/22/20 19:14 37.6 73 16 162/92 (115) 02/22/20 19:14 2.00 02/22/20 14:35 21 Capillary Refill : Less Than 3 SecondsLess Than 3 Seconds General Appearance: No Apparent Distress, WD/WN HEENT: PERRL/EOMI, TMs Normal, Normal ENT Inspection, Pharynx Normal, Moist Mucous Membranes Neck: Full Range of Motion, Normal Inspection, Non Tender, Supple, Carotid Bruit Respiratory: Chest Non Tender, Lungs Clear, Normal Breath Sounds, No Accessory Muscle Use, No Respiratory Distress, Decreased Breath Sounds Cardiovascular: Regular Rate, Rhythm, No Edema, No Gallop, No JVD, No Murmur, Normal Peripheral Pulses Gastrointestinal: Normal Bowel Sounds, No Organomegaly, No Pulsatile Mass, Non Tender, Soft Back: Normal Inspection, No CVA Tenderness, No Vertebral Tenderness Extremity: Normal Capillary Refill, Normal Inspection, Normal Range of Motion, Non Tender, No Calf Tenderness, No Pedal Edema Neurologic/Psychiatric: Alert, Oriented x3, No Motor/Sensory Deficits, Normal Mood/Affect Skin: Normal Color, Warm/Dry Lymphatic: No Adenopathy Results/Procedures Lab Laboratory Tests 02/22/20 05:50 Patient resulted labs reviewed. Assessment/Plan Assessment and Plan Assess & Plan/Chief Complaint Assessment: Dyspnea Pulmonary Embolus Hypoxia PNA COPD Smoker Plan: Anti-Coagulation Antibiotics COVID swab pending Home meds Monitor Oxygen level closely 02/21/20: COVID-19 negative PT/OT IRF 02/22/20: Discharge in the morning Home O2 evaluation Provide a shower today Stop smoking Aggressive counseling initiated Diagnosis/Problems Diagnosis/Problems (1) Sepsis Qualifiers: Sepsis type: sepsis due to unspecified organism Sepsis acute organ dysfunction status: with acute organ dysfunction Severe sepsis acute organ dysfunction type: acute respiratory failure Acute respiratory failure type: with hypoxia Severe sepsis shock status: without septic shock Qualified Codes: A41.9 - Sepsis, unspecified organism; R65.20 - Severe sepsis without septic shock; J96.01 - Acute respiratory failure with hypoxia (2) PUI-COVID-1 (3) Elevated troponin (4) Pneumonia Status: Acute Qualifiers: Pneumonia type: due to unspecified organism Laterality: right Lung location: lower lobe of lung Qualified Codes: J18.1 - Lobar pneumonia, unspecified organism Clinical Quality Measures DVT/VTE Risk/Contraindication: Risk Factor Score Per Nursin RFS Level Per Nursing on Admit: 4+=Very High CHEL COMBS DO Feb 22, 2020 11:32
--- NOTE | 2020-02-22 13:31 | NUR ---
"RD ASSESSMENT PMHx: COPD; HTN; GERD PT INTERACTION: Pt was awake and pleasant during nutrition follow-up. Pt states appetite is improving a bit. Note avg PO intake 25-50% x2d, per chart review. Pt states no issues with nausea, vomiting, or constipation since last assessment. Pt states some issues with diarrhea. Note last BM was 02/20 and pt not currently on bowel regimen per chart review. ABNORMAL NUTRITION-RELATED LAB VALUES LOW: Pro 5.5 HIGH: Cl 110; AST 44; ALT 67 Est. kcal needs: 1450 kcal | 20 kcal/kg Est. Pro needs: 58 g Pro | 0.8 g Pro/kg PES STATEMENT: Inadequate oral intake (NI-2.1) related to loss of appetite | diarrhea as evidenced by pt interview | avg PO intake 25-50% x2d INTERVENTION: Continue with current diet order of Regular diet. Continue with current supplementation order of Ensure Enlive (vary) wtih meals TID, for increased kcal intake. Provides 350 kcal and 13 g Pro per serving. Will continue to follow and reassess as pt needs, intake, and status change. MONITOR/EVALUATE: PO Intake; Plan of Care; Hydration Status; Weight Status; Lab Values Gracie Jimenez, MS, RD, LD"
[2020-02-22] MEDS: AZITHROMYCIN 250 MG TAB (ZITHROMAX) PO SCH (14:54)
[2020-02-22] MEDS: cefTRIAXone 1,000 MG/SWFI 10 ML IV PUSH IV SCH ×2 (14:54)
[2020-02-22] MEDS: DOCUSATE SODIUM 100 MG (COLACE) CAP PO SCH (18:35)
[2020-02-22] MEDS: doxAzosin 4 MG (CARDURA) TAB PO SCH (20:03)
[2020-02-22] MEDS: DOXEPIN 25 MG (SINEquan) CAP PO SCH (20:04)
[2020-02-22] MEDS: FAMOTIDINE 20 MG (PEPCID) TABLET PO SCH (20:05)
[2020-02-23 04:20] VITALS: BP 156/95
[2020-02-23 06:08] LABS: BASOPHILS % (AUTO) 1 % (0-10); EOSINOPHILS # (AUTO) 0.1 10^3/uL (0.0-0.3); EOSINOPHILS % (AUTO) 2 % (0-10); HEMATOCRIT 35 % (35-52); HEMOGLOBIN 11.3 G/DL (11.5-16.0); LYMPHOCYTES # (AUTO) 1.2 X 10^3 (1.0-4.0); LYMPHOCYTES % (AUTO) 17 % (12-44); MEAN CORPUSCULAR HEMOGLOBIN 32 PG (25-34); MEAN CORPUSCULAR HGB CONC 33 G/DL (32-36); MEAN CORPUSCULAR VOLUME 96 FL (80-99); MEAN PLATELET VOLUME 9.5 FL (7.4-10.4); MONOCYTES # (AUTO) 0.9 X 10^3 (0.0-1.0); MONOCYTES % (AUTO) 12 % (0-12); NEUTROPHILS % (AUTO) 69 % (42-75); PLATELET COUNT 293 10^3/uL (130-400); RED CELL DISTRIBUTION WIDTH 13.9 % (10.0-14.5); WHITE BLOOD COUNT 7.4 10^3/uL (4.3-11.0)
[2020-02-23] MEDS: LEVOTHYROXINE 150 MCG (LEVOTHROID) TAB PO SCH (06:12)
[2020-02-23] MEDS: RIVAROXABAN 15 MG TABLET (XARELTO) PO SCH (06:12)
[2020-02-23 06:25] LABS: ALANINE AMINOTRANSFERASE 57 U/L (0-55); ALBUMIN 3.5 GM/DL (3.2-4.5); ALKALINE PHOSPHATASE 113 U/L (40-136); BILIRUBIN,TOTAL 0.4 MG/DL (0.1-1.0); BUN/CREATININE RATIO 13; CALCIUM 9.7 MG/DL (8.5-10.1); CARBON DIOXIDE 21 MMOL/L (21-32); CHLORIDE 109 MMOL/L (98-107); CREATININE SERUM 0.78 MG/DL (0.60-1.30); GFR ESTIMATED > 60; GLUCOSE 96 MG/DL (70-105); POTASSIUM 4.1 MMOL/L (3.6-5.0); SODIUM 137 MMOL/L (135-145); TOTAL PROTEIN 5.6 GM/DL (6.4-8.2)
[2020-02-23] MEDS: RT-ALBUTEROL INHALER HFA (VENTOLIN HFA) 18 GM IH SCH (07:05)
--- NOTE | 2020-02-23 07:06 | Pulmonary Progress Note ---
Subjective Time Seen by a Provider: 07:04 Subjective/Events-last exam Pt appears to be doing better. Sepsis Event Evaluation Height, Weight, BMI Height: 5'0" Weight: 145lbs. 0.0oz. 65.701671bc; 30.42 BMI Method:Stated Focused Exam Time of Focused Exam: 15:04 Exam Exam Vital Signs Date Time Temp Pulse Resp B/P (MAP) Pulse Ox O2 Delivery O2 Flow Rate FiO2 02/23/20 04:20 36.5 62 18 156/95 (115) 97 Nasal Cannula 2.00 02/22/20 23:45 36.0 58 18 131/80 (97) 96 Nasal Cannula 2.00 02/22/20 20:05 Nasal Cannula 2.00 02/22/20 19:15 90 Room Air 02/22/20 19:14 37.6 73 16 162/92 (115) 96 Room Air 02/22/20 19:14 Nasal Cannula 2.00 02/22/20 15:23 37.2 63 16 134/83 (100) 94 Room Air 02/22/20 14:35 61 97 21 02/22/20 12:00 36.0 91 16 138/76 (96) 90 Nasal Cannula 1.00 02/22/20 08:51 97 Nasal Cannula 2.00 02/22/20 08:24 97 Nasal Cannula 2.00 02/22/20 08:00 36.3 73 18 144/77 (99) 99 Nasal Cannula 1.00 I & O 02/23/20 07:00 Intake Total 2247 ml Balance 2247 ml Height & Weight Height: 5'0" Weight: 145lbs. 0.0oz. 65.538614zk; 30.42 BMI Method:Stated General Appearance: No Apparent Distress, WD/WN HEENT: PERRL/EOMI, TMs Normal, Normal ENT Inspection, Pharynx Normal, Moist Mucous Membranes Neck: Full Range of Motion, Normal Inspection, Non Tender, Supple, Carotid Bruit Respiratory: Chest Non Tender, Lungs Clear, Normal Breath Sounds, No Accessory Muscle Use, No Respiratory Distress, Decreased Breath Sounds Cardiovascular: Regular Rate, Rhythm, No Edema, No Gallop, No JVD, No Murmur, Normal Peripheral Pulses Capillary Refill: Less Than 3 Seconds Peripheral Pulses: 2+ Radial Pulses (R), 2+ Radial Pulses (L) Gastrointestinal: non tender, soft Extremity: Normal Capillary Refill, Normal Inspection, Normal Range of Motion, Non Tender, No Calf Tenderness, No Pedal Edema Neurologic/Psychiatric: Alert, Oriented x3, No Motor/Sensory Deficits, Normal Mood/Affect Skin: Normal Color, Warm/Dry Lymphatic: No Adenopathy Results Lab Laboratory Tests 02/22/20 05:50 02/23/20 05:45 Assessment/Plan Assessment/Plan acute PE -Xarelto for 3-6mo then D.C -Dopplers negative bilateral PNA with hypoxia -Titrate oxygen down -Continue Rocephin and azithromycin -COVID negative Tobacco use -Education RO SCHWARTZ DO Feb 23, 2020 07:06
[2020-02-23] MEDS: PANTOPRAZOLE 40 MG (PROTONIX) TAB PO SCH (07:43)
[2020-02-23] MEDS: LABETALOL 200 MG (NORMODYNE) TAB PO SCH (07:44)
[2020-02-23] MEDS: hydrALAZINE (APRESOLINE) 25 MG TAB PO SCH (07:44)
[2020-02-23] MEDS: ASPIRIN 81 MG CHEW (CHILDREN'S ASA) PO SCH (07:44)
[2020-02-23] MEDS: DOCUSATE SODIUM 100 MG (COLACE) CAP PO SCH (07:44)
[2020-02-23 07:47] VITALS: BP 164/78
--- NOTE | 2020-02-23 10:21 | Physical Therapy Daily Note ---
PT Daily Note-Current Subjective Patient agrees to PT. She reports she is possibly going home on this date. Mental Status Patient Orientation: Normal For Age Attachments: Oxygen (2L NC) Transfers SCALE: Activities may be completed with or without assistive devices. 1-Brpxohkjnx-gnwvnyu completes the activity by him/herself with no assistance from a helper. 5-Set-up or Clean-up Assistance-helper sets up or cleans up; patient completes activity. [place] assists only prior to or following the activity. 4-Supervision or Touching Assistance-helper provides verbal cues and/or touching/steadying and/or contact guard assistance as patient completes activity. Assistance may be provided throughout the activity or intermittently. 3-Partial/Moderate Assistance-helper does LESS THAN HALF the effort. [place] lifts, holds or supports trunk or limbs, but provides less than half the effort. 2-Substantial/Maximal Assistance-helper does MORE THAN HALF the effort. [place] lifts or holds trunk or limbs and provides more than half the effort. 6-Nyvjokquy-hbefld does ALL the effort. Patient does none of the effort to complete the activity. Or, the assistance of 2 or more helpers is required for the patient to complete the activity. If activity was not attempted, code reason: 7-Patient Refused. 9-Not Applicable-not attempted and the patient did not perform the activity before the current illness, exacerbation or injury. 10-Not Attempted due to Environmental Limitations-(lack of equipment, weather restraints, etc.). 88-Not Attempted due to Medical Conditions or Safety Concerns. Roll Left & Right (QC): 6 Lying to Sitting/Side of Bed(Q: 6 Sit to Stand (QC): 6 Chair/Rjc-iw-Gjiug Xfer(QC): 6 Gait Training Does the Patient Walk?: Yes Distance: 550' Walk 10 feet (QC): 6 Walk 50 ft with 2 Turns(QC): 6 Walk 150 ft (QC): 6 Gait Assistive Device: None safe and functional Assessment Patient ambulated without O2 x 100' with SAO2 85% and noted SOA. O2 2L NC placed with SAO2 rapidly increasing to 93%. RN notified. PT Metal Burrer Goals Snf Goals PT Snf Goals Time Frame: Feb 29, 2020 Roll Left & Right (QC): 6 Sit to Lying (QC): 6 Lying-Sitting on Side/Bed(QC): 6 Sit to Stand (QC): 6 Chair/Tnc-rb-Qenfi Xfer(QC): 6 Toilet Transfer (QC): 6 Does the Patient Walk: Yes Walk 10 feet (QC): 6 Walk 50ft with 2 Turns (QC): 6 Walk 150 ft (QC): 6 PT Plan Treatment/Plan Treatment Plan: Continue Plan of Care Treatment Plan: Education, Functional Activity [place], Functional Strength, Gait, Safety, Therapeutic Exercise Treatment Duration: Feb 29, 2020 Frequency: 6 times per week Estimated Hrs Per Day: .25 hour per day Patient and/or Family Agrees t: Yes Time/GCodes Time In: 933 Time Out: 946 Total Billed Treatment Time: 13 Total Billed Treatment 1 visit FA 13 min JARRED AMADO PT Feb 23, 2020 10:21
--- NOTE | 2020-02-23 10:57 | NUR ---
PATIENT QUALIFIED FOR O2 @ 3L WHILE AMBULATORY. PATIENT'S O2 SATURATION DROPPED TO 87% AND O2 WAS ADDED AT 3L. PATIENT'S O2 SATURATION DID NOT DROP BELOW 92% AFTER ADDING O2. Addendum: 02/23/20 at 1057 by CRYSTAL COVARRUBIAS RT Amended: Links added.
[2020-02-23 11:37] VITALS: BP 133/74
--- NOTE | 2020-02-23 11:47 | Occupational Ther Daily Note ---
OT Current Status-Daily Note Subjective Pt alert, sitting in recliner. Just finished up with respiratory qualifying for home O2. Pt agrees to therapy. No c/o pain. Mental Status/Objective Patient Orientation: Person, Place, Time, Situation Attachments: IV, Oxygen (3L) ADL-Treatment Pt agrees to shower today. Pt wearing flip flops so did not work on donning/doffing socks, pt declines to wear socks stating that they are too hot. Pt ambulates into bathroom without AE. Pt complete shower, toileting and dressing by self. Pt takes frequent recovery breaks due to SOA. After session, pt sitting in recliner with call light/phone in reach. All needs met in room. Therapy Code Descriptions/Definitions Functional [place] Measure: 0=Not Assessed/NA 4=Minimal Assistance 1=Total Assistance 5=Supervision or Setup 2=Maximal Assistance 6=Modified [place] 3=Moderate Assistance 7=Complete IndependenceSCALE: Activities may be completed with or without assistive devices. 9-Flfmkmuqma-plojous completes the activity by him/herself with no assistance from a helper. 5-Set-up or Clean-up Assistance-helper sets up or cleans up; patient completes activity. [place] assists only prior to or following the activity. 4-Supervision or Touching Assistance-helper provides verbal cues and/or touching/steadying and/or contact guard assistance as patient completes activity. Assistance may be provided throughout the activity or intermittently. 3-Partial/Moderate Assistance-helper does LESS THAN HALF the effort. [place] lifts, holds or supports trunk or limbs, but provides less than half the effort. 2-Substantial/Maximal Assistance-helper does MORE THAN HALF the effort. [place] lifts or holds trunk or limbs and provides more than half the effort. 2-Jluoiityb-ekhnmt does ALL the effort. Patient does none of the effort to complete the activity. Or, the assistance of 2 or more helpers is required for the patient to complete the activity. If activity was not attempted, code reason: 7-Patient Refused. 9-Not Applicable-not attempted and the patient did not perform the activity before the current illness, exacerbation or injury. 10-Not Attempted due to Environmental Limitations-(lack of equipment, weather restraints, etc.). 88-Not Attempted due to Medical Conditions or Safety Concerns. Shower/Bathe Self (QC): 6 Upper Body Dressing (QC): 6 (Per clinical judgement, pt demonstrates ability to complete upper body dressing.) Lower Body Dressing (QC): 6 Toileting Hygiene (QC): 6 Toilet Transfer (QC): 6 OT Group Home Goals Group Home Goals Time Frame: Feb 28, 2020 Oral Hygiene (QC): 6 Toileting Hygiene (QC): 6 Shower/Bathe Self (QC): 6 Upper Body Dressing (QC): 6 Lower Body Dressing (QC): 6 On/Off Footwear (QC): 6 Additional Goals: 2-Verbalize Understanding, 3-ImproveStrength/[place] 1=Demonstrate adherence to instructed precautions during ADL tasks. 2=Patient will verbalize/demonstrate understanding of assistive devices/modifications for ADL. 3=Patient will improve strength/tolerance for activity to enable patient to perform ADL's. OT Education/Plan Problem List/Assessment Assessment: Decreased Activ Tolerance Discharge Recommendations Plan/Recommendations: Discharge/Goals Met (all goals met, pt up ad bogdan in room.) Treatment Plan/Plan of Care Patient would benefit from OT for education, treatment and training to promote independence in ADL's, mobility, safety and/or upper extremity function for ADL's. Plan of Care: ADL Retraining, Functional Mobility, UE Funct Exercise/Act Treatment Duration: Feb 28, 2020 Frequency: 5 times per week Estimated Hrs Per Day: .25 hour per day Rehab Potential: Fair Time/GCodes Start Time: 10:45 Stop Time: 11:10 Total Time Billed (hr/min): 25 Billed Treatment Time 1 visit-ADL 2 (25 min) ARACELI PERES Feb 23, 2020 11:47
[2020-02-23] MEDS ORDERED: RIVA15TA2 PO (12:26)
[2020-02-23] MEDS ORDERED: RIVA20TA2 PO (12:26)
[2020-02-23] MEDS ORDERED: PANT40TA3 PO (12:26)
[2020-02-23] MEDS ORDERED: ASPI-999 PO (12:26)
[2020-02-23] MEDS ORDERED: CEFD300C3 PO (12:26)
--- NOTE | 2020-02-23 12:28 | Discharge Summary ---
Discharge Summary Hospital Course Was the Problem List Reviewed?: Yes Problems/Dx: (1) Sepsis Qualifiers: Qualified Codes: A41.9 - Sepsis, unspecified organism; R65.20 - Severe sepsis without septic shock; J96.01 - Acute respiratory failure with hypoxia (2) PUI-COVID-1 (3) Elevated troponin (4) Pneumonia Status: Acute Qualifiers: Qualified Codes: J18.1 - Lobar pneumonia, unspecified organism Hospital Course Date of Admission: Feb 19, 2020 at 15:00 Admission Diagnosis : Family Physician/Provider: Center[facility] Date of Discharge: 02/23/20 Discharge Diagnosis: Assessment: Dyspnea Pulmonary Embolus Hypoxia PNA COPD Smoker Plan: Anti-Coagulation Antibiotics COVID swab pending Home meds Monitor Oxygen level closely 02/21/20: COVID-19 negative PT/OT IRF 02/22/20: Discharge in the morning Home O2 evaluation Provide a shower today Stop smoking Aggressive counseling initiated Hospital Course: Hospital Course: Pt had an uneventful but complex hospital course that included a Covid swab which was negative but admitted for SOB found to have B/L pulmonary emboli, placed on Xarelto and O2 supplementation along with supportive care. She actually responded to the treatment and although the SOB was quite limited at one point she did respond to the antibiotics for an early pneumonia on CT scan and required O2 of 3 liters on exertion at NH and will have close follow up with [facility]. Labs and Pending Lab Test: Laboratory Tests 02/23/20 05:45: White Blood Count 7.4, Red Blood Count 3.59L, Hemoglobin 11.3L, Hematocrit 35, Mean Corpuscular Volume 96, Mean Corpuscular Hemoglobin 32, Mean Corpuscular Hemoglobin Concent 33, Red Cell Distribution Width 13.9, Platelet Count 293, Mean Platelet Volume 9.5, Neutrophils (%) (Auto) 69, Lymphocytes (%) (Auto) 17, Monocytes (%) (Auto) 12, Eosinophils (%) (Auto) 2, Basophils (%) (Auto) 1, Neutrophils # (Auto) 5.0, Lymphocytes # (Auto) 1.2, Monocytes # (Auto) 0.9, Eosinophils # (Auto) 0.1, Basophils # (Auto) 0.0, Sodium Level 137, Potassium Level 4.1, Chloride Level 109H, Carbon Dioxide Level 21, Anion Gap 7, Blood Urea Nitrogen 10, Creatinine 0.78, Estimat Glomerular Filtration Rate > 60, BUN/Creatinine Ratio 13, Glucose Level 96, Calcium Level 9.7, Corrected Calcium 10.1, Total Bilirubin 0.4, Aspartate Amino Transf (AST/SGOT) 24, Alanine Aminotransferase (ALT/SGPT) 57H, Alkaline Phosphatase 113, Total Protein 5.6L, A lbumin 3.5 Microbiology 02/19/20 Urine Culture - Final, Complete 02/19/20 Blood Culture - Preliminary, Resulted No growth Home Meds Active Xarelto Tablet (Rivaroxaban) 20 Mg Tablet 20 Mg PO DAILY@1700 start 20mg daily after completing 15mg PO BID course Cefdinir 300 Mg Capsule 300 Mg PO BID Pantoprazole Sodium 40 Mg Tablet.dr 40 Mg PO DAILY Aspirin 81 Mg Tab.chew 81 Mg PO DAILY@0900 Xarelto Tablet (Rivaroxaban) 15 Mg Tablet 15 Mg PO BID@0700,1900 Reported Doxepin HCl 100 Mg Capsule 100 Mg PO HS Pepcid (Famotidine) 20 Mg Tablet 20 Mg PO HS Triamcinolone Acetonide 0.1% Cream (Triamcinolone Acet) 15 Gm Cr 1 Applic TP BID PRN Levothyroxine Sodium 150 Mcg Tablet 150 Mcg PO DAILY Doxazosin Mesylate 4 Mg Tablet 4 Mg PO DAILY Maxalt [employer] Para Professional (Rizatriptan Benzoate) 10 Mg Tab.rapdis 10 Mg PO UD PRN Hydralazine HCl 25 Mg Tablet 25 Mg PO BID Cetirizine HCl 10 Mg Tablet 10 Mg PO DAILY PRN Promethazine Tablet (Promethazine HCl) 25 Mg Tablet 25 Mg PO Q4H PRN Labetalol HCl 200 Mg Tablet 200 Mg PO BID Assessment/Pt Instructions [facility] 1 week Discharge Planning: <30 minutes discharge planning Discharge Instructions Discharge Diet: No Restrictions Discharge Physical Examination Vital Signs Vital Signs Date Time Temp Pulse Resp B/P (MAP) Pulse Ox O2 Delivery O2 Flow Rate FiO2 02/23/20 11:37 36.2 55 18 133/74 (93) 98 Nasal Cannula 3.00 02/22/20 14:35 21 General Appearance: No Apparent Distress, WD/WN, Chronically ill Respiratory: Lungs Clear, Decreased Breath Sounds Neurologic/Psychiatric: Alert, Oriented x3, Normal Mood/Affect Allergies: Coded Allergies: Sulfa (Sulfonamide Antibiotics) (Verified Allergy, Unknown, 08/16/16) codeine (Verified Allergy, Unknown, Pt takes Lortab at home, 01/20/18) Discharge Summary Date of Admission Feb 19, 2020 at 15:00 Date of Discharge Discharge Date: Feb 23, 2020 Admission Diagnosis Assessment: AECOPD PNA Smoker Hypoxia PE Plan: Abx O2 COVID swab pending Discharge Diagnosis Assessment: Dyspnea Pulmonary Embolus Hypoxia PNA COPD Smoker Plan: Anti-Coagulation Antibiotics COVID swab pending Home meds Monitor Oxygen level closely 02/21/20: COVID-19 negative PT/OT IRF 02/22/20: Discharge in the morning Home O2 evaluation Provide a shower today Stop smoking Aggressive counseling initiated (1) Sepsis Qualifiers: Qualified Codes: A41.9 - Sepsis, unspecified organism; R65.20 - Severe sepsis without septic shock; J96.01 - Acute respiratory failure with hypoxia (2) PUI-COVID-1 (3) Elevated troponin (4) Pneumonia Status: Acute Qualifiers: Qualified Codes: J18.1 - Lobar pneumonia, unspecified organism Clinical Quality Measures DVT/VTE Risk/Contraindication: Risk Factor Score Per Nursin RFS Level Per Nursing on Admit: 4+=Very High CHEL COMBS DO Feb 23, 2020 12:28
--- NOTE | 2020-02-23 14:04 | NUR ---
DISCHARGE PLANNING: [place] of patient qualifying for oxygen. She is requiring 3 L. Visited with the patient regarding choices and she has opted for [place] at home. Clinical and order sent and I spoke to Tashi at [facility] notifying him of the orders.
--- NOTE | 2020-02-23 15:41 | NUR ---
Pastoral care visit.
--- NOTE | 2020-02-24 08:16 | Physician Query Clarification ---
PQ-Further Specificity Admission/Discharge Admission Date: Feb 19, 2020 at 15:00 Discharge Date: Feb 23, 2020 at 16:02 The medical record reflects the following clinical scenario: History/Risk Factors: Sepsis, pneumonia, PE, Acute respiratory failure with hypoxia Clinical Findings: Troponin 02/18 0.041 02/19 0.053 Treatment: monitoring Question: Can you further specify elevated troponin per the clinical indicators above? Please document a response in the Progress Notes or Discharge Summary. 1. Type 2 OK 2. elevated troponin not further specified 3. Other, with explanation of the clinical findings. 4. Clinically undetermined, no explanation for the clinical findings. PHYSICIAN RESPONSE Can you specify per above: 1 Please remember a lack of response to the above will prompt a phone page by CDI/Coding staff. In responding to this query, please exercise your independent professional judgment. The purpose of this communication is to more accurately reflect the complexity of your patients condition. The fact that a question is asked does not imply that any particular answer is desired or expected. Thank you for your timely response to this clarification. Requestors name: Jag [email or web address] THIS PHYSICIAN QUERY FORM IS A PERMANENT PART OF THE MEDICAL RECORD JAG TRAN Feb 24, 2020 08:16 CHEL COMBS DO Feb 24, 2020 09:34
== END 2020-02-23 16:02 | disposition home health service (06) | DRG 871 ==
LOC: EDUNIT# 13:13 → ER 13:15 → 4TH 15:00
PROVIDERS: ADMIT Internal Medicine; ATTEND Internal Medicine
DX: A41.9 Sepsis, unspecified organism (principal); J18.9 Pneumonia, unspecified organism; I26.99 Other pulmonary embolism without acute cor pulmonale; J96.01 Acute respiratory failure with hypoxia; I21.A1 Myocardial infarction type 2; J44.1 Chronic obstructive pulmonary disease with (acute) exacerbation; J44.0 Chronic obstructive pulmonary disease with (acute) lower respiratory infection; E87.2 Acidosis; R65.20 Severe sepsis without septic shock; R79.89 Other specified abnormal findings of blood chemistry; I10 Essential (primary) hypertension; F17.210 Nicotine dependence, cigarettes, uncomplicated; E66.9 Obesity, unspecified; Z68.30 Body mass index [BMI] 30.0-30.9, adult; E87.5 Hyperkalemia; E03.9 Hypothyroidism, unspecified; K21.9 Gastro-esophageal reflux disease without esophagitis; G43.909 Migraine, unspecified, not intractable, without status migrainosus; F41.9 Anxiety disorder, unspecified; F32.9 Major depressive disorder, single episode, unspecified; L30.0 Nummular dermatitis; Z20.828 Contact with and (suspected) exposure to other viral communicable diseases
CPT/HCPCS: 36415; 71045; 71275; 80053; 81000; 82805; 83735; 83880; 84100; 84145; 84484; 85025; 85379; 85610; 85652; 85730; 86141; 87040; 87088; 87635; 93306; 93970; 94640; 94760; 94761; 96361; 96374; 96375

== ENCOUNTER → 2020-05-23 | Outpatient (CLI) | payer OTHER ==
[~2020-05-23] MED LIST changes: +AMLO-250 PO; -AMLO5TAB9 PO; +ASPI-999 PO; +CEFD300C3 PO; +DOXE100C4 PO; +FAMO-119 PO; +LEVO150T6 PO; -PANT40TA3 PO; +PANT40TA52 PO; +RIVA15TA2 PO; +RIVA20TA2 PO; +RT-ALBUTEROL SULF 2.5 MG/3 ML PRE-MIX VIAL INH ONE
[2020-05-23 12:59] LABS: BASOPHILS % (AUTO) 1 % (0-10); EOSINOPHILS # (AUTO) 0.2 10^3/uL (0.0-0.3); EOSINOPHILS % (AUTO) 2 % (0-10); HEMATOCRIT 42 % (35-52); HEMOGLOBIN 13.5 g/dL (11.5-16.0); LYMPHOCYTES # (AUTO) 1.2 10^3/uL (1.0-4.0); LYMPHOCYTES % (AUTO) 14 % (12-44); MEAN CORPUSCULAR HEMOGLOBIN 32 pg (25-34); MEAN CORPUSCULAR HGB CONC 32 g/dL (32-36); MEAN CORPUSCULAR VOLUME 99 fL (80-99); MEAN PLATELET VOLUME 9.3 fL (9.0-12.2); MONOCYTES # (AUTO) 0.7 10^3/uL (0.0-1.0); MONOCYTES % (AUTO) 9 % (0-12); NEUTROPHILS # (AUTO) 6.3 10^3/uL (1.8-7.8); NEUTROPHILS % (AUTO) 75 % (42-75); PLATELET COUNT 289 10^3/uL (130-400); WHITE BLOOD COUNT 8.4 10^3/uL (4.3-11.0)
[2020-05-23 13:12] LABS: ALANINE AMINOTRANSFERASE 12 U/L (0-55); ALBUMIN 4.5 GM/DL (3.2-4.5); ALKALINE PHOSPHATASE 115 U/L (40-136); BILIRUBIN,TOTAL 0.5 MG/DL (0.1-1.0); BUN/CREATININE RATIO 19; CALCIUM 10.3 MG/DL (8.5-10.1); CARBON DIOXIDE 23 MMOL/L (21-32); CHLORIDE 104 MMOL/L (98-107); CREATININE SERUM 0.84 MG/DL (0.60-1.30); GFR ESTIMATED > 60; GLUCOSE 154 MG/DL (70-105); SODIUM 136 MMOL/L (135-145); TOTAL PROTEIN 7.1 GM/DL (6.4-8.2)
[2020-05-23 13:14] LABS: ABG BASE EXCESS -1.9 MMOL/L (-2.5-2.5); ABG OXYGEN SATURATION 100 % (94-100); ABG PCO2 36 MMHG (35-45); ABG PO2 171 MMHG (79-93); ABG TCO2 23.1 MMOL/L (21.0-31.0); ALLENS TEST POSITIVE; INSPIRED O2 3 L; VENTILATOR NO
[2020-05-23 13:15] LABS: PATIENT TEMP 37.3
== END ==
LOC: RT 12:36
PROVIDERS: ATTEND Internal Medicine Critical Care Medicine
DX: J44.9 Chronic obstructive pulmonary disease, unspecified (principal); R91.8 Other nonspecific abnormal finding of lung field; F17.210 Nicotine dependence, cigarettes, uncomplicated
CPT/HCPCS: 36415; 36600; 80053; 82805; 85025; 94060; 94726; 94729

== ENCOUNTER 2020-06-20 16:01 | Outpatient (CLI) | payer OTHER ==
[~2020-06-20 16:01] MED LIST changes: -RT-ALBUTEROL SULF 2.5 MG/3 ML PRE-MIX VIAL INH ONE
--- NOTE | 2020-06-20 16:43 | Diagnostic Imaging Report ---
EXAMINATION: Chest 2 view. HISTORY: Pneumonia. Difficulty breathing. History of DVT. COMPARISON: Chest radiograph on 02/20/2020. FINDINGS: The lungs are hyperexpanded. There is cardiomegaly with central pulmonary vascular congestion. Patchy opacities are seen in the left lung base. Small left pleural effusion is present. No pneumothorax. No acute osseous abnormality. IMPRESSION: 1. Cardiomegaly with central pulmonary vascular congestion. No overt pulmonary edema. 2. Patchy opacities in the left lung base with small left pleural effusion. This may represent atelectasis and/or infection. 3. Hyperinflated lungs, which can be seen with COPD. Dictated by: Dictated on workstation # [id number]
== END 2020-06-20 17:10 | disposition home or self-care (01) ==
LOC: SLEEP 16:01
PROVIDERS: ATTEND Nurse Practitioner Family
DX: I51.7 Cardiomegaly (principal); J44.9 Chronic obstructive pulmonary disease, unspecified; G47.8 Other sleep disorders; J90 Pleural effusion, not elsewhere classified; R09.89 Other specified symptoms and signs involving the circulatory and respiratory systems; R91.8 Other nonspecific abnormal finding of lung field; Z20.828 Contact with and (suspected) exposure to other viral communicable diseases; F17.210 Nicotine dependence, cigarettes, uncomplicated
CPT/HCPCS: 71046; G0399

== ENCOUNTER 2020-10-17 20:12 | Inpatient (IN) | payer OTHER ==
[~2020-10-17] VITALS: Ht 155 cm; Wt 78.5 kg
[~2020-10-17 20:12] MED LIST changes: -CLIN300C11 PO; +CLIN300C12 PO
--- NOTE | 2020-10-17 20:26 | ED Respiratory ---
General Chief Complaint: Respiratory Problems Stated Complaint: COPD / TROUBLE BREATHING WITH EXTERTION Source: patient Exam Limitations: no limitations History of Present Illness Date Seen by Provider: Oct 17, 2020 Time Seen by Provider: 20:24 Initial Comments To ER with progressive dyspnea on exertion for about 1 week. No fevers or chills and no exposure to Covid though she remains unvaccinated. She does have COPD and wears oxygen at 3 L per nasal cannula [id number]. She continues to smoke but is down to 1 cigarette/day. She does not have a nebulizer or any inhalers at home. She does report some pressure sensation in her chest. She is on Xarelto for Hx of PE diagnosed in 01/2020. No hx of a-fib Timing/Duration: constant, getting worse Severity: moderate Associated Symptoms: cough, shortness of breath Allergies and Home Medications Allergies Coded Allergies: Sulfa (Sulfonamide Antibiotics) (Verified Allergy, Unknown, 08/16/16) codeine (Verified Allergy, Unknown, Pt takes Lortab at home, 01/20/18) Home Medications Aspirin 81 Mg Tab.chew, 81 MG PO DAILY@0900 Prescribed by: CHEL COMBS on 02/23/20 122 Cefdinir 300 Mg Capsule, 300 MG PO BID Prescribed by: CHEL COMBS on 02/23/20 1226 Cetirizine HCl 10 Mg Tablet, 10 MG PO DAILY PRN for ALLERGIES, (Reported) Doxazosin Mesylate 4 Mg Tablet, 4 MG PO DAILY, (Reported) Doxepin HCl 100 Mg Capsule, 100 MG PO HS, (Reported) Famotidine 20 Mg Tablet, 20 MG PO HS, (Reported) Hydralazine HCl 25 Mg Tablet, 25 MG PO BID, (Reported) Labetalol HCl 200 Mg Tablet, 200 MG PO BID, (Reported) Levothyroxine Sodium 150 Mcg Tablet, 150 MCG PO DAILY, (Reported) Pantoprazole Sodium 40 Mg Tablet.dr, 40 MG PO DAILY Prescribed by: CHEL COMBS on 02/23/20 122 Promethazine HCl 25 Mg Tablet, 25 MG PO Q4H PRN for NAUSEA/VOMITING-2ND LINE, (Reported) Rivaroxaban 15 Mg Tablet, 15 MG PO BID@0700,1900 Prescribed by: CHEL COMBS on 02/23/20 1226 Rivaroxaban 20 Mg Tablet, 20 MG PO DAILY@1700 start 20mg daily after completing 15mg PO BID course Prescribed by: CHEL COMBS on 02/23/20 1226 Rizatriptan Benzoate 10 Mg Tab.rapdis, 10 MG PO UD PRN for MIGRAINE, (Reported) Triamcinolone Acet 15 Gm Cr, 1 APPLIC TP BID PRN for ITCHING, (Reported) Patient Home Medication List Home Medication List Reviewed: Yes Review of Systems Review of Systems Constitutional: see HPI EENTM: see HPI Respiratory: see HPI, cough, dyspnea on exertion, orthopnea, short of breath Cardiovascular: no symptoms reported Genitourinary: no symptoms reported Musculoskeletal: no symptoms reported Skin: no symptoms reported Psychiatric/Neurological: No Symptoms Reported Hematologic/Lymphatic: No Symptoms Reported Immunological/Allergic: no symptoms reported Past Ngwetps-Bcdnwq-Swcqwz Hx Patient Social History Alcohol Beverage of Choice: Beer Type Used: Cigarettes 2nd Hand Smoke Exposure: Yes Recent Hopitalizations: No Seasonal Allergies Seasonal Allergies: No Past Medical History Surgeries: Yes (HYST/BSO; RIGHT BREAST BIOPSY/BENIGN LUMPECTOMY; ) Breast, Hysterectomy, Oophorectomy, Tonsillectomy, Tubal Ligation Respiratory: No Currently Using CPAP: No Currently Using BIPAP: No Cardiac: Yes Hypertension Neurological: Yes Headaches /Migraines Female 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 Disorders: 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, 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 Genitourinary: Yes Kidney Stones Gastrointestinal: Yes Gastroesophageal Reflux Musculoskeletal: No Endocrine: Yes Hypothyroidsim HEENT: No Loss of Vision: Denies Hearing Impairment: Denies Cancer: No Psychosocial: Yes Anxiety, Depression Integumentary: Yes Eczema Blood Disorders: No Adverse Reaction/Blood Tranf: No Family Medical History Cataracts G8 BROTHER Colon cancer Coronary thrombosis 19 FATHER Deafness or hearing loss 19 FATHER 19 MOTHER Diabetes mellitus 19 FATHER Headache disorder 19 MOTHER son Hypertension 19 FATHER 19 MOTHER G8 BROTHER Myocardial infarction 19 FATHER 19 MOTHER Neoplasm 19 MOTHER Parkinson's disease 19 MOTHER Severe allergy son Hypertension Physical Exam Vital Signs - First Documented 10/17/20 20:18 Temp 36.4 Pulse 120 Resp 24 B/P (MAP) 95/79 (84) O2 Delivery Nasal Cannula O2 Flow Rate 3.00 Capillary Refill : Height: 5'0" Weight: 145lbs. 0.0oz. 65.064841cc; 30.42 BMI Method:Stated General Appearance: no apparent distress, other (Speaks in phrases. Chronically ill-appearing. Appears older than stated age. Oxygen saturation 99% on her baseline 3 L.) Eyes: Bilateral Eye Normal Inspection, Bilateral Eye PERRL, Bilateral Eye EOMI Neck: non-tender, full range of motion Respiratory: decreased breath sounds, accessory muscle use Cardiovascular: no edema, tachycardia, other (HR 125 irregular. ) Gastrointestinal: normal bowel sounds, non tender Extremities: normal range of motion, non-tender Neurologic/Psychiatric: alert, normal mood/affect, oriented x 3 Skin: normal color, warm/dry Progress/Results/Core Measures Suspected Sepsis SIRS Temperature: Pulse: Respiratory Rate: Laboratory Tests 10/17/20 20:32: White Blood Count 9.5 Blood Pressure / Mean: Laboratory Tests 10/17/20 20:32: Creatinine 0.84, Platelet Count 399, Total Bilirubin 0.8 Results/Orders Lab Results Laboratory Tests Test 10/17/20 20:32 10/17/20 20:34 10/17/20 20:56 Range/Units White Blood Count 9.5 4.3-11.0 10^3/uL Red Blood Count 4.07 3.80-5.11 10^6/uL Hemoglobin 13.3 11.5-16.0 g/dL Hematocrit 41 35-52 % Mean Corpuscular Volume 100 H 80-99 fL Mean Corpuscular Hemoglobin 33 25-34 pg Mean Corpuscular Hemoglobin Concent 33 32-36 g/dL Red Cell Distribution Width 13.2 10.0-14.5 % Platelet Count 399 130-400 10^3/uL Mean Platelet Volume 9.5 9.0-12.2 fL Immature Granulocyte % (Auto) 0 % Neutrophils (%) (Auto) 64 42-75 % Lymphocytes (%) (Auto) 17 12-44 % Monocytes (%) (Auto) 15 H 0-12 % Eosinophils (%) (Auto) 3 0-10 % Basophils (%) (Auto) 1 0-10 % Neutrophils # (Auto) 6.1 1.8-7.8 10^3/uL Lymphocytes # (Auto) 1.6 1.0-4.0 10^3/uL Monocytes # (Auto) 1.4 H 0.0-1.0 10^3/uL Eosinophils # (Auto) 0.3 0.0-0.3 10^3/uL Basophils # (Auto) 0.1 0.0-0.1 10^3/uL Immature Granulocyte # (Auto) 0.0 0.0-0.1 10^3/uL D-Dimer 1.48 H 0.00-0.49 UG/ML Sodium Level 129 L 135-145 MMOL/L Potassium Level 4.5 3.6-5.0 MMOL/L Chloride Level 97 L 98-107 MMOL/L Carbon Dioxide Level 21 21-32 MMOL/L Anion Gap 11 5-14 MMOL/L Blood Urea Nitrogen 11 7-18 MG/DL Creatinine 0.84 0.60-1.30 MG/DL Estimat Glomerular Filtration Rate > 60 BUN/Creatinine Ratio 13 Glucose Level 121 H 70-105 MG/DL Calcium Level 10.0 8.5-10.1 MG/DL Corrected Calcium 10.0 8.5-10.1 MG/DL Total Bilirubin 0.8 0.1-1.0 MG/DL Aspartate Amino Transf (AST/SGOT) 73 H 5-34 U/L Alanine Aminotransferase (ALT/SGPT) 154 H 0-55 U/L Alkaline Phosphatase 167 H 40-136 U/L Troponin I < 0.028 <0.028 NG/ML B-Type Natriuretic Peptide 1064.9 H <100.0 PG/ML Total Protein 6.6 6.4-8.2 GM/DL Albumin 4.0 3.2-4.5 GM/DL Procalcitonin 0.08 <0.10 NG/ML Coronavirus 2019 ([facility]) Negative Negative Blood Gas Puncture Site L RADIAL Blood Gas Patient Temperature 98.3 Arterial Blood pH 7.39 7.37-7.43 Arterial Blood Partial Pressure CO2 39 35-45 MMHG Arterial Blood Partial Pressure O2 144 H 79-93 MMHG Arterial Blood HCO3 23 23-27 MMOL/L Arterial Blood Total CO2 24.2 21.0-31.0 MMOL/L Arterial Blood Oxygen Saturation 100 94-100 % Arterial Blood Base Excess -1.3 -2.5-2.5 MMOL/L Joshua Test YES-POS Blood Gas Ventilator Setting NO Blood Gas Inspired Oxygen 3 L My Orders Orders - CHARLIE SANTANA APRN Cbc With Automated Diff (10/17/20 20:19) Comprehensive Metabolic Panel (10/17/20 20:19) Procalcitonin (Pct) (10/17/20 20:19) Chest 1 View, Ap/Pa Only (10/17/20 20:19) Covid 19 Inhouse Test (10/17/20 20:19) Ed Iv/Invasive Line Start (10/17/20 20:19) BNP (10/17/20 20:19) Methylprednisolone Sod Succ (Solu-Medrol (10/17/20 20:30) Ekg Tracing (10/17/20 20:27) Troponin I (10/17/20 20:27) Fibrin Degradation Products (10/17/20 20:29) Arterial Blood Gas (10/17/20 20:58) Iohexol Injection (Omnipaque 350 Mg/Ml 1 (10/17/20 21:15) Received Contrast (Hold Metformin- Contr (10/17/20 21:15) Ns (Ivpb) (Sodium Chloride 0.9% Ivpb Bag (10/17/20 21:15) Metoprolol Tartrate Injection (Lopressor (10/17/20 21:15) Albuterol/Ipra Inhalation Soln (Duoneb I (10/17/20 21:15) Svn Small Volume Nebulizer (10/17/20 21:05) Furosemide Injection (Lasix Injection) (10/17/20 21:30) Magnesium (10/17/20 21:30) Thyroid Stimulating Hormone (10/17/20 21:30) Free T4 (Free Thyroxine) (10/17/20 21:30) Diltiazem Drip Pre-Mix (Cardizem Drip Pr (10/17/20 22:00) Diltiazem Injection (Cardizem Injection) (10/17/20 22:00) Medications Given in ED Current Medications Medications Dose Ordered Sig/Elsa Route Start Time Stop Time Status Last Admin Dose Admin Albuterol/ Ipratropium 3 ml ONCE ONCE INH 10/17/20 21:15 10/17/20 21:16 DC 10/17/20 21:35 3 ML Furosemide 40 mg ONCE ONCE IVP 10/17/20 21:30 10/17/20 21:31 DC 10/17/20 21:35 40 MG Methylprednisolone Sodium Succinate 125 mg ONCE ONCE IVP 10/17/20 20:30 10/17/20 20:31 DC 10/17/20 20:52 125 MG Metoprolol Tartrate 5 mg ONCE ONCE IV 10/17/20 21:15 10/17/20 21:16 DC 10/17/20 21:35 5 MG Vital Signs/I&O 10/17/20 20:18 Temp 36.4 Pulse 120 Resp 24 B/P (MAP) 95/79 (84) O2 Delivery Nasal Cannula O2 Flow Rate 3.00 Capillary Refill : Departure Communication (Admissions) Family Conversation [id number] with Dr. Combs she agrees to admit. Consulted Dr. Espinoza. We are going to continue her rivaroxaban 20 mg daily, Solu-Medrol 80 mg IV every 8 hours for the COPD exacerbation. Ativan and Zofran as needed. Cardizem drip will be started. Her rate continues to be in the 120s atrial fibrillation. Her blood pressure is 135/86. I wrote for a 2D echo in the morning. She is does not receive any fluids in the emergency room. She did receive Lopressor 5 mg IV once, DuoNeb, Lasix 40mg IV x1, Cardizem bolus of 10 mg and drip initiated at 10 mg an hour. NAME: ORLANDO ADLER [facility] REC#: [id number] PT STATUS: REG ER : 1960 PHYSICIAN: CHARLIE SANTANA APRN ADMIT DATE: 10/17/20/ER Draft Date of Exam:10/17/20 CHEST 1 VIEW, AP/PA ONLY INDICATION: Shortness of air. TECHNIQUE: Single view chest, 9:10 p.m. CORRELATION STUDY: 06/20/2020. FINDINGS: Heart size is enlarged, increased from prior. There is presence of pulmonary vascular congestion and perihilar edema. There is abnormal density of the right hilum in the infrahilar region. Elevated right diaphragm with right lung volume loss. IMPRESSION: 1. Cardiac enlargement with findings of congestive heart failure. 2. Abnormal density of the right hilum with elevated right diaphragm. While this could be underlying infiltrate or manifestation of edema, underlying mass lesion is not excluded at this time. Short-term follow-up imaging is recommended. Dictated on workstation # [id number] Dict: 10/17/202126 Trans: 10/17/202132 [facility] [id number] Interpreted by: SCOTT GRIMES DO Electronically signed by: Impression Primary Impression: New onset a-fib Additional Impressions: COPD exacerbation CHF (congestive heart failure) Disposition: ADMITTED INPATIENT Condition: Stable Admissions Decision to Admit Reason: Admit from ER (General) Decision to Admit/Date: Oct 17, 2020 Time/Decision to Admit Time: 21:30 Departure-Patient Inst. Referrals: [facility] (PCP/Family) Primary Care Physician CHARLIE SANTANA APRN Oct 17, 2020 20:26
[2020-10-17] MEDS ORDERED: methylPREDNISolone 125 MG (Solu-MEDROL) VIAL IVP ONE (20:30)
[2020-10-17 20:37] LABS: BASOPHILS # (AUTO) 0.1 10^3/uL (0.0-0.1); BASOPHILS % (AUTO) 1 % (0-10); EOSINOPHILS # (AUTO) 0.3 10^3/uL (0.0-0.3); EOSINOPHILS % (AUTO) 3 % (0-10); HEMATOCRIT 41 % (35-52); HEMOGLOBIN 13.3 g/dL (11.5-16.0); LYMPHOCYTES # (AUTO) 1.6 10^3/uL (1.0-4.0); LYMPHOCYTES % (AUTO) 17 % (12-44); MEAN CORPUSCULAR HEMOGLOBIN 33 pg (25-34); MEAN CORPUSCULAR HGB CONC 33 g/dL (32-36); MEAN CORPUSCULAR VOLUME 100 fL (80-99); MEAN PLATELET VOLUME 9.5 fL (9.0-12.2); MONOCYTES # (AUTO) 1.4 10^3/uL (0.0-1.0); MONOCYTES % (AUTO) 15 % (0-12); NEUTROPHILS # (AUTO) 6.1 10^3/uL (1.8-7.8); NEUTROPHILS % (AUTO) 64 % (42-75); PLATELET COUNT 399 10^3/uL (130-400); WHITE BLOOD COUNT 9.5 10^3/uL (4.3-11.0)
[2020-10-17 20:49] LABS: GLUCOSE 121 MG/DL (70-105); TOTAL PROTEIN 6.6 GM/DL (6.4-8.2)
[2020-10-17 20:50] LABS: BILIRUBIN,TOTAL 0.8 MG/DL (0.1-1.0); CARBON DIOXIDE 21 MMOL/L (21-32)
[2020-10-17 20:52] LABS: ALKALINE PHOSPHATASE 167 U/L (40-136); CREATININE SERUM 0.84 MG/DL (0.60-1.30); GFR ESTIMATED > 60
[2020-10-17 20:53] LABS: BUN/CREATININE RATIO 13
[2020-10-17 20:55] LABS: ALANINE AMINOTRANSFERASE 154 U/L (0-55)
[2020-10-17 21:07] LABS: ABG BASE EXCESS -1.3 MMOL/L (-2.5-2.5); ABG OXYGEN SATURATION 100 % (94-100); ABG PCO2 39 MMHG (35-45); ABG PH 7.39 (7.37-7.43); ABG PO2 144 MMHG (79-93); ABG TCO2 24.2 MMOL/L (21.0-31.0)
[2020-10-17 21:08] LABS: ALLENS TEST YES-POS; INSPIRED O2 3 L; PATIENT TEMP 98.3; VENTILATOR NO
[2020-10-17] MEDS ORDERED: IOHEXOL 350 MG/ML 100 ML (OMNIPAQUE 350) VIAL IV ONE (21:15)
[2020-10-17] MEDS ORDERED: meTOprolol 5 MG/5 ML (LOPRESSOR) VIAL IV ONE (21:15)
[2020-10-17] MEDS ORDERED: NS 100 ML (IVPB) BAG IV ONE (21:15)
[2020-10-17] MEDS ORDERED: RT-ALBUTEROL/IPRATROPIUM 3 ML (DUONEB) VIAL INH ONE (21:15)
[2020-10-17] MEDS ORDERED: HOLD METFORMIN - RECEIVED CONTRAST 20 ML VIAL IV SCH (21:15)
[2020-10-17 21:22] LABS: CHLORIDE 97 MMOL/L (98-107); POTASSIUM 4.5 MMOL/L (3.6-5.0); SODIUM 129 MMOL/L (135-145)
[2020-10-17] MEDS ORDERED: FUROSEMIDE 40 MG/4 ML INJ (LASIX) IVP ONE (21:30)
--- NOTE | 2020-10-17 21:34 | Diagnostic Imaging Report ---
INDICATION: Shortness of air. TECHNIQUE: Single view chest, 9:10 p.m. CORRELATION STUDY: 06/20/2020. FINDINGS: Heart size is enlarged, increased from prior. There is presence of pulmonary vascular congestion and perihilar edema. There is abnormal density of the right hilum in the infrahilar region. Elevated right diaphragm with right lung volume loss. IMPRESSION: 1. Cardiac enlargement with findings of congestive heart failure. 2. Abnormal density of the right hilum with elevated right diaphragm. While this could be underlying infiltrate or manifestation of edema, underlying mass lesion is not excluded at this time. Short-term follow-up imaging is recommended. Dictated by: Dictated on workstation # [id number]
[2020-10-17] MEDS ORDERED: dilTIAZem DRIP PRE-MIX 125 ML IV SCH ×2 (22:00→23:15)
[2020-10-17] MEDS ORDERED: ONDANSETRON 4 MG/2 ML (SDV) Z0FRAN IVP PRN (23:15)
[2020-10-17] MEDS ORDERED: LORazepam INJ 2 MG/ML (ATIVAN) VIAL IVP PRN (23:15)
[2020-10-17 23:27] VITALS: BP 95/79
[2020-10-17] MEDS ORDERED: RT-ALBUTEROL/IPRATROPIUM 3 ML (DUONEB) VIAL INH PRN (23:45)
[2020-10-18] MEDS: ACETAMINOPHEN 500 MG TAB (TYLENOL) PO PRN ×3 (00:11→16:36)
[2020-10-18] MEDS: RT-ALBUTEROL/IPRATROPIUM 3 ML (DUONEB) VIAL INH SCH ×6 (02:01→21:32)
[2020-10-18 03:27] LABS: MAGNESIUM 2.5 MG/DL (1.6-2.4)
[2020-10-18 03:48] LABS: FREE T4 (FREE THYROXINE) 1.35 NG/DL (0.70-1.48)
[2020-10-18 03:59] LABS: BASOPHILS % (AUTO) 0 % (0-10); EOSINOPHILS % (AUTO) 0 % (0-10); HEMATOCRIT 38 % (35-52); HEMOGLOBIN 12.6 g/dL (11.5-16.0); LYMPHOCYTES # (AUTO) 0.5 10^3/uL (1.0-4.0); LYMPHOCYTES % (AUTO) 8 % (12-44); MEAN CORPUSCULAR HEMOGLOBIN 33 pg (25-34); MEAN CORPUSCULAR HGB CONC 33 g/dL (32-36); MEAN CORPUSCULAR VOLUME 98 fL (80-99); MEAN PLATELET VOLUME 9.7 fL (9.0-12.2); MONOCYTES # (AUTO) 0.2 10^3/uL (0.0-1.0); MONOCYTES % (AUTO) 2 % (0-12); NEUTROPHILS # (AUTO) 5.8 10^3/uL (1.8-7.8); NEUTROPHILS % (AUTO) 89 % (42-75); PLATELET COUNT 354 10^3/uL (130-400); WHITE BLOOD COUNT 6.6 10^3/uL (4.3-11.0)
[2020-10-18 04:26] LABS: CHLORIDE 98 MMOL/L (98-107); POTASSIUM 4.1 MMOL/L (3.6-5.0); SODIUM 132 MMOL/L (135-145)
[2020-10-18 04:27] LABS: CALCIUM 9.8 MG/DL (8.5-10.1)
[2020-10-18 04:28] LABS: GLUCOSE 137 MG/DL (70-105)
[2020-10-18 04:29] LABS: CARBON DIOXIDE 21 MMOL/L (21-32)
[2020-10-18 04:31] LABS: PHOSPHORUS 2.9 MG/DL (2.3-4.7)
[2020-10-18 04:32] LABS: CREATININE SERUM 0.78 MG/DL (0.60-1.30); GFR ESTIMATED > 60
[2020-10-18 04:33] LABS: BUN/CREATININE RATIO 14
[2020-10-18 04:34] LABS: MAGNESIUM 1.8 MG/DL (1.6-2.4)
--- NOTE | 2020-10-18 04:37 | Pulmonary Consultation ---
History of Present Illness History of Present Illness Date Seen by Provider: Oct 18, 2020 Time Seen by Provider: 04:31 Date of Admission Allergies and Home Medications Allergies Coded Allergies: Sulfa (Sulfonamide Antibiotics) (Verified Allergy, Unknown, 08/16/16) codeine (Verified Allergy, Unknown, Pt takes Lortab at home, 01/20/18) Home Medications Aspirin 81 Mg Tab.chew, 81 MG PO DAILY@0900 Prescribed by: CHEL COMBS on 02/23/201225 Cefdinir 300 Mg Capsule, 300 MG PO BID Prescribed by: CHEL COMBS on 02/23/201225 Cetirizine HCl 10 Mg Tablet, 10 MG PO DAILY PRN for ALLERGIES, (Reported) Doxazosin Mesylate 4 Mg Tablet, 4 MG PO DAILY, (Reported) Doxepin HCl 100 Mg Capsule, 100 MG PO HS, (Reported) Famotidine 20 Mg Tablet, 20 MG PO HS, (Reported) Hydralazine HCl 25 Mg Tablet, 25 MG PO BID, (Reported) Labetalol HCl 200 Mg Tablet, 200 MG PO BID, (Reported) Levothyroxine Sodium 150 Mcg Tablet, 150 MCG PO DAILY, (Reported) Pantoprazole Sodium 40 Mg Tablet.dr, 40 MG PO DAILY Prescribed by: CHEL COMBS on 02/23/201225 Promethazine HCl 25 Mg Tablet, 25 MG PO Q4H PRN for NAUSEA/VOMITING-2ND LINE, (Reported) Rivaroxaban 15 Mg Tablet, 15 MG PO BID@0700,1900 Prescribed by: CHEL COMBS on 02/23/201225 Rivaroxaban 20 Mg Tablet, 20 MG PO DAILY@1700 start 20mg daily after completing 15mg PO BID course Prescribed by: CHEL COMBS on 02/23/201225 Rizatriptan Benzoate 10 Mg Tab.rapdis, 10 MG PO UD PRN for MIGRAINE, (Reported) Triamcinolone Acet 15 Gm Cr, 1 APPLIC TP BID PRN for ITCHING, (Reported) Past Hjtbsxq-Ynnjqp-Srfken Hx Patient Social History Alcohol Use: Rarely Uses Number of Drinks Today: AA Alcohol Beverage of Choice: Beer Smoking Status: Current Everyday Smoker Type Used: Cigarettes 2nd Hand Smoke Exposure: Yes Recent Infectious Disease Expo: No Recent Hopitalizations: No Have you traveled recently?: No Alcohol Use?: Yes Immunizations Up To Date Date of Influenza Vaccine: May 25, 2020 Seasonal Allergies Seasonal Allergies: No Past Medical History Surgeries: Yes (HYST/BSO; RIGHT BREAST BIOPSY/BENIGN LUMPECTOMY; ) Breast, Hysterectomy, Oophorectomy, Tonsillectomy, Tubal Ligation Respiratory: No Currently Using CPAP: No Currently Using BIPAP: No Cardiac: Yes Hypertension Neurological: Yes Headaches /Migraines 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, 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 Genitourinary: Yes Kidney Stones Gastrointestinal: Yes Gastroesophageal Reflux Musculoskeletal: No Endocrine: Yes Hypothyroidsim HEENT: No Loss of Vision: Denies Hearing Impairment: Denies Cancer: No Psychosocial: Yes Anxiety, Depression Integumentary: Yes Eczema Blood Disorders: No Adverse Reaction/Blood Tranf: No Family Medical History Cataracts G8 BROTHER Colon cancer Coronary thrombosis 19 FATHER Deafness or hearing loss 19 FATHER 19 MOTHER Diabetes mellitus 19 FATHER Headache disorder 19 MOTHER son Hypertension 19 FATHER 19 MOTHER G8 BROTHER Myocardial infarction 19 FATHER 19 MOTHER Neoplasm 19 MOTHER Parkinson's disease 19 MOTHER Severe allergy son Hypertension Sepsis Event Evaluation Height, Weight, BMI Height: 5'0" Weight: 145lbs. 0.0oz. 65.165010gd; 29.00 BMI Method:Stated Exam Exam Vital Signs Date Time Temp Pulse Resp B/P (MAP) Pulse Ox O2 Delivery O2 Flow Rate FiO2 10/18/20 02:30 91 20 107/86 (93) 95 3.50 10/18/20 02:15 79 20 91/65 (74) 95 3.50 10/18/20 02:02 93 Nasal Cannula 3.00 10/18/20 02:00 89 16 82/54 (63) 95 3.50 10/18/20 01:45 75 16 89/65 (73) 93 3.50 10/18/20 01:30 76 16 94/55 (68) 93 3.50 10/18/20 01:00 84 18 93/66 (75) 94 3.50 10/18/20 01:00 70 10/18/20 00:45 89 16 100/58 (72) 95 3.50 10/18/20 00:20 95 Nasal Cannula 3.50 10/18/20 00:12 11 22 114/97 (103) 95 Nasal Cannula 3.50 10/18/20 00:00 36.2 24 103/92 (96) 95 Nasal Cannula 3.50 10/17/20 23:45 104 17 99/87 (91) 97 Nasal Cannula 3.50 10/17/20 23:41 110 10/17/20 23:30 112 13 118/93 (101) 94 Nasal Cannula 3.50 10/17/20 23:27 36.4 120 100 10/17/20 23:15 102 27 118/93 (101) 95 Nasal Cannula 3.50 10/17/20 23:10 94 Nasal Cannula 3.50 10/17/20 23:07 36.0 120 22 121/82 (95) 95 Nasal Cannula 3.50 10/17/20 22:38 97 22 102/81 98 Nasal Cannula 2.00 10/17/20 20:18 36.4 120 24 95/79 (84) Nasal Cannula 3.00 I & O 10/18/20 07:00 Intake Total 300 ml Output Total 2300 ml Balance -2000 ml Height & Weight Height: 5'0" Weight: 145lbs. 0.0oz. 65.931755ow; 29.00 BMI Method:Stated Capillary Refill: Less Than 3 Seconds Gastrointestinal: normal bowel sounds, non tender Results Lab Laboratory Tests 10/17/20 20:32 10/18/20 03:00 10/18/20 03:06 Assessment/Plan Assessment/Plan Afib RVR -Cardizem gtt -Xeralto Right pleural effusion -Echo is pending -S/p Lasix -- continue daily for now Oxygen dependent COPD -SVNs -oxygen -Pt uses 3 liters at home -Solumedrol Tobacco dependance -Education RO SCHWARTZ DO Oct 18, 2020 04:36
[2020-10-18 05:17] LABS: LYMPHOCYTES % (MANUAL) 6 %; MONOCYTES % (MANUAL) 1 %; NEUTROPHILS % (MANUAL) 93 %; RBC MORPH NORMAL
[2020-10-18] MEDS: methylPREDNISolone 40 MG/ML (Solu-MEDROL) VIAL IV SCH ×3 (05:43→17:42)
[2020-10-18] MEDS ORDERED: methylPREDNISolone 40 MG/ML (Solu-MEDROL) VIAL IV SCH (06:00)
--- NOTE | 2020-10-18 08:04 | Consultation-Cardiology ---
HPI-Cardiology Cardiology Consultation: Date of Consultation 10/18/20 Time Seen by a Provider: 08:20 Date of Admission 10-17-20 Attending Physician Brianna Garcia DO Admitting Physician [place] Consulting Physician Luther Goyal MD HPI: Chief Complaint: New onset a-fib with RVR Ms. Craven is a 60 yr old female admitted to ICU 10 with increasing SOB and new onset a-fib with RVR. She reports she for the last several days she has had increasing SOB with minimal exertion. She reports increasing bilat LE swelling. She reports she has had episodes of palpitations for years, however for the last few months the palpitations have felt like a "hard, fast beat" typically at night when she lies down, lasts for several minutes and gradually resolves. She reports she has had increasing palpitations over the last few days. She reports she has had nausea and diarrhea for the last week. She smokes 1 cig per day currently. She reports she has been oxygen dependant since being diagnosed with a PE in January 2020. She reports she has also been on Xarelto since then as well. She does report mid-sternal chest pressure, which does not radiate, occurs with strenuous exertion and relieves with rest. She reports he breathing is better this morning. Review of Systems-Cardiology Review of Systems Constitutional: No chills, No fever; tiredness Eyes: No vision change Ears/Nose/Throat: No epistaxis, No recent hearing loss Respiratory: As described under HPI Cardiovascular: As described under HPI Gastrointestinal: As described under HPI Genitourinary: No dysuria, No hematuria Musculoskeletal: no symptoms reported Skin: No rash on exposed areas, No ulcerations on exposed areas Psychiatric/Neurological: No anxiety, No depression, No seizure, No focal weakness, No syncope Hematologic: No bleeding abnormalities TUW-Cnqkqu-Khpkkp Hx Patient Social History Smoking Status: Current Everyday Smoker 2nd Hand Smoke Exposure: Yes Have you traveled recently?: No Alcohol Use?: Yes Pt feels they are or have been: No Tobacco type used: Cigarettes Immunizations Up To Date Date of Influenza Vaccine: May 25, 2020 Past Medical History PMH As described under Assessment. Family Medical History Family Medical History: She reports her father and mother both had CAD and CABG; first diagnosed in their 60's. She reports her mother had CVA. Family History: Cataracts G8 BROTHER Colon cancer Coronary thrombosis 19 FATHER Deafness or hearing loss 19 FATHER 19 MOTHER Diabetes mellitus 19 FATHER Headache disorder 19 MOTHER son Hypertension 19 FATHER 19 MOTHER G8 BROTHER Myocardial infarction 19 FATHER 19 MOTHER Neoplasm 19 MOTHER Parkinson's disease 19 MOTHER Severe allergy son Allergies and Home Medications Allergies Coded Allergies: Sulfa (Sulfonamide Antibiotics) (Verified Allergy, Unknown, 08/16/16) codeine (Verified Allergy, Unknown, Pt takes Lortab at home, 01/20/18) Home Medications Aspirin 81 Mg Tab.chew, 81 MG PO DAILY, (Reported) Cetirizine HCl 10 Mg Tablet, 10 MG PO DAILY PRN for ALLERGIES, (Reported) Doxazosin Mesylate 4 Mg Tablet, 4 MG PO DAILY, (Reported) Doxepin HCl 100 Mg Capsule, 100 MG PO HS, (Reported) Famotidine 20 Mg Tablet, 20 MG PO HS, (Reported) Hydralazine HCl 25 Mg Tablet, 25 MG PO BID, (Reported) Labetalol HCl 200 Mg Tablet, 200 MG PO BID, (Reported) Levothyroxine Sodium 150 Mcg Tablet, 150 MCG PO DAILY, (Reported) Promethazine HCl 25 Mg Tablet, 25 MG PO Q4H PRN for NAUSEA/VOMITING-2ND LINE, (Reported) Rivaroxaban 20 Mg Tablet, 20 MG PO DAILY, (Reported) LAST FILLED 07-26-2020 # DAY SUPPLY Rizatriptan Benzoate 10 Mg Tab.rapdis, 10 MG PO UD PRN for MIGRAINE, (Reported) Triamcinolone Acet 15 Gm Cr, 1 APPLIC TP BID PRN for ECZEMA, (Reported) Physical Exam-Cardiology Physical Exam Vital Signs/I&O 10/19/20 10/19/20 10/19/20 10/19/20 00:09 01:00 03:40 06:51 Temp 36.0 36.0 Pulse 89 84 91 Resp 20 20 B/P (MAP) 111/71 (84) 117/72 (87) Pulse Ox 96 96 94 O2 Delivery Nasal Cannula Nasal Cannula Nasal Cannula O2 Flow Rate 3.50 3.50 3.00 10/19/20 10/19/20 10/19/20 07:00 08:00 10:10 Temp 35.6 Pulse 115 90 Resp 20 B/P (MAP) 116/77 (90) Pulse Ox 94 O2 Delivery Nasal Cannula Nasal Cannula O2 Flow Rate 3.50 3.00 10/19/20 00:00 Intake Total 1560 ml Output Total 600 ml Balance 960 ml Capillary Refill : Less Than 3 Seconds Constitutional: AAO x 3, well-developed, well-nourished HEENT: PERRL, hearing is well preserved Neck: No carotid bruit; carotid pulses are 2 + bilaterally Respiratory: accessory muscle use, respiratory distress, chest expansion is symmetric, chest is bilaterally symmetric, rhonchi (scattered), other (prolonged expiratory phase) Cardiovascular: irregularly irregular; No JVD; S1 and S2 Gastrointestinal: No tender; soft, round, audible bowel sounds Extremities: no lower extremity edema bilateral Neurologic/Psychiatric: grossly intact (moves all extremities) Skin: No rash on exposed areas, No ulcerations on exposed areas Data Review Labs Laboratory Tests 10/19/20 04:35: White Blood Count 15.4H, Red Blood Count 3.55L, Hemoglobin 11.7, Hematocrit 34L, Mean Corpuscular Volume 97, Mean Corpuscular Hemoglobin 33, Mean Corpuscular Hemoglobin Concent 34, Red Cell Distribution Width 13.0, Platelet Count 349, Mean Platelet Volume 9.4, Immature Granulocyte % (Auto) 0, Neutrophils (%) (Auto) 89H, Lymphocytes (%) (Auto) 7L, Monocytes (%) (Auto) 4, Eosinophils (%) (Auto) 0, Basophils (%) (Auto) 0, Neutrophils # (Auto) 13.7H, Lymphocytes # (Auto) 1.1, Monocytes # (Auto) 0.5, Eosinophils # (Auto) 0.0, Basophils # (Auto) 0.0, Immature Granulocyte # (Auto) 0.1, Sodium Level 125*L, Potassium Level 4.5, Chloride Level 91L, Carbon Dioxide Level 23, Anion Gap 11, Blood Urea Nitrogen 15, Creatinine 0.88, Estimat Glomerular Filtration Rate > 60, BUN/Creatinine Ratio 17, Glucose Level 156H, Calcium Level 9.3, Corrected Calcium 9.6, Total Bilirubin 0.7, Aspartate Amino Transf (AST/SGOT) 23, Alanine Aminotransferase (ALT/SGPT) 95H, Alkaline Phosphatase 126, Total Protein 5.8L, Albumin 3.6 Radiology NAME: ORLANDO CRAVEN [facility] REC#: [id number] PT STATUS: REG ER : 1960 PHYSICIAN: CHARLIE SANTANA SAFETY EQUIPMENT TESTING SPECIALIST ADMIT DATE: 10/17/20/ER Signed Date of Exam:10/17/20 CHEST 1 VIEW, AP/PA ONLY INDICATION: Shortness of air. TECHNIQUE: Single view chest, 9:10 p.m. CORRELATION STUDY: 06/20/2020. FINDINGS: Heart size is enlarged, increased from prior. There is presence of pulmonary vascular congestion and perihilar edema. There is abnormal density of the right hilum in the infrahilar region. Elevated right diaphragm with right lung volume loss. IMPRESSION: 1. Cardiac enlargement with findings of congestive heart failure. 2. Abnormal density of the right hilum with elevated right diaphragm. While this could be underlying infiltrate or manifestation of edema, underlying mass lesion is not excluded at this time. Short-term follow-up imaging is recommended. Dictated by: Dictated on workstation # [id number] Dict: 10/17/202126 Trans: 10/17/202207 [facility] [id number] Interpreted by: SCOTT GRIMES DO Electronically signed by: SCOTT GRIMES DO 10/17/202207 ECG Impression ECG Initial ECG Impression: Atrial Fibrillation w/RVR A/P-Cardiology Assessment/Admission Diagnosis A-fib of undetermined length of time, first diagnosed on EKG of 10-17-20 in the ED, by description, may have had PAF prior OAC with Xarelto Progressive dyspnea,likely multi-factorial r/t acute on chronic exacerbation of COPD and acute on chronic diastolic CHF Acute on chronic diastolic CHF HTN Hypothyroidism - replacement tx COPD Tobaccoism - cessation advised Probable sleep apnea Echocardiogram of 02-21-20 showed LVEF 45-50%. Grade 2 diastolic dysfunction. LA mildly dilated. Mod MR. AoV sclerosis. Mod TR. PASP 70-75 mmHg H/O PE dx January 2020 - has been on Xarelto H/O right lumpectomy - non-cancerous Family h/o CAD (mother and father age 60's) GERD Discussion and Recomendations A-fib of undetermined length of time - first diagnosed on EKG in the ED on 10-17-20 Rate improved on Cardizem gtt - change out to oral Continue OAC with Xarelto (previously taking d/t PE dx in January 2020) Echocardiogram to eval structure and function Advise out pt sleep studies to eval for sleep apnea Advise further coronary eval with MPI to eval perfusion - will schedule for tomorrow Monitor lab closely Replace electrolytes as indicated Further recs will be based on her hospital course We would like to thank medical services for this consult SANDY YEUNG Oct 18, 2020 08:04
[2020-10-18] MEDS: FUROSEMIDE 40 MG/4 ML INJ (LASIX) IVP SCH (08:06)
[2020-10-18] MEDS: KCL 20 MEQ TAB (K-DUR) PO SCH (08:06)
[2020-10-18] MEDS: PANTOPRAZOLE 40 MG (PROTONIX) VIAL IV SCH ×2 (08:06→08:11)
--- NOTE | 2020-10-18 08:13 | Diagnostic Imaging Report ---
EXAMINATION: Chest radiograph, portable AP view. DATE: 10/18/2020 2:53 AM INDICATION: 60-year-old female, shortness of breath. COMPARISON: October 17, 2020. FINDINGS: There is redemonstrated and unchanged cardiomegaly. There is no identified pneumothorax. There is blunting of the right and left lateral costophrenic angles with nonspecific bibasilar airspace consolidation. This is largely unchanged since the comparison study. IMPRESSION: 1. Redemonstrated cardiomegaly with unchanged nonspecific bibasilar airspace consolidation and probable bilateral pleural effusions. Dictated by: Dictated on workstation # [id number]
[2020-10-18] MEDS ORDERED: ASPIRIN E.C. 81 MG (ECOTRIN) TAB PO SCH (09:00)
[2020-10-18] MEDS ORDERED: FAMOTIDINE 20 MG (PEPCID) TABLET PO SCH (09:00)
[2020-10-18] MEDS ORDERED: RIVA20TA PO (10:33)
[2020-10-18] MEDS ORDERED: FAMO20TA5 PO (10:33)
[2020-10-18] MEDS ORDERED: ASPI-999 PO (10:35)
--- NOTE | 2020-10-18 11:28 | History & Physical-Hospitalist ---
History of Present Illness HPI/Chief Complaint CC: New onset AF w/RVR with dyspnea HPI: This is a 60yoWF clinic patient of [facility] who has a h/o PE who presented to the ER with palpitations and SOB. AF w/RVR new onset dx. Cardiology consulted and placed on Cardizem drip. EST will be performed tomorrow. O2 dependence is chronic. Source: patient Exam Limitations: no limitations Date Seen 10/18/20 Time Seen by a Provider: 10:00 Attending Physician Brianna Garcia DO [facility] [place] Referring Physician Date of Admission Oct 17, 2020 at 21:51 Home Medications & Allergies Home Medications Reviewed patient Home Medication Reconciliation performed by pharmacy medication reconciliations meteorological technician and/or nursing. Patients Allergies have been reviewed. Allergies Allergies Coded Allergies Sulfa (Sulfonamide Antibiotics) (Verified Allergy, Unknown, 08/16/16) codeine (Verified Allergy, Unknown, Pt takes Lortab at home, 01/20/18) Past Rgiuxet-Ncofue-Ztsnrk Hx Past Med/Social Hx: Reviewed Nursing Past Med/Soc Hx, Reviewed and Corrections made Patient Social History Marrital Status: single Employed/Student: unemployed Alcohol Use: Rarely Uses Alcohol Beverage of Choice: Beer Recreational Drug Use: No Smoking Status: Current Everyday Smoker Type Used: Cigarettes 2nd Hand Smoke Exposure: Yes Recent Foreign Travel: No Contact w/other who traveled: No Recent Hopitalizations: No Recent Infectious Disease Expo: No Immunizations Up To Date Date of Influenza Vaccine: May 25, 2020 Seasonal Allergies Seasonal Allergies: No Past Medical History Surgeries: Breast, Hysterectomy, Oophorectomy, Tonsillectomy, Tubal Ligation Respiratory: COPD, Pulmonary Embolism Currently Using CPAP: No Currently Using BIPAP: No Cardiac: Hypertension Neurological: Headaches /Migraines Female 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 Disorders: Menstrual Problems Hysterectomy, Menopausal Genitourinary: Kidney Stones Gastrointestinal: Gastroesophageal Reflux Endocrine: Hypothyroidsim Loss of Vision: Denies Hearing Impairment: Denies Psychosocial: Anxiety, Depression Skin/Integumentary: Eczema History of Blood Disorders: No Adverse Reaction to Blood [place]: No Family History Cataracts G8 BROTHER Colon cancer Coronary thrombosis 19 FATHER Deafness or hearing loss 19 FATHER 19 MOTHER Diabetes mellitus 19 FATHER Headache disorder 19 MOTHER son Hypertension 19 FATHER 19 MOTHER G8 BROTHER Myocardial infarction 19 FATHER 19 MOTHER Neoplasm 19 MOTHER Parkinson's disease 19 MOTHER Severe allergy son Hypertension Review of Systems Constitutional: see HPI, malaise, weakness Respiratory: dyspnea on exertion Cardiovascular: palpitations Physical Exam Physical Exam Vital Signs Vital Signs - First Documented 10/17/20 10/17/20 20:18 22:38 Temp 36.4 Pulse 120 Resp 24 B/P (MAP) 95/79 (84) Pulse Ox 98 O2 Delivery Nasal Cannula O2 Flow Rate 3.00 Capillary Refill : Less Than 3 Seconds Height, Weight, BMI Height: 5'0" Weight: 145lbs. 0.0oz. [id number]; 29.00 BMI Method:Stated General Appearance: No Apparent Distress, Chronically ill Eyes: Right Eye Normal Inspection, Right Eye PERRL HEENT: PERRL/EOMI, Normal ENT Inspection, Pharynx Normal, Moist Mucous Membranes Neck: Full Range of Motion, Normal Inspection, Non Tender Respiratory: Chest Non Tender, Lungs Clear, No Accessory Muscle Use, No Respiratory Distress, Decreased Breath Sounds Cardiovascular: No Edema, No Gallop, No JVD, No Murmur, Normal Peripheral Pulses, Irregularly Irregular, Tachycardia Gastrointestinal: Normal Bowel Sounds, No Organomegaly, No Pulsatile Mass, Non Tender, Soft Back: Normal Inspection, No CVA Tenderness, No Vertebral Tenderness Extremity: Normal Capillary Refill, Normal Inspection, Normal Range of Motion, Non Tender, No Calf Tenderness, No Pedal Edema Neurologic/Psychiatric: Alert, Oriented x3, No Motor/Sensory Deficits, Normal Mood/Affect Skin: Normal Color, Warm/Dry Lymphatic: No Adenopathy Results Results/Procedures Labs Laboratory Tests 10/17/20 20:32 10/18/20 03:00 10/18/20 03:06 10/19/20 04:35 Patient resulted labs reviewed. Assessment/Plan Admission Diagnosis Assessment: New onset AF w/RVR Volume overload h/o PE on OAC Smoker COPD O2 dependence Plan: Home meds Cardize Cardiology O2 Admission Status: Inpatient Order (span 2 midnights) Reason for Inpatient Admission: AF with volume overload Diagnosis/Problems Diagnosis/Problems (1) New onset a-fib Status: Acute (2) CHF (congestive heart failure) Status: Acute (3) COPD exacerbation Status: Acute (4) Essential (primary) hypertension Status: Chronic (5) GERD (gastroesophageal reflux disease) Status: Chronic (6) Hypothyroidism Status: Acute (7) Eczema Status: Chronic (8) Depression Status: Chronic (9) Smoker Status: Chronic BRIANNA GARCIA DO Oct 18, 2020 11:28
[2020-10-18] MEDS ORDERED: TRIAMCINOLONE 0.1% CR (KENALOG) 15 GM TUBE TP PRN (11:30)
[2020-10-18] MEDS ORDERED: PROMETHAZINE 25 MG (PHENERGAN) TAB PO PRN (11:30)
[2020-10-18] MEDS ORDERED: LORATADINE (CLARITIN) 10 MG TAB PO PRN (11:45)
[2020-10-18] MEDS ORDERED: SUMAtriptan 50 MG (IMITREX) TAB PO PRN (12:00)
[2020-10-18 13:15] LABS: RETICULOCYTE % 3.11 % (0.50-2.40)
[2020-10-18] MEDS ORDERED: RIVAROXABAN 20 MG TABLET (XARELTO) PO SCH (17:00)
--- NOTE | 2020-10-18 18:48 | Consultation-Cardiology ---
HPI-Cardiology Cardiology Consultation: Date of Consultation 10/18/20 Time Seen by a Provider: 17:30 Date of Admission Attending Physician Brianna Garcia DO Admitting Physician [place] Consulting Physician J CARLOS GUSTAFSON MD, MA, FACP, FACC, [facility], CCDS HPI: Chief Complaint: New onset a-fib with RVR Ms. Craven is a 60 yr old female admitted to ICU 10 with increasing SOB and new onset a-fib with RVR. She reports she for the last several days she has had increasing SOB with minimal exertion. She reports increasing bilat LE swelling. She reports she has had episodes of palpitations for years, however for the last few months the palpitations have felt like a "hard, fast beat" typically at night when she lies down, lasts for several minutes and gradually resolves. She reports she has had increasing palpitations over the last few days. She reports she has had nausea and diarrhea for the last week. She smokes 1 cig per day currently. She reports she has been oxygen dependant since being diagnosed with a PE in January 2020. She reports she has also been on Xarelto since then as well. She does report mid-sternal chest pressure, which does not radiate, occurs with strenuous exertion and relieves with rest. She reports he breathing is better this morning. Review of Systems-Cardiology Review of Systems Constitutional: tiredness Eyes: No vision change Ears/Nose/Throat: No epistaxis, No recent hearing loss Respiratory: As described under HPI Cardiovascular: As described under HPI Gastrointestinal: As described under HPI Genitourinary: No dysuria, No hematuria Musculoskeletal: no symptoms reported Skin: No rash on exposed areas, No ulcerations on exposed areas Psychiatric/Neurological: No anxiety, No depression, No seizure, No focal weakness, No syncope Hematologic: No bleeding abnormalities PDK-Gijxws-Cawvza Hx Patient Social History Smoking Status: Current Everyday Smoker 2nd Hand Smoke Exposure: Yes Have you traveled recently?: No Alcohol Use?: Yes Pt feels they are or have been: No Tobacco type used: Cigarettes Immunizations Up To Date Date of Influenza Vaccine: May 25, 2020 Past Medical History PMH As described under Assessment. Family Medical History Family Medical History: She reports her father and mother both had CAD and CABG; first diagnosed in their 60's. She reports her mother had CVA. Family History: Cataracts G8 BROTHER Colon cancer Coronary thrombosis 19 FATHER Deafness or hearing loss 19 FATHER 19 MOTHER Diabetes mellitus 19 FATHER Headache disorder 19 MOTHER son Hypertension 19 FATHER 19 MOTHER G8 BROTHER Myocardial infarction 19 FATHER 19 MOTHER Neoplasm 19 MOTHER Parkinson's disease 19 MOTHER Severe allergy son Allergies and Home Medications Allergies Coded Allergies: Sulfa (Sulfonamide Antibiotics) (Verified Allergy, Unknown, 08/16/16) codeine (Verified Allergy, Unknown, Pt takes Lortab at home, 01/20/18) Home Medications Aspirin 81 Mg Tab.chew, 81 MG PO DAILY, (Reported) Cetirizine HCl 10 Mg Tablet, 10 MG PO DAILY PRN for ALLERGIES, (Reported) Doxazosin Mesylate 4 Mg Tablet, 4 MG PO DAILY, (Reported) Doxepin HCl 100 Mg Capsule, 100 MG PO HS, (Reported) Famotidine 20 Mg Tablet, 20 MG PO HS, (Reported) Hydralazine HCl 25 Mg Tablet, 25 MG PO BID, (Reported) Labetalol HCl 200 Mg Tablet, 200 MG PO BID, (Reported) Levothyroxine Sodium 150 Mcg Tablet, 150 MCG PO DAILY, (Reported) Promethazine HCl 25 Mg Tablet, 25 MG PO Q4H PRN for NAUSEA/VOMITING-2ND LINE, (Reported) Rivaroxaban 20 Mg Tablet, 20 MG PO DAILY, (Reported) LAST FILLED 07-26-2020 # DAY SUPPLY Rizatriptan Benzoate 10 Mg Tab.rapdis, 10 MG PO UD PRN for MIGRAINE, (Reported) Triamcinolone Acet 15 Gm Cr, 1 APPLIC TP BID PRN for ECZEMA, (Reported) Patient Home Medication List Home Medication List Reviewed: Yes Physical Exam-Cardiology Physical Exam Vital Signs/I&O 10/18/20 10/18/20 10/18/20 10/18/20 07:00 07:27 07:57 08:00 Temp 36.2 Pulse 76 86 Resp 30 21 B/P (MAP) 136/101 (113) 114/89 (97) Pulse Ox 96 93 96 O2 Delivery Nasal Cannula Nasal Cannula Nasal Cannula O2 Flow Rate 3.50 3.00 3.50 10/18/20 10/18/20 10/18/20 10/18/20 08:00 09:00 10:00 10:41 Pulse 89 116 Resp 16 16 B/P (MAP) 71/60 (64) Pulse Ox 95 95 97 93 O2 Delivery Nasal Cannula Nasal Cannula Nasal Cannula Nasal Cannula O2 Flow Rate 3.50 3.50 3.50 3.00 10/18/20 10/18/20 10/18/20 10/18/20 11:00 12:00 12:00 12:55 Pulse 151 108 116 Resp 15 B/P (MAP) 106/74 (85) 109/87 (94) Pulse Ox 96 94 96 O2 Delivery Nasal Cannula Nasal Cannula Nasal Cannula O2 Flow Rate 3.50 3.50 3.50 10/18/20 10/18/20 10/18/20 10/18/20 12:58 13:00 14:46 15:31 Temp 36.3 36.4 Pulse 121 118 Resp 24 19 B/P (MAP) 114/71 (85) Pulse Ox 95 93 98 O2 Delivery Nasal Cannula Nasal Cannula Nasal Cannula O2 Flow Rate 3.50 3.00 3.50 10/18/20 10/18/20 16:50 18:05 Pulse Ox 94 O2 Delivery Nasal Cannula Nasal Cannula O2 Flow Rate 3.50 3.00 Capillary Refill : Less Than 3 Seconds Constitutional: AAO x 3, well-developed, well-nourished HEENT: PERRL, hearing is well preserved Neck: carotid pulses are 2 + bilaterally Respiratory: accessory muscle use, respiratory distress, chest expansion is symmetric, chest is bilaterally symmetric, rhonchi, other Cardiovascular: irregularly irregular, S1 and S2 Gastrointestinal: soft, round, audible bowel sounds Extremities: no lower extremity edema bilateral Neurologic/Psychiatric: grossly intact Skin: No rash on exposed areas, No ulcerations on exposed areas Data Review Labs Laboratory Tests 10/17/20 20:32: White Blood Count 9.5, Red Blood Count 4.07, Hemoglobin 13.3, Hematocrit 41, Mean Corpuscular Volume 100H, Mean Corpuscular Hemoglobin 33, Mean Corpuscular Hemoglobin Concent 33, Red Cell Distribution Width 13.2, Platelet Count 399, Mean Platelet Volume 9.5, Immature Granulocyte % (Auto) 0, Neutrophils (%) (Auto) 64, Lymphocytes (%) (Auto) 17, Monocytes (%) (Auto) 15H, Eosinophils (%) (Auto) 3, Basophils (%) (Auto) 1, Neutrophils # (Auto) 6.1, Lymphocytes # (Auto) 1.6, Monocytes # (Auto) 1.4H, Eosinophils # (Auto) 0.3, Basophils # (Auto) 0.1, Immature Granulocyte # (Auto) 0.0, D-Dimer 1.48H, Sodium Level 129L, Potassium Level 4.5, Chloride Level 97L, Carbon Dioxide Level 21, Anion Gap 11, Blood Urea Nitrogen 11, Creatinine 0.84, Estimat Glomerular Filtration Rate > 60, BUN/Creatinine Ratio 13, Glucose Level 121H, Calcium Level 10.0, Corrected Calcium 10.0, Total Bilirubin 0.8, Aspartate Amino Transf (AST/SGOT) 73H, Alanine Aminotransferase (ALT/SGPT) 154H, Alkaline Phosphatase 167H, Troponin I < 0.028, B-Type Natriuretic Peptide 1064.9H, Total Protein 6.6, Albumin 4.0, Procalcitonin 0.08 10/17/20 20:34: Coronavirus 2019 (MOHAMUD) Negative 10/17/20 20:56: Blood Gas Puncture Site L RADIAL, Blood Gas Patient Temperature 98.3, Arterial Blood pH 7.39, Arterial Blood Partial Pressure CO2 39, Arterial Blood Partial Pressure O2 144H, Arterial Blood HCO3 23, Arterial Blood Total CO2 24.2, Arterial Blood Oxygen Saturation 100, Arterial Blood Base Excess -1.3, Joshua Test YES-POS, Blood Gas Ventilator Setting NO, Blood Gas Inspired Oxygen 3 L 10/18/20 03:00: Sodium Level 132L, Potassium Level 4.1, Chloride Level 98, Carbon Dioxide Level 21, Anion Gap 13, Blood Urea Nitrogen 11, Creatinine 0.78, Estimat Glomerular Fi ltration Rate > 60, BUN/Creatinine Ratio 14, Glucose Level 137H, Calcium Level 9.8, Phosphorus Level 2.9, Magnesium Level 1.8 10/18/20 03:06: White Blood Count 6.6, Red Blood Count 3.86, Hemoglobin 12.6, Hematocrit 38, Mean Corpuscular Volume 98, Mean Corpuscular Hemoglobin 33, Mean Corpuscular Hemoglobin Concent 33, Red Cell Distribution Width 13.1, Platelet Count 354, Mean Platelet Volume 9.7, Immature Granulocyte % (Auto) 1, Neutrophils (%) (Auto) 89H, Lymphocytes (%) (Auto) 8L, Monocytes (%) (Auto) 2, Eosinophils (%) (Auto) 0, Basophils (%) (Auto) 0, Neutrophils # (Auto) 5.8, Lymphocytes # (Auto) 0.5L, Monocytes # (Auto) 0.2, Eosinophils # (Auto) 0.0, Basophils # (Auto) 0.0, Immature Granulocyte # (Auto) 0.0, Neutrophils % (Manual) 93, Lymphocytes % (Manual) 6, Monocytes % (Manual) 1, Blood Morphology Comment NORMAL, Absolute Reticulocyte Count 120H, Percent Reticulocyte Count 3.11H A/P-Cardiology Assessment/Admission Diagnosis A-fib of undetermined length of time, first diagnosed on EKG of 10-17-20 in the ED, but by description, may have had PAF previously OAC with Xarelto Progressive dyspnea,likely multi-factorial r/t acute on chronic exacerbation of COPD and acute on chronic diastolic CHF Acute on chronic diastolic CHF HTN Hypothyroidism - replacement tx COPD Tobaccoism - cessation advised Probable sleep apnea Echocardiogram of 02-21-20 showed LVEF 45-50%. Grade 2 diastolic dysfunction. LA mildly dilated. Mod MR. AoV sclerosis. Mod TR. PASP 70-75 mmHg H/O PE dx January 2020 - has been on Xarelto H/O right lumpectomy - non-cancerous Family h/o CAD (mother and father age 60's) GERD Discussion and Recomendations A-fib of undetermined length of time - first diagnosed on EKG in the ED on 10-17-20 Rate improved on Cardizem gtt - change out to oral Continue OAC with Xarelto (previously taking d/t PE dx in January 2020) Echocardiogram to eval structure and function Advise out pt sleep studies to eval for sleep apnea Advise further coronary eval with MPI to eval perfusion - will schedule for tomorrow Monitor lab closely Replace electrolytes as indicated Further recs will be based on her hospital course We would like to thank Medical services for this consult J CARLOS GUSTAFSON MD FACP FAC CCDS Oct 18, 2020 18:48
[2020-10-18] MEDS: DOXEPIN 25 MG (SINEquan) CAP PO SCH (20:25)
[2020-10-18] MEDS: hydrALAZINE (APRESOLINE) 25 MG TAB PO SCH (20:26)
[2020-10-18] MEDS: FAMOTIDINE 20 MG (PEPCID) TABLET PO SCH (20:26)
[2020-10-18] MEDS: LABETALOL 200 MG (NORMODYNE) TAB PO SCH (20:26)
[2020-10-18] MEDS ORDERED: DOCUSATE SODIUM 100 MG (COLACE) CAP PO PRN (20:30)
[2020-10-18] MEDS ORDERED: CALCIUM CARBONATE 500 MG (TUMS) TAB.CHEW PO PRN (20:30)
[2020-10-18] MEDS ORDERED: ALPRAZolam 0.25 MG (XANAX) TAB PO PRN (20:30)
[2020-10-18] MEDS ORDERED: ACETAMINOPHEN 500 MG TAB (TYLENOL) PO PRN (20:30)
[2020-10-18] MEDS ORDERED: MELATONIN 3 MG TABLET PO PRN (20:30)
[2020-10-18] MEDS ORDERED: LOPERAMIDE 2 MG (IMODIUM) TABLET PO PRN (20:30)
[2020-10-18] MEDS ORDERED: ONDANSETRON 4 MG/2 ML (SDV) Z0FRAN IVP PRN (20:30)
[2020-10-18] MEDS: SENNA W/DOCUSATE (SENOKOT S) TABLET PO SCH (22:13)
[2020-10-19] MEDS: methylPREDNISolone 40 MG/ML (Solu-MEDROL) VIAL IV SCH ×5 (00:06→23:36)
[2020-10-19] MEDS: RT-ALBUTEROL/IPRATROPIUM 3 ML (DUONEB) VIAL INH SCH ×5 (01:58→18:27)
[2020-10-19 05:01] LABS: BASOPHILS % (AUTO) 0 % (0-10); EOSINOPHILS % (AUTO) 0 % (0-10); HEMATOCRIT 34 % (35-52); HEMOGLOBIN 11.7 g/dL (11.5-16.0); LYMPHOCYTES # (AUTO) 1.1 10^3/uL (1.0-4.0); LYMPHOCYTES % (AUTO) 7 % (12-44); MEAN CORPUSCULAR HEMOGLOBIN 33 pg (25-34); MEAN CORPUSCULAR HGB CONC 34 g/dL (32-36); MEAN CORPUSCULAR VOLUME 97 fL (80-99); MEAN PLATELET VOLUME 9.4 fL (9.0-12.2); MONOCYTES # (AUTO) 0.5 10^3/uL (0.0-1.0); MONOCYTES % (AUTO) 4 % (0-12); NEUTROPHILS # (AUTO) 13.7 10^3/uL (1.8-7.8); NEUTROPHILS % (AUTO) 89 % (42-75); PLATELET COUNT 349 10^3/uL (130-400); WHITE BLOOD COUNT 15.4 10^3/uL (4.3-11.0)
[2020-10-19 05:09] LABS: ALBUMIN 3.6 GM/DL (3.2-4.5); CHLORIDE 91 MMOL/L (98-107); POTASSIUM 4.5 MMOL/L (3.6-5.0)
[2020-10-19 05:10] LABS: CALCIUM 9.3 MG/DL (8.5-10.1)
[2020-10-19 05:11] LABS: GLUCOSE 156 MG/DL (70-105); TOTAL PROTEIN 5.8 GM/DL (6.4-8.2)
[2020-10-19 05:12] LABS: CARBON DIOXIDE 23 MMOL/L (21-32)
[2020-10-19 05:13] LABS: BILIRUBIN,TOTAL 0.7 MG/DL (0.1-1.0)
[2020-10-19 05:15] LABS: ALKALINE PHOSPHATASE 126 U/L (40-136); CREATININE SERUM 0.88 MG/DL (0.60-1.30)
[2020-10-19 05:16] LABS: BUN/CREATININE RATIO 17
[2020-10-19 05:18] LABS: ALANINE AMINOTRANSFERASE 95 U/L (0-55)
[2020-10-19 05:32] LABS: GFR ESTIMATED > 60
[2020-10-19 05:33] LABS: SODIUM 125 MMOL/L (135-145)
--- NOTE | 2020-10-19 05:58 | Progress Note - Hospitalist ---
Subjective HPI/CC On Admission Date Seen by Provider: Oct 19, 2020 Time Seen by Provider: 10:30 CC: New onset AF w/RVR with dyspnea HPI: This is a 60yoWF clinic patient of [facility] who has a h/o PE who presented to the ER with palpitations and SOB. AF w/RVR new onset dx. Cardiology consulted and placed on Cardizem drip. EST will be performed tomorrow. O2 dependence is chronic. Subjective/Events-last exam Patient doing better Breathing better O2 at 3L/min at home WBC 15.4 Sodium 125 so fluid restricted Has h/o hyponatremia EST today per Cards. Review of Systems General: Fatigue, Malaise Pulmonary: Dyspnea Objective Exam Vital Signs Vital Signs Date Time Temp Pulse Resp B/P (MAP) Pulse Ox O2 Delivery O2 Flow Rate FiO2 10/19/20 16:03 36.4 103 20 103/63 (76) 98 Nasal Cannula 3.00 Capillary Refill : Less Than 3 Seconds General Appearance: No Apparent Distress, WD/WN, Chronically ill Respiratory: No Accessory Muscle Use, No Respiratory Distress, Decreased Breath Sounds Cardiovascular: Regular Rate, Rhythm Neurologic/Psychiatric: Alert, Oriented x3, No Motor/Sensory Deficits, Normal Mood/Affect Results/Procedures Lab Laboratory Tests 10/19/20 04:35 Patient resulted labs reviewed. Assessment/Plan Assessment and Plan Assess & Plan/Chief Complaint Assessment: New onset AF w/RVR Volume overload h/o PE on OAC Smoker AECOPD O2 dependence 3L/min at home Hyponatremia Plan: Home meds Cardizem Cardiology O2 10/19/20: EST today Fluid restriction Diagnosis/Problems Diagnosis/Problems (1) New onset a-fib Status: Acute (2) CHF (congestive heart failure) Status: Acute (3) COPD exacerbation Status: Acute (4) Essential (primary) hypertension Status: Chronic (5) GERD (gastroesophageal reflux disease) Status: Chronic (6) Hypothyroidism Status: Acute (7) Eczema Status: Chronic (8) Depression Status: Chronic (9) Smoker Status: Chronic CHEL COMBS DO Oct 19, 2020 05:58
[2020-10-19] MEDS ORDERED: REGADENOSON 0.4 MG/5 ML SYR (LEXISCAN) IV ONE ×2 (09:00→11:42)
[2020-10-19] MEDS ORDERED: CATHETER FLUSH 10 ML SYR IV PRN (11:30)
[2020-10-19] MEDS ORDERED: dilTIAZem120 MG (CARDIZEM CD) CAP PO NR (12:30)
[2020-10-19] MEDS: PANTOPRAZOLE 40 MG (PROTONIX) VIAL IV SCH (13:35)
[2020-10-19] MEDS: hydrALAZINE (APRESOLINE) 25 MG TAB PO SCH ×2 (13:37→21:00)
[2020-10-19] MEDS: ASPIRIN 81 MG CHEW (CHILDREN'S ASA) PO SCH (13:37)
[2020-10-19] MEDS: doxAzosin 4 MG (CARDURA) TAB PO SCH (13:37)
[2020-10-19] MEDS: FUROSEMIDE 40 MG/4 ML INJ (LASIX) IVP SCH (13:37)
[2020-10-19] MEDS: RIVAROXABAN 20 MG TABLET (XARELTO) PO SCH (13:40)
[2020-10-19] MEDS: KCL 20 MEQ TAB (K-DUR) PO SCH (13:41)
[2020-10-19] MEDS: LEVOTHYROXINE 150 MCG (LEVOTHROID) TAB PO SCH (13:41)
[2020-10-19] MEDS: SENNA W/DOCUSATE (SENOKOT S) TABLET PO SCH ×2 (13:41→19:53)
[2020-10-19] MEDS: LABETALOL 200 MG (NORMODYNE) TAB PO SCH ×2 (13:51→21:00)
[2020-10-19 19:09] VITALS: BP 103/63
[2020-10-19] MEDS: DOXEPIN 25 MG (SINEquan) CAP PO SCH (19:53)
[2020-10-19] MEDS: FAMOTIDINE 20 MG (PEPCID) TABLET PO SCH (19:53)
--- NOTE | 2020-10-19 20:11 | STRESS TEST ---
DATE OF SERVICE: 10/19/2020 RESTING AND POST REGADENOSON TECHNETIUM-99M TETROFOSMIN SPECT CT IMAGING ORDERING PHYSICIAN: Yuridia Jeronimo APRN ATTENDING PHYSICIAN: Dr. Garcia. PRIMARY PHYSICIAN: [facility]. CLINICAL DIAGNOSIS: Shortness of breath, atrial fibrillation. Baseline images were carried out after injection of 10.35 mCi of technetium-99m Tetrofosmin. This was followed by 0.4 mg regadenoson and 29.4 mCi of technetium-99m Tetrofosmin for stress imaging. The electrocardiogram showed atrial fibrillation throughout the study. The electrocardiogram did not change significantly with regadenoson infusion. The patient did not report any new symptoms. Review of images at rest and following stress does not indicate any distinct perfusion defects consistent with significant myocardial ischemia or infarction. Some degree of anterior wall attenuation is seen both at rest and following regadenoson infusion. This is likely due to breast attenuation. Gated images show normal global left ventricular systolic function with normal regional wall motion, including the anterior wall of the left ventricle. Left ventricular ejection fraction is calculated to be 51%. Left ventricular end diastolic volume is 26 mL. TID is absent (1.1). CONCLUSIONS: 1. No evidence of any significant myocardial ischemia or infarction on this study. 2. Normal regional wall motion. 3. Normal global left ventricular systolic function with a calculated ejection fraction of 51%. Job ID: [id number] DocumentID: [id number] Dictated Date: 10/19/2020 16:15:44 Rail Car Repairer Date: 10/19/2020 20:11:18 Dictated By: J CARLOS GUSTAFSON MD, MA, FACP, FACC,
[2020-10-19] MEDS: ACETAMINOPHEN 500 MG TAB (TYLENOL) PO PRN (23:40)
[2020-10-20 04:56] LABS: BASOPHILS % (AUTO) 0 % (0-10); EOSINOPHILS % (AUTO) 0 % (0-10); HEMATOCRIT 37 % (35-52); HEMOGLOBIN 11.8 g/dL (11.5-16.0); LYMPHOCYTES % (AUTO) 6 % (12-44); MEAN CORPUSCULAR HEMOGLOBIN 32 pg (25-34); MEAN CORPUSCULAR HGB CONC 32 g/dL (32-36); MEAN CORPUSCULAR VOLUME 101 fL (80-99); MEAN PLATELET VOLUME 9.4 fL (9.0-12.2); MONOCYTES # (AUTO) 0.7 10^3/uL (0.0-1.0); MONOCYTES % (AUTO) 4 % (0-12); NEUTROPHILS # (AUTO) 15.4 10^3/uL (1.8-7.8); NEUTROPHILS % (AUTO) 90 % (42-75); PLATELET COUNT 375 10^3/uL (130-400); WHITE BLOOD COUNT 17.3 10^3/uL (4.3-11.0)
[2020-10-20 05:11] LABS: ALBUMIN 3.8 GM/DL (3.2-4.5)
[2020-10-20 05:12] LABS: POTASSIUM 4.8 MMOL/L (3.6-5.0)
[2020-10-20 05:13] LABS: CALCIUM 9.9 MG/DL (8.5-10.1)
[2020-10-20 05:14] LABS: TOTAL PROTEIN 6.1 GM/DL (6.4-8.2)
[2020-10-20 05:16] LABS: BILIRUBIN,TOTAL 0.5 MG/DL (0.1-1.0)
[2020-10-20 05:18] LABS: CREATININE SERUM 1.09 MG/DL (0.60-1.30)
[2020-10-20] MEDS: LEVOTHYROXINE 150 MCG (LEVOTHROID) TAB PO SCH (05:58)
[2020-10-20] MEDS: methylPREDNISolone 40 MG/ML (Solu-MEDROL) VIAL IV SCH (05:58)
[2020-10-20] MEDS: RT-ALBUTEROL/IPRATROPIUM 3 ML (DUONEB) VIAL INH SCH ×3 (06:44→15:22)
[2020-10-20] MEDS: LABETALOL 200 MG (NORMODYNE) TAB PO SCH (08:40)
[2020-10-20] MEDS: doxAzosin 4 MG (CARDURA) TAB PO SCH (08:40)
[2020-10-20] MEDS: RIVAROXABAN 20 MG TABLET (XARELTO) PO SCH (08:40)
[2020-10-20] MEDS: PANTOPRAZOLE 40 MG (PROTONIX) VIAL IV SCH (08:41)
[2020-10-20] MEDS: ASPIRIN 81 MG CHEW (CHILDREN'S ASA) PO SCH (08:41)
[2020-10-20] MEDS: FUROSEMIDE 40 MG/4 ML INJ (LASIX) IVP SCH (08:41)
[2020-10-20] MEDS: ACETAMINOPHEN 500 MG TAB (TYLENOL) PO PRN (08:41)
[2020-10-20] MEDS: hydrALAZINE (APRESOLINE) 25 MG TAB PO SCH (08:41)
[2020-10-20] MEDS: KCL 20 MEQ TAB (K-DUR) PO SCH (08:41)
[2020-10-20] MEDS: SENNA W/DOCUSATE (SENOKOT S) TABLET PO SCH (08:41)
[2020-10-20] MEDS ORDERED: methylPREDNISolone 40 MG/ML (Solu-MEDROL) VIAL IV SCH (09:00)
[2020-10-20] MEDS ORDERED: NF-NACL1GT PO (12:21)
[2020-10-20] MEDS ORDERED: POTA10TA36 PO (12:21)
[2020-10-20] MEDS ORDERED: PRED10TA22 PO (12:21)
[2020-10-20] MEDS ORDERED: DILT180C85 PO (12:21)
[2020-10-20] MEDS ORDERED: FURO-124 PO (12:21)
--- NOTE | 2020-10-20 12:28 | Discharge Summary ---
Discharge Summary Hospital Course Was the Problem List Reviewed?: Yes Problems/Dx: (1) New onset a-fib Status: Acute (2) CHF (congestive heart failure) Status: Acute (3) COPD exacerbation Status: Acute (4) Essential (primary) hypertension Status: Chronic (5) GERD (gastroesophageal reflux disease) Status: Chronic (6) Hypothyroidism Status: Acute (7) Eczema Status: Chronic (8) Depression Status: Chronic (9) Smoker Status: Chronic Hospital Course Date of Admission: Oct 17, 2020 at 21:51 Admission Diagnosis : Family Physician/Provider: Center/[facility] Date of Discharge: 10/20/20 Discharge Diagnosis: new onset AF. AECOPD, O2 dependence, hyponatremia Hospital Course: Short course after admitted for AF RVR new onset and hypoxia and hyponatremia. Patient was already on OAC for PE 3 months ago. O2 dependence with 3L/min maintained. Cardiology performed EST without reversible ischemia. Rate control meds along with OAC and prednisone taper dose along with fluid restriction and salt tablet at DC. Labs and Pending Lab Test: Laboratory Tests 10/20/20 04:28: White Blood Count 17.3H, Red Blood Count 3.67L, Hemoglobin 11.8, Hematocrit 37, Mean Corpuscular Volume 101H, Mean Corpuscular Hemoglobin 32, Mean Corpuscular Hemoglobin Concent 32, Red Cell Distribution Width 13.4, Platelet Count 375, Mean Platelet Volume 9.4, Immature Granulocyte % (Auto) 1, Neutrophils (%) (Auto) 90H, Lymphocytes (%) (Auto) 6L, Monocytes (%) (Auto) 4, Eosinophils (%) (Auto) 0, Basophils (%) (Auto) 0, Neutrophils # (Auto) 15.4H, Lymphocytes # (Auto) 1.0, Monocytes # (Auto) 0.7, Eosinophils # (Auto) 0.0, Basophils # (Auto) 0.0, Immature Granulocyte # (Auto) 0.2H, Sodium Level 128L, Potassium Level 4.8, Chloride Level 96L, Carbon Dioxide Level 20L, Anion Gap 12, Blood Urea Nitrogen 21H, Creatinine 1.09, Estimat Glomerular Filtration Rate 51, BUN/Creatinine Ratio 19, Glucose Level 162H, Calcium Level 9.9, Corrected Calcium 10.1, Total Bilirubin 0.5, Aspartate Amino Transf (AST/SGOT) 17, Alanine Aminotransferase (ALT/SGPT) 78H, Alkaline Phosphatase 131, Total Protein 6.1L, Albumin 3.8 Home Meds Active Sodium Chloride 1 Gm Tab 1 Gm PO DAILY Potassium Chloride 10 Meq Tab.er.prt 10 Meq PO DAILY Lasix (Furosemide) 40 Mg Tablet 40 Mg PO DAILY Prednisone 10 Mg Tab.ds.pk 10 Mg PO DAILY Take 6 tabs(60mg)daily,decrease by 1 tab(10MG)daily. Diltiazem 24Hr ER (Diltiazem HCl) 180 Mg Cap.er.24h 360 Mg PO DAILY Reported Aspirin 81 Mg Tab.chew 81 Mg PO DAILY Xarelto (Rivaroxaban) 20 Mg Tablet 20 Mg PO DAILY LAST FILLED 07-26-2020 # DAY SUPPLY Famotidine 20 Mg Tablet 20 Mg PO HS Doxepin HCl 100 Mg Capsule 100 Mg PO HS Triamcinolone Acetonide 0.1% Cream (Triamcinolone Acet) 15 Gm Cr 1 Applic TP BID PRN Levothyroxine Sodium 150 Mcg Tablet 150 Mcg PO DAILY Doxazosin Mesylate 4 Mg Tablet 4 Mg PO DAILY Maxalt Trigonometry Tutor (Rizatriptan Benzoate) 10 Mg Tab.rapdis 10 Mg PO UD PRN Hydralazine HCl 25 Mg Tablet 25 Mg PO BID Cetirizine HCl 10 Mg Tablet 10 Mg PO DAILY PRN Promethazine Tablet (Promethazine HCl) 25 Mg Tablet 25 Mg PO Q4H PRN Labetalol HCl 200 Mg Tablet 200 Mg PO BID Assessment/Pt Instructions [facility] 1 week Discharge Planning: <30 minutes discharge planning Discharge Physical Examination Vital Signs Vital Signs Date Time Temp Pulse Resp B/P (MAP) Pulse Ox O2 Delivery O2 Flow Rate FiO2 10/20/20 12:00 36.4 76 18 98/67 (77) 96 Nasal Cannula 3.00 General Appearance: No Apparent Distress, WD/WN, Chronically ill Respiratory: Lungs Clear Cardiovascular: Regular Rate, Rhythm Neurologic/Psychiatric: Alert, Oriented x3, No Motor/Sensory Deficits, Normal Mood/Affect Allergies: Coded Allergies: Sulfa (Sulfonamide Antibiotics) (Verified Allergy, Unknown, 08/16/16) codeine (Verified Allergy, Unknown, Pt takes Lortab at home, 01/20/18) Discharge Summary Date of Admission Oct 17, 2020 at 21:51 Date of Discharge Discharge Date: Oct 20, 2020 Admission Diagnosis Assessment: New onset AF w/RVR Volume overload h/o PE on OAC Smoker COPD O2 dependence Plan: Home meds Cardizem Cardiology O2 Discharge Diagnosis Assessment: New onset AF w/RVR Volume overload h/o PE on OAC Smoker AECOPD O2 dependence 3L/min at home Hyponatremia Plan: Home meds Cardizem Cardiology O2 10/19/20: EST today Fluid restriction (1) New onset a-fib Status: Acute (2) CHF (congestive heart failure) Status: Acute (3) COPD exacerbation Status: Acute (4) Essential (primary) hypertension Status: Chronic (5) GERD (gastroesophageal reflux disease) Status: Chronic (6) Hypothyroidism Status: Acute (7) Eczema Status: Chronic (8) Depression Status: Chronic (9) Smoker Status: Chronic CHEL COMBS DO Oct 20, 2020 12:28
--- NOTE | 2020-10-20 20:49 | Cardiology Progress Note ---
Cardiology SOAP Progress Note Subjective: no cardiac complaints Objective: I&O/Vital Signs 10/21/20 00:00 Intake Total 200 ml Output Total 1150 ml Balance -950 ml Weight (Pounds): 145 Weight (Ounces): 0.0 Weight (Calculated Kilograms): 65.513263 Constitutional: AAO x 3, well-developed, well-nourished Respiratory: accessory muscle use, respiratory distress, chest expansion is symmetric, chest is bilaterally symmetric, rhonchi, other Cardiovascular: irregularly irregular, S1 and S2 Gastrointestional: soft, round, audible bowel sounds Extremities: no lower extremity edema bilateral Neurologic/Psychiatric: grossly intact Skin: No rash on exposed areas, No ulcerations on exposed areas Results/Procedures: Labs A/P: Assessment/Dx: A-fib of undetermined length of time, first diagnosed on EKG of 10-17-20 in the ED, but by description, may have had PAF previously OAC with Xarelto Progressive dyspnea,likely multi-factorial r/t acute on chronic exacerbation of COPD and acute on chronic diastolic CHF Acute on chronic diastolic CHF HTN Hypothyroidism - replacement tx COPD Tobaccoism - cessation advised Probable sleep apnea Echocardiogram of 02-21-20 showed LVEF 45-50%. Grade 2 diastolic dysfunction. LA mildly dilated. Mod MR. AoV sclerosis. Mod TR. PASP 70-75 mmHg H/O PE dx January 2020 - has been on Xarelto H/O right lumpectomy - non-cancerous Family h/o CAD (mother and father age 60's) GERD Plan: Discussion and Recomendations A-fib of undetermined length of time - first diagnosed on EKG in the ED on 10-17-20 Rate improved on Cardizem gtt - change out to oral Continue OAC with Xarelto (previously taking d/t PE dx in January 2020) Echocardiogram to eval structure and function Advise out pt sleep studies to eval for sleep apnea Advise further coronary eval with MPI to eval perfusion - normal MPI scan Monitor lab closely Replace electrolytes as indicated Further recs will be based on her hospital course We would like to thank Medical services for this consult Thank you for your consultation. Please call me if you have any questions. Yordy Montiel MD, FACP, FACC, FSCAI, FHRS, CCDS Interventional Cardiology Cardiac Electrophysiology Vascular Medicine and Endovascular Interventions Shon MONTIEL MD Oct 20, 2020 20:49
== END 2020-10-20 18:47 | disposition home or self-care (01) | DRG 308 ==
LOC: EDUNIT# 20:12 → ER 20:14 → EDLOC 21:51 → ICU 21:51 → 4TH 10-18 15:14
PROVIDERS: ADMIT Internal Medicine; ATTEND Internal Medicine
DX: I48.0 Paroxysmal atrial fibrillation (principal); I50.33 Acute on chronic diastolic (congestive) heart failure; J44.1 Chronic obstructive pulmonary disease with (acute) exacerbation; J90 Pleural effusion, not elsewhere classified; E87.1 Hypo-osmolality and hyponatremia; F17.210 Nicotine dependence, cigarettes, uncomplicated; I11.0 Hypertensive heart disease with heart failure; G43.909 Migraine, unspecified, not intractable, without status migrainosus; K21.9 Gastro-esophageal reflux disease without esophagitis; E03.9 Hypothyroidism, unspecified; F41.9 Anxiety disorder, unspecified; F32.9 Major depressive disorder, single episode, unspecified; E87.70 Fluid overload, unspecified; G47.39 Other sleep apnea; Z79.82 Long term (current) use of aspirin; Z86.711 Personal history of pulmonary embolism; Z79.01 Long term (current) use of anticoagulants; Z99.81 Dependence on supplemental oxygen; Z88.2 Allergy status to sulfonamides; Z88.5 Allergy status to narcotic agent
CPT/HCPCS: 36415; 71045; 78452; 80048; 80053; 82728; 82805; 83735; 83880; 84100; 84145; 84439; 84443; 84484; 85007; 85025; 85027; 85045; 85379; 87635; 93005; 93017; 93306; 94640; 94760; 99291

== ENCOUNTER → 2020-12-20 | Outpatient (CLI) | payer OTHER ==
[~2020-12-20] MED LIST changes: +AMIO200T6 PO; +CATHETER FLUSH 10 ML SYR IV PRN; +DILT180C85 PO; +FAMO20TA5 PO; +FURO-124 PO; +FURO-125 PO; +HOLD METFORMIN - RECEIVED CONTRAST 20 ML VIAL IV SCH; +IOHEXOL 350 MG/ML 100 ML (OMNIPAQUE 350) VIAL IV ONE; +NF-NACL1GT PO; +NS 100 ML (IVPB) BAG IV ONE; +POTA10TA36 PO; +PRED10TA22 PO; +RIVA20TA PO
[2020-12-20 09:17] LABS: BUN/CREATININE RATIO 15; CREATININE SERUM 0.86 MG/DL (0.60-1.30); GFR ESTIMATED > 60
--- NOTE | 2020-12-20 09:59 | Diagnostic Imaging Report ---
EXAMINATION: CT chest with intravenous contrast. TECHNIQUE: Multiple contiguous axial images were obtained through the chest after the uneventful administration of intravenous contrast. All CT scans use one or more of the following dose optimizing techniques: automated exposure control, MA and/or KvP adjustment based on patient size and exam type or iterative reconstruction. HISTORY: Pneumonia COMPARISON: 11/04/2020 FINDINGS: Previously seen right base consolidation has nearly completely resolved with a small amount of atelectasis or scarring remaining in the right middle lobe. There is mild septal line thickening throughout the lungs consistent with mild edema.. No pleural effusion. No pneumothorax. No suspicious nodules. There is no axillary or supraclavicular lymphadenopathy. There are mildly enlarged mediastinal lymph nodes which have decreased in size from prior exam and are likely reactive. There is a small right-sided fat-containing Bochdalek hernia. Pulmonary artery is dilated suggestive of pulmonary hypertension. There are mild coronary artery calcifications. No pericardial effusion. Aorta is normal in caliber. Limited views of the upper abdomen are unremarkable. There are no suspicious osseus lesions. IMPRESSION: 1. Near complete resolution of right lower lobe pneumonia. 2. Mild septal line thickening throughout both lungs consistent with mild edema. Dictated by: Dictated on workstation # [id number]
== END ==
LOC: RAD 09:45
PROVIDERS: ATTEND Nurse Practitioner Family
DX: J18.9 Pneumonia, unspecified organism (principal); J84.89 Other specified interstitial pulmonary diseases
CPT/HCPCS: 36415; 71260; 82565; 84520

== ENCOUNTER 2021-05-19 16:21 | Emergency (ER) | payer OTHER ==
[~2021-05-19] VITALS: Ht 155 cm; Wt 63.5 kg
[~2021-05-19 16:21] MED LIST changes: -CATHETER FLUSH 10 ML SYR IV PRN; -HOLD METFORMIN - RECEIVED CONTRAST 20 ML VIAL IV SCH; -IOHEXOL 350 MG/ML 100 ML (OMNIPAQUE 350) VIAL IV ONE; -NS 100 ML (IVPB) BAG IV ONE
--- NOTE | 2021-05-19 16:53 | ED Head Injury ---
General Stated Complaint: HEADACHES/CONFUSION/PREV HEAD INJ Source: patient, family Exam Limitations: clinical condition History of Present Illness Date Seen by Provider: May 19, 2021 Time Seen by Provider: 16:41 Initial Comments This is a 61-year-old female who presented to the ER via POV with her daughter for headache. States that she fell approximately 2 weeks ago off her porch and hit the back of her head on the cement concrete. Reports no lacerations or injury at that time. Has persistent headache since the fall and has been taking ibuprofen, Tylenol, her migraine medication with no relief. States that pain has progressively worsened over the course and was "unbearable" yesterday. Today daughter states that she was walking around the house and having to use furniture as she was unsteady and appears more confused. Has been trying to get her to come to the emergency department all day and patient finally decided this evening to be checked out. She does take Xarelto, aspirin, taking as needed ibuprofen. Allergies and Home Medications Allergies Coded Allergies: Sulfa (Sulfonamide Antibiotics) (Verified Allergy, Unknown, 08/16/16) codeine (Verified Allergy, Unknown, Pt takes Lortab at home, 01/20/18) Patient Home Medication List Home Medication List Reviewed: Yes Amiodarone HCl (Amiodarone HCl) 200 Mg Tablet, 400 MG PO BID Prescribed by: BRIAN CASTILLO on 11/07/20 1107 Aspirin (Aspirin) 81 Mg Tab.chew, 81 MG PO DAILY, (Reported) Entered as Reported by: ALBERTO MONTIEL on 10/18/20 1035 Cetirizine HCl (Cetirizine HCl) 10 Mg Tablet, 10 MG PO DAILY PRN for ALLERGIES, (Reported) Entered as Reported by: MIKE FONTENOT on 12/22/17 1452 Doxepin HCl (Doxepin HCl) 100 Mg Capsule, 100 MG PO HS, (Reported) Entered as Reported by: SUSAN LAEK on 02/20/20 1613 Famotidine (Famotidine) 20 Mg Tablet, 20 MG PO HS, (Reported) Entered as Reported by: ALBERTO MONTIEL on 10/18/20 1033 Furosemide (Lasix) 20 Mg Tablet, 20 MG PO DAILY Prescribed by: BRIAN CASTILLO on 11/07/20 1107 Hydralazine HCl (Hydralazine HCl) 25 Mg Tablet, 25 MG PO BID, (Reported) Entered as Reported by: MIKE FONTENOT on 12/22/17 1457 Levothyroxine Sodium (Levothyroxine Sodium) 150 Mcg Tablet, 150 MCG PO DAILY, (Reported) Entered as Reported by: SUSAN LAKE on 02/20/20 1613 Promethazine HCl (Promethazine Tablet) 25 Mg Tablet, 25 MG PO Q4H PRN for NAUSEA/VOMITING-2ND LINE, (Reported) Entered as Reported by: MIKE FONTENOT on 12/22/17 1452 Rivaroxaban (Xarelto) 20 Mg Tablet, 20 MG PO DAILY, (Reported) Entered as Reported by: ALBERTO MONTIEL on 10/18/20 1033 Rizatriptan Benzoate (Maxalt Cadmium Liquor Maker) 10 Mg Tab.rapdis, 10 MG PO UD PRN for MIGRAINE, (Reported) Entered as Reported by: MIKE FONTENOT on 01/21/18 0934 Triamcinolone Acet (Triamcinolone Acetonide 0.1% Cream) 15 Gm Cr, 1 APPLIC TP BID PRN for ECZEMA, (Reported) Entered as Reported by: SUSAN LAKE on 02/20/20 1613 Review of Systems Review of Systems Constitutional: dizziness Eyes: No Symptoms Reported Ears, Nose, Mouth, Throat: no symptoms reported Respiratory: no symptoms reported Cardiovascular: no symptoms reported Gastrointestinal: no symptoms reported Genitourinary: no symptoms reported Musculoskeletal: see HPI Skin: no symptoms reported Psychiatric/Neurological: No Symptoms Reported, Headache Endocrine: No Symptoms Reported Hematologic/Lymphatic: No Symptoms Reported Past Zijrvdp-Qkvyah-Qugjvl Hx Seasonal Allergies Seasonal Allergies: No Past Medical History Surgeries: Yes (HYST/BSO; RIGHT BREAST BIOPSY/BENIGN LUMPECTOMY; ) Breast, Hysterectomy, Oophorectomy, Tonsillectomy, Tubal Ligation Respiratory: Yes (WEARS OXYGEN AT HOME AT 3 LPM VIA NASAL CANNULA) COPD Currently Using CPAP: No Currently Using BIPAP: No Cardiac: Yes Atrial Fibrillation, Hypertension Neurological: Yes Headaches /Migraines Female 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 Disorders: Menstrual Problems 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, 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 Genitourinary: Yes Kidney Stones Gastrointestinal: Yes Gastroesophageal Reflux Musculoskeletal: No Endocrine: Yes Hypothyroidsim HEENT: No Loss of Vision: Denies Hearing Impairment: Denies Cancer: No Psychosocial: Yes Anxiety, Depression Integumentary: Yes Eczema Blood Disorders: No Adverse Reaction/Blood Tranf: No Family Medical History Cataracts G8 BROTHER Colon cancer Coronary thrombosis 19 FATHER Deafness or hearing loss 19 FATHER 19 MOTHER Diabetes mellitus 19 FATHER Headache disorder 19 MOTHER son Hypertension 19 FATHER 19 MOTHER G8 BROTHER Myocardial infarction 19 FATHER 19 MOTHER Neoplasm 19 MOTHER Parkinson's disease 19 MOTHER Severe allergy son Hypertension HTN Physical Exam Vital Signs Vital Signs - First Documented 05/19/21 16:28 Temp 36.9 Pulse 54 Resp 24 B/P (MAP) 200/99 (132) Pulse Ox 98 O2 Delivery Room Air Capillary Refill : Height, Weight, BMI Height: 5'0" Weight: 145lbs. 0.0oz. [id number]; 182.74 BMI Method:Stated General Appearance: WD/WN, no apparent distress HEENT: PERRL/EOMI, normal ENT inspection, TMs normal Neck: supple, normal inspection, tender midline Cardiovascular: normal peripheral pulses, regular rate, rhythm, no murmur Respiratory: lungs clear, normal breath sounds, no respiratory distress, no accessory muscle use Gastrointestinal: normal bowel sounds, non tender, soft Extremities: normal range of motion, non-tender, normal inspection, no pedal edema, no calf tenderness Psychiatric: alert, other (oriented to person only ) Crainal Nerves: normal hearing, normal speech, PERRL; No abnormal eye position, No facial asymmetry, No facial droop, No facial paresthesias, No facial weakness, No hearing deficit (R), No hearing deficit (L), No tongue deviation to R, No tongue deviation to L Coordination/Gait: normal finger to nose Motor/Sensory: no motor deficit, no sensory deficit, no pronator drift Skin: normal color, warm/dry [place] Coma Score Best Eye Response: (4) Open Spontaneously Best Verbal Response: (4) Confused Conversation Best Motor Response: (6) Obeys Commands [place] Total: 14 Progress/Results/Core Measures Results/Orders Lab Results Laboratory Tests Test 05/19/21 16:40 05/19/21 17:40 Range/Units White Blood Count 14.8 H 4.3-11.0 10^3/uL Red Blood Count 5.20 H 3.80-5.11 10^6/uL Hemoglobin 17.4 H 11.5-16.0 g/dL Hematocrit 49 35-52 % Mean Corpuscular Volume 94 80-99 fL Mean Corpuscular Hemoglobin 34 25-34 pg Mean Corpuscular Hemoglobin Concent 36 32-36 g/dL Red Cell Distribution Width 13.5 10.0-14.5 % Platelet Count 371 130-400 10^3/uL Mean Platelet Volume 9.8 9.0-12.2 fL Immature Granulocyte % (Auto) 0 % Neutrophils (%) (Auto) 83 H 42-75 % Lymphocytes (%) (Auto) 9 L 12-44 % Monocytes (%) (Auto) 8 0-12 % Eosinophils (%) (Auto) 0 0-10 % Basophils (%) (Auto) 0 0-10 % Neutrophils # (Auto) 12.2 H 1.8-7.8 10^3/uL Lymphocytes # (Auto) 1.3 1.0-4.0 10^3/uL Monocytes # (Auto) 1.2 H 0.0-1.0 10^3/uL Eosinophils # (Auto) 0.0 0.0-0.3 10^3/uL Basophils # (Auto) 0.0 0.0-0.1 10^3/uL Immature Granulocyte # (Auto) 0.0 0.0-0.1 10^3/uL Neutrophils % (Manual) 81 % Lymphocytes % (Manual) 10 % Monocytes % (Manual) 9 % Blood Morphology Comment NORMAL Prothrombin Time 16.4 H 12.2-14.7 SEC INR Comment 1.3 0.8-1.4 Sodium Level 132 L 135-145 MMOL/L Potassium Level 3.4 L 3.6-5.0 MMOL/L Chloride Level 93 L 98-107 MMOL/L Carbon Dioxide Level 24 21-32 MMOL/L Anion Gap 15 H 5-14 MMOL/L Blood Urea Nitrogen 14 7-18 MG/DL Creatinine 1.17 0.60-1.30 MG/DL Estimat Glomerular Filtration Rate 47 BUN/Creatinine Ratio 12 Glucose Level 128 H 70-105 MG/DL Calcium Level 11.7 H 8.5-10.1 MG/DL Corrected Calcium 8.5-10.1 MG/DL Total Bilirubin 1.5 H 0.1-1.0 MG/DL Aspartate Amino Transf (AST/SGOT) 21 5-34 U/L Alanine Aminotransferase (ALT/SGPT) 21 0-55 U/L Alkaline Phosphatase 126 40-136 U/L Total Protein 7.6 6.4-8.2 GM/DL Albumin 4.6 H 3.2-4.5 GM/DL Urine Color YELLOW Urine Clarity CLEAR Urine pH 6.5 5-9 Urine Specific [place] <=1.005 1.016-1.022 Urine Protein 1+ H NEGATIVE Urine Glucose (UA) NEGATIVE NEGATIVE Urine Ketones NEGATIVE NEGATIVE Urine Nitrite NEGATIVE NEGATIVE Urine Bilirubin NEGATIVE NEGATIVE Urine Urobilinogen 0.2 < = 1.0 MG/DL Urine Leukocyte Esterase TRACE H NEGATIVE Urine RBC (Auto) NEGATIVE NEGATIVE Urine RBC NONE /HPF Urine WBC 0-2 /HPF Urine Crystals PRESENT H /LPF Urine Amorphous Sediment RARE DUDLEY URATES H /LPF Urine Bacteria TRACE /HPF Urine Casts NONE /LPF Urine Mucus NEGATIVE /LPF Urine Culture Indicated NO My Orders Orders - [facility] Ua Culture If Indicated (05/19/21 16:29) Ct Head/Cervical Spine Wo (05/19/21 16:46) Cbc With Automated Diff (05/19/21 16:46) Comprehensive Metabolic Panel (05/19/21 16:46) Protime With Inr (05/19/21 16:46) Manual Differential (05/19/21 16:40) Ns Iv 1000 Ml (Sodium Chloride 0.9%) (05/19/21 18:00) Hydralazine Injection (Apresoline Inject (05/19/21 18:00) Fentanyl Inj (Sublimaze Injection) (05/19/21 18:15) Fentanyl Inj (Sublimaze Injection) (05/19/21 19:00) Medications Given in ED Current Medications Medications Dose Ordered Sig/Elsa Route Start Time Stop Time Status Last Admin Dose Admin Fentanyl Citrate 25 mcg ONCE ONCE IVP 05/19/21 18:15 05/19/21 18:16 DC 05/19/21 18:07 25 MCG Fentanyl Citrate 50 mcg ONCE ONCE IVP 05/19/21 19:00 05/19/21 19:01 DC 05/19/21 19:01 50 MCG Hydralazine HCl 10 mg ONCE ONCE IV 05/19/21 18:00 05/19/21 18:01 DC 05/19/21 17:55 10 MG Sodium Chloride 1,000 ml @ 999 mls/hr Q1H ONCE IV 05/19/21 18:00 05/19/21 19:00 DC 05/19/21 17:56 999 MLS/HR Vital Signs/I&O 05/19/21 16:28 Temp 36.9 Pulse 54 Resp 24 B/P (MAP) 200/99 (132) Pulse Ox 98 O2 Delivery Room Air Departure Impression Primary Impression: Dehydration Additional Impressions: Hypertension Headache Departure-Patient Inst. Decision time for Depature: 19:07 Referrals: [facility] (PCP/Family) Primary Care Physician Patient Instructions: Headache, Adult (DC), High Blood Pressure ED Add. Discharge Instructions: Plan: 1. Follow up with your doctor next week. Please call to schedule appointment. 2. Monitor your blood pressure at home and keep a log. You may need to discuss restarting your blood pressure medication. 3. Drink plenty of fluids. 4. If you fall or have head injury you should be evaluated as you currently take Xarelto and Aspirin which may cause to you bleed easier. 5. Return for any new, concerning, or worsening symptoms. [facility] May 19, 2021 16:53
[2021-05-19 17:01] LABS: BASOPHILS % (AUTO) 0 % (0-10); EOSINOPHILS % (AUTO) 0 % (0-10); HEMATOCRIT 49 % (35-52); HEMOGLOBIN 17.4 g/dL (11.5-16.0); LYMPHOCYTES # (AUTO) 1.3 10^3/uL (1.0-4.0); LYMPHOCYTES % (AUTO) 9 % (12-44); MEAN CORPUSCULAR HEMOGLOBIN 34 pg (25-34); MEAN CORPUSCULAR HGB CONC 36 g/dL (32-36); MEAN CORPUSCULAR VOLUME 94 fL (80-99); MEAN PLATELET VOLUME 9.8 fL (9.0-12.2); MONOCYTES # (AUTO) 1.2 10^3/uL (0.0-1.0); MONOCYTES % (AUTO) 8 % (0-12); NEUTROPHILS # (AUTO) 12.2 10^3/uL (1.8-7.8); NEUTROPHILS % (AUTO) 83 % (42-75); PLATELET COUNT 371 10^3/uL (130-400); WHITE BLOOD COUNT 14.8 10^3/uL (4.3-11.0)
[2021-05-19 17:05] LABS: ALBUMIN 4.6 GM/DL (3.2-4.5); CHLORIDE 93 MMOL/L (98-107)
[2021-05-19 17:06] LABS: INR 1.3 (0.8-1.4); POTASSIUM 3.4 MMOL/L (3.6-5.0); PROTHROMBIN TIME PATIENT 16.4 SEC (12.2-14.7); SODIUM 132 MMOL/L (135-145)
[2021-05-19 17:07] LABS: CALCIUM 11.7 MG/DL (8.5-10.1)
[2021-05-19 17:08] LABS: GLUCOSE 128 MG/DL (70-105); TOTAL PROTEIN 7.6 GM/DL (6.4-8.2)
[2021-05-19 17:09] LABS: CARBON DIOXIDE 24 MMOL/L (21-32)
[2021-05-19 17:10] LABS: BILIRUBIN,TOTAL 1.5 MG/DL (0.1-1.0)
[2021-05-19 17:11] LABS: ALKALINE PHOSPHATASE 126 U/L (40-136); CREATININE SERUM 1.17 MG/DL (0.60-1.30); GFR ESTIMATED 47
[2021-05-19 17:12] LABS: BUN/CREATININE RATIO 12
[2021-05-19 17:14] LABS: ALANINE AMINOTRANSFERASE 21 U/L (0-55)
--- NOTE | 2021-05-19 17:29 | Diagnostic Imaging Report ---
PROCEDURE: CT head and CT cervical spine without contrast. TECHNIQUE: Multiple contiguous axial images were obtained through the brain and cervical spine without the use of intravenous contrast. Sagittal and coronal reformations through the cervical spine were then performed. Auto Exposure Controls were utilized during the CT exam to meet ALARA standards for radiation dose reduction. INDICATION: Dizziness and confusion. History of prior head injury. COMPARISON: Previous CT of the head from August 16, 2016. FINDINGS: CT of the head demonstrates no evidence of an acute intracranial abnormality. There is a small focus of low attenuation within the subcortical aspect of the right frontal lobe compatible with the previous small infarct or region of gliosis which is unchanged from the prior exam. There appear to be some minimal microvascular changes in the deep white matter. There is no new territorial loss of burgos-white differentiation. There are no findings of acute hemorrhage. There is no intracranial mass effect or shift. There is no hydrocephalus. There is no extra-axial collection. The basilar cisterns are patent. The posterior fossa demonstrates no acute process. There are no findings of a calvarial fracture. The mastoids are clear. The paranasal sinuses are clear. The orbital contents are unremarkable. Cervical spine demonstrates mild straightening of the cervical lordosis. There are appropriate relationships at the craniocervical junction. The facets are normally aligned. There are no findings of facet joint or disc space widening. There are multilevel degenerative endplate changes most advanced at C5-C6 and C6-C7. There is also multilevel facet arthropathy. There are no findings of an acute cervical spine fracture or evidence to suggest high-grade cervical canal stenosis. Soft tissues of the neck demonstrate no acute process or other atherosclerotic calcifications at the carotid bifurcations. The lung apices are clear IMPRESSION: 1. Stable CT appearance of the head. There are no CT findings of an acute intracranial abnormality. There are minimal microvascular changes. There is a small region of remote gliosis or evidence of malacia from the right frontal lobe unchanged from previous exam. 2. Background degenerative features within the cervical spine without findings of an acute cervical spine fracture or traumatic malalignment. Dictated by: Dictated on workstation # [id number]
[2021-05-19 17:46] LABS: LYMPHOCYTES % (MANUAL) 10 %; MONOCYTES % (MANUAL) 9 %; NEUTROPHILS % (MANUAL) 81 %; RBC MORPH NORMAL
[2021-05-19 17:51] LABS: BILIRUBIN,URINE NEGATIVE (NEGATIVE); CLARITY,URINE CLEAR; COLOR,URINE YELLOW; GLUCOSE, URINE (UA) NEGATIVE (NEGATIVE); KETONES,URINE NEGATIVE (NEGATIVE); LEUKOCYTE ESTERASE ,URINE TRACE (NEGATIVE); NITRITE,URINE NEGATIVE (NEGATIVE); PH,URINE 6.5 (5-9); PROTEIN,URINE 1+ (NEGATIVE)
[2021-05-19] MEDS ORDERED: hydrALAZINE (APESOLINE) 20 MG/ML VIAL IV ONE (18:00)
[2021-05-19] MEDS ORDERED: NS IV 1000 ML 1,000 ML IV ONE (18:00)
[2021-05-19 18:04] LABS: AMORPHOUS SEDIMENT,UR RARE AMOR URATES /LPF; BACTERIA,URINE TRACE /HPF; WBC,URINE 0-2 /HPF
[2021-05-19] MEDS ORDERED: fentaNYL INJ 100 MCG/2 ML AMP IVP ONE ×2 (18:15→19:00)
[2021-05-19 19:13] VITALS: BP 175/88
[2021-05-19] MEDS ORDERED: ACETAMINOPHEN 500 MG TAB (TYLENOL) PO ONE (19:45)
== END 2021-05-19 19:13 | disposition home or self-care (01) ==
LOC: EDUNIT# 16:21 → ER 16:23
DX: E86.0 Dehydration (principal); I10 Essential (primary) hypertension; R51.9 Headache, unspecified; J44.9 Chronic obstructive pulmonary disease, unspecified; I48.91 Unspecified atrial fibrillation; K21.9 Gastro-esophageal reflux disease without esophagitis; E03.9 Hypothyroidism, unspecified; F41.9 Anxiety disorder, unspecified; Z79.82 Long term (current) use of aspirin; Z79.899 Other long term (current) drug therapy; Z79.890 Hormone replacement therapy; Z79.01 Long term (current) use of anticoagulants
CPT/HCPCS: 36415; 70450; 72125; 80053; 81000; 85007; 85027; 85610; 93041

== ENCOUNTER 2021-10-24 07:54 | Outpatient (CLI) | payer OTHER ==
[~2021-10-24] VITALS: Ht 154.9 cm; Wt 63.6 kg
[~2021-10-24 07:54] MED LIST changes: -AMIO200T6 PO; +AMIO200T65 PO; +CLIN-144 PO; -CLIN300C12 PO; -POTA10TA36 PO; +POTA10TA37 PO
[2021-10-30] MEDS ORDERED: LISI40TA9 PO (15:28)
[2021-10-30] MEDS ORDERED: FLEC50TA PO (15:28)
[2021-10-30] MEDS ORDERED: [UNRECOGNIZED DRUG - OTHER] (15:28)
[2021-10-30] MEDS ORDERED: DOXA2TAB2 PO (15:28)
[2021-10-30] MEDS ORDERED: MTP100TCR PO (15:28)
== END 2021-10-30 15:32 | disposition home or self-care (01) ==
LOC: PREOP 07:54
PROVIDERS: ATTEND Specialist
DX: Z01.818 Encounter for other preprocedural examination (principal)

== ENCOUNTER 2021-11-15 07:00 | Day surgery (SDC) | payer OTHER ==
[~2021-11-15] VITALS: Ht 154.9 cm; Wt 63.6 kg
[~2021-11-15 07:00] MED LIST changes: +DOXA2TAB2 PO; +FLEC50TA PO; +LISI40TA9 PO; +MTP100TCR PO; +[UNRECOGNIZED DRUG - OTHER]
[2021-11-15] MEDS ORDERED: TROPICAMIDE 1% OPH SOLN (MYDRIACYL) 15 ML BTL OU PRN (07:15)
[2021-11-15] MEDS ORDERED: TETRACAINE 0.5% OPHTH SOLN 4 ML BTL (SINGLE DOSE ONLY) OU PRN (07:15)
[2021-11-15] MEDS ORDERED: PHENYLEPHRINE 10% OPHTH (NEO-SYN) 5 ML BTL OU PRN (07:15)
[2021-11-15 07:25] VITALS: BP 160/123
--- NOTE | 2021-11-15 08:21 | Ophthalmologist Pre-Op Note ---
Pre-Operative Progress Note H&P Reviewed The H&P was reviewed, patient examined and no changes noted. Date H&P Reviewed: Nov 15, 2021 Time H&P Reviewed: 08:03 Pre-Op Dx Secondary Cataract, Right Eye ORLANDO HONG MD Nov 15, 2021 08:21
--- NOTE | 2021-11-15 08:22 | Ophthalmology Operative Report ---
YAG Capsulotomy PREOPERATIVE DIAGNOSIS: Secondary Cataract Right Eye POSTOPERATIVE DIAGNOSIS: Secondary Cataract Right Eye PROCEDURE: YAG Capsulotomy, right eye SURGEON: Levi Hong ANESTHESIA: Topical anesthesia COMPLICATIONS: None ESTIMATED BLOOD LOSS: Minimal DESCRIPTION OF PROCEDURE: After proper informed consent was obtained, the patient's, a 61 female, right eye received one drop of Tropicamide and one drop of Tetracaine. The patient was then placed at the YAG laser and using a power of [ 4.0] millijoules and [ 19] bursts were used to fashion a central capsulotomy. The patient tolerated the procedure well without complications. LEVI HONG MD Nov 15, 2021 08:22
== END 2021-11-15 08:07 | disposition home or self-care (01) ==
LOC: SDC 07:00
PROVIDERS: ATTEND Specialist
DX: H26.40 Unspecified secondary cataract (principal); F17.200 Nicotine dependence, unspecified, uncomplicated

== ENCOUNTER 2022-04-03 05:32 | Outpatient (CLI) | payer OTHER ==
[~2022-04-03] VITALS: Ht 154.9 cm; Wt 60.2 kg
[~2022-04-03 05:32] MED LIST changes: +LABE200T10 PO; -LABE200T7 PO; +POTA-177 PO; -POTA10TA37 PO
[2022-04-03] MEDS ORDERED: FURO20TA4 PO (12:30)
[2022-04-03] MEDS ORDERED: LEVO125T6 PO (12:30)
[2022-04-03] MEDS ORDERED: METO200T48 PO (12:30)
== END 2022-04-03 12:33 | disposition home or self-care (01) ==
LOC: PREOP 05:32
PROVIDERS: ATTEND Surgery
DX: Z01.818 Encounter for other preprocedural examination (principal)

== ENCOUNTER → 2022-04-07 | Outpatient (CLI) | payer OTHER ==
[~2022-04-07] MED LIST changes: +FURO20TA4 PO; +METO200T48 PO; +RT-ALBUTEROL SULF 2.5 MG/3 ML PRE-MIX VIAL INH ONE
== END ==
LOC: RT 10:45
PROVIDERS: ATTEND Nurse Practitioner Family
DX: J44.9 Chronic obstructive pulmonary disease, unspecified (principal)
CPT/HCPCS: 94060; 94726; 94729

== ENCOUNTER 2022-04-10 08:56 | Day surgery (SDC) | payer OTHER ==
[~2022-04-10] VITALS: Ht 155 cm; Wt 60.2 kg
[~2022-04-10 08:56] MED LIST changes: -RT-ALBUTEROL SULF 2.5 MG/3 ML PRE-MIX VIAL INH ONE
[2022-04-10] MEDS ORDERED: LACTATED RINGERS 1,000 ML IV STA ×2 (08:58→09:50)
[2022-04-10 09:25] VITALS: BP 189/124
[2022-04-10 09:43] VITALS: BP 189/137
[2022-04-10] MEDS ORDERED: hydrALAZINE (APESOLINE) 20 MG/ML VIAL IV ONE (09:45)
[2022-04-10 09:55] VITALS: BP 185/89
[2022-04-10] MEDS ORDERED: HURRICAINE EXT TUBE (BENZOCAINE) XX PRN (10:00)
--- NOTE | 2022-04-10 10:14 | Progress Note-Pre Operative ---
Pre-Operative Progress Note Date of Available H&P: Apr 01, 2022 Date H&P Reviewed: Apr 10, 2022 Time H&P Reviewed: 10:11 History & Physical: H&P Reviewed, Patient Examed, No changes noted Pre-Operative Diagnosis: Hx of polyp RABIA MORA DO Apr 10, 2022 10:14
[2022-04-10] MEDS ORDERED: PROPOFOL INJECTION 50 ML IV ONE (10:28)
[2022-04-10 11:05] VITALS: BP 97/59
--- NOTE | 2022-04-10 11:09 | Progress Note-Post Operative ---
Post-Operative Progess Note Surgeon (s)/Shredding Specialist (s) Surgeon RABIA MORA DO Shredding Specialist: Anderson Sifuentes, MSIII Pre-Operative Diagnosis Hx of polyp Post-Operative Diagnosis polyps int hemorrhoids Procedure & Operative Findings Date of Procedure 04/10/22 Procedure Performed/Findings Colonoscopy with snare Colonoscopy with cold biopsy PROCEDURE NOTE: After informed consent was obtained, the patient was brought to the endoscopy suite, placed in bed in left lateral decubitus position. She was administered IV sedation by the AUTO DAMAGE APPRAISER who then monitored her vitals the entire time, heart rate, blood pressure and pulse ox and the scope was inserted, pushed all the way to about 140 cm and pushed into the cecum; was then able to reduce the loop and I was at 90cm. On the way in I found two large polyps in the descending colon that I removed with snare polypectomy. In the cecum found another large polyp and also removed it with the snare. I took a picture of appendiceal orifice and then slowly withdrew the scope insufflating to look circumferentially at the arthur starting in the cecum and up the ascending colon. In the ascending colon found a very small polyp; would not have been able to snare and therefore, did a cold biopsy. With the cold biopsy I was able to remove it completely in one bite. Continued up to the hepatic flexure, then down the transverse colon, to the splenic flexure, into the descending colon and down into the sigmoid. Finally into the rectal vault where I retroflexed the scope and took a picture of the internal hemorrhoids. The patient tolerated the procedure. She was recovered in endoscopy suite. Recommended for repeat colonoscopy in 3 years. Anesthesia Type IV sedation by AUTO DAMAGE APPRAISER Estimated Blood Loss Estimated blood loss (mL): scant Specimens/Packing Specimens Removed desc colon polyp x 2 asc colon polyp cecal polyp RABIA MORA DO Apr 10, 2022 11:09
[2022-04-10 11:10] VITALS: BP 109/72
--- NOTE | 2022-04-10 11:11 | Endoscopy Discharge Instruct ---
Endo Procedure/Findings Findings 1.: Polyp 2.: Internal Hemorrhoids Discharge Instructions - Activity: You might feel a little sleepy until tomorrow. This is due to the medicine you received to relax you. Until tomorrow, you should: NOT drive a car, operate machinery or power tools. NOT drink any alcoholic beverages. NOT make any important decisions or sign importortant papers. Do not return to work until tomorrow, unless otherwise instructed. Resume previous activities tomorrow. Diet: Start by taking liquids. If you tolerate liquids, advance to solid food. 1.: Colonscopy in 3 years Notify Physician - If you experience excessive bleeding, unusual abdominal pain, fever, or chest pain, contact your doctor immediately. RABIA MORA DO Apr 10, 2022 11:11
[2022-04-10 11:35] VITALS: BP 133/83
--- NOTE | 2022-04-10 11:53 | Anesthesia-General Post-Op ---
MAC Patient Condition Mental Status/LOC: Same as Preop Cardiovascular: Satisfactory Nausea/Vomiting: Absent Respiratory: Satisfactory Pain: Controlled Complications: Absent Post Op Complications Complications None Follow Up Care/Instructions Patient Instructions None needed. Anesthesiology Discharge Order Discharge Order Patient is doing well, no complaints, stable vital signs, no apparent adverse anesthesia problems. No complications reported per nursing. JC RICE CRNA Apr 10, 2022 11:53
== END 2022-04-10 11:50 | disposition home or self-care (01) ==
LOC: ENDO 08:56
PROVIDERS: ATTEND Surgery
DX: Z12.11 Encounter for screening for malignant neoplasm of colon (principal); D12.0 Benign neoplasm of cecum; D12.2 Benign neoplasm of ascending colon; D12.4 Benign neoplasm of descending colon; K63.5 Polyp of colon; K64.8 Other hemorrhoids; F17.210 Nicotine dependence, cigarettes, uncomplicated; Z79.01 Long term (current) use of anticoagulants; Z87.01 Personal history of pneumonia (recurrent)

== ENCOUNTER → 2022-04-15 | Outpatient (CLI) | payer OTHER | LOC: CARD 10:00 | PROVIDERS: ATTEND Internal Medicine Cardiovascular Disease | DX: I31.3 Pericardial effusion (noninflammatory) (principal); I08.3 Combined rheumatic disorders of mitral, aortic and tricuspid valves | CPT/HCPCS: 93306 ==

== ENCOUNTER 2022-04-18 10:57 | Emergency (ER) | payer OTHER ==
[~2022-04-18] VITALS: Ht 155 cm; Wt 56.7 kg
--- NOTE | 2022-04-18 11:53 | ED Abdominal Pain ---
General Chief Complaint: General Problems/Pain Stated Complaint: LEFT SIDE ABD/BACK PAIN/HEADACHE Nursing Triage Note: PT AMB TO RM 8 W C/O LEFT SIDE PAIN THAT RADIATES TO HER BACK FOR THE PAST SEVERAL MONTHS, PT ALSO C/O NAUSEA AND SINHA. PT REPORTS SHE WAS TOLD BY GOLF COURSE DESIGNER YESTERDAY THAT SHE IS IN RENAL FAILURE AND TO CONTACT PCP. PER PT, PCP ADVISED PT TO GO TO ER FOR FURTHER EVALUATION AND TX. PT A&OX4, RESTLESS DURING TRIAGE. (RO WHITE APRN) History of Present Illness Date Seen by Provider: Apr 18, 2022 Time Seen by Provider: 11:40 Initial Comments Patient is a 62 yo F who presents with several months of left abdominal pain. She denies any trauma to the affected area. She has seen multiple providers rece ntly for the symptoms. Had a colonoscopy yesterday that revealed 4 polyps but no other acute findings. She states she saw her finnish rubber on Thursday where she was told she was in "renal failure". Pt called her PCP today who recommended she be seen in the ED for her pain. Pt has been taking OTC analgesics for the pain. She states her appetite has been decreased. She denies any N/V/D or constipation. Nothing acutely changed today prompting her presentation to the ED. Patient states she just wants answers in regards to the cause of her pain. Timing/Duration: Constant, Other (several months) (RO WHITE APRN) Allergies and Home Medications Allergies Coded Allergies: Sulfa (Sulfonamide Antibiotics) (Verified Allergy, Unknown, 08/16/16) codeine (Verified Allergy, Unknown, Pt takes Lortab at home, 01/20/18) Patient Home Medication List Home Medication List Reviewed: Yes (RO WHITE APRN) Doxazosin Mesylate (Doxazosin Mesylate) 2 Mg Tablet, 2 MG PO BID, (Reported) Entered as Reported by: SAGRARIO DUARTE on 10/30/21 1528 Famotidine (Famotidine) 20 Mg Tablet, 20 MG PO HS, (Reported) Entered as Reported by: ALBERTO MONTIEL on 10/18/20 1033 Flecainide Acetate (Flecainide Acetate) 50 Mg Tablet, 50 MG PO BID, (Reported) Entered as Reported by: SAGRARIO DUARTE on 10/30/21 1528 Furosemide (Furosemide) 20 Mg Tablet, 20 MG PO DAILY, (Reported) Entered as Reported by: ALY SILVA on 04/03/22 1230 Levothyroxine Sodium (Levothyroxine Sodium) 125 Mcg Tablet, 125 MCG PO DAILY, (Reported) Entered as Reported by: ALY SILVA on 04/03/22 1230 Lisinopril (Lisinopril) 40 Mg Tablet, 40 MG PO DAILY, (Reported) Entered as Reported by: SAGRARIO DUARTE on 10/30/21 1528 Metoprolol Succinate (Metoprolol Succinate) 200 Mg Tab.er.24h, 200 MG PO DAILY, (Reported) Entered as Reported by: ALY SILVA on 04/03/22 1230 Promethazine HCl (Promethazine Tablet) 25 Mg Tablet, 25 MG PO Q4H PRN for NAUSEA/VOMITING-2ND LINE, (Reported) Entered as Reported by: MIKE FONTENOT on 12/22/17 1452 Rivaroxaban (Xarelto) 20 Mg Tablet, 20 MG PO DAILY, (Reported) Entered as Reported by: ALBERTO MONTIEL on 10/18/20 1033 Rizatriptan Benzoate (Maxalt Flosser) 10 Mg Tab.rapdis, 10 MG PO UD PRN for MIGRAINE, (Reported) Entered as Reported by: MIKE FONTENOT on 01/21/18 0934 Triamcinolone Acet (Triamcinolone Acetonide 0.1% Cream) 15 Gm Cr, 1 APPLIC TP BID PRN for ECZEMA, (Reported) Entered as Reported by: SUSAN LAKE on 02/20/20 1613 Review of Systems Review of Systems Constitutional: no symptoms reported EENTM: No Symptoms Reported Respiratory: No Symptoms Reported Cardiovascular: No Symptoms Reported Gastrointestinal: Abdominal Pain, Poor Appetite Genitourinary: No Symptoms Reported Musculoskeletal: no symptoms reported Skin: no symptoms reported Psychiatric/Neurological: No Symptoms Reported (RO WHITE APRN) Past Qqdynuj-Epjghx-Hlerkq Hx Patient Social History Tobacco Use?: Yes Tobacco type used: Cigarettes Smoking Status: Current Everyday Smoker Use of E-Cig and/or Vaping dev: No Substance use?: No Alcohol Use?: No (RO WHITE APRN) Immunizations Up To Date Influenza Vaccine Up-to-Date: No; Not Current First/Initial COVID19 Vaccinat: 2020 Second COVID19 Vaccination Ralph: 2020 Third COVID19 Vaccination Date: N/A COVID19 Vaccine Lodge Attendant: HORTENSIA (RO WHITE APRN) Seasonal Allergies Seasonal Allergies: No (RO WHITE APRN) Past Medical History Surgery/Hospitalization HX: SX: HYSTERECTOMY PMH: AFIB, COPD, HTN Surgeries: Yes (HYST/BSO; RIGHT BREAST BIOPSY/BENIGN LUMPECTOMY; ) Breast, Hysterectomy, Oophorectomy, Tonsillectomy, Tubal Ligation Respiratory: Yes (WEARS HOME 02/2L CONTINUOUSLY) COPD Currently Using CPAP: No Currently Using BIPAP: No Cardiac: Yes Atrial Fibrillation, Hypertension Neurological: Yes Headaches /Migraines Female 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 Disorders: Menstrual Problems SPOUT TENDER History: Hysterectomy, Menopausal Genitourinary: Yes Kidney Stones Gastrointestinal: Yes Gastroesophageal Reflux, Polyps Musculoskeletal: No Endocrine: Yes Hypothyroidsim HEENT: No (CATARACTS REMOVED) Loss of Vision: Denies Hearing Impairment: Denies Cancer: No Psychosocial: Yes Anxiety, Depression Integumentary: Yes Eczema Blood Disorders: No Adverse Reaction/Blood Tranf: No (RO WHITE APRN) Family Medical History Cataracts G8 BROTHER Colon cancer Coronary thrombosis 19 FATHER Deafness or hearing loss 19 FATHER 19 MOTHER Diabetes mellitus 19 FATHER Headache disorder 19 MOTHER son Hypertension 19 FATHER 19 MOTHER G8 BROTHER Myocardial infarction 19 FATHER 19 MOTHER Neoplasm 19 MOTHER Parkinson's disease 19 MOTHER Severe allergy son Hypertension HTN (RO WHITE APRN) Physical Exam Vital Signs Vital Signs - First Documented 04/18/22 11:03 Temp 36.2 Pulse 84 Resp 20 B/P (MAP) 181/115 (137) Pulse Ox 95 O2 Delivery Room Air (ANYA ANTOINE MD) Vital Signs Capillary Refill : Less Than 3 Seconds (RO WHITE APRN) Height/Weight/BMI Height: 5'0" Weight: 145lbs. 0.0oz. 65.243144nn; 23.00 BMI Method:Stated General Appearance: WD/WN, no apparent distress HEENT: PERRL/EOMI, normal ENT inspection, TMs normal, pharynx normal Neck: non-tender, full range of motion, supple, normal inspection Respiratory: chest non-tender, lungs clear, normal breath sounds, no respiratory distress, no accessory muscle use Cardiovascular: normal peripheral pulses, regular rate, rhythm, no edema, no gallop, no JVD, no murmur Gastrointestinal: normal bowel sounds, non tender, soft, no organomegaly, no pulsatile mass Extremities: normal range of motion, non-tender, normal inspection, no pedal edema, no calf tenderness, normal capillary refill Pelvic: normal external exam, normal adnexa, no cerv. motion tender, no masses, discharge Neurologic/Psychiatric: sourcing intern II-XII nml as tested, no motor/sensory deficits, alert, normal mood/affect, oriented x 3 Skin: normal color, warm/dry (RO WHITE APRN) Progress/Results/Core Measures Results/Orders Lab Results Laboratory Tests Test 04/18/22 11:16 04/18/22 11:55 Range/Units White Blood Count 7.3 4.3-11.0 10^3/uL Red Blood Count 5.43 H 3.80-5.11 10^6/uL Hemoglobin 16.3 H 11.5-16.0 g/dL Hematocrit 49 35-52 % Mean Corpuscular Volume 91 80-99 fL Mean Corpuscular Hemoglobin 30 25-34 pg Mean Corpuscular Hemoglobin Concent 33 32-36 g/dL Red Cell Distribution Width 15.0 H 10.0-14.5 % Platelet Count 284 130-400 10^3/uL Mean Platelet Volume 10.2 9.0-12.2 fL Immature Granulocyte % (Auto) 0 % Neutrophils (%) (Auto) 65 42-75 % Lymphocytes (%) (Auto) 19 12-44 % Monocytes (%) (Auto) 12 0-12 % Eosinophils (%) (Auto) 3 0-10 % Basophils (%) (Auto) 1 0-10 % Neutrophils # (Auto) 4.8 1.8-7.8 10^3/uL Lymphocytes # (Auto) 1.4 1.0-4.0 10^3/uL Monocytes # (Auto) 0.9 0.0-1.0 10^3/uL Eosinophils # (Auto) 0.3 0.0-0.3 10^3/uL Basophils # (Auto) 0.1 0.0-0.1 10^3/uL Immature Granulocyte # (Auto) 0.0 0.0-0.1 10^3/uL Sodium Level 137 135-145 MMOL/L Potassium Level 3.9 3.6-5.0 MMOL/L Chloride Level 98 98-107 MMOL/L Carbon Dioxide Level 22 21-32 MMOL/L Anion Gap 17 H 5-14 MMOL/L Blood Urea Nitrogen 11 7-18 MG/DL Creatinine 0.87 0.60-1.30 MG/DL Estimat Glomerular Filtration Rate 74 BUN/Creatinine Ratio 13 Glucose Level 108 H 70-105 MG/DL Calcium Level 12.2 H 8.5-10.1 MG/DL Corrected Calcium 11.9 H 8.5-10.1 MG/DL Total Bilirubin 2.3 H 0.1-1.0 MG/DL Aspartate Amino Transf (AST/SGOT) 21 5-34 U/L Alanine Aminotransferase (ALT/SGPT) 15 0-55 U/L Alkaline Phosphatase 158 H 40-136 U/L Total Protein 7.9 6.4-8.2 GM/DL Albumin 4.4 3.2-4.5 GM/DL Lipase 9 8-78 U/L Urine Color YELLOW Urine Clarity CLEAR Urine pH 7.5 5-9 Urine Specific [place] 1.015 L 1.016-1.022 Urine Protein NEGATIVE NEGATIVE Urine Glucose (UA) NEGATIVE NEGATIVE Urine Ketones NEGATIVE NEGATIVE Urine Nitrite NEGATIVE NEGATIVE Urine Bilirubin NEGATIVE NEGATIVE Urine Urobilinogen 0.2 < = 1.0 MG/DL Urine Leukocyte Esterase TRACE H NEGATIVE Urine RBC (Auto) NEGATIVE NEGATIVE Urine RBC NONE /HPF Urine WBC 0-2 /HPF Urine Squamous Epithelial Cells 0-2 /HPF Urine Crystals NONE /LPF Urine Bacteria MODERATE H /HPF Urine Casts NONE /LPF Urine Mucus NEGATIVE /LPF Urine Culture Indicated YES (ANYA ANTOINE MD) Vital Signs/I&O 04/18/22 04/18/22 11:03 13:57 Temp 36.2 Pulse 84 73 Resp 20 20 B/P (MAP) 181/115 (137) 124/88 Pulse Ox 95 96 O2 Delivery Room Air Room Air (ANYA ANTOINE MD) Blood Pressure Mean: 137 Progress Progress Note : Progress Note Patient is nontoxic and well hydrated on exam. She does have some mild left lateral abdominal TTP. No flank pain noted. Vital signs are reassuring. Laboratory evaluation is reassuring. CT of the abd/pelvis is acutely negative. Her kidney function is normal. Discussed need for follow-up with PCP for discussion regarding pain control and further evaluation. Her BP did improve after a modest dose of morphine. Return precautions for urgent symptomology discussed. Patient verbalized understanding. (RO WHITE APRN) Departure Impression Primary Impression: Left sided abdominal pain Disposition: HOME, SELF-CARE Condition: Improved Departure-Patient Inst. Decision time for Depature: 13:20 (RO WHITE APRN) Referrals: [facility] [place] ([place]/Family) Primary Care Physician Patient Instructions: Abdominal Pain, Adult ED, CHRONIC PAIN ATTENDING PHYSICIAN NOTE: I was physically present as attending physician in the emergency department during the care of this patient, but I was not directly involved in the decision making or delivery of care for this patient. (NAYA ANTOINE MD) RO WHITE APRN Apr 18, 2022 11:53 ANYA ANTOINE MD Apr 19, 2022 06:25
[2022-04-18] MEDS ORDERED: ONDANSETRON 4 MG/2 ML (SDV) Z0FRAN IVP ONE (12:00)
[2022-04-18 12:05] LABS: BILIRUBIN,URINE NEGATIVE (NEGATIVE); CLARITY,URINE CLEAR; COLOR,URINE YELLOW; GLUCOSE, URINE (UA) NEGATIVE (NEGATIVE); KETONES,URINE NEGATIVE (NEGATIVE); LEUKOCYTE ESTERASE ,URINE TRACE (NEGATIVE); NITRITE,URINE NEGATIVE (NEGATIVE); PH,URINE 7.5 (5-9); PROTEIN,URINE NEGATIVE (NEGATIVE)
[2022-04-18 12:07] LABS: BASOPHILS # (AUTO) 0.1 10^3/uL (0.0-0.1); BASOPHILS % (AUTO) 1 % (0-10); EOSINOPHILS # (AUTO) 0.3 10^3/uL (0.0-0.3); EOSINOPHILS % (AUTO) 3 % (0-10); HEMATOCRIT 49 % (35-52); HEMOGLOBIN 16.3 g/dL (11.5-16.0); LYMPHOCYTES # (AUTO) 1.4 10^3/uL (1.0-4.0); LYMPHOCYTES % (AUTO) 19 % (12-44); MEAN CORPUSCULAR HEMOGLOBIN 30 pg (25-34); MEAN CORPUSCULAR HGB CONC 33 g/dL (32-36); MEAN CORPUSCULAR VOLUME 91 fL (80-99); MEAN PLATELET VOLUME 10.2 fL (9.0-12.2); MONOCYTES # (AUTO) 0.9 10^3/uL (0.0-1.0); MONOCYTES % (AUTO) 12 % (0-12); NEUTROPHILS # (AUTO) 4.8 10^3/uL (1.8-7.8); NEUTROPHILS % (AUTO) 65 % (42-75); PLATELET COUNT 284 10^3/uL (130-400); WHITE BLOOD COUNT 7.3 10^3/uL (4.3-11.0)
[2022-04-18 12:09] LABS: ALBUMIN 4.4 GM/DL (3.2-4.5)
[2022-04-18 12:10] LABS: POTASSIUM 3.9 MMOL/L (3.6-5.0)
[2022-04-18 12:11] LABS: CALCIUM 12.2 MG/DL (8.5-10.1)
[2022-04-18 12:12] LABS: TOTAL PROTEIN 7.9 GM/DL (6.4-8.2)
[2022-04-18 12:14] LABS: BILIRUBIN,TOTAL 2.3 MG/DL (0.1-1.0)
[2022-04-18 12:16] LABS: CREATININE SERUM 0.87 MG/DL (0.60-1.30)
[2022-04-18] MEDS ORDERED: morphine INJ 10 MG/ML 1ML (SYR OR VIAL) IVP STA (12:18)
[2022-04-18 12:32] LABS: BACTERIA,URINE MODERATE /HPF; SQUAMOUS EPITHELIAL CELL,UR 0-2 /HPF; WBC,URINE 0-2 /HPF
--- NOTE | 2022-04-18 12:34 | Diagnostic Imaging Report ---
PROCEDURE: CT abdomen and pelvis without contrast. TECHNIQUE: Multiple contiguous axial images were obtained through the abdomen and pelvis without the use of intravenous contrast. Auto Exposure Controls were utilized during the CT exam to meet ALARA standards for radiation dose reduction. DATE: April 18, 2022. COMPARISON: None. INDICATION: 62-year-old female, abdominal pain and nausea. Acute kidney injury. FINDINGS: There are limitations for evaluation of the abdominal organs, neoplastic processes, abscess, and limited evaluation of the vasculature relating to the lack of intravenous contrast. There are subcentimeter calcified pulmonary nodules in the imaged lung bases. There is smooth septal thickening which may reflect interstitial edema and/or chronic lung changes. The heart is not enlarged. There is no pericardial effusion. The liver is unremarkable in size and contour. The gallbladder is unremarkable. There is no identified intrahepatic or extrahepatic bile duct dilation. Limited noncontrast assessment of the pancreatic parenchyma is unremarkable. The spleen is normal in size. The adrenal glands are unremarkable. Limited noncontrast assessment of the renal parenchyma is unremarkable. The urinary collecting systems are not distended. There is no identified renal or ureteral stone. The urinary bladder is unremarkable. The uterus is not seen and may be surgically absent. The intestinal tract is not distended. There is no evidence of acute appendicitis. There is no free intraperitoneal air. There is no drainable fluid collection. There is no sizable volume free fluid in the abdomen or pelvis. There are atherosclerotic calcifications. There is no identified abnormally enlarged lymph node in the abdomen or pelvis which meets CT size criteria for adenopathy. There is chondrocalcinosis. There are advanced disc degenerative changes at L5-S1. There is no identified acute bony normality. IMPRESSION: CT ABDOMEN AND PELVIS. 1. No identified acute abnormality in the abdomen or pelvis. 2. Smooth septal thickening in the lung bases which may reflect mild interstitial edema and/or chronic lung changes. Dictated by: Dictated on workstation # [id number]
[2022-04-18 13:57] VITALS: BP 124/88
== END 2022-04-18 13:57 | disposition home or self-care (01) ==
LOC: EDUNIT# 10:57 → ER 11:00
DX: R10.9 Unspecified abdominal pain (principal); F17.210 Nicotine dependence, cigarettes, uncomplicated
CPT/HCPCS: 36415; 74176; 80053; 81000; 83690; 85025; 87077; 87088; 87186

== ENCOUNTER 2022-06-27 11:11 | Emergency (ER) | payer OTHER ==
[~2022-06-27] VITALS: Ht 152.4 cm; Wt 54.4 kg
--- NOTE | 2022-06-27 11:42 | ED Cardiac General ---
History of Present Illness General Chief Complaint: Chest Pain Stated Complaint: CHEST PAINS | SOB | AFIB Nursing Triage Note: PT TO RM 2 BY WC WITH COMPLAINT CP, SOA ON EXERTION, AND AFIB. STATES KIDNEY DR TOOK HER OFF HER LASIX AND LISINIPRIL. Source: patient Exam Limitations: no limitations History of Present Illness Date Seen by Provider: Jun 27, 2022 Time Seen by Provider: 11:30 Initial Comments Patient is a 62-year-old female who presents to the emergency department with approximately 1 week of progressively worsening shortness of air especially with exertion. Patient has a history of congestive heart failure and atrial fibrillation. She states she does have mild chest pain. States she has had no lower extremity edema. She historically has taken Lasix for her CHF but this was stopped approximately 1 month ago by her manufacturing advisor. She states she initially had no issues but slowly began to have increasing shortness of breath and exertional intolerance. She states she used to be on home oxygen at 2 L via nasal cannula but has been off of her oxygen since the summer as she was not using it and her insurance reportedly stated they would not continue to pay for it if she was not using it. Allergies and Home Medications Allergies Coded Allergies: Sulfa (Sulfonamide Antibiotics) (Verified Allergy, Unknown, 08/16/16) codeine (Verified Allergy, Unknown, Pt takes Lortab at home, 01/20/18) Patient Home Medication List Home Medication List Reviewed: Yes Doxazosin Mesylate (Doxazosin Mesylate) 2 Mg Tablet, 2 MG PO BID, (Reported) Entered as Reported by: SAGRARIO DUARTE on 10/30/21 1528 Famotidine (Famotidine) 20 Mg Tablet, 20 MG PO HS, (Reported) Entered as Reported by: ALBERTO MONTIEL on 10/18/20 1033 Flecainide Acetate (Flecainide Acetate) 50 Mg Tablet, 50 MG PO BID, (Reported) Entered as Reported by: SAGRARIO DUARTE on 10/30/21 1528 Furosemide (Furosemide) 20 Mg Tablet, 20 MG PO DAILY, (Reported) Entered as Reported by: ALY SILVA on 04/03/22 1230 Levothyroxine Sodium (Levothyroxine Sodium) 125 Mcg Tablet, 125 MCG PO DAILY, (Reported) Entered as Reported by: ALY SILVA on 04/03/22 1230 Lisinopril (Lisinopril) 40 Mg Tablet, 40 MG PO DAILY, (Reported) Entered as Reported by: SAGRARIO DUARTE on 10/30/21 1528 Metoprolol Succinate (Metoprolol Succinate) 200 Mg Tab.er.24h, 200 MG PO DAILY, (Reported) Entered as Reported by: ALY SILVA on 04/03/22 1230 Promethazine HCl (Promethazine Tablet) 25 Mg Tablet, 25 MG PO Q4H PRN for NAUSEA/VOMITING-2ND LINE, (Reported) Entered as Reported by: MIKE FONTENOT on 12/22/17 1452 Rivaroxaban (Xarelto) 20 Mg Tablet, 20 MG PO DAILY, (Reported) Entered as Reported by: ALBERTO MONTIEL on 10/18/20 1033 Rizatriptan Benzoate ([employer] Professional) 10 Mg Tab.rapdis, 10 MG PO UD PRN for MIGRAINE, (Reported) Entered as Reported by: MIKE FONTENOT on 01/21/18 0934 Triamcinolone Acet (Triamcinolone Acetonide 0.1% Cream) 15 Gm Cr, 1 APPLIC TP BID PRN for ECZEMA, (Reported) Entered as Reported by: SUSAN LAKE on 02/20/20 1613 Review of Systems Review of Systems Constitutional: no symptoms reported EENTM: No Symptoms Reported Respiratory: See HPI, Shortness of Air, SOA With Exertion Cardiovascular: See HPI, Chest Pain, Irregular Heart Rate Gastrointestinal: No Symptoms Reported Genitourinary: No Symptoms Reported Musculoskeletal: no symptoms reported Skin: no symptoms reported Psychiatric/Neurological: No Symptoms Reported Endocrine: No Symptoms Reported Past [id number] Hx Patient Social History Tobacco Use?: Yes Tobacco type used: Cigarettes Smoking Status: Current Everyday Smoker Use of E-Cig and/or Vaping dev: No Substance use?: No Alcohol Use?: No Pt feels they are or have been: No Immunizations Up To Date Influenza Vaccine Up-to-Date: No; Not Current First/Initial COVID19 Vaccinat: 2020 Second COVID19 Vaccination Ralph: 2020 Third COVID19 Vaccination Date: N/A Seasonal Allergies Seasonal Allergies: No Past Medical History Surgery/Hospitalization HX: SX: HYSTERECTOMY PMH: AFIB, COPD, HTN Surgeries: Yes (HYST/BSO; RIGHT BREAST BIOPSY/BENIGN LUMPECTOMY; ) Breast, Hysterectomy, Oophorectomy, Tonsillectomy, Tubal Ligation Respiratory: Yes (WEARS HOME 02/2L CONTINUOUSLY) COPD Currently Using CPAP: No Currently Using BIPAP: No Cardiac: Yes Atrial Fibrillation, Hypertension Neurological: Yes Headaches /Migraines Female 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 Disorders: 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, 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 Genitourinary: Yes Kidney Stones Gastrointestinal: Yes Gastroesophageal Reflux, Polyps Musculoskeletal: No Endocrine: Yes Hypothyroidsim HEENT: No (CATARACTS REMOVED) Loss of Vision: Denies Hearing Impairment: Denies Cancer: No Psychosocial: Yes Anxiety, Depression Integumentary: Yes Eczema Blood Disorders: No Adverse Reaction/Blood Tranf: No Family Medical History Cataracts G8 BROTHER Colon cancer Coronary thrombosis 19 FATHER Deafness or hearing loss 19 FATHER 19 MOTHER Diabetes mellitus 19 FATHER Headache disorder 19 MOTHER son Hypertension 19 FATHER 19 MOTHER G8 BROTHER Myocardial infarction 19 FATHER 19 MOTHER Neoplasm 19 MOTHER Parkinson's disease 19 MOTHER Severe allergy son Hypertension HTN Physical Exam Vital Signs Vital Signs - First Documented Capillary Refill : Less Than 3 Seconds Height, Weight, BMI Height: 5'0" Weight: 145lbs. 0.0oz. 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 Norm as Tested Skin: Normal Color, Warm/Dry Progress/Results/Core Measures Results/Orders Lab Results Laboratory Tests Test 06/27/22 11:20 Range/Units White Blood Count 7.3 4.3-11.0 10^3/uL Red Blood Count 4.43 3.80-5.11 10^6/uL Hemoglobin 14.3 11.5-16.0 g/dL Hematocrit 44 35-52 % Mean Corpuscular Volume 98 80-99 fL Mean Corpuscular Hemoglobin 32 25-34 pg Mean Corpuscular Hemoglobin Concent 33 32-36 g/dL Red Cell Distribution Width 17.1 H 10.0-14.5 % Platelet Count 273 130-400 10^3/uL Mean Platelet Volume 9.6 9.0-12.2 fL Immature Granulocyte % (Auto) 0 % Neutrophils (%) (Auto) 70 42-75 % Lymphocytes (%) (Auto) 19 12-44 % Monocytes (%) (Auto) 9 0-12 % Eosinophils (%) (Auto) 1 0-10 % Basophils (%) (Auto) 1 0-10 % Neutrophils # (Auto) 5.1 1.8-7.8 10^3/uL Lymphocytes # (Auto) 1.4 1.0-4.0 10^3/uL Monocytes # (Auto) 0.7 0.0-1.0 10^3/uL Eosinophils # (Auto) 0.1 0.0-0.3 10^3/uL Basophils # (Auto) 0.1 0.0-0.1 10^3/uL Immature Granulocyte # (Auto) 0.0 0.0-0.1 10^3/uL Prothrombin Time 43.2 H 12.2-14.7 SEC INR Comment 4.6 H 0.8-1.4 Activated Partial Thromboplast Time 52 H 24-35 SEC Sodium Level 133 L 135-145 MMOL/L Potassium Level 4.6 3.6-5.0 MMOL/L Chloride Level 101 98-107 MMOL/L Carbon Dioxide Level 21 21-32 MMOL/L Anion Gap 11 5-14 MMOL/L Blood Urea Nitrogen 12 7-18 MG/DL Creatinine 0.98 0.60-1.30 MG/DL Estimat Glomerular Filtration Rate 64 BUN/Creatinine Ratio 12 Glucose Level 119 H 70-105 MG/DL Calcium Level 10.5 H 8.5-10.1 MG/DL Corrected Calcium 10.5 H 8.5-10.1 MG/DL Magnesium Level 1.7 1.6-2.4 MG/DL Total Bilirubin 1.8 H 0.1-1.0 MG/DL Aspartate Amino Transf (AST/SGOT) 20 5-34 U/L Alanine Aminotransferase (ALT/SGPT) 9 0-55 U/L Alkaline Phosphatase 150 H 40-136 U/L Troponin I < 0.028 <0.028 NG/ML B-Type Natriuretic Peptide 1887.5 H <100.0 PG/ML Total Protein 7.1 6.4-8.2 GM/DL Albumin 4.0 3.2-4.5 GM/DL My Orders Orders - RO WHITE CARLA Ekg Tracing (06/27/22 11:24) Cbc With Automated Diff (06/27/22 11:32) Magnesium (06/27/22 11:32) Chest 1 View, Ap/Pa Only (06/27/22 11:32) Comprehensive Metabolic Panel (06/27/22 11:32) Protime With Inr (06/27/22 11:32) Partial Thromboplastin Time (06/27/22 11:32) O2 (06/27/22 11:32) Monitor-Rhythm Ecg Trace Only (06/27/22 11:32) Ed Iv/Invasive Line Start (06/27/22 11:32) Bnp Donnie (06/27/22 11:32) Troponin I Donnie (06/27/22 11:32) Aspirin Chewable Tablet (Baby Aspirin Ch (06/27/22 11:45) Furosemide Injection (Lasix Injection) (06/27/22 12:45) Ceftriaxone 1 Gm Pre-Mix (Rocephin 1 Gm (06/27/22 13:45) Medications Given in ED Current Medications Medications Dose Ordered Sig/Elsa Route Start Time Stop Time Status Last Admin Dose Admin Aspirin 324 mg ONCE ONCE PO 06/27/22 11:45 06/27/22 11:46 DC 06/27/22 12:19 324 MG Ceftriaxone Sodium/Dextrose 50 ml @ 100 mls/hr ONCE ONCE IV 06/27/22 13:45 06/27/22 14:14 DC 06/27/22 14:01 100 MLS/HR Furosemide 40 mg ONCE ONCE IVP 06/27/22 12:45 06/27/22 12:46 DC 06/27/22 14:01 40 MG Vital Signs/I&O 06/27/22 06/27/22 11:14 11:14 Temp 36.3 Pulse 89 Resp 16 B/P (MAP) 135/91 (106) Pulse Ox 94 O2 Delivery Nasal Cannula Nasal Cannula O2 Flow Rate 2.00 2.00 Blood Pressure Mean: 106 Progress Progress Note : Progress Note Patient is nontoxic and well-hydrated on exam. She was mildly hypoxic upon arrival at 88% on room air. Patient was placed on 1 L of oxygen for comfort. She does have some decreased breath sounds in all lung morales but no discrete crackles or rails. Vital signs are otherwise reassuring. Patient appears to be in atrial fibrillation although her rate is controlled at this time. EKG confirms A. fib. There is no acute ischemic changes appreciated. She does not appear to have RVR and her rate has been less than 100 during her stay in the ER. BNP is markedly elevated. Chest x-ray does show some possible new infiltrates. Due to this she was given Rocephin. Patient was also given 40 mg of IV Lasix. I spoke with Dr. 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 Lasix as well as 10 mEq of potassium daily. She is currently already taking 10 mEq of daily potassium. Her kidney function appears good on CMP. I attempted to set up home oxygen but the [email or web address] company said that her insurance will not pay for oxygen if it is set up through the emergency department. She subsequently had improvement in her shortness of air after the Lasix and subsequent diuresis. I stated we could admit her for further evaluation and diuresis. She declined stating that she wishes to go home with the plan of restarting her Lasix and following up with her brewery worker and PCP early next week. She did ambulate to the bathroom and was not hypoxic. Will discharge home with recommendations for supportive care and follow-up as discussed above. Return precautions for urgent symptomology discussed. Patient verbalized understanding. EKG : EKG Time: 11:25 Rate: 85 Rhythm: A Fib/Flutter ECG Impression: Atrial Fibrillation Departure Impression Primary Impression: Acute exacerbation of CHF (congestive heart failure) Qualified Codes: I50.9 - Heart failure, unspecified Additional Impression: Pneumonia Qualified Codes: J18.9 - Pneumonia, unspecified organism Disposition: 01 HOME, SELF-CARE Condition: Stable Departure-Patient Inst. Decision time for Depature: 15:00 Referrals: [facility] (PCP/Family) Primary Care Physician Patient Instructions: Pneumonia, Adult ED, Heart Failure ED Scripts Azithromycin (Azithromycin) 250 Mg Tablet 250 MG PO UD, #6 TAB TAKE 2 TABLETS ON DAY ONE THEN TAKE 1 TABLET DAILY FOR FOUR MORE DAYS Prov: RO WHITE APRN 06/27/22 Amoxicillin (Amoxicillin) 500 Mg Tablet 1000 MG PO Q8H for 7 Days, #42 TAB 0 Refills Prov: RO WHITE APRN 06/27/22 RO WHITE APRN Jun 27, 2022 11:42
[2022-06-27] MEDS ORDERED: ASPIRIN 81 MG CHEW (CHILDREN'S ASA) PO ONE (11:45)
[2022-06-27 11:59] LABS: BASOPHILS # (AUTO) 0.1 10^3/uL (0.0-0.1); BASOPHILS % (AUTO) 1 % (0-10); EOSINOPHILS # (AUTO) 0.1 10^3/uL (0.0-0.3); EOSINOPHILS % (AUTO) 1 % (0-10); HEMATOCRIT 44 % (35-52); HEMOGLOBIN 14.3 g/dL (11.5-16.0); LYMPHOCYTES # (AUTO) 1.4 10^3/uL (1.0-4.0); LYMPHOCYTES % (AUTO) 19 % (12-44); MEAN CORPUSCULAR HEMOGLOBIN 32 pg (25-34); MEAN CORPUSCULAR HGB CONC 33 g/dL (32-36); MEAN CORPUSCULAR VOLUME 98 fL (80-99); MEAN PLATELET VOLUME 9.6 fL (9.0-12.2); MONOCYTES # (AUTO) 0.7 10^3/uL (0.0-1.0); MONOCYTES % (AUTO) 9 % (0-12); NEUTROPHILS # (AUTO) 5.1 10^3/uL (1.8-7.8); NEUTROPHILS % (AUTO) 70 % (42-75); PLATELET COUNT 273 10^3/uL (130-400); WHITE BLOOD COUNT 7.3 10^3/uL (4.3-11.0)
[2022-06-27 12:04] LABS: POTASSIUM 4.6 MMOL/L (3.6-5.0)
[2022-06-27 12:06] LABS: CALCIUM 10.5 MG/DL (8.5-10.1)
[2022-06-27 12:07] LABS: TOTAL PROTEIN 7.1 GM/DL (6.4-8.2)
[2022-06-27 12:08] LABS: INR 4.6 (0.8-1.4); PROTHROMBIN TIME PATIENT 43.2 SEC (12.2-14.7)
[2022-06-27 12:09] LABS: BILIRUBIN,TOTAL 1.8 MG/DL (0.1-1.0)
[2022-06-27 12:10] LABS: CREATININE SERUM 0.98 MG/DL (0.60-1.30)
[2022-06-27 12:14] LABS: MAGNESIUM 1.7 MG/DL (1.6-2.4)
--- NOTE | 2022-06-27 12:19 | Diagnostic Imaging Report ---
CLINICAL INDICATION: Patient with chest pain. EXAM: Portable chest x-ray upright view. COMPARISON: Chest x-ray dated 11/06/2020. FINDINGS: Stable cardiomegaly. There is pulmonary vascular congestion centrally. There is mild patchy airspace opacities involving the right perihilar area right lung base region. There is overall improved aeration of the right lung compared to prior study. There is no pleural effusion or pneumothorax. Bones show no significant interval abnormality. IMPRESSION: 1: There is cardiomegaly with mild pulmonary vascular congestion centrally. 2: There are mild patchy infiltrates involving the right lung base. Dictated by: Dictated on workstation # [id number]
[2022-06-27] MEDS ORDERED: FUROSEMIDE 40 MG/4 ML INJ (LASIX) IVP ONE (12:45)
[2022-06-27] MEDS ORDERED: cefTRIAXone 1 GM PRE-MIX 50 ML IV ONE (13:45)
[2022-06-27] MEDS ORDERED: AMOX500T2 PO ×2 (15:13→15:28)
[2022-06-27] MEDS ORDERED: AZIT250T12 PO ×2 (15:13→15:28)
[2022-06-27 15:28] VITALS: BP 131/90
== END 2022-06-27 15:28 | disposition home or self-care (01) ==
LOC: EDUNIT# 11:11 → ER 11:13
DX: I11.0 Hypertensive heart disease with heart failure (principal); I50.9 Heart failure, unspecified; J18.9 Pneumonia, unspecified organism; J44.9 Chronic obstructive pulmonary disease, unspecified; F17.210 Nicotine dependence, cigarettes, uncomplicated; Z88.0 Allergy status to penicillin; Z99.81 Dependence on supplemental oxygen
CPT/HCPCS: 36415; 71045; 80053; 83735; 83880; 84484; 85025; 85610; 85730; 93005; 93041